=== PATIENT | male | born 1940 | race Caucasian/White ===

== ENCOUNTER 2021-12-19 06:40 | Inpatient (IN) | payer OTHER ==
[~2021-12-19] VITALS: Ht 182.9 cm; Wt 89.1 kg
[~2021-12-19 06:40] MED LIST: AMLO-496 PO; ASPI-543 PO; ATOR40TA52 PO; CLON0.2D6 PO; FLUT1AER13 IN; FURO40TA4 PO; KRIL1CAP PO; LEVO175T66 PO; LOSA-69 PO; NEBI2.5T3 PO; NEBI5TAB2 PO; SITA50TA PO; TIMO0.5S66 EACHEYE
[2021-12-19] MEDS ORDERED: fentaNYL CITRATE 100 MCG/2 ML VL ONE (07:56)
[2021-12-19] MEDS ORDERED: VANCOMYCIN HCL 1000 MG VL ONE ×2 (07:56→08:28)
[2021-12-19] MEDS ORDERED: VANCOMYCIN 1GM/250ML 250 ML IV ONE (07:57)
[2021-12-19] MEDS ORDERED: MIDAZOLAM HCL 2MG/2ML 2ml VIAL (1mg/ml) ONE (07:57)
[2021-12-19] MEDS ORDERED: IODIXANOL 320MG/ML 100ML BTL IV ONE (07:57)
[2021-12-19] MEDS ORDERED: LIDOCAINE 2%HCL (LOCAL ANESTH.) INJ 10ml MDV ONE ×2 (07:58→08:15)
[2021-12-19] MEDS ORDERED: MORPHINE SULFATE INJ 2 MG/ml SYRG IV PRN (10:00)
[2021-12-19] MEDS ORDERED: NITROGLYCERIN 0.4 MG SL TAB SL PRN (10:00)
[2021-12-19] MEDS ORDERED: HYDROcodone-ACET 5/325MG TAB PO PRN (11:00)
[2021-12-19] MEDS ORDERED: ACETAMINOPHEN 325 MG TAB PO PRN (11:00)
[2021-12-19] MEDS: ceFAZolin 2 GM in D5W 5% 100 ML IV SCH ×2 (11:39→22:51)
[2021-12-19 17:00] VITALS: BP 156/75
[2021-12-19 22:00] VITALS: BP 159/66
[2021-12-19] MEDS: DOXYCYCLINE 100 MG TAB/CAP PO SCH (22:51)
[2021-12-20 05:00] VITALS: BP 162/83
[2021-12-20] MEDS: ceFAZolin 2 GM in D5W 5% 100 ML IV SCH (05:07)
[2021-12-20 09:00] VITALS: BP 152/77
[2021-12-20] MEDS: DOXYCYCLINE 100 MG TAB/CAP PO SCH (10:16)
[2021-12-20 13:00] VITALS: BP 149/77
== END 2021-12-20 15:09 | disposition home or self-care (01) | DRG 244 ==
LOC: CATH 06:40 → TELE-EAST 09:50
PROVIDERS: ADMIT Specialist; ATTEND Specialist
PROC: 0JH606Z Insertion of Pacemaker, Dual Chamber into Chest Subcutaneous Tissue and Fascia, Open Approach (ICD-10-PCS; principal; 2021-12-19)
PROC: 02H63JZ Insertion of Pacemaker Lead into Right Atrium, Percutaneous Approach (ICD-10-PCS; 2021-12-19)
PROC: 02HK3JZ Insertion of Pacemaker Lead into Right Ventricle, Percutaneous Approach (ICD-10-PCS; 2021-12-19)
PROC: B5171ZZ Fluoroscopy of Left Subclavian Vein using Low Osmolar Contrast (ICD-10-PCS; 2021-12-19)
PROC: 4B02XSZ Measurement of Cardiac Pacemaker, External Approach (ICD-10-PCS; 2021-12-19)
DX: I49.5 Sick sinus syndrome (principal); Z20.822 Contact with and (suspected) exposure to COVID-19
CPT/HCPCS: 33208; 71045; 99152; 99153; C1785; G0378; J0690; J2001; J2250; J7060; Q9967

== ENCOUNTER 2025-04-06 15:34 | Inpatient (IN) | payer MEDICARE, OTHER ==
[~2025-04-06] VITALS: Ht 188 cm; Wt 87.2 kg
[~2025-04-06 15:34] MED LIST changes: -AMLO-496 PO; +AMLO1TAB22 PO; +APIX2.5T PO; +ATOR-47 PO; -ATOR40TA52 PO; +BICA50TA41 PO; -CLON0.2D6 PO; +DOXY1CAP57 PO; -FLUT1AER13 IN; +FLUT1AER3 IN; +FURO1TAB31 PO; +LATA0.008 EACHEYE; +LEVO150T10 PO; -LEVO175T66 PO; +LOSA-534 PO; -LOSA-69 PO; +NEBI10TA13 PO; -NEBI2.5T3 PO; -NEBI5TAB2 PO
--- NOTE | 2025-04-06 15:42 | ED.PDOC ---
SOB-HPI HPI Comments HPI: 84M BIBA w/ the c/c of failure to thrive. reports to EMS that she noticed the pt not being himself, not social and called PCP advised them to go to the ER, prompting her to call 911. notes to EMS that the pt has been having gen weak, lethargic for 1 month after chemo. Pt on scene was A/Ox4, GCS 14. Pt informed us that he also has SOB w/ minimal exertion. Denies ANy symptoms at this time. Patient is oxygen dependent 2-3 L nasal cannula at home. Pre- hospital course vital signs were stable. Past Medical history: COPD, Face/Lung Cancer, HTN, High Lipids, Thyroid [place], CHF, chemo x1 month Past Surgical history: Pacemaker Medications: Lasix, Eliquis Social History: Denies smoking, ETOH, and drug use. Allergies: NKDA HPI: Poor Historian. REVIEW OF SYSTEMS: CONSTITUTIONAL: Denies acute: fever, diaphoresis, chills, HEAD: Denies acute: headache, photophobia Eyes: Denies acute: Double vision, vision loss, eye pain, eye discharge. EARS: Denies acute: tinnitus, hearing loss, ear discharge, ear pain, THROAT: Denies acute: sore throat, swelling, difficulty swallowing , pain with swallowing, change in voice. NECK: Denies acute: neck pain, neck swelling, stiff neck. HEART: Denies acute : chest pain, palpitations, LUNGS: Denies acute: wheezing, cough, hemoptysis ABDOMEN: Denies acute: abdominal pain, Nausea, Vomiting, diarrhea, melena , hematemesis, hematochezia SKIN: Denies acute: rash, redness, lesions, itchiness. EXTREMITIES: Denies acute: calf pain, numbness, tingling, weakness, denies pain in extremity. Denies acute: Low back pain. Neuro: Denies acute: focal neurological deficit, motor or sensory focal neurological deficit, tremors, seizure like activity, confusion, dizziness, loss of bowel or bladder function, cauda equina like symptoms. : Denies acute: dysuria, hematuria, flank pain, increase in urinary frequency. PSYCH: Denies acute: hallucination, suicidal ideation, homicidal ideation. PHYSICAL EXAM: General: ----[id number]----acute distress, awake and alert. Head: normocephalic, atraumatic. No raccoon's eyes, no bryant sign. Neck: supple, trachea is midline, no swelling. Throat: Normal phonation. Eyes:, no erythema, no purulent discharge, no proptosis, no icterus. Heart: regular rate, regular rhythm, no significant murmur appreciated. Lungs: no apparent respiratory distress, Able to speak in full sentences. No wheezing, no rhonchi, no crackles. No stridors Clear to auscultation bilaterally. Abdomen: non tender to palpation, non distended, soft, no guarding, no rebound, + bowel sounds. Obese Neuro: Awake, Alert, oriented to name, self, situation, follows commands GCS=15. Speech is normal. Skin: no petechia, no purpura, no cyanosis, non-pale, not jaundice. Lower extremities: --2/4 bilateral - Pitting edema no deformity, no focal swelling, no calf TTP. Makes eye contact. moves all four extremities. Face: no apparent facial droop. ED COURSE: DISCLAIMER: This medical document was created using an electronic medical record system with voice recognition software and computerized dictation system. Although this document has been carefully reviewed, there might still be some phonetic and typographical errors. Occasional wrong-word or "sound-alike" substitutions may have occurred due to the inherent limitations of voice recognition software. These areas are purely typographical due to imperfections of the software pro grams and do not reflect any compromise in the patient's medical care. Please read the chart carefully and recognize, using context, where these substitutions have occurred. Chief Complaint: Failure to Thrive Time Seen by MD: 15:40 Reviewed notes: Nurses Notes, Medications, Allergies Information Source: Patient Mode of Arrival: EMS EKG EKG : Pulse Rate (adult): 71 [place]: Normal Cardiac Rhythm: NSR Block: LBBB Hypertrophy: None ST: Normal Was a procedure done? Was a procedure done?: No Differential Dx Differential Diagnosis: Other (DDx include ACS, unstable angina, anxiety, PE, pneumothroax, neoplasm, cardiac ischemia, COPD, asthma, CHF, pleural effusion, tobacco abuse, pneumonia, hypoxia, hypercapnia, anemia., infection/sepsis., pulmonary edema. Asthma, Cardiac tamponade, infection. As far as generalized weakness: Includes but not limited to thyroid disease, encephalopathy, electrolyte abnormality, sepsis, infection, intracranial pathology, drug adverse effects, arrhythmia, kidney insufficiency, ACS, CVA, malignancy, anemia) X-Ray, Labs, Meds, VS Vital Signs Date Time Temp Pulse Resp B/P (MAP) Pulse Ox O2 Delivery O2 Flow Rate FiO2 04/06/25 18:49 71 04/06/25 18:30 78 18 116/51 (72) 94 04/06/25 17:05 113/56 04/06/25 17:00 75 24 113/56 (75) 92 04/06/25 16:00 71 22 95 Nasal Cannula* 3 32 04/06/25 15:55 97.5 71 22 110/50 (70) 97 97.5 04/06/25 15:51 71 04/06/25 15:46 71 04/06/25 15:43 96 Nasal Cannula* 3 32 04/06/25 15:36 97.2 90 16 120/52 96 97.2 Lab Test 04/06/25 19:34 04/06/25 19:02 04/06/25 17:13 04/06/25 17:00 Range/Units Lactic Acid Level 0.6 0.4-2.0 mmol/L Troponin I High Sensitivity 13 14 </=54 ng/L Urine Color Colorless Yellow Urine Clarity Clear Clear Urine pH 5.0 5.0-9.0 Urine Specific [place] 1.009 1.001-1.035 Urine Protein Negative Negative Urine Ketones Negative Negative Urine Blood Trace H Negative /uL Urine Nitrite Negative Negative Urine Bilirubin Negative Negative Urine Urobilinogen Normal Negative mg/dL Urine Leukocyte Esterase 3+ Negative /uL Urine RBC 5 0 - 3 /hpf Urine Microscopic WBC 117 H 0-3 /HPF Urine Squamous Epithelial Cells Few <5 /hpf Urine Bacteria Many H None Seen /hpf Urine Glucose Normal Normal mg/dL Test 04/06/25 15:56 Range/Units White Blood Count 7.6 4.4-10.8 10^3/uL Red Blood Count 2.92 L 4.5-5.90 10^6/uL Hemoglobin 8.6 L 13.5-17.5 g/dL Hematocrit 27.0 L 41.0-53.0 % Mean Corpuscular Volume 92.4 80.0-100.0 fL Mean Corpuscular Hemoglobin 29.4 28.0-32.0 pg Mean Corpuscular Hemoglobin Concent 31.8 L 32.0-36.0 g/dL Red Cell Distribution Width 18.4 H 11.8-14.3 % Platelet Count 256 140-450 10^3/uL Mean Platelet Volume 7.4 6.9-10.8 fL Neutrophils (%) (Auto) 79.7 37.0-80.0 % Lymphocytes (%) (Auto) 5.6 L 10.0-50.0 % Monocytes (%) (Auto) 12.7 H 0.0-12.0 % Eosinophils (%) (Auto) 1.5 0.0-7.0 % Basophils (%) (Auto) 0.5 0.0-2.0 % Neutrophils # (Auto) 6.1 1.6-8.6 10 ^3/uL Lymphocytes # (Auto) 0.4 0.4-5.4 10 ^3/uL Monocytes # (Auto) 1.0 0-1.3 10 ^3/uL Eosinophils # (Auto) 0.1 0-0.8 10 ^3/uL Basophils # (Auto) 0 0-0.2 10 ^3/uL Nucleated Red Blood Cells 0.1 % Sodium Level 147 H 136-145 mmol/L Potassium Level 4.5 3.5-5.1 mmol/L Chloride Level 110 H 98-107 mmol/L Carbon Dioxide Level 27 20-31 mmol/L Anion Gap 10 5-15 Blood Urea Nitrogen 62 H 9-23 mg/dL Creatinine 2.74 H 0.700-1.30 mg/dL Glomerular Filtration Rate Calc 22 >90 mL/min BUN/Creatinine Ratio 22.6 H 10.0-20.0 Serum Glucose 108 H 74-106 mg/dL Calcium Level 8.6 L 8.7-10.4 mg/dL Magnesium Level 2.7 H 1.6-2.6 mg/dL Total Bilirubin 0.2 0.2-1.0 mg/dL Aspartate Amino Transferase (AST) 21 13-40 U/L Alanine Aminotransferase (ALT) 14 7-40 U/L Alkaline Phosphatase 80 46-116 U/L Troponin I High Sensitivity 13 </=54 ng/L B-Type Natriuretic Peptide 370.27 0-100 pg/mL Total Protein 7.1 5.7-8.2 g/dL Albumin 3.6 3.2-4.8 g/dL Current Medications Medications (Trade) Dose Ordered Sig/Andressa Route Start Time Stop Time Status Last Admin Furosemide (Lasix Injection) 40 mg ONCE ONCE IV 04/06/25 15:45 04/06/25 15:46 DC 04/06/25 17:05 Piperacillin Sod/ Tazobactam Sod 100 ml @ 100 mls/hr ONCE ONCE IV 04/06/25 16:30 04/06/25 17:29 DC 04/06/25 17:05 [place] [address] Ph: [phone] DIAGNOSTIC IMAGING Diagnostic Imaging Report : [id number] Signed PATIENT: IDLAN GARCIA ACCT: [id number] UNIT: [id number] : 1940 LOC: ER ROOM / BED: / AGE / SEX: 84 / M ADM STATUS: REG ER SERVICE 1535 ORDERING PHYSICIAN: MAIDA ARMAS DO PROCEDURE(s): CXRP - CHEST PORTABLE REASON: sob ORDER NUMBER(s): [id number], ACCESSION NUMBER(s): [id number] CHEST RADIOGRAPH Indication: sob Technique: Single frontal view of the chest was obtained Comparison: XY CHEST PORTABLE on DOS: 09/09/24, XY CHEST PORTABLE on DOS: 09/04/24, XY CHEST PORTABLE on DOS: 08/13/24 FINDINGS: Lines and Tubes: Dual-chamber pacemaker in place with pulse generator over the left chest. Lungs: Airspace disease right lower lobe with possible small effusion. Probable Airspace disease left lower lobe. Pleura: No effusion. No pneumothorax. Cardiomediastinal contours: Mild cardiomegaly. Bones: No acute osseous abnormality. IMPRESSION: 1. Cardiomegaly with bibasilar airspace disease and possible small pleural effusion on the right. 2. Pneumonia versus congestive failure are both in the radiographic differential ATED BY: RIGOBERTO OJEDA Jr., DO DICTATED DATE/TIME: 04/06/25 1617 SIGNED BY: RIGOBERTO OJEDA Jr., DO SIGNED DATE/TIME: 04/06/25 1617 CC: Time of 1ST Reevaluation: 16:10 Reevaluation 1ST: Unchanged Patient Education/Counseling: Diagnosis, Treatment Family Education/Counseling: No Family Present Comments MDM: patient presented with the above HPI.--failure to thrive and dyspnea----workup was initiated. patient was found with the above mentioned diagnosis. the following medications were ordered: please refer to order lists of meds and tests obtained by myself Dr. Armas. Patient ED course and VS have been stabilized. Patient has been reassessed in the ED and remained in a stable condition. Pertinent incidental findings were discussed with the patient and/or family. Patient/family voices understanding and is agreeable with plan. Patient has been observed in the ED adequate length of time to insure improvement/stability. Escalation of care considered: Consideration of escalation to observation or admission Patient was given Lasix for suspected volume overload, patient was given antibiotics for UTI and possible pneumonia. Patient was ADMITTED to the medicine team for further evaluation and treatment of their presentation. All the reports of any imaging studies that were ordered by myself were reviewed by myself. SEPSIS Sepsis Screen Physician Orders Parts Cataloger (04/06/25 ) Chest Portable (04/06/25 15:35) Blood Culture (04/06/25 15:35) Vital Signs Date Time Temp Pulse Resp B/P (MAP) Pulse Ox O2 Delivery O2 Flow Rate FiO2 04/06/25 18:49 71 04/06/25 18:30 78 18 116/51 (72) 94 04/06/25 17:05 113/56 04/06/25 17:00 75 24 113/56 (75) 92 04/06/25 16:00 71 22 95 Nasal Cannula* 3 32 04/06/25 15:55 97.5 71 22 110/50 (70) 97 97.5 04/06/25 15:51 71 04/06/25 15:46 71 04/06/25 15:43 96 Nasal Cannula* 3 32 04/06/25 15:36 97.2 90 16 120/52 96 97.2 Laboratory Tests Test 04/06/25 15:56 04/06/25 19:34 White Blood Count 7.6 10^3/uL (4.4-10.8) Lactic Acid Level 0.6 mmol/L (0.4-2.0) Medications Medications Dose Ordered Sig/Andressa Route Start Time Stop Time Status Last Admin Dose Admin Furosemide 40 mg ONCE ONCE IV 04/06/25 15:45 04/06/25 15:46 DC 04/06/25 17:05 Piperacillin Sod/ Tazobactam Sod 100 ml @ 100 mls/hr ONCE ONCE IV 04/06/25 16:30 04/06/25 17:29 DC 04/06/25 17:05 Departure 1 Departure Time of Disposition: 16:31 Impression: Primary Impression: CHF exacerbation Additional Impressions: Pleural effusion Pneumonia Anemia Failure to thrive Generalized weakness Acute renal insufficiency UTI (urinary tract infection) Disposition: ADMITTED INPATIENT Admit to: Tele Condition: Guarded Discharged With: Self Critical Care Note Critical Care Time?: Yes (55 min-critical care time only) Heart Score Heart Score: Heart Score Response (Comments) Value History Slightly Suspicious 0 EKG Normal 0 Age >65 2 Risk Factors >3 or Hx ASHD 2 Troponin Normal limit 0 Total 4 I personally scribed for MAIDA ARMAS DO ([email or web address]) on 04/06/25 at 15:42. Electr onically submitted by Jovani Greenberg ([employer]). I personally scribed for MAIDA ARMAS DO ([email or web address]) on 04/06/25 at 15:51. Electronically submitted by Jovani Greenberg ([employer]). I personally scribed for MAIDA ARMAS DO ([email or web address]) on 04/06/25 at 16:57. Electronically submitted by Jovani Greenberg ([employer]). MAIDA ARMAS DO Apr 06, 2025 15:42
[2025-04-06 16:00] VITALS: PULSE 71; RESP 22; O2SAT 95
--- NOTE | 2025-04-06 16:19 | DVH ---
CHEST RADIOGRAPH Indication: sob Technique: Single frontal view of the chest was obtained Comparison: XY CHEST PORTABLE on DOS: 09/09/24, XY CHEST PORTABLE on DOS: 09/04/24, XY CHEST PORTABLE on DOS: 08/13/24 FINDINGS: Lines and Tubes: Dual-chamber pacemaker in place with pulse generator over the left chest. Lungs: Airspace disease right lower lobe with possible small effusion. Probable Airspace disease left lower lobe. Pleura: No effusion. No pneumothorax. Cardiomediastinal contours: Mild cardiomegaly. Bones: No acute osseous abnormality. IMPRESSION: 1. Cardiomegaly with bibasilar airspace disease and possible small pleural effusion on the right. 2. Pneumonia versus congestive failure are both in the radiographic differential
[2025-04-06 16:24] LABS: Hematocrit 27.0 % (41.0-53.0); Hemoglobin 8.6 g/dL (13.5-17.5); Mean Corpuscular Hemoglobin 29.4 pg (28.0-32.0); Mean Corpuscular Volume 92.4 fL (80.0-100.0); Nucleated Red Blood Cells % 0.1 %
[2025-04-06 16:38] LABS: Alanine Aminotransferase 14 U/L (7-40); Albumin 3.6 g/dL (3.2-4.8); Alkaline Phosphatase 80 U/L (46-116); Anion Gap 10 (5-15); BUN/Creatinine Ratio 22.6 (10.0-20.0); Carbon Dioxide 27 mmol/L (20-31); Potassium 4.5 mmol/L (3.5-5.1); Total Protein 7.1 g/dL (5.7-8.2)
[2025-04-06 16:39] LABS: Blood Urea Nitrogen 62 mg/dL (9-23); Calcium 8.6 mg/dL (8.7-10.4); Chloride 110 mmol/L (98-107); Glucose 108 mg/dL (74-106); Magnesium 2.7 mg/dL (1.6-2.6); Sodium 147 mmol/L (136-145)
--- NOTE | 2025-04-06 16:39 | ECG ---
[facility] Test Date: 2025-04-06 Test Time: 15:46:07 Pat Name: DILAN GARCIA Department: [facility] ED Patient ID: [facility]-[id number] Room: 0278 Gender: M [employer] Supervisor: gabriele : 1940 Requested By: MAIDA ARMAS Order Number: [id number] Reading MD: Jimenez Neff Measurements Intervals [place] Rate: 71 P: 97 MI: 181 QRS: 48 QRSD: 140 T: 87 QT: 400 QTc: 435 Interpretive Statements Sinus rhythm Left bundle branch block Electronically Signed On 04-07-2025 13:56:08 PST by Jimenez Neff Please click the below link to view image of tracing.
[2025-04-06 16:40] LABS: Bilirubin, Total 0.2 mg/dL (0.2-1.0)
[2025-04-06] MEDS: PIPERACILLIN-TAZOB 3.375GM 100 ML IV ONE (17:05)
[2025-04-06] MEDS: FUROSEMIDE 40 MG/4 ML VIAL IV ONE (17:05)
[2025-04-06 18:19] LABS: Urine Protein, UAD Negative (Negative)
[2025-04-06 19:10] VITALS: O2SAT 94
[2025-04-06] MEDS ORDERED: ONDANSETRON HCL 4 MG/2 ML VIAL IV PRN (22:15)
[2025-04-06] MEDS ORDERED: ALBUTEROL SULF 2.5 MG/0.5ML(0.5%) NEB SOLN NEB PRN (22:15)
[2025-04-06] MEDS ORDERED: HYDROcodone-ACET 5/325MG TAB PO PRN (22:15)
--- NOTE | 2025-04-06 22:22 | DVHHP2 ---
History of Present Illness Reason for Visit: Generalized weakness History of Present Illness 84-year-old male presents for evaluation of generalized weakness. Per patient's patient has been progressively weaker and more lethargic over the past one month. He did have his last chemotherapy for lung cancer one month ago. P atient has decreased appetite and refuses to get out of bed. Patient is currently alert oriented x3. Also reports shortness for breath. No cough or fever. Past Medical History Lung CA, COPD, hypertension, dyslipidemia, thyroid, CHF Past Surgical History Pacemaker Family History Noncontributory Smoke: No ALCOHOL: none Drugs: None Lives: with Family Review of Systems Review of Systems Review of systems are currently negative otherwise addressed in HPI. Allergies: Uncoded Allergies: NONE (Allergy, Unknown, 12/16/21) Exam Vital Signs Vital Signs Date Time Temp Pulse Resp B/P (MAP) Pulse Ox O2 Delivery O2 Flow Rate FiO2 04/06/25 18:49 71 04/06/25 18:30 18 116/51 (72) 94 04/06/25 16:00 Nasal Cannula* 3 32 04/06/25 15:55 97.5 97.5 Exam Gen: 84-year-old male in mild distress Skin: Warm, dry, normal color and texture, no rash. HEENT: Normocephalic atraumatic, mucous membranes moist and pink. Neck: Cervical and supraclavicular nodes normal without enlargement, trachea is midline, thyroid gland is normal without masses. Pulmonary: Clear to auscultation and percussion bilaterally. Cardiac: Regular rate and rhythm. No murmur Abdomen: Soft, nontender, nondistended, bowel sounds present all 4 quadrants, no guarding, no rigidity, no organomegaly. Extremities: No cyanosis, clubbing, no edema Neuro: Cranial nerves II through XII grossly intact, normal affect and speech, no focal motor deficits. Labs/Xrays ORDERING PHYSICIAN: MAIDA ARMAS DO PROCEDURE(s): CXRP - CHEST PORTABLE REASON: sob ORDER NUMBER(s): [id number], ACCESSION NUMBER(s): [id number] CHEST RADIOGRAPH Indication: sob Technique: Single frontal view of the chest was obtained Comparison: XY CHEST PORTABLE on DOS: 09/09/24, XY CHEST PORTABLE on DOS: 09/04/24, XY CHEST PORTABLE on DOS: 08/13/24 FINDINGS: Lines and Tubes: Dual-chamber pacemaker in place with pulse generator over the left chest. Lungs: Airspace disease right lower lobe with possible small effusion. Probable Airspace disease left lower lobe. Pleura: No effusion. No pneumothorax. Cardiomediastinal contours: Mild cardiomegaly. Bones: No acute osseous abnormality. IMPRESSION: 1. Cardiomegaly with bibasilar airspace disease and possible small pleural effusion on the right. 2. Pneumonia versus congestive failure are both in the radiographic differential ATED BY: RIGOBERTO RUIZ Jr. DO Labs Test 04/06/25 19:34 04/06/25 19:02 04/06/25 17:13 04/06/25 15:56 Range/Units Lactic Acid Level 0.6 0.4-2.0 mmol/L Troponin I High Sensitivity 13 </=54 ng/L Urine Color Colorless Yellow Urine Clarity Clear Clear Urine pH 5.0 5.0-9.0 Urine Specific [place] 1.009 1.001-1.035 Urine Protein Negative Negative Urine Ketones Negative Negative Urine Blood Trace H Negative /uL Urine Nitrite Negative Negative Urine Bilirubin Negative Negative Urine Urobilinogen Normal Negative mg/dL Urine Leukocyte Esterase 3+ Negative /uL Urine RBC 5 0 - 3 /hpf Urine Microscopic WBC 117 H 0-3 /HPF Urine Squamous Epithelial Cells Few <5 /hpf Urine Bacteria Many H None Seen /hpf Urine Glucose Normal Normal mg/dL White Blood Count 7.6 4.4-10.8 10^3/uL Red Blood Count 2.92 L 4.5-5.90 10^6/uL Hemoglobin 8.6 L 13.5-17.5 g/dL Hematocrit 27.0 L 41.0-53.0 % Mean Corpuscular Volume 92.4 80.0-100.0 fL Mean Corpuscular Hemoglobin 29.4 28.0-32.0 pg Mean Corpuscular Hemoglobin Concent 31.8 L 32.0-36.0 g/dL Red Cell Distribution Width 18.4 H 11.8-14.3 % Platelet Count 256 140-450 10^3/uL Mean Platelet Volume 7.4 6.9-10.8 fL Neutrophils (%) (Auto) 79.7 37.0-80.0 % Lymphocytes (%) (Auto) 5.6 L 10.0-50.0 % Monocytes (%) (Auto) 12.7 H 0.0-12.0 % Eosinophils (%) (Auto) 1.5 0.0-7.0 % Basophils (%) (Auto) 0.5 0.0-2.0 % Neutrophils # (Auto) 6.1 1.6-8.6 10 ^3/uL Lymphocytes # (Auto) 0.4 0.4-5.4 10 ^3/uL Monocytes # (Auto) 1.0 0-1.3 10 ^3/uL Eosinophils # (Auto) 0.1 0-0.8 10 ^3/uL Basophils # (Auto) 0 0-0.2 10 ^3/uL Nucleated Red Blood Cells 0.1 % Sodium Level 147 H 136-145 mmol/L Potassium Level 4.5 3.5-5.1 mmol/L Chloride Level 110 H 98-107 mmol/L Carbon Dioxide Level 27 20-31 mmol/L Anion Gap 10 5-15 Blood Urea Nitrogen 62 H 9-23 mg/dL Creatinine 2.74 H 0.700-1.30 mg/dL Glomerular Filtration Rate Calc 22 >90 mL/min BUN/Creatinine Ratio 22.6 H 10.0-20.0 Serum Glucose 108 H 74-106 mg/dL Calcium Level 8.6 L 8.7-10.4 mg/dL Magnesium Level 2.7 H 1.6-2.6 mg/dL Total Bilirubin 0.2 0.2-1.0 mg/dL Aspartate Amino Transferase (AST) 21 13-40 U/L Alanine Aminotransferase (ALT) 14 7-40 U/L Alkaline Phosphatase 80 46-116 U/L B-Type Natriuretic Peptide 370.27 0-100 pg/mL Total Protein 7.1 5.7-8.2 g/dL Albumin 3.6 3.2-4.8 g/dL SEPSIS Sepsis Screen Date sepsis recognized/suspect: Apr 06, 2025 Time Sepsis recognized/suspect: 1909 Recent Procedure: No On Antibiotic Therapy: No Respiratory Rate >20: Yes Heart Rate >90: No Temp<36 C (96.8 F) or >38.3 C: No SBP <90 or MAP <65 mmHG: No New Acute Mental Status Change: No Is the patient on CPAP, BIPAP,: No Physician Orders [place] (04/06/25 ) Chest Portable (04/06/25 15:35) Blood Culture (04/06/25 15:35) Ceftriaxone Ivpb Rocephin (04/07/25 09:00) Azithromycin 500mg/ 250ml (Zithromax 50 (04/07/25 10:00) Urine Bacterial Culture (04/06/25 22:10) Albuterol Medneb (Ventolin Medneb) (04/06/25 22:15) Amlodipine Tablet (Norvasc Tablet) (04/07/25 10:00) Apixaban (Eliquis) (04/07/25 10:00) Atorvastatin (Lipitor) (04/07/25 22:00) Furosemide Tablet (Lasix Tablet) (04/07/25 10:00) Levothyroxine Tablet (Synthroid Tablet) (04/07/25 06:00) Thyroid Stimulating Hormone (04/06/25 22:10) Albuterol Medneb (Ventolin Medneb) (04/06/25 22:15) Admit (04/06/25 22:10) Renal Standard(2gna,3gk,Lopho) (04/07/25 Breakfast) Hydrocodone-Acet 5/325mg Tab ([place] (04/06/25 22:15) Ondansetron Hcl (Zofran) (04/06/25 22:15) Complete Blood Count (04/07/25 04:00) Echo 2d Mode Cardiac Dop (04/06/25 22:10) Condition: Stable (04/06/25 22:10) Acetaminophen Tablet (Tylenol Tablet) (04/06/25 22:15) Bedrest With Bathroom Privileg (04/06/25 22:10) Basic Metabolic Panel (04/07/25 04:00) Vital Signs Date Time Temp Pulse Resp B/P (MAP) Pulse Ox O2 Delivery O2 Flow Rate FiO2 04/06/25 18:49 71 04/06/25 18:30 78 18 116/51 (72) 94 04/06/25 17:05 113/56 04/06/25 17:00 75 24 113/56 (75) 92 04/06/25 16:00 71 22 95 Nasal Cannula* 3 32 04/06/25 15:55 97.5 71 22 110/50 (70) 97 97.5 04/06/25 15:51 71 04/06/25 15:46 71 04/06/25 15:43 96 Nasal Cannula* 3 32 04/06/25 15:36 97.2 90 16 120/52 96 97.2 Laboratory Tests Test 04/06/25 15:56 04/06/25 19:34 White Blood Count 7.6 10^3/uL (4.4-10.8) Lactic Acid Level 0.6 mmol/L (0.4-2.0) Medications Medications Dose Ordered Sig/Andressa Route Start Time Stop Time Status Last Admin Dose Admin Furosemide 40 mg ONCE ONCE IV 04/06/25 15:45 04/06/25 15:46 DC 04/06/25 17:05 40 MG Piperacillin Sod/ Tazobactam Sod 100 ml @ 100 mls/hr ONCE ONCE IV 04/06/25 16:30 04/06/25 17:29 DC 04/06/25 17:05 100 MLS/HR Assessment/Plan Assessment/Plan Assessment Metabolic encephalopathy ? Pneumonia Urinary tract infection Chronic kidney disease Heart failure Small pleural effusion History of lung cancer status post chemotherapy Plan Admit the patient to [facility] to the hospitalist Nephrology consultation Rocephin/azithromycin Head CT pending Resume home medications Continue treatment per orders Plan discussed with: Other My Orders Orders - JEANINE GUADARRAMA Procedure Category Date Status Time Ceftriaxone Ivpb PHA 04/07/25 Verified Rocephin 09:00 Azithromycin 500mg/ PHA 04/07/25 Verified 250ml (Zithromax 50 10:00 Urine Bacterial [place] 04/06/25 Verified Culture 22:10 Albuterol Medneb PHA 04/06/25 Verified (Ventolin Medneb) 22:15 Amlodipine Tablet PHA 04/07/25 Verified (Norvasc Tablet) 10:00 Apixaban (Eliquis) PHA 04/07/25 Verified 10:00 Atorvastatin (Lipitor) PHA 04/07/25 Verified 22:00 Furosemide Tablet PHA 04/07/25 Verified (Lasix Tablet) 10:00 Levothyroxine Tablet PHA 04/07/25 Verified (Synthroid Tablet) 06:00 Thyroid Stimulating LAB 04/06/25 Verified Hormone 22:10 Albuterol Medneb PHA 04/06/25 Verified (Ventolin Medneb) 22:15 Admit ADMIT 04/06/25 Verified 22:10 Renal DIET 04/07/25 Verified Standard(2gna,3gk,Lopho) Breakfast Hydrocodone-Acet PHA 04/06/25 Verified 5/325mg Tab ([place] 22:15 Ondansetron Hcl PHA 04/06/25 Verified (Zofran) 22:15 Complete Blood Count LAB 04/07/25 Verified 04:00 Echo 2d Mode Cardiac US 04/06/25 Verified DOP 22:10 Condition: Stable MICHELLE 04/06/25 Verified 22:10 Acetaminophen Tablet PHA 04/06/25 Verified (Tylenol Tablet) 22:15 Bedrest With Bathroom MICHELLE 04/06/25 Verified Privileg 22:10 Basic Metabolic Panel LAB 04/07/25 Verified 04:00 Date of Service: Apr 06, 2025 Billing Provider: JEANINE GUADARRAMA Common Visit Codes: [id number] INP/OBS CARE (HIGH) JEANINE GUADARRAMA Apr 06, 2025 22:22
[2025-04-06 22:48] VITALS: O2SAT 97
[2025-04-06 22:49] VITALS: BP 111/54; PULSE 93; RESP 18
[2025-04-06] MEDS: ALBUTEROL SULF 2.5 MG/0.5ML(0.5%) NEB SOLN NEB PRN (23:11)
--- NOTE | 2025-04-06 23:28 | DVH ---
CLINICAL HISTORY: r/o cva TECHNIQUE: Helical imaging carried out from skull base to vertex without intravenous contrast. This e xam was performed according to our departmental dose optimization program. Up-to-date CT equipment an d radiation dose reduction techniques are utilized as appropriate. CTDIVol: 50.57 mGy DLP: 863.9 mGy-cm WID: COMPARISON: None FINDINGS: Mild cerebral volume loss with concordant prominence of the subarachnoid spaces and ventricles. Minor periventricular white matter hypodensities consistent with nonspecific white matter disease. There is no midline shift or mass effect. The [place] white matter interfaces are maintained. The basal cisterns are patent. There is no evidence of acute intracranial hemorrhage or extra-axial fluid allison ection. The mastoid air cells and visualized paranasal sinuses are well-aerated. Prior ocular lens re placement. IMPRESSION: 1. No acute intracranial abnormality. 2. Mild cerebral volume loss and minor chronic microvascular ischemic change.
[2025-04-07] VITALS (19 sets, daily range): BP systolic 93–131; BP diastolic 54–60; PULSE 51–79; RESP 14–24; TEMP 97.5–100.3; O2SAT 89–99
[2025-04-07] MEDS ORDERED: SACU1TAB PO (01:06)
[2025-04-07] MEDS ORDERED: LUTE1CAP7 PO (01:07)
[2025-04-07] MEDS ORDERED: EMOLOIN EXT (01:33)
[2025-04-07] MEDS: LEVOTHYROXINE SODIUM 50 MCG TAB PO SCH (05:55)
[2025-04-07 06:34] LABS: Potassium 4.5 mmol/L (3.5-5.1)
[2025-04-07 06:35] LABS: Anion Gap 10 (5-15); Carbon Dioxide 29 mmol/L (20-31)
[2025-04-07 06:36] LABS: Hematocrit 27.6 % (41.0-53.0); Hemoglobin 9.0 g/dL (13.5-17.5); Mean Corpuscular Hemoglobin 29.4 pg (28.0-32.0); Mean Corpuscular Volume 90.3 fL (80.0-100.0); Nucleated Red Blood Cells % 0.0 %
[2025-04-07 06:38] LABS: Calcium 8.5 mg/dL (8.7-10.4); Chloride 109 mmol/L (98-107); Sodium 148 mmol/L (136-145)
[2025-04-07 06:40] LABS: BUN/Creatinine Ratio 21.7 (10.0-20.0)
[2025-04-07 06:52] LABS: Blood Urea Nitrogen 57 mg/dL (9-23); Glucose 130 mg/dL (74-106)
[2025-04-07] MEDS: APIXABAN 2.5 MG TAB PO SCH (09:26)
[2025-04-07] MEDS: FUROSEMIDE 40 MG TAB PO SCH (09:27)
--- NOTE | 2025-04-07 09:39 | DVHPN2 ---
Subjective 84-year-old male with a history of lung cancer who is on radiation therapy is brought to the hospital because of weakness and altered level of consciousness He has hypernatremia and acute kidney injury Changes from previous H/P or p: Changes Objective Vitals Vital Signs Date Time Temp Pulse Resp B/P (MAP) Pulse Ox O2 Delivery O2 Flow Rate FiO2 04/07/25 06:35 96 Nasal Cannula 2.0 04/07/25 06:35 28 04/07/25 05:00 97.7 77 20 126/60 (82) 97.7 Intake/Output Intake and Output 04/07/25 07:00 Intake Total 280 ml Output Total 1050 ml Balance -770 ml Intake Oral 180 ml IV Total 100 ml Output Urine Total 1050 ml General Appearance: Alert, Oriented X3, Cooperative Lungs: Clear to auscultation, Normal air movement Cardiovascular: Regular rate, Normal S1 Abdomen: Normal bowel sounds, Soft Extremities: No edema Medications Current Medications Medications Dose Ordered Sig/Andressa Route Start Time Stop Time Status Last Admin Dose Admin Ceftriaxone Sodium 50 ml @ 100 mls/hr DAILY@09 IV 04/07/25 09:00 Azithromycin 250 ml @ 125 mls/hr DAILY IV 04/07/25 10:00 Albuterol 2.5 mg Q6HPRN PRN NEB 04/06/25 22:15 04/06/25 23:11 2.5 MG Amlodipine Besylate 5 mg DAILY PO 04/07/25 10:00 Apixaban 2.5 mg BID PO 04/07/25 10:00 Atorvastatin Calcium 80 mg HS PO 04/07/25 22:00 Furosemide 80 mg DAILY PO 04/07/25 10:00 Levothyroxine Sodium 150 mcg QAM@0600 PO 04/07/25 06:00 04/07/25 05:55 150 MCG Acetaminophen/ Hydrocodone Bitart 1 tab Q4HP PRN PO 04/06/25 22:15 Ondansetron HCl 4 mg Q4HP PRN IV 04/06/25 22:15 Acetaminophen 650 mg Q6HP PRN PO 04/06/25 22:15 Laboratory Results Laboratory Tests 04/07/25 04:39 Chemistry Test 04/06/25 15:56 04/07/25 04:39 Albumin 3.6 g/dL (3.2-4.8) Calcium Level 8.6 mg/dL (8.7-10.4) L 8.5 mg/dL (8.7-10.4) L Magnesium Level 2.7 mg/dL (1.6-2.6) H Total Protein 7.1 g/dL (5.7-8.2) Cardiac Markers Test 04/06/25 15:56 B-Type Natriuretic Peptide 370.27 pg/mL (0-100) LFT Test 04/06/25 15:56 Alanine Aminotransferase (ALT) 14 U/L (7-40) Alkaline Phosphatase 80 U/L (46-116) Aspartate Amino Transferase (AST) 21 U/L (13-40) Total Bilirubin 0.2 mg/dL (0.2-1.0) HgA1c, TSH Test 04/06/25 17:00 Thyroid Stimulating Hormone (TSH) 1.86 uIU/mL (0.55-4.78) Urinalysis Test 04/06/25 17:13 Urine Color Colorless (Yellow) Urine Clarity Clear (Clear) Urine pH 5.0 (5.0-9.0) Urine Specific Coin 1.009 (1.001-1.035) Urine Protein Negative (Negative) Urine Ketones Negative (Negative) Urine Blood Trace /uL (Negative) H Urine Nitrite Negative (Negative) Urine Bilirubin Negative (Negative) Urine Urobilinogen Normal mg/dL (Negative) Urine Leukocyte Esterase 3+ /uL (Negative) Urine RBC 5 /hpf (0 - 3) Urine Microscopic WBC 117 /HPF (0-3) H Urine Squamous Epithelial Cells Few /hpf (<5) Urine Bacteria Many /hpf (None Seen) H Urine Glucose Normal mg/dL (Normal) Assessment/Plan Assessment/Plan Metabolic encephalopathy Hypernatremia Acute kidney injury due to vasomotor nephropathy Chronic kidney disease Lung cancer on radiation therapy Bilateral pneumonia UTI History of heart failure Small pleural effusion Chronic anemia of chronic disease Acute on chronic hypoxic respiratory failure COPD Hypertension Type 2 diabetes Obesity History of prostate cancer status post prostatectomy History of aortic stenosis status post TAVR Hypothyroidism History of CVA Atrial fibrillation on Eliquis Plan Continue IV antibiotics Rocephin and Zithromax Add IV fluids D5 half NS Nephrology consult Chavez catheter Physical therapy Echocardiogram Kidney ultrasound Blood culture Urine culture Monitor closely Continue Eliquis Plan discussed with: Patient Date of Service: Apr 07, 2025 Billing Provider: DEEPAK ATKINS MD Common Visit Codes: NOT BILLABLE DEEPAK ATKINS MD Apr 07, 2025 09:39
[2025-04-07] MEDS: D5W/SOD CHL 0.45% 1,000 ML IV SCH ×2 (09:45→11:05)
--- NOTE | 2025-04-07 10:19 | DVH ---
EXAM DESCRIPTION: RENAL ULTRASOUND CLINICAL HISTORY: jose COMPARISON: US LIVER on DOS: 09/06/24, US KIDNEY on DOS: 09/05/24, US KIDNEY on DOS: 08/18/24 TECHNIQUE: Multiplanar ultrasound examination of the kidneys and urinary bladder was performed. FINDINGS: The right kidney measures 9.4 cm. No renal calculus. No hydronephrosis.. No solid renal masses. The left kidney measures 11.9 cm. No renal calculus. No hydronephrosis.. Questionable 3.2 cm mass at the upper pole of the left kidney. The echogenicity of the kidneys is within normal limits. The urinary bladder is decompressed with a bay catheter. Bilateral pleural effusions. IMPRESSION: 1. No hydronephrosis. 2. Questionable 3.2 cm left renal mass. Recommend further evaluation with CT or MRI with IV contrast 3. Bilateral pleural effusions.
[2025-04-07] MEDS: AZITHROMYCIN 500MG/250ML 250 ML IV SCH (10:29)
[2025-04-07 10:40] LABS: Magnesium 2.6 mg/dL (1.6-2.6)
--- NOTE | 2025-04-07 10:52 | DVHCONRES ---
Date Seen: Apr 07, 2025 Resident Creating Document: ANMOL MARTINO RESDIENT History of Present Illness This is a 84-year-old male with past medical history of Lung CA, COPD, hypertension, dyslipidemia, CKD 3B, thyroid and status post pacemaker brought in to the hospital due to generalized weakness and decreased oral intake. Per patient's patient has been progressively weaker and more lethargic over the past one month. He did have his last chemotherapy for lung cancer one month ago. Patient has decreased appetite and refuses to get out of bed. Patient is currently alert oriented x3. Also reports shortness for breath. No cough or fever. Family History: Patient reports no known family medical history. Allergies: Uncoded Allergies: NONE (Allergy, Unknown, 12/16/21) Home Meds Active Scripts Furosemide (Lasix) 40 Mg Tab, 40 MG PO BID, #60 TAB 5 Refills Prov:DEEPAK ATKINS MD 09/10/24 Doxycycline Monohydrate (Doxycycline Monohydrate) 100 Mg Cap, 1 CAP PO BID, #14 CAP Prov:DEEPAK ATKINS MD 09/10/24 Reported Medications Emollient (Aquaphor) Oin, 1 EXT DAILY, OIN 04/07/25 Lutein-Zeaxanthin (Ocuvite Lutein 25 25-5 mg) 1 Cap Cap, 1 CAP PO DAILY, CAP 04/07/25 Sacubitril-Valsartan (Entresto 24-26 mg) 1 Tab Tab, 1 TAB PO DAILY, TAB 04/07/25 Levothyroxine Sodium (Levothyroxine Sodium) 150 Mcg Tab, 1 TAB PO DAILY for 90 Days, #90 09/08/24 Nebivolol HCl (Nebivolol Hydrochloride) 10 Mg Tab, 1 TAB PO DAILY for 90 Days, #90 09/06/24 Apixaban Base (ELIQUIS) 2.5 Mg Tab, 1 TAB PO BID for 90 Days, #180 09/06/24 Sitagliptin Phosphate (Januvia) 50 Mg Tab, 1 TAB PO DAILY for 90 Days, #90 09/06/24 Dplwhsxwpco-Zqjgctcmmuuh-[place]ka (Trelegy Ellipta 100-62.5-25 Mcg/INH) 1 Aer Aer, 1 AER IN BID for 90 Days, #180 09/06/24 Latanoprost (LATANOPROST) 0.005 % Jessi, 1 DROP EACHEYE QPM for 90 Days, #7.5 09/06/24 Atorvastatin Calcium (ATORVASTATIN CALCIUM) 80 Mg Tab, 1 TAB PO HS for 90 Days, #90 09/06/24 Amlodipine Besylate (Amlodipine Besylate) 5 Mg Tab, 1 TAB PO DAILY for 90 Days, #90 09/06/24 Bicalutamide (Casodex) 50 Mg Tab, 1 TAB PO DAILY for 90 Days, #90 09/05/24 Krill Oil (Megared [place]-3 350 mg) 1 Cap Cap, 2 CAP PO DAILY, CAP 12/16/21 Furosemide (Furosemide) 40 Mg Tab, 80 MG PO DAILY, MG 12/16/21 Losartan Potassium (Losartan Potassium) 50 Mg Tab, 50 MG PO DAILY for 30 Days, MG 12/16/21 Discontinued Reported Medications Aspirin (Aspir-Low) 81 Mg Tab, 81 MG PO DAILY, MG 12/16/21 Timolol Maleate (Ophth) (TIMOPTIC) 0.5 % Jessi, 1 DROP EACHEYE BID, #10 ML 3 Refills 12/16/21 Current Medications Current Medications Medications (Trade) Dose Ordered Sig/Andressa Route PRN Reason Start Time Stop Time Status Last Admin Ceftriaxone Sodium 50 ml @ 100 mls/hr DAILY@09 IV 04/07/25 09:00 04/07/25 09:23 Azithromycin 250 ml @ 125 mls/hr DAILY IV 04/07/25 10:00 04/07/25 10:29 Albuterol (Ventolin Medneb) 2.5 mg Q6HPRN PRN NEB SHORTNESS OF BREATH 04/06/25 22:15 04/06/25 23:11 Amlodipine Besylate (Norvasc Tablet) 5 mg DAILY PO 04/07/25 10:00 04/07/25 09:26 Apixaban (Eliquis) 2.5 mg BID PO 04/07/25 10:00 04/07/25 09:26 Atorvastatin Calcium (Lipitor) 80 mg HS PO 04/07/25 22:00 Furosemide (Lasix Tablet) 80 mg DAILY PO 04/07/25 10:00 04/07/25 09:27 Levothyroxine Sodium (Synthroid Tablet) 150 mcg QAM@0600 PO 04/07/25 06:00 04/07/25 05:55 Albuterol (Ventolin Medneb) 2.5 mg Q6HPRN PRN NEB SHORTNESS OF BREATH 04/06/25 22:15 04/07/25 01:18 DC Acetaminophen/ Hydrocodone Bitart ([place] 5/325MG Tab) 1 tab Q4HP PRN PO MODERATE PAIN (4-6 PAIN SCALE) 04/06/25 22:15 Ondansetron HCl (Zofran) 4 mg Q4HP PRN IV NAUSEA / VOMITING 04/06/25 22:15 Acetaminophen (Tylenol Tablet) 650 mg Q6HP PRN PO PAIN SCALE 1-3 OR TEMP>100.4 04/06/25 22:15 Dextrose/Sodium Chloride 1,000 ml @ 50 mls/hr Q20H IV 04/07/25 09:45 04/07/25 09:45 Review of Systems Patient seen and examined at the bedside. Patient is complaining of shortness o f breaths and generalized weakness. Vital Signs Vital Signs Date Time Temp Pulse Resp B/P (MAP) Pulse Ox O2 Delivery O2 Flow Rate FiO2 04/07/25 09:27 131/58 04/07/25 09:00 99.7 77 22 92 99.7 04/07/25 06:35 Nasal Cannula 2.0 04/07/25 06:35 28 Physical Exam General Appearance: Alert, Oriented X3, Cooperative, No acute distress HEENT: Atraumatic, PERRLA, EOMI, dry mucous membrane, and decreased skin turgor Respiratory: Bilateral wheezing Cardiovascular: Regular rate, Normal S1, Normal S2, No murmurs, no chest wall tenderness Abdominal: Normal bowel sounds, Soft, No tenderness, No hepatospenomegaly, No masses Extremities: Bilateral trace edema Skin: No rashes, No breakdown, No significant lesion Neuro: Normal gait, Normal speech, Strength at 5/5 X4 ext, Normal tone, Sensation intact, Cranial nerves 3-12 NL, Reflexes 2+ Psych/Mental Status: Mental status NL, Mood NL Labs/Diagnostic Data Labs Test 04/07/25 04:39 04/06/25 19:34 04/06/25 19:02 04/06/25 17:13 Range/Units White Blood Count 9.9 # 4.4-10.8 10^3/uL Red Blood Count 3.05 L 4.5-5.90 10^6/uL Hemoglobin 9.0 L 13.5-17.5 g/dL Hematocrit 27.6 L 41.0-53.0 % Mean Corpuscular Volume 90.3 80.0-100.0 fL Mean Corpuscular Hemoglobin 29.4 28.0-32.0 pg Mean Corpuscular Hemoglobin Concent 32.5 32.0-36.0 g/dL Red Cell Distribution Width 17.8 H 11.8-14.3 % Platelet Count 272 140-450 10^3/uL Mean Platelet Volume 7.5 6.9-10.8 fL Neutrophils (%) (Auto) 83.8 H 37.0-80.0 % Lymphocytes (%) (Auto) 3.6 L 10.0-50.0 % Monocytes (%) (Auto) 11.4 0.0-12.0 % Eosinophils (%) (Auto) 0.7 0.0-7.0 % Basophils (%) (Auto) 0.5 0.0-2.0 % Neutrophils # (Auto) 8.3 1.6-8.6 10 ^3/uL Lymphocytes # (Auto) 0.4 0.4-5.4 10 ^3/uL Monocytes # (Auto) 1.1 0-1.3 10 ^3/uL Eosinophils # (Auto) 0.1 0-0.8 10 ^3/uL Basophils # (Auto) 0.1 0-0.2 10 ^3/uL Nucleated Red Blood Cells 0.0 % Sodium Level 148 H 136-145 mmol/L Potassium Level 4.5 3.5-5.1 mmol/L Chloride Level 109 H 98-107 mmol/L Carbon Dioxide Level 29 20-31 mmol/L Anion Gap 10 5-15 Blood Urea Nitrogen 57 H 9-23 mg/dL Creatinine 2.63 H 0.700-1.30 mg/dL Glomerular Filtration Rate Calc 23 >90 mL/min BUN/Creatinine Ratio 21.7 H 10.0-20.0 Serum Glucose 130 H 74-106 mg/dL Calcium Level 8.5 L 8.7-10.4 mg/dL Phosphorus Level 3.9 2.4-5.1 mg/dL Magnesium Level 2.6 1.6-2.6 mg/dL Lactic Acid Level 0.6 0.4-2.0 mmol/L Troponin I High Sensitivity 13 </=54 ng/L Urine Color Colorless Yellow Urine Clarity Clear Clear Urine pH 5.0 5.0-9.0 Urine Specific [place] 1.009 1.001-1.035 Urine Protein Negative Negative Urine Ketones Negative Negative Urine Blood Trace H Negative /uL Urine Nitrite Negative Negative Urine Bilirubin Negative Negative Urine Urobilinogen Normal Negative mg/dL Urine Leukocyte Esterase 3+ Negative /uL Urine RBC 5 0 - 3 /hpf Urine Microscopic WBC 117 H 0-3 /HPF Urine Squamous Epithelial Cells Few <5 /hpf Urine Bacteria Many H None Seen /hpf Urine Glucose Normal Normal mg/dL Test 04/06/25 17:00 04/06/25 15:56 Range/Units Thyroid Stimulating Hormone (TSH) 1.86 0.55-4.78 uIU/mL Total Bilirubin 0.2 0.2-1.0 mg/dL Aspartate Amino Transferase (AST) 21 13-40 U/L Alanine Aminotransferase (ALT) 14 7-40 U/L Alkaline Phosphatase 80 46-116 U/L B-Type Natriuretic Peptide 370.27 0-100 pg/mL Total Protein 7.1 5.7-8.2 g/dL Albumin 3.6 3.2-4.8 g/dL Assessment This is a 84-year-old male with past medical history of Lung CA, COPD, hypertension, dyslipidemia, CKD 3B, thyroid and status post pacemaker brought in to the hospital due to generalized weakness and decreased oral intake. VICKIE on CKD 3B, likely VMN (possibly due to decreased oral intake) Mild hypernatremia/dehydration, possibly due to decreased oral intake Lung cancer, on chemotherapy (last session 1 month back) Possible COPD exacerbation Hypertension Dyslipidemia Status post pacemaker Large right pleural effusion Atrial fibrillation, currently sinus rhythm Plan/recommendation: (Dr. Richardson) * Closely monitor fluid and electrolytes * Avoid nephrotoxic medications * D5W with 1/2 NS at 80 mL/hour * Discontinue Lasix * Breathing treatment * Thoracentesis * Strict I&Os * Renal diet * We will follow up with the patient Patient seen and examined by myself today on rounds with the medicine resident, I agree with the assessment and plan Thank you for giving us the opportunity to take care of your patient. Please call back if you have any questions/concerns. Plan discussed with: Patient, Other (RN) ANMOL MARTINO Apr 07, 2025 10:52 JEANNIE RICHARDSON MD Apr 07, 2025 10:58
[2025-04-07] MEDS: ALBUTEROL SULF 2.5 MG/0.5ML(0.5%) NEB SOLN NEB SCH (11:13)
[2025-04-07] MEDS: IPRATROPIUM BROM 0.5 MG/2.5ML INH SOL NEB SCH (11:13)
[2025-04-07] MEDS: ACETAMINOPHEN 325 MG TAB PO PRN (17:12)
--- NOTE | 2025-04-07 18:06 | DVHNC2 ---
Procedure - Ultrasound-guided RIGHT thoracentesis procedure note: Physician: Dr Juvenal Grullon Commutator V Ring Assembler: ALEX Paul Time out time: 1745 pm Date: 04/07/2025 Patient medications and allergies reviewed. The risks and benefits of the procedure and the sedation options and risk were discussed with the patient's healthcare proxy. All questions were answered and informed consent was obtained. Patient identification and proposed procedure were verified prior to the procedure by the physician, and a nurse in the patient's room. The heart rate, respiratory rate, oxygen saturations, blood pressure, adequacy of pulmonary ventilation, and response to care were monitored throughout the procedure. The physical status of the patient was reassessed after the procedure. Consent: Consent was obtained from patient's healthcare proxy prior to procedure. Indication, risks, and benefits were explained at length. Procedure summary: A time-out was performed and a chest x-ray was reviewed prior to procedure. The appropriate site was confirmed and marked. My hands were washed immediately prior to the procedure, I wore a surgical cap, mask with protective eyewear, sterile gown and sterile gloves throughout the procedure. The patient was prepped and draped in a sterile manner using chlorhexidine scrub after the appropriate level was percussed and confirmed by ultrasound. 1% lidocaine was used to anesthetize the skin, subcutaneous tissue, superior aspect of the rib periosteum and parietal pleura. A finder needle was then introduced over the superior aspect of the rib to locate the pleural fluid; alexia colored fluid was aspirated. Thoracentesis needle was then introduced through the skin incision into the pleural space using negative aspiration pressure. The thoracentesis catheter was then threaded without difficulty. 1100 mL's of alexia colored fluid were removed without difficulty. The catheter was then removed. No immediate complications were noted during the procedure. A post-procedure chest x-ray is pending at the time of this note. The pleural fluid will be sent for cultures and cytology. Estimated blood loss is less than 5 mL's. CPT: 40522 Visit Coding Pulmonary Billing Provider: ARIA GRULLON MD Date of Service if different f: Apr 07, 2025 Common Visit Codes: PROCEDURE ONLY Procedure Codes: [id number] (64353 RIGHT Thoracentesis) ARIA GRULLON MD Apr 07, 2025 18:06
--- NOTE | 2025-04-07 18:07 | DVHINCON2 ---
Date of service: Apr 07, 2025 Referring Physician Zafar Phipps MD Reason for Consultation Acute on chronic hypoxic respiratory failure, pneumonia and pleural effusion History of Present Illness An 84-year-old man with past medical history of lung cancer, on radiation therapy, COPD, hypertension, CHF and dyslipidemia who presented to ED on 04/06/25 for evaluation of generalized weakness and altered level of consciousness. Per , patient has been progressively weaker and more lethargic over the past one month; also reports shortness for breath. No cough or fever. He did have his last chemotherapy for lung cancer one month ago. Patient having decreased appetite, refuses to get out of bed. Upon evaluation in ED, patient was alert and oriented x3. Chest x-ray showed findings of cardiomegaly with bibasilar airspace disease and possible small pleural effusion on the right. Patient was admitted for further care. Pulmonary consultation is requested for evaluation and management of acute on chronic hypoxic respiratory failure, pneumonia and pleural effusion in patient with lung cancer. Review of Systems: 14-point review of systems negative unless otherwise noted above. Past Medical History Lung CA, COPD, hypertension, dyslipidemia, thyroid, CHF Past Surgical History Pacemaker Medications: Reviewed. Allergies: No known drug allergies. Family History: No family history of premature CAD. No family history of lung disorders. Social History: Nonsmoker. No alcohol or illicit drug use. Family History: Patient reports no known family medical history. Allergies: Uncoded Allergies: NONE (Allergy, Unknown, 12/16/21) Home Meds Reported Medications Emollient (Aquaphor) Oin, 1 EXT DAILY, OIN 04/07/25 Lutein-Zeaxanthin (Ocuvite Lutein 25 25-5 mg) 1 Cap Cap, 1 CAP PO DAILY, CAP 04/07/25 Sacubitril-Valsartan (Entresto 24-26 mg) 1 Tab Tab, 1 TAB PO DAILY, TAB 04/07/25 Levothyroxine Sodium (Levothyroxine Sodium) 150 Mcg Tab, 1 TAB PO DAILY for 90 Days, #90 09/08/24 Nebivolol HCl (Nebivolol Hydrochloride) 10 Mg Tab, 1 TAB PO DAILY for 90 Days, #90 09/06/24 Apixaban Base (ELIQUIS) 2.5 Mg Tab, 1 TAB PO BID for 90 Days, #180 09/06/24 Sitagliptin Phosphate (Januvia) 50 Mg Tab, 1 TAB PO DAILY for 90 Days, #90 09/06/24 Modfxxhceno-Ingaqqbhkkzs-Swlft (Trelegy Ellipta 100-62.5-25 Mcg/INH) 1 Aer Aer, 1 AER IN BID for 90 Days, #180 09/06/24 Latanoprost (LATANOPROST) 0.005 % Jessi, 1 DROP EACHEYE QPM for 90 Days, #7.5 09/06/24 Atorvastatin Calcium (ATORVASTATIN CALCIUM) 80 Mg Tab, 1 TAB PO HS for 90 Days, #90 09/06/24 Amlodipine Besylate (Amlodipine Besylate) 5 Mg Tab, 1 TAB PO DAILY for 90 Days, #90 09/06/24 Bicalutamide (Casodex) 50 Mg Tab, 1 TAB PO DAILY for 90 Days, #90 09/05/24 Krill Oil (Megared [place]-3 350 mg) 1 Cap Cap, 2 CAP PO DAILY, CAP 12/16/21 Furosemide (Furosemide) 40 Mg Tab, 80 MG PO DAILY, MG 12/16/21 Losartan Potassium (Losartan Potassium) 50 Mg Tab, 50 MG PO DAILY for 30 Days, MG 12/16/21 Discontinued Reported Medications Aspirin (Aspir-Low) 81 Mg Tab, 81 MG PO DAILY, MG 12/16/21 Timolol Maleate (Ophth) (TIMOPTIC) 0.5 % Jessi, 1 DROP EACHEYE BID, #10 ML 3 Refills 12/16/21 Current Medications Current Medications Medications (Trade) Dose Ordered Sig/Andressa Route PRN Reason Start Time Stop Time Status Last Admin Ceftriaxone Sodium 50 ml @ 100 mls/hr DAILY@09 IV 04/07/25 09:00 04/07/25 09:23 Azithromycin 250 ml @ 125 mls/hr DAILY IV 04/07/25 10:00 04/07/25 10:29 Albuterol (Ventolin Medneb) 2.5 mg Q6HPRN PRN NEB SHORTNESS OF BREATH 04/06/25 22:15 04/07/25 10:51 DC 04/06/25 23:11 Amlodipine Besylate (Norvasc Tablet) 5 mg DAILY PO 04/07/25 10:00 04/07/25 09:26 Apixaban (Eliquis) 2.5 mg BID PO 04/07/25 10:00 04/07/25 09:26 Atorvastatin Calcium (Lipitor) 80 mg HS PO 04/07/25 22:00 Furosemide (Lasix Tablet) 80 mg DAILY PO 04/07/25 10:00 04/07/25 10:51 DC 04/07/25 09:27 Levothyroxine Sodium (Synthroid Tablet) 150 mcg QAM@0600 PO 04/07/25 06:00 04/07/25 05:55 Albuterol (Ventolin Medneb) 2.5 mg Q6HPRN PRN NEB SHORTNESS OF BREATH 04/06/25 22:15 04/07/25 01:18 DC Acetaminophen/ Hydrocodone Bitart ([place] 5/325MG Tab) 1 tab Q4HP PRN PO MODERATE PAIN (4-6 PAIN SCALE) 04/06/25 22:15 Ondansetron HCl (Zofran) 4 mg Q4HP PRN IV NAUSEA / VOMITING 04/06/25 22:15 Acetaminophen (Tylenol Tablet) 650 mg Q6HP PRN PO PAIN SCALE 1-3 OR TEMP>100.4 04/06/25 22:15 04/07/25 17:12 Dextrose/Sodium Chloride 1,000 ml @ 50 mls/hr Q20H IV 04/07/25 09:45 04/07/25 10:51 DC 04/07/25 09:45 Dextrose/Sodium Chloride 1,000 ml @ 80 mls/hr [id number] IV 04/07/25 11:00 04/07/25 11:05 Albuterol (Ventolin Medneb) 2.5 mg Q6HR NEB 04/07/25 12:00 04/07/25 11:13 Ipratropium Alexander (Atrovent Medneb) 0.5 mg Q6HWA NEB 04/07/25 12:00 04/07/25 11:13 Vital Signs Vital Signs Date Time Temp Pulse Resp B/P (MAP) Pulse Ox O2 Delivery O2 Flow Rate FiO2 04/07/25 17:12 100.8 04/07/25 16:40 79 24 119/54 (75) 91 04/07/25 10:00 Nasal Cannula 4.0 04/07/25 10:00 36 Physical Exam Gen.: Patient lying in bed in no apparent distress. On supplemental oxygen. Head: Normocephalic, atraumatic. Eyes: EOMI/PERRLA. Ears: Normal hearing. Normal anatomy. Neck/trachea: Trachea midline, supple. Nose: Normal external anatomy. Mouth: Moist mucous membranes. Chest: Decreased air entry bilaterally. Wheezing. No rhonchi. Cardiovascular: Positive S1, positive S2. Regular rate and rhythm. Abdomen: Positive bowel sounds in all 4 quadrants. Soft, non-tender, non- distended. : Deferred. Rectal: Deferred. Skin: Warm, dry. Intact. Extremities: 2+ radial pulses bilaterally. Trace bilateral lower extremity edema. Neuro: Awake, alert, oriented x3. No gross motor or sensory deficits. Cranial nerves II through XII intact. Gait not assessed. Labs/Diagnostic Data Labs Test 04/07/25 04:39 04/06/25 19:34 04/06/25 19:02 04/06/25 17:13 Range/Units White Blood Count 9.9 # 4.4-10.8 10^3/uL Red Blood Count 3.05 L 4.5-5.90 10^6/uL Hemoglobin 9.0 L 13.5-17.5 g/dL Hematocrit 27.6 L 41.0-53.0 % Mean Corpuscular Volume 90.3 80.0-100.0 fL Mean Corpuscular Hemoglobin 29.4 28.0-32.0 pg Mean Corpuscular Hemoglobin Concent 32.5 32.0-36.0 g/dL Red Cell Distribution Width 17.8 H 11.8-14.3 % Platelet Count 272 140-450 10^3/uL Mean Platelet Volume 7.5 6.9-10.8 fL Neutrophils (%) (Auto) 83.8 H 37.0-80.0 % Lymphocytes (%) (Auto) 3.6 L 10.0-50.0 % Monocytes (%) (Auto) 11.4 0.0-12.0 % Eosinophils (%) (Auto) 0.7 0.0-7.0 % Basophils (%) (Auto) 0.5 0.0-2.0 % Neutrophils # (Auto) 8.3 1.6-8.6 10 ^3/uL Lymphocytes # (Auto) 0.4 0.4-5.4 10 ^3/uL Monocytes # (Auto) 1.1 0-1.3 10 ^3/uL Eosinophils # (Auto) 0.1 0-0.8 10 ^3/uL Basophils # (Auto) 0.1 0-0.2 10 ^3/uL Nucleated Red Blood Cells 0.0 % Sodium Level 148 H 136-145 mmol/L Potassium Level 4.5 3.5-5.1 mmol/L Chloride Level 109 H 98-107 mmol/L Carbon Dioxide Level 29 20-31 mmol/L Anion Gap 10 5-15 Blood Urea Nitrogen 57 H 9-23 mg/dL Creatinine 2.63 H 0.700-1.30 mg/dL Glomerular Filtration Rate Calc 23 >90 mL/min BUN/Creatinine Ratio 21.7 H 10.0-20.0 Serum Glucose 130 H 74-106 mg/dL Uric Acid 8.7 3.7-9.2 mg/dL Calcium Level 8.5 L 8.7-10.4 mg/dL Phosphorus Level 3.9 2.4-5.1 mg/dL Magnesium Level 2.6 1.6-2.6 mg/dL Vitamin D 25-Hydroxy 32.9 30.0-100 ng/mL Parathyroid Hormone (Intact) 86.0 H 18.4-80.1 pg/mL Lactic Acid Level 0.6 0.4-2.0 mmol/L Troponin I High Sensitivity 13 </=54 ng/L Urine Color Colorless Yellow Urine Clarity Clear Clear Urine pH 5.0 5.0-9.0 Urine Specific [place] 1.009 1.001-1.035 Urine Protein Negative Negative Urine Ketones Negative Negative Urine Blood Trace H Negative /uL Urine Nitrite Negative Negative Urine Bilirubin Negative Negative Urine Urobilinogen Normal Negative mg/dL Urine Leukocyte Esterase 3+ Negative /uL Urine RBC 5 0 - 3 /hpf Urine Microscopic WBC 117 H 0-3 /HPF Urine Squamous Epithelial Cells Few <5 /hpf Urine Bacteria Many H None Seen /hpf Urine Glucose Normal Normal mg/dL Test 04/06/25 17:00 04/06/25 15:56 Range/Units Thyroid Stimulating Hormone (TSH) 1.86 0.55-4.78 uIU/mL Total Bilirubin 0.2 0.2-1.0 mg/dL Aspartate Amino Transferase (AST) 21 13-40 U/L Alanine Aminotransferase (ALT) 14 7-40 U/L Alkaline Phosphatase 80 46-116 U/L B-Type Natriuretic Peptide 370.27 0-100 pg/mL Total Protein 7.1 5.7-8.2 g/dL Albumin 3.6 3.2-4.8 g/dL Microbiology Date/Time Source Procedure Growth Status 04/06/25 16:06 Blood Blood Culture - Preliminary NO GROWTH AFTER 24 HOURS OF INCUBATION. Resulted Assessment Impression: Acute on chronic hypoxic respiratory failure Dependence on supplemental oxygen Lung cancer Congestive heart failure Pneumonia, likely gram negative Pleural effusion Atelectasis Plan: Supplemental oxygen Titrate to keep O2 sats above 92%. Plan for right thoracentesis for evacuation of pleural effusion. Head of bed elevation Aspiration precautions. Continue bronchodilators. Continue antibiotics Incentive spirometry Follow up Cardiology recommendations Diurese with Lasix as tolerated Monitor renal function. Monitor electrolytes. Supplement as necessary. Monitor ins and outs. Maintain euvolemia. CXR on 04/06/25 reveals cardiomegaly with bibasilar airspace disease and possible small pleural effusion on the right. Labs and imaging reviewed. DVT prophylaxis. Prognosis: Poor given patient's multiple co-morbidities. Rest of plan per hospitalist and other consultants. Thank you, Dr. Phipps, for allowing me to participate in this patient's care. Further recommendations will depend on the patient's clinical course. Please do not hesitate to contact me if you have any questions or concerns. This medical document was created using an electronic medical record system with [employer] dictation system. Although these documentations are being carefully reviewed, there may still be some phonetic and typographical changes. The errors are purely typographical, due to imperfection on the software program, and do not reflect any compromise in the patient's medical care. Plan discussed with: Other (ALEX Paul/Dr. Phipps) Visit Coding Pulmonary Billing Provider: ARIA PERRY MD Date of Service if different f: Apr 07, 2025 Common Visit Codes: 06611-IATDFSE INP/OBS CARE (HIGH) ARIA PERRY MD Apr 07, 2025 18:07
--- NOTE | 2025-04-07 18:38 | DVH ---
CHEST RADIOGRAPH Indication: s/p right thoracentesis r/o pneumothorax Technique: Single frontal view of the chest was obtained Comparison: XY CHEST PORTABLE on DOS: 04/06/25, XY CHEST PORTABLE on DOS: 09/09/24, XY CHEST PORTABLE on DOS: 09/04/24 FINDINGS: Lines and Tubes: Pacemaker in place with generator over the left chest Lungs: Right pleural effusion has been removed. There appears to be some residual atelectasis in the right base. Pleura: No effusion. No pneumothorax. Cardiomediastinal contours: Unremarkable Bones: No acute osseous abnormality. IMPRESSION: 1. Removal of the right pleural effusion with atelectasis in the right base. 2. No pneumothorax 3. Pacemaker in place unchanged.
[2025-04-07] MEDS: ALBUMIN 25% 100 ML IV STA (18:39)
[2025-04-07 18:51] LABS: Urine Protein, UAD 3+ (Negative); Urine WBC Clumps PRESENT /hpf (None Seen)
[2025-04-07 19:01] LABS: Protein, Urine > 2500.0 mg/dL (1-14)
[2025-04-07] MEDS: ATORVASTATIN 20 MG TAB PO SCH (22:18)
[2025-04-08] VITALS (14 sets, daily range): BP systolic 92–118; BP diastolic 48–64; PULSE 71–87; RESP 14–23; TEMP 97.7–98.2; O2SAT 90–100
[2025-04-08 07:05] LABS: Hematocrit 25.6 % (41.0-53.0); Hemoglobin 8.2 g/dL (13.5-17.5); Mean Corpuscular Hemoglobin 29.3 pg (28.0-32.0); Mean Corpuscular Volume 91.1 fL (80.0-100.0); Nucleated Red Blood Cells % 0.0 %
[2025-04-08 07:12] LABS: Alanine Aminotransferase 13 U/L (7-40); Albumin 3.6 g/dL (3.2-4.8); Alkaline Phosphatase 60 U/L (46-116); Anion Gap 10 (5-15); BUN/Creatinine Ratio 19.8 (10.0-20.0); Carbon Dioxide 28 mmol/L (20-31); Magnesium 2.5 mg/dL (1.6-2.6); Potassium 4.0 mmol/L (3.5-5.1); Total Protein 6.8 g/dL (5.7-8.2)
[2025-04-08 07:13] LABS: Bilirubin, Total 0.4 mg/dL (0.2-1.0)
[2025-04-08 07:14] LABS: Blood Urea Nitrogen 47 mg/dL (9-23); Calcium 8.5 mg/dL (8.7-10.4); Chloride 107 mmol/L (98-107); Glucose 156 mg/dL (74-106); Sodium 145 mmol/L (136-145)
[2025-04-08] MEDS: Ensure HIGH Protein Chocolate 8oz Bottle PO SCH (08:00)
--- NOTE | 2025-04-08 09:42 | DVHSR ---
APPROVED REPORT EXAM: Two-dimensional and M-mode echocardiogram with Doppler and color Doppler. Blood Pressure: 126/60 mmHg INDICATION EF Surgery/Intervention Valve Replacement: Type: TAVR Pacemaker: RISK FACTORS Height: 72, Weight: 176 DIMENSIONS LVDd (3.8-5.7cm) LA (2D) 4.7 (1.9-4.0cm) Aortic Root (2.0-3.7cm) EF (%) 57.0 (55-70%) Rt. Atrium (1.9-4.0cm) Asc. Aorta cm Mitral Valve Mitral Mitral Stenosis E wave 0.92m/s MV Mean GR. mmHg A wave 1.12m/s MV Peak GR. 102mmHg E/A ratio 0.8 2D MVA cm2 DECEL Time 231ms PRESS 1/2 Time 54ms IVRT ms Dop MVA 4.08cm2 Aortic Valve Aortic Valve Aortic Stenosis V1 0.97m/s AO Mean GR. 13mmHg V2 2.34m/s AO Peak GR. 22mmHg Tricuspid Valve TR Velocity 3.07m/s RVSP 43mmHg Other Information Technically limited study due to patient laying flat on his back and sleeping. Conclusion Technically limited study secondary to poor acoustic windows. Left ventricle: Mild concentric left ventricular hypertrophy was seen left ventricle was normal-sized. LVEF was 55-60%. There was no gross wall motion abnormality. Right ventricle was mildly dilated with normal systolic function. Mild biatrial enlargement was seen. Pacing wire was seen in right-sided chambers. Bioprosthetic valve was observed in aortic position. It works properly. There was no aortic insufficiency/stenosis. Mild mitral annular calcification was seen. Mild mitral regurgitation was observed. [id number] tricuspid regurgitation was seen. Right ventricular systolic pressure was assessed at 44 mm Hg. IVC was normal-sized with normal respiratory variation. There was trace pericardial effusion.
--- NOTE | 2025-04-08 09:55 | DVHINCON2 ---
Date of service: Apr 08, 2025 History of Present Illness HPI Patient is a 84-year-old gentleman who was brought by for generalized weakness which was ongoing and worsening for the past month. Does have history of advanced/metastatic cancer. Cardiology is involved for cardiac aspects of care (patient's called me personally). Patient is known to our practice from outside and before. There is no report of chest pain. There is no report of palpitation. Patient has been on chemotherapy/radiation therapy. Home Meds Reported Medications Emollient (Aquaphor) Oin, 1 EXT DAILY, OIN 04/07/25 Lutein-Zeaxanthin (Ocuvite Lutein 25 25-5 mg) 1 Cap Cap, 1 CAP PO DAILY, CAP 04/07/25 Sacubitril-Valsartan (Entresto 24-26 mg) 1 Tab Tab, 1 TAB PO DAILY, TAB 04/07/25 Levothyroxine Sodium (Levothyroxine Sodium) 150 Mcg Tab, 1 TAB PO DAILY for 90 Days, #90 09/08/24 Nebivolol HCl (Nebivolol Hydrochloride) 10 Mg Tab, 1 TAB PO DAILY for 90 Days, #90 09/06/24 Apixaban Base (ELIQUIS) 2.5 Mg Tab, 1 TAB PO BID for 90 Days, #180 09/06/24 Sitagliptin Phosphate (Januvia) 50 Mg Tab, 1 TAB PO DAILY for 90 Days, #90 09/06/24 Beqgxedbrtv-Ejhrpgxuzccy-Lygcb (Trelegy Ellipta 100-62.5-25 Mcg/INH) 1 Aer Aer, 1 AER IN BID for 90 Days, #180 09/06/24 Latanoprost (LATANOPROST) 0.005 % Jessi, 1 DROP EACHEYE QPM for 90 Days, #7.5 09/06/24 Atorvastatin Calcium (ATORVASTATIN CALCIUM) 80 Mg Tab, 1 TAB PO HS for 90 Days, #90 09/06/24 Amlodipine Besylate (Amlodipine Besylate) 5 Mg Tab, 1 TAB PO DAILY for 90 Days, #90 09/06/24 Bicalutamide (Casodex) 50 Mg Tab, 1 TAB PO DAILY for 90 Days, #90 09/05/24 Krill Oil (Megared [place]-3 350 mg) 1 Cap Cap, 2 CAP PO DAILY, CAP 12/16/21 Furosemide (Furosemide) 40 Mg Tab, 80 MG PO DAILY, MG 12/16/21 Losartan Potassium (Losartan Potassium) 50 Mg Tab, 50 MG PO DAILY for 30 Days, M G 12/16/21 Discontinued Reported Medications Aspirin (Aspir-Low) 81 Mg Tab, 81 MG PO DAILY, MG 12/16/21 Timolol Maleate (Ophth) (TIMOPTIC) 0.5 % Jessi, 1 DROP EACHEYE BID, #10 ML 3 Refills 12/16/21 Past Medical History Others Past medical history includes hypertension, hyperlipidemia, diabetes mellitus, hypothyroidism, asthma/COPD, CKD, valvular heart disease, status post TAVR (in 2018), heart failure, old history of right eye blindness, history of vocal cord paralysis, history of sick sinus syndrome and pacemaker (Biotronik) implantation, atrial fibrillation (on Eliquis as outpatient), history of prostate cancer, kidney cancer, lung cancer (reportedly papillary cancer), facial mass (could be cancer versus melanoma) and status post repeated thoracentesis for pleural effusion. Patient Family History: Patient reports no known family medical history. Drugs: None Lives with: With family Review of Systems Constitutional: Malaise Ears, Nose, & Throat: No symptom reported Pulmonary/Respiratory: Dyspnea Cardiovascular: Orthopnea All Other Systems 14 point review of system was performed. Relevant findings as per above and as per HPI. Otherwise negative H&P Exam Vital Signs Vital Signs Date Time Temp Pulse Resp B/P (MAP) Pulse Ox O2 Delivery O2 Flow Rate FiO2 04/08/25 09:31 99/53 04/08/25 08:30 98.0 74 14 92 98.0 04/08/25 08:30 Nasal Cannula* 3 32 General Appeara: Cachetic Pulmonary/Respiratory: Rhonci Cardiovascular/Chest: Regular rate, Systolic murmur Peripheral Pulses: 2+ carotid (R), 2+ carotid (L), 2+ femoral (R), 2+ femoral (L) Abdominal Exam: Normal bowel sounds, Soft Neuro/Mental St: Disoriented Eye contact/ Speech: Cooperative Labs/Xrays Labs Test 04/08/25 05:08 04/07/25 17:30 04/07/25 14:30 04/07/25 04:39 Range/Units White Blood Count 10.3 4.4-10.8 10^3/uL Red Blood Count 2.81 L 4.5-5.90 10^6/uL Hemoglobin 8.2 L 13.5-17.5 g/dL Hematocrit 25.6 L 41.0-53.0 % Mean Corpuscular Volume 91.1 80.0-100.0 fL Mean Corpuscular Hemoglobin 29.3 28.0-32.0 pg Mean Corpuscular Hemoglobin Concent 32.2 32.0-36.0 g/dL Red Cell Distribution Width 18.5 H 11.8-14.3 % Platelet Count 258 140-450 10^3/uL Mean Platelet Volume 7.5 6.9-10.8 fL Neutrophils (%) (Auto) 85.0 H 37.0-80.0 % Lymphocytes (%) (Auto) 3.6 L 10.0-50.0 % Monocytes (%) (Auto) 10.3 0.0-12.0 % Eosinophils (%) (Auto) 0.6 0.0-7.0 % Basophils (%) (Auto) 0.5 0.0-2.0 % Neutrophils # (Auto) 8.8 H 1.6-8.6 10 ^3/uL Lymphocytes # (Auto) 0.4 0.4-5.4 10 ^3/uL Monocytes # (Auto) 1.1 0-1.3 10 ^3/uL Eosinophils # (Auto) 0.1 0-0.8 10 ^3/uL Basophils # (Auto) 0 0-0.2 10 ^3/uL Nucleated Red Blood Cells 0.0 % Sodium Level 145 136-145 mmol/L Potassium Level 4.0 3.5-5.1 mmol/L Chloride Level 107 98-107 mmol/L Carbon Dioxide Level 28 20-31 mmol/L Anion Gap 10 5-15 Blood Urea Nitrogen 47 #H 9-23 mg/dL Creatinine 2.37 H 0.700-1.30 mg/dL Glomerular Filtration Rate Calc 26 >90 mL/min BUN/Creatinine Ratio 19.8 10.0-20.0 Serum Glucose 156 H 74-106 mg/dL Calcium Level 8.5 L 8.7-10.4 mg/dL Magnesium Level 2.5 1.6-2.6 mg/dL Total Bilirubin 0.4 0.2-1.0 mg/dL Aspartate Amino Transferase (AST) 16 13-40 U/L Alanine Aminotransferase (ALT) 13 7-40 U/L Alkaline Phosphatase 60 46-116 U/L Total Protein 6.8 5.7-8.2 g/dL Albumin 3.6 3.2-4.8 g/dL Body Fluid Source Pleural fluid Body Fluid pH 8.0 Body Fluid WBC (Manual) 2441 H 0-200 CUMM Body Fluid RBC (Manual) 53013 H 0-2000 CUMM Body Fluid Mononuclear Cells 80 % Body Fluid Polymorphonuclear Cells 20 0-25 % Urine Color Light-orange Yellow Urine Clarity Turbid H Clear Urine pH 8.0 5.0-9.0 Urine Specific [place] 1.030 1.001-1.035 Urine Protein 3+ H Negative Urine Ketones Negative Negative Urine Blood 3+ H Negative /uL Urine Nitrite Negative Negative Urine Bilirubin Negative Negative Urine Urobilinogen Normal Negative mg/dL Urine Leukocyte Esterase Negative Negative /uL Urine RBC 1399 0 - 3 /hpf Urine WBC Clumps Present None Seen /hpf Urine Microscopic WBC 411 H 0-3 /HPF Urine Squamous Epithelial Cells None seen <5 /hpf Urine Bacteria Few H None Seen /hpf Urine Mucus Few None Seen Urine Creatinine < 3.00 L 30.0-125.0 mg/dL Urine Protein/Creatinine Ratio 833.00 Urine Sodium 154 40-220 mmol/L Urine Glucose 2+ H Normal mg/dL Urine Total Protein > 2500.0 H 1-14 mg/dL Uric Acid 8.7 3.7-9.2 mg/dL Phosphorus Level 3.9 2.4-5.1 mg/dL Vitamin D 25-Hydroxy 32.9 30.0-100 ng/mL Parathyroid Hormone (Intact) 86.0 H 18.4-80.1 pg/mL Test 04/06/25 19:34 04/06/25 19:02 04/06/25 17:00 04/06/25 15:56 Range/Units Lactic Acid Level 0.6 0.4-2.0 mmol/L Troponin I High Sensitivity 13 </=54 ng/L Thyroid Stimulating Hormone (TSH) 1.86 0.55-4.78 uIU/mL B-Type Natriuretic Peptide 370.27 0-100 pg/mL Microbiology Date/Time Source Procedure Growth Status 04/07/25 17:30 Pleural Fluid Gram Stain - Final Resulted 04/07/25 17:30 Pleural Fluid Body Fluid Culture - Preliminary No growth Resulted 04/06/25 16:06 Blood Blood Culture - Preliminary NO GROWTH AFTER 24 HOURS OF INCUBATION. Resulted Assessment/Plan Plan Patient is a 84-year-old gentleman who was brought by for generalized weakness which was ongoing and worsening for the past month. Does have history of advanced/metastatic cancer. Cardiology is involved for cardiac aspects of care (patient's called me personally). Patient is known to our practice from outside and before. There is no report of chest pain. There is no report of palpitation. Patient has been on chemotherapy/radiation therapy. Cachectic male. Sitting in bed. Somewhat confused. No gross JVD. Mucosa is pale. Scattered rhonchi in the lungs is heard. Not using accessory muscles of breathing. Cardiac: Regular. Systolic murmur 2/6 in the apex is heard. Abdomen is soft. Bilateral edema seen. 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 Echocardiogram of January 16, 2025 (performed in the office) revealed ejection fraction 45-50%, mild concentric left ventricular hypertrophy, mild left atrial enlargement, pacemaker wires were seen right-sided chambers, bioprosthetic valve in aortic position which worked normally, mild mitral regurgitation, [id number]-gk-yavtizdc tricuspid regurgitation with right ventricular systolic pressure of 36 mm Hg. Hemoglobin: 8.6 - 9.0 - 8.2 Creatinine: 2.74 - 2.63 - 2.37 Potassium: 4.5 - 4.5 - 4.0 TSH: 1.86 BNP: 370.27 Troponin (high sensitive): Chest x-ray revealed: IMPRESSION: 1. Cardiomegaly with bibasilar airspace disease and possible small pleural effusion on the right. 2. Pneumonia versus congestive failure are both in the radiographic differential Repeat chest x-ray revealed: IMPRESSION: 1. Removal of the right pleural effusion with atelectasis in the right base. 2. No pneumothorax 3. Pacemaker in place unchanged. CT of the head reported: IMPRESSION: 1. No acute intracranial abnormality. 2. Mild cerebral volume loss and minor chronic microvascular ischemic change. Renal ultrasound reported: IMPRESSION: 1. No hydronephrosis. 2. Questionable 3.2 cm left renal mass. Recommend further evaluation with CT or MRI with IV contrast 3. Bilateral pleural effusions. EKG revealed sinus rhythm with left bundle branch block Tele reveals sinus rhythm Echocardiogram revealed: Technically limited study secondary to poor acoustic windows. Left ventricle: Mild concentric left ventricular hypertrophy was seen left ventricle was normal-sized. LVEF was 55-60%. There was no gross wall motion abnormality. Right ventricle was mildly dilated with normal systolic function. Mild biatrial enlargement was seen. Pacing wire was seen in right- sided chambers. Bioprosthetic valve was observed in aortic position. It works properly. There was no aortic insufficiency/stenosis. Mild mitral annular calcification was seen. Mild mitral regurgitation was observed. Ooqq-so-cgqbalgh tricuspid regurgitation was seen. Right ventricular systolic pressure was assessed at 44 mm Hg. IVC was normal-sized with normal respiratory variation. There was trace pericardial effusion. Patient is a 84-year-old gentleman with advanced multiple cancers and metastasis who presented with generalized weakness. Does have baseline history of valvular heart disease for which has had TAVR before. Also has history of atrial fibrillation (paroxysmal) for which is on Eliquis as outpatient. Has been on chemotherapy/radiation therapy. Has had poor appetite and malnutrition could have contributed to the clinical picture. Advanced band of cancers could have contributed to the clinical picture. Side effects secondary to radiation/chemotherapy could have contributed to the clinical picture. Acute coronary syndrome is not considered. Decompensated heart failure is not considered as a component of presentation. Does have history of pacemaker (Biotronik) which was recently interrogated in the office Encephalopathy, metabolic VICKIE on CKD Pneumonia Lung cancer Advanced metastatic cancer as COPD Pleural effusion, status post thoracentesis Multiple cancers, metastatic Poor functional capacity Paroxysmal AFib Sick sinus syndrome, status post pacemaker implantation (Biotronik) Valvular heart disease, status post TAVR Cardiac suggestion for management: Manage on telemetry Follow-up electrolytes and kidney function tests and correct abnormalities Fluid resuscitation Long-term continuation of full anticoagulation is advised, if not contraindicated Nephrology follow-up is advised Pulmonary follow-up Consider Oncology evaluation Consider urology evaluation for the findings of renal ultrasound Goals of care as per primary team Further evaluation and management depends on the above and clinical course Long-term prognosis: very poor Thank you for consultation A total of 75 minutes was spent reviewing the patient record, examining the patient, making a diagnostic and therapeutic plan, discussing this plan with medical personnel, following up on diagnostic studies and following the patient for clinical stability excluding any and all procedures. At least 50% of this time was spent in direct, aafg-ie-nulz contact. Thank you for allowing me to participate in this patient's care. Further recommendations will depend on patient's clinical course. Please do not hesitate to contact me if you have any questions or concerns. This medical document was created using electronic medical record system with [employer] computerized dictation system. Although this document has been carefully reviewed, there may still be some phonetic and typographical errors. These areas are purely typographical due to the imperfection of the software programs, and do not reflect any compromise in the patient's medical care. Plan discussed with: Patient, Spouse, Other (nurse) LUIS HOLT MD Apr 08, 2025 09:55
--- NOTE | 2025-04-08 10:34 | DVHPN2 ---
Subjective No new complaints Changes from previous H/P or p: Changes Objective Vitals Vital Signs Date Time Temp Pulse Resp B/P (MAP) Pulse Ox O2 Delivery O2 Flow Rate FiO2 04/08/25 09:31 99/53 04/08/25 08:30 98.0 74 14 92 98.0 04/08/25 08:30 Nasal Cannula* 3 32 Intake/Output Intake and Output 04/08/25 07:00 Intake Total 1540 ml Output Total 2200 ml Balance -660 ml Intake Oral 1240 ml IV Total 300 ml Output Urine Total 2200 ml # Bowel Movements 1 General Appearance: Alert, Oriented X3, Cooperative Lungs: Clear to auscultation, Normal air movement Cardiovascular: Regular rate, Normal S1 Abdomen: Normal bowel sounds, Soft Extremities: No edema Medications Current Medications Medications Dose Ordered Sig/Anderssa Route Start Time Stop Time Status Last Admin Dose Admin Ceftriaxone Sodium 50 ml @ 100 mls/hr DAILY@09 IV 04/07/25 09:00 04/08/25 09:28 100 MLS/HR Azithromycin 250 ml @ 125 mls/hr DAILY IV 04/07/25 10:00 04/07/25 10:29 125 MLS/HR Amlodipine Besylate 5 mg DAILY PO 04/07/25 10:00 04/07/25 09:26 5 MG Apixaban 2.5 mg BID PO 04/07/25 10:00 04/08/25 09:30 2.5 MG Atorvastatin Calcium 80 mg HS PO 04/07/25 22:00 04/07/25 22:18 80 MG Levothyroxine Sodium 150 mcg QAM@0600 PO 04/07/25 06:00 04/08/25 05:37 150 MCG Acetaminophen/ Hydrocodone Bitart 1 tab Q4HP PRN PO 04/06/25 22:15 Ondansetron HCl 4 mg Q4HP PRN IV 04/06/25 22:15 Acetaminophen 650 mg Q6HP PRN PO 04/06/25 22:15 04/07/25 17:12 650 MG Dextrose/Sodium Chloride 1,000 ml @ 80 mls/hr [id number] IV 04/07/25 11:00 04/07/25 23:09 80 MLS/HR Albuterol 2.5 mg Q6HR NEB 04/07/25 12:00 04/08/25 06:07 2.5 MG Ipratropium [place] 0.5 mg Q6HWA NEB 04/07/25 12:00 04/08/25 06:07 0.5 MG Enteral Nutritional Formula 240 ml TIDWM PO 04/08/25 08:00 04/08/25 08:00 240 ML Laboratory Results Laboratory Tests 04/08/25 05:08 Chemistry Test 04/08/25 05:08 Albumin 3.6 g/dL (3.2-4.8) Calcium Level 8.5 mg/dL (8.7-10.4) L Magnesium Level 2.5 mg/dL (1.6-2.6) Total Protein 6.8 g/dL (5.7-8.2) LFT Test 04/08/25 05:08 Alanine Aminotransferase (ALT) 13 U/L (7-40) Alkaline Phosphatase 60 U/L (46-116) Aspartate Amino Transferase (AST) 16 U/L (13-40) Total Bilirubin 0.4 mg/dL (0.2-1.0) Urinalysis Test 04/07/25 14:30 Urine Color Light-orange (Yellow) Urine Clarity Turbid (Clear) H Urine pH 8.0 (5.0-9.0) Urine Specific [place] 1.030 (1.001-1.035) Urine Protein 3+ (Negative) H Urine Ketones Negative (Negative) Urine Blood 3+ /uL (Negative) H Urine Nitrite Negative (Negative) Urine Bilirubin Negative (Negative) Urine Urobilinogen Normal mg/dL (Negative) Urine Leukocyte Esterase Negative /uL (Negative) Urine RBC 1399 /hpf (0 - 3) Urine WBC Clumps Present /hpf (None Seen) Urine Microscopic WBC 411 /HPF (0-3) H Urine Squamous Epithelial Cells None seen /hpf (<5) Urine Bacteria Few /hpf (None Seen) H Urine Mucus Few (None Seen) Urine Creatinine < 3.00 mg/dL (30.0-125.0) L Urine Protein/Creatinine Ratio 833.00 Urine Sodium 154 mmol/L (40-220) Urine Glucose 2+ mg/dL (Normal) H Urine Total Protein > 2500.0 mg/dL (1-14) H Microbiology Microbiology Date/Time Source Procedure Growth Status 04/07/25 17:30 Pleural Fluid Gram Stain - Final Resulted 04/07/25 17:30 Pleural Fluid Body Fluid Culture - Preliminary No growth Resulted 04/06/25 16:06 Blood Blood Culture - Preliminary NO GROWTH AFTER 24 HOURS OF INCUBATION. Resulted Assessment/Plan Assessment/Plan Metabolic encephalopathy Hypernatremia Acute kidney injury due to vasomotor nephropathy Chronic kidney disease Lung cancer on radiation therapy Bilateral pneumonia UTI History of heart failure Small pleural effusion Chronic anemia of chronic disease Acute on chronic hypoxic respiratory failure COPD Hypertension Type 2 diabetes Obesity History of prostate cancer status post prostatectomy History of aortic stenosis status post TAVR Hypothyroidism History of CVA Atrial fibrillation on Eliquis Plan Continue IV antibiotics Rocephin and Zithromax Add IV fluids D5 half NS Nephrology consult Chavez catheter Physical therapy Echocardiogram Kidney ultrasound Blood culture Urine culture Monitor closely Continue Eliquis 04/08/25: Pneumonia: Rocephin and Zithromax UTI Left renal mass: Get CT ab & pelvis, urology consult CKD: Nephrology consult Afib: Eliquis, cardiology consult Lung CA Pleural effusion s/p thoracentesis VICKIE/CKD COPD s/p TAVR Plan discussed with: Patient My Orders Orders - DEEPAK ATKINS MD Procedure Category Date Status Time Apply Z-Guard MICHELLE 04/07/25 In Process 12:43 * Urology Consult CONS 04/08/25 Transmitted 09:47 Ct Ab Pel Wo Con-No CT 04/08/25 Taken Oral Or Iv 09:49 Code Status CODE 04/08/25 Transmitted 09:50 * Cardiology Consult CONS 04/08/25 Transmitted 10:22 Date of Service: Apr 08, 2025 Billing Provider: DEEPAK ATKINS MD Common Visit Codes: NOT BILLABLE DEEPAK ATKINS MD Apr 08, 2025 10:33
--- NOTE | 2025-04-08 11:06 | DVHPN2 ---
Progress Note Date Seen: Apr 08, 2025 Resident Creating Document: ANMOL MARTINO RESDIENT Medical Necessity Reason Pt with a Central, PICC or Fol: No Subjective Review of Systems Patient seen and examined at the bedside. Patient is feeling better since admission. Other Systems: Patient seen and examined by myself today in follow-up with the medicine resident, I agree with the assessment and Objective vital signs Vital Sign Date Time Temp Pulse Resp B/P (MAP) Pulse Ox O2 Delivery O2 Flow Rate FiO2 04/08/25 09:31 99/53 04/08/25 08:30 98.0 74 14 92 98.0 04/08/25 08:30 Nasal Cannula* 3 32 Total Intake and Output 04/07/25 04/07/25 04/08/25 15:00 23:00 07:00 Intake Total 1540 ml 0 ml Output Total 1050 ml 450 ml 700 ml Balance 490 ml -450 ml -700 ml medications Current Medications Medications Dose Ordered Sig/Andressa Route Start Time Stop Time Status Last Admin Dose Admin Ceftriaxone Sodium 50 ml @ 100 mls/hr DAILY@09 IV 04/07/25 09:00 04/08/25 09:28 100 MLS/HR Azithromycin 250 ml @ 125 mls/hr DAILY IV 04/07/25 10:00 04/08/25 10:42 125 MLS/HR Amlodipine Besylate 5 mg DAILY PO 04/07/25 10:00 04/07/25 09:26 5 MG Apixaban 2.5 mg BID PO 04/07/25 10:00 04/08/25 09:30 2.5 MG Atorvastatin Calcium 80 mg HS PO 04/07/25 22:00 04/07/25 22:18 80 MG Levothyroxine Sodium 150 mcg QAM@0600 PO 04/07/25 06:00 04/08/25 05:37 150 MCG Acetaminophen/ Hydrocodone Bitart 1 tab Q4HP PRN PO 04/06/25 22:15 Ondansetron HCl 4 mg Q4HP PRN IV 04/06/25 22:15 Acetaminophen 650 mg Q6HP PRN PO 04/06/25 22:15 04/07/25 17:12 650 MG Dextrose/Sodium Chloride 1,000 ml @ 80 mls/hr [id number] IV 04/07/25 11:00 04/07/25 23:09 80 MLS/HR Albuterol 2.5 mg Q6HR NEB 04/07/25 12:00 04/08/25 06:07 2.5 MG Ipratropium [place] 0.5 mg Q6HWA NEB 04/07/25 12:00 04/08/25 06:07 0.5 MG Enteral Nutritional Formula 240 ml TIDWM PO 04/08/25 08:00 04/08/25 08:00 240 ML Examination General Appearance: Alert, Oriented X3, Cooperative, No acute distress HEENT: Atraumatic, PERRLA, EOMI, dry mucous membrane, and decreased skin turgor Respiratory: Bilateral wheezing Cardiovascular: Regular rate, Normal S1, Normal S2, No murmurs, no chest wall tenderness Abdominal: Normal bowel sounds, Soft, No tenderness, No hepatospenomegaly, No masses Extremities: Bilateral trace edema Skin: No rashes, No breakdown, No significant lesion Neuro: Normal gait, Normal speech, Strength at 5/5 X4 ext, Normal tone, Sensation intact, Cranial nerves 3-12 NL, Reflexes 2+ Psych/Mental Status: Mental status NL, Mood NL laboratory and microbiology Laboratory Tests 04/08/25 05:08 Test 04/08/25 05:08 Range/Units Serum Glucose 156 H 74-106 mg/dL Microbiology Date/Time Source Procedure Growth Status 04/07/25 17:30 Pleural Fluid Gram Stain - Final Resulted 04/07/25 17:30 Pleural Fluid Body Fluid Culture - Preliminary No growth Resulted 04/06/25 17:13 Voided Urine Urine Culture - Preliminary Resulted 04/06/25 16:06 Blood Blood Culture - Preliminary NO GROWTH AFTER 24 HOURS OF INCUBATION. Resulted Labs and/or images reviewed: Labs reviewed by me, Image(s) reviewed by me Problem List/Assessment/Plan Problem List/Assessment/Plan This is a 84-year-old male with past medical history of Lung CA, COPD, hypertension, dyslipidemia, CKD 3B, thyroid and status post pacemaker brought in to the hospital due to generalized weakness and decreased oral intake. VICKIE on CKD 3B, likely VMN (possibly due to decreased oral intake) Mild hypernatremia/dehydration, possibly due to decreased oral intake Renal mass, likely renal cell carcinoma, recommend urology evaluation Lung cancer, on radiotherapy Possible COPD exacerbation Hematuria Hypertension Dyslipidemia Status post pacemaker Large right pleural effusion, post thoracentesis (drained 1.1 L) Atrial fibrillation, currently sinus rhythm Plan/recommendation: (Dr. Richardson) * Kidney function continue to improve * Increased urine output * Continue D5W with 1/2 NS at 80 mL/hour * Discontinue amlodipine * Breathing treatment * Closely monitor fluid and electrolytes * Avoid nephrotoxic medications * Strict I&Os * Renal diet * We will follow up with the patient Thank you for giving us the opportunity to take care of your patient. Please call back if you have any questions/concerns. Plan discussed with: Patient, Other (RN) My Orders My Orders Orders - ANMOL MARTINO Procedure Category Date Status Time *Consult Dr.Gomez RANGEL 04/07/25 Transmitted 11:32 Dietary Evaluation Review Comments: 1. Renal Diet with Nepro oral supplementation TID 2. Monitor PO intake 3. Follow up with consults and lab values Expected Outcomes/Goals: Improved PO intakes, increased physical strength. ANMOL MARTINO Apr 08, 2025 11:06 JEANNIE RICHARDSON MD Apr 08, 2025 11:58
--- NOTE | 2025-04-08 11:19 | DVHINCON2 ---
Date of service: Apr 08, 2025 Referring Physician Hospitalist Reason for Consultation Incidental 3.2 cm left renal mass on US History of Present Illness 84-year-old male presents for evaluation of generalized weakness. Per patient's patient has been progressively weaker and more lethargic over the past one month. He did have his last chemotherapy for lung cancer one month ago. Patient has decreased appetite and refuses to get out of bed. Patient is currently alert oriented x3. Also reports shortness for breath. No cough or fever. Past Medical History Lung CA, COPD, hypertension, dyslipidemia, thyroid, CHF. CKD Past Surgical History Pacemaker Family History: Patient reports no known family medical history. Allergies: Uncoded Allergies: NONE (Allergy, Unknown, 12/16/21) Home Meds Reported Medications Emollient (Aquaphor) Oin, 1 EXT DAILY, OIN 04/07/25 Lutein-Zeaxanthin (Ocuvite Lutein 25 25-5 mg) 1 Cap Cap, 1 CAP PO DAILY, CAP 04/07/25 Sacubitril-Valsartan (Entresto 24-26 mg) 1 Tab Tab, 1 TAB PO DAILY, TAB 04/07/25 Levothyroxine Sodium (Levothyroxine Sodium) 150 Mcg Tab, 1 TAB PO DAILY for 90 Days, #90 09/08/24 Nebivolol HCl (Nebivolol Hydrochloride) 10 Mg Tab, 1 TAB PO DAILY for 90 Days, #90 09/06/24 Apixaban Base (ELIQUIS) 2.5 Mg Tab, 1 TAB PO BID for 90 Days, #180 09/06/24 Sitagliptin Phosphate (Januvia) 50 Mg Tab, 1 TAB PO DAILY for 90 Days, #90 09/06/24 Uhrhfiwkisl-Hofbkrgluqdu-Uqtps (Trelegy Ellipta 100-62.5-25 Mcg/INH) 1 Aer Aer, 1 AER IN BID for 90 Days, #180 09/06/24 Latanoprost (LATANOPROST) 0.005 % Jessi, 1 DROP EACHEYE QPM for 90 Days, #7.5 09/06/24 Atorvastatin Calcium (ATORVASTATIN CALCIUM) 80 Mg Tab, 1 TAB PO HS for 90 Days, #90 09/06/24 Amlodipine Besylate (Amlodipine Besylate) 5 Mg Tab, 1 TAB PO DAILY for 90 Days, #90 09/06/24 Bicalutamide (Casodex) 50 Mg Tab, 1 TAB PO DAILY for 90 Days, #90 09/05/24 Krill Oil (Megared [place] Clover-3 350 mg) 1 Cap Cap, 2 CAP PO DAILY, CAP 12/16/21 Furosemide (Furosemide) 40 Mg Tab, 80 MG PO DAILY, MG 12/16/21 Losartan Potassium (Losartan Potassium) 50 Mg Tab, 50 MG PO DAILY for 30 Days, MG 12/16/21 Discontinued Reported Medications Aspirin (Aspir-Low) 81 Mg Tab, 81 MG PO DAILY, MG 12/16/21 Timolol Maleate (Ophth) (TIMOPTIC) 0.5 % Jessi, 1 DROP EACHEYE BID, #10 ML 3 Refills 12/16/21 Current Medications Current Medications Medications (Trade) Dose Ordered Sig/Andressa Route PRN Reason Start Time Stop Time Status Last Admin Atorvastatin Calcium (Lipitor) 80 mg HS PO 04/07/25 22:00 04/07/25 22:18 Albuterol (Ventolin Medneb) 2.5 mg Q6HR NEB 04/07/25 12:00 04/08/25 06:07 Ipratropium [place] (Atrovent Medneb) 0.5 mg Q6HWA [facility] 04/07/25 12:00 04/08/25 06:07 Albumin Human 100 ml @ 100 mls/hr ONCE STAT IV 04/07/25 18:03 04/07/25 19:02 DC 04/07/25 18:39 Enteral Nutritional Formula (Ensure High Protein) 240 ml TIDWM PO 04/08/25 08:00 04/08/25 08:00 Review of Systems Review of systems are currently negative otherwise addressed in HPI. Allergies: Uncoded Allergies: NONE (Allergy, Unknown, 12/16/21) Vital Signs Vital Signs Date Time Temp Pulse Resp B/P (MAP) Pulse Ox O2 Delivery O2 Flow Rate FiO2 04/08/25 09:31 99/53 04/08/25 08:30 98.0 74 14 92 98.0 04/08/25 08:30 Nasal Cannula* 3 32 Physical Exam Date Time Temp Pulse Resp B/P (MAP) Pulse Ox O2 Delivery O2 Flow Rate FiO2 04/06/25 18:49 71 04/06/25 18:30 18 116/51 (72) 94 04/06/25 16:00 Nasal Cannula* 3 32 04/06/25 15:55 97.5 97.5 Exam Gen: 84-year-old male in mild distress Skin: Warm, dry, normal color and texture, no rash. HEENT: Normocephalic atraumatic, mucous membranes moist and pink. Neck: Cervical and supraclavicular nodes normal without enlargement, trachea is midline, thyroid gland is normal without masses. Pulmonary: Clear to auscultation and percussion bilaterally. Cardiac: Regular rate and rhythm. No murmur Abdomen: Soft, nontender, nondistended, bowel sounds present all 4 quadrants, no guarding, no rigidity, no organomegaly. Extremities: No cyanosis, clubbing, no edema Neuro: Cranial nerves II through XII grossly intact, normal affect and speech, no focal motor deficits. Labs/Diagnostic Data Labs Test 04/08/25 05:08 04/07/25 17:30 04/07/25 14:30 04/07/25 04:39 Range/Units White Blood Count 10.3 4.4-10.8 10^3/uL Red Blood Count 2.81 L 4.5-5.90 10^6/uL Hemoglobin 8.2 L 13.5-17.5 g/dL Hematocrit 25.6 L 41.0-53.0 % Mean Corpuscular Volume 91.1 80.0-100.0 fL Mean Corpuscular Hemoglobin 29.3 28.0-32.0 pg Mean Corpuscular Hemoglobin Concent 32.2 32.0-36.0 g/dL Red Cell Distribution Width 18.5 H 11.8-14.3 % Platelet Count 258 140-450 10^3/uL Mean Platelet Volume 7.5 6.9-10.8 fL Neutrophils (%) (Auto) 85.0 H 37.0-80.0 % Lymphocytes (%) (Auto) 3.6 L 10.0-50.0 % Monocytes (%) (Auto) 10.3 0.0-12.0 % Eosinophils (%) (Auto) 0.6 0.0-7.0 % Basophils (%) (Auto) 0.5 0.0-2.0 % Neutrophils # (Auto) 8.8 H 1.6-8.6 10 ^3/uL Lymphocytes # (Auto) 0.4 0.4-5.4 10 ^3/uL Monocytes # (Auto) 1.1 0-1.3 10 ^3/uL Eosinophils # (Auto) 0.1 0-0.8 10 ^3/uL Basophils # (Auto) 0 0-0.2 10 ^3/uL Nucleated Red Blood Cells 0.0 % Sodium Level 145 136-145 mmol/L Potassium Level 4.0 3.5-5.1 mmol/L Chloride Level 107 98-107 mmol/L Carbon Dioxide Level 28 20-31 mmol/L Anion Gap 10 5-15 Blood Urea Nitrogen 47 #H 9-23 mg/dL Creatinine 2.37 H 0.700-1.30 mg/dL Glomerular Filtration Rate Calc 26 >90 mL/min BUN/Creatinine Ratio 19.8 10.0-20.0 Serum Glucose 156 H 74-106 mg/dL Calcium Level 8.5 L 8.7-10.4 mg/dL Magnesium Level 2.5 1.6-2.6 mg/dL Total Bilirubin 0.4 0.2-1.0 mg/dL Aspartate Amino Transferase (AST) 16 13-40 U/L Alanine Aminotransferase (ALT) 13 7-40 U/L Alkaline Phosphatase 60 46-116 U/L Total Protein 6.8 5.7-8.2 g/dL Albumin 3.6 3.2-4.8 g/dL Body Fluid Source Pleural fluid Body Fluid pH 8.0 Body Fluid WBC (Manual) 2441 H 0-200 CUMM Body Fluid RBC (Manual) 42324 H 0-2000 CUMM Body Fluid Mononuclear Cells 80 % Body Fluid Polymorphonuclear Cells 20 0-25 % Urine Color Light-orange Yellow Urine Clarity Turbid H Clear Urine pH 8.0 5.0-9.0 Urine Specific [place] 1.030 1.001-1.035 Urine Protein 3+ H Negative Urine Ketones Negative Negative Urine Blood 3+ H Negative /uL Urine Nitrite Negative Negative Urine Bilirubin Negative Negative Urine Urobilinogen Normal Negative mg/dL Urine Leukocyte Esterase Negative Negative /uL Urine RBC 1399 0 - 3 /hpf Urine WBC Clumps Present None Seen /hpf Urine Microscopic WBC 411 H 0-3 /HPF Urine Squamous Epithelial Cells None seen <5 /hpf Urine Bacteria Few H None Seen /hpf Urine Mucus Few None Seen Urine Creatinine < 3.00 L 30.0-125.0 mg/dL Urine Protein/Creatinine Ratio 833.00 Urine Sodium 154 40-220 mmol/L Urine Glucose 2+ H Normal mg/dL Urine Total Protein > 2500.0 H 1-14 mg/dL Uric Acid 8.7 3.7-9.2 mg/dL Phosphorus Level 3.9 2.4-5.1 mg/dL Vitamin D 25-Hydroxy 32.9 30.0-100 ng/mL Parathyroid Hormone (Intact) 86.0 H 18.4-80.1 pg/mL Test 04/06/25 19:34 04/06/25 19:02 04/06/25 17:00 04/06/25 15:56 Range/Units Lactic Acid Level 0.6 0.4-2.0 mmol/L Troponin I High Sensitivity 13 </=54 ng/L Thyroid Stimulating Hormone (TSH) 1.86 0.55-4.78 uIU/mL B-Type Natriuretic Peptide 370.27 0-100 pg/mL Microbiology Date/Time Source Procedure Growth Status 04/07/25 17:30 Pleural Fluid Gram Stain - Final Resulted 04/07/25 17:30 Pleural Fluid Body Fluid Culture - Preliminary No growth Resulted 04/06/25 17:13 Voided Urine Urine Culture - Preliminary Resulted 04/06/25 16:06 Blood Blood Culture - Preliminary NO GROWTH AFTER 24 HOURS OF INCUBATION. Resulted PATIENT: DILAN GARCIA ACCT: [id number] UNIT: [id number] : 1940 LOC: [facility] ROOM / BED: [address] [place] [address] AGE / SEX: 84 / M ADM STATUS: ADM IN SERVICE 0858 ORDERING PHYSICIAN: JEANNIE RICHARDSON MD PROCEDURE(s): KIDUS - KIDNEY REASON: jose ORDER NUMBER(s): [id number], ACCESSION NUMBER(s): [id number] EXAM DESCRIPTION: RENAL ULTRASOUND CLINICAL HISTORY: jose COMPARISON: US LIVER on DOS: 09/06/24, US KIDNEY on DOS: 09/05/24, US KIDNEY on DOS: 08/18/24 TECHNIQUE: Multiplanar ultrasound examination of the kidneys and urinary bladder was p erformed. FINDINGS: The right kidney measures 9.4 cm. No renal calculus. No hydronephrosis.. No solid renal masses. The left kidney measures 11.9 cm. No renal calculus. No hydronephrosis.. Questionable 3.2 cm mass at the upper pole of the left kidney. The echogenicity of the kidneys is within normal limits. The urinary bladder is decompressed with a bay catheter. Bilateral pleural effusions. IMPRESSION: 1. No hydronephrosis. 2. Questionable 3.2 cm left renal mass. Recommend further evaluation with CT or MRI with IV contrast 3. Bilateral pleural effusions. ATED BY: ABELARDO FONTANEZ MD DICTATED DATE/TIME: 04/07/25 1016 SIGNED BY: ABELARDO FONTANEZ MD SIGNED DATE/TIME: 04/07/25 1016 CC: Assessment Atrophic right kidney CKD Left renal stone, 5 mm lower pole Left upper pole renal lesion- indeterminant due to lack of IV contrast Plan/Recommendation Consult IR service for Left renal biopsy and Left renal cryoablation Plan discussed with: Patient, Other ISABEL BILL MD Apr 08, 2025 11:19
--- NOTE | 2025-04-08 12:37 | DVH ---
Indication: LEFT RENAL MASS Technique: CT axial images of the abdomen and pelvis are obtained without contrast. Coronal and sagittal reformats were obtained. Radiation Dose Information: CTDI volume is 20.39 mGy. Dose-length product is 1332.75 mGy*cm Comparison: None FINDINGS: There is limited interpretation of the abdomen and pelvis without administration of intravenous contrast. Aortic valvular prosthesis. Tiny pericardial effusion. Multiple subcarinal/ paraesophageal lymph nodes up to 2.2 cm. Bilateral pleural [id number] which appears small to moderate in size and [id number] complex in appearance. Bibasilar atelectasis /consolidation Adrenal glands, spleen unremarkable in shape. Pancreatic parenchymal atrophy. No CT evidence for cholelithiasis. Liver capsule nodular morphology. The right kidney demonstrates no hydronephrosis / nephrolithiasis. Left renal hyperdense lesion/ mass extending into the pelvis measuring 4.1 x 3 cm. Nonobstructing left renal calculus measuring 7 mm. Periaortic/retroperitoneal lymph node measuring 10 mm. Portacaval lymph node measuring 12 mm. Stomach is partially distended. Small bowel loops are normal in caliber. Colonic diverticular disease. Moderate volume stool in the colon. Normal appendix. Abdominal aortic atherosclerotic disease. Bladder decompressed by Chavez catheter. No free pelvic fluid. Right inguinal lymph nodes measuring up to 12 mm. Soft tissue edema / anasarca. Moderate to advanced lumbar degenerative disc disease. IMPRESSION: Limited evaluation without contrast. Left renal hyperdense lesion/ mass measuring 4.1 x 3 cm extending to the Left renal pelvis, likely representing patient's known history of renal malignancy. Recommend MRI abdomen with and without contrast to better characterize. 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 Bibasilar pulmonary consolidation. 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 This can be further evaluated with a PET scan. Small to moderate bilateral pleural effusions which appear complex in appearance, possibly malignant in etiology. This can be better evaluated with a CT chest with contrast. Abdominal aortic atherosclerotic disease. Colonic diverticular disease. Moderate volume stool in the colon. Other findings as described.
--- NOTE | 2025-04-08 20:11 | DVHPN2 ---
Subjective DOS: 04/08/2025 Patient seen and examined at bedside. Remains on supplemental oxygen Overnight events reviewed. Changes from previous H/P or p: No Changes Objective Vitals Vital Signs Date Time Temp Pulse Resp B/P (MAP) Pulse Ox O2 Delivery O2 Flow Rate FiO2 04/08/25 18:07 74 18 100 04/08/25 16:47 98.1 102/56 (71) 98.1 04/08/25 12:08 Nasal Cannula 3.0 04/08/25 12:08 32 Intake/Output Intake and Output 04/08/25 07:00 Intake Total 1540 ml Output Total 2200 ml Balance -660 ml Intake Oral 1240 ml IV Total 300 ml Output Urine Total 2200 ml # Bowel Movements 1 Exam Gen.: Patient lying in bed in no apparent distress. On supplemental oxygen. Head: Normocephalic, atraumatic. Eyes: EOMI/PERRLA. Ears: Normal hearing. Normal anatomy. Neck/trachea: Trachea midline, supple. Nose: Normal external anatomy. Mouth: Moist mucous membranes. Chest: Decreased air entry bilaterally. Wheezing. No rhonchi. Cardiovascular: Positive S1, positive S2. Regular rate and rhythm. Abdomen: Positive bowel sounds in all 4 quadrants. Soft, non-tender, non- distended. : Deferred. Rectal: Deferred. Skin: Warm, dry. Intact. Extremities: 2+ radial pulses bilaterally. Trace bilateral lower extremity edema. Neuro: Awake, alert, oriented x3. No gross motor or sensory deficits. Cranial nerves II through XII intact. Gait not assessed. General Appearance: Alert, Oriented X3, Cooperative Lungs: Clear to auscultation, Normal air movement Cardiovascular: Regular rate, Normal S1 Abdomen: Normal bowel sounds, Soft Extremities: No edema Medications Current Medications Medications Dose Ordered Sig/Andressa Route Start Time Stop Time Status Last Admin Dose Admin Ceftriaxone Sodium 50 ml @ 100 mls/hr DAILY@09 IV 04/07/25 09:00 04/08/25 09:28 100 MLS/HR Azithromycin 250 ml @ 125 mls/hr DAILY IV 04/07/25 10:00 04/08/25 10:42 125 MLS/HR Apixaban 2.5 mg BID PO 04/07/25 10:00 04/08/25 09:30 2.5 MG Atorvastatin Calcium 80 mg HS PO 04/07/25 22:00 04/07/25 22:18 80 MG Levothyroxine Sodium 150 mcg QAM@0600 PO 04/07/25 06:00 04/08/25 05:37 150 MCG Acetaminophen/ Hydrocodone Bitart 1 tab Q4HP PRN PO 04/06/25 22:15 Ondansetron HCl 4 mg Q4HP PRN IV 04/06/25 22:15 Acetaminophen 650 mg Q6HP PRN PO 04/06/25 22:15 04/07/25 17:12 650 MG Dextrose/Sodium Chloride 1,000 ml @ 80 mls/hr [id number] IV 04/07/25 11:00 04/08/25 15:59 80 MLS/HR Albuterol 2.5 mg Q6HR NEB 04/07/25 12:00 04/08/25 17:55 2.5 MG Ipratropium [place] 0.5 mg Q6HWA NEB 04/07/25 12:00 04/08/25 17:55 0.5 MG Enteral Nutritional Formula 240 ml TIDWM PO 04/08/25 08:00 04/08/25 18:10 240 ML Laboratory Results Laboratory Tests 04/08/25 05:08 Chemistry Test 04/08/25 05:08 Albumin 3.6 g/dL (3.2-4.8) Calcium Level 8.5 mg/dL (8.7-10.4) L Magnesium Level 2.5 mg/dL (1.6-2.6) Total Protein 6.8 g/dL (5.7-8.2) LFT Test 04/08/25 05:08 Alanine Aminotransferase (ALT) 13 U/L (7-40) Alkaline Phosphatase 60 U/L (46-116) Aspartate Amino Transferase (AST) 16 U/L (13-40) Total Bilirubin 0.4 mg/dL (0.2-1.0) Urinalysis Test 04/07/25 14:30 Urine Color Light-orange (Yellow) Urine Clarity Turbid (Clear) H Urine pH 8.0 (5.0-9.0) Urine Specific [place] 1.030 (1.001-1.035) Urine Protein 3+ (Negative) H Urine Ketones Negative (Negative) Urine Blood 3+ /uL (Negative) H Urine Nitrite Negative (Negative) Urine Bilirubin Negative (Negative) Urine Urobilinogen Normal mg/dL (Negative) Urine Leukocyte Esterase Negative /uL (Negative) Urine RBC 1399 /hpf (0 - 3) Urine WBC Clumps Present /hpf (None Seen) Urine Microscopic WBC 411 /HPF (0-3) H Urine Squamous Epithelial Cells None seen /hpf (<5) Urine Bacteria Few /hpf (None Seen) H Urine Mucus Few (None Seen) Urine Creatinine < 3.00 mg/dL (30.0-125.0) L Urine Protein/Creatinine Ratio 833.00 Urine Sodium 154 mmol/L (40-220) Urine Glucose 2+ mg/dL (Normal) H Urine Total Protein > 2500.0 mg/dL (1-14) H Microbiology Microbiology Date/Time Source Procedure Growth Status 04/07/25 17:30 Pleural Fluid Gram Stain - Final Resulted 04/07/25 17:30 Pleural Fluid Body Fluid Culture - Preliminary No growth Resulted 04/06/25 17:13 Voided Urine Urine Culture - Preliminary Resulted 04/06/25 16:06 Blood Blood Culture - Preliminary NO GROWTH AFTER 48 HOURS OF INCUBATION. Resulted Assessment/Plan Assessment/Plan Impression: Acute on chronic hypoxic respiratory failure Dependence on supplemental oxygen Lung cancer Congestive heart failure Pneumonia, likely gram negative Pleural effusion Atelectasis Kidney mass, likely metastatic cancer Events: Remains on supplemental oxygen, 3 LPM NC Taper O2 as tolerated Head of bed elevation Aspiration precautions. Patient remains lethargic. He is AAOx3 but falls asleep fast. Continue antibiotics Incentive spirometry Patient received albumin today. S/p right thora on 04/07/25 - 1100 mL's of alexia colored fluid removed from right pleural space See separate procedure note for details F/u pleural fluid cx and cytology Abdomen-pelvis CT w/o contrast showed left renal hyperdense lesion/ mass of 4.1 x 3 cm extending to the left renal pelvis, likely representing patient's known history of renal malignancy. 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 Bibasilar pulmonary consolidation. 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 Small to moderate bilateral pleural effusions which appear complex in appearance, possibly malignant. Abdominal aortic atherosclerotic disease. Colonic diverticular disease. Moderate volume stool in the colon. Labs and imaging reviewed. Rest of plan as noted below. Plan: Supplemental oxygen Titrate to keep O2 sats above 92%. Plan for right thoracentesis for evacuation of pleural effusion. Head of bed elevation Aspiration precautions. Continue bronchodilators. Continue antibiotics Incentive spirometry Follow up Cardiology recommendations Monitor renal function. Monitor electrolytes. Supplement as necessary. Monitor ins and outs. Maintain euvolemia. CXR on 04/06/25 reveals cardiomegaly with bibasilar airspace disease and possible small pleural effusion on the right. Labs and imaging reviewed. DVT prophylaxis. Prognosis: Poor given patient's multiple co-morbidities. Rest of plan per hospitalist and other consultants. Thank you, Dr. Phipps, for allowing me to participate in this patient's care. Further recommendations will depend on the patient's clinical course. Please do not hesitate to contact me if you have any questions or concerns. This medical document was created using an electronic medical record system with [employer] dictation system. Although these documentations are being carefully reviewed, there may still be some phonetic and typographical changes. The errors are purely typographical, due to imperfection on the software program, and do not reflect any compromise in the patient's medical care. Plan discussed with: Patient, Other (ALEX Coleman) Visit Coding Pulmonary Billing Provider: ARIA PERRY MD Date of Service if different f: Apr 08, 2025 Common Visit Codes: 05820-[id number] INP/OBS CARE(HIGH) ARIA PERRY MD Apr 08, 2025 20:11
[2025-04-09] VITALS (23 sets, daily range): BP systolic 103–126; BP diastolic 41–70; PULSE 74–89; RESP 16–26; TEMP 97.7–98.9; O2SAT 89–100
[2025-04-09 06:40] LABS: Hematocrit 23.0 % (41.0-53.0); Hemoglobin 7.4 g/dL (13.5-17.5); Mean Corpuscular Hemoglobin 29.0 pg (28.0-32.0); Mean Corpuscular Volume 90.2 fL (80.0-100.0); Nucleated Red Blood Cells % 0.0 %
[2025-04-09 06:55] LABS: Alanine Aminotransferase 17 U/L (7-40); Albumin 3.3 g/dL (3.2-4.8); Alkaline Phosphatase 61 U/L (46-116); Anion Gap 8 (5-15); BUN/Creatinine Ratio 23.2 (10.0-20.0); Carbon Dioxide 28 mmol/L (20-31); Chloride 106 mmol/L (98-107); Magnesium 2.3 mg/dL (1.6-2.6); Potassium 4.3 mmol/L (3.5-5.1); Sodium 142 mmol/L (136-145); Total Protein 6.4 g/dL (5.7-8.2)
[2025-04-09 06:57] LABS: Bilirubin, Total 0.2 mg/dL (0.2-1.0); Blood Urea Nitrogen 60 mg/dL (9-23); Calcium 8.2 mg/dL (8.7-10.4); Glucose 124 mg/dL (74-106)
--- NOTE | 2025-04-09 07:53 | DVHPN2 ---
Progress Note - Dictate Date Seen: Apr 09, 2025 Medical Necessity Reason Pt with a Central, PICC or Fol: No vital signs Vital Sign Date Time Temp Pulse Resp B/P (MAP) Pulse Ox O2 Delivery O2 Flow Rate FiO2 04/09/25 06:36 82 18 98 04/09/25 06:30 Nasal Cannula 3.0 04/09/25 06:30 32 04/09/25 05:00 98.0 115/55 (75) 98.0 Total Intake and Output 04/08/25 04/08/25 04/09/25 15:00 23:00 07:00 Intake Total 1000 ml 350 ml Output Total 450 ml 350 ml Balance 550 ml 0 ml medications Current Medications Medications Dose Ordered Sig/Andressa Route Start Time Stop Time Status Last Admin Dose Admin Ceftriaxone Sodium 50 ml @ 100 mls/hr DAILY@09 IV 04/07/25 09:00 04/08/25 09:28 100 MLS/HR Azithromycin 250 ml @ 125 mls/hr DAILY IV 04/07/25 10:00 04/08/25 10:42 125 MLS/HR Apixaban 2.5 mg BID PO 04/07/25 10:00 04/08/25 21:36 2.5 MG Atorvastatin Calcium 80 mg HS PO 04/07/25 22:00 04/08/25 21:36 80 MG Levothyroxine Sodium 150 mcg QAM@0600 PO 04/07/25 06:00 04/09/25 05:39 150 MCG Acetaminophen/ Hydrocodone Bitart 1 tab Q4HP PRN PO 04/06/25 22:15 Ondansetron HCl 4 mg Q4HP PRN IV 04/06/25 22:15 Acetaminophen 650 mg Q6HP PRN PO 04/06/25 22:15 04/07/25 17:12 650 MG Dextrose/Sodium Chloride 1,000 ml @ 80 mls/hr [id number] IV 04/07/25 11:00 04/08/25 15:59 80 MLS/HR Albuterol 2.5 mg Q6HR NEB 04/07/25 12:00 04/09/25 06:30 2.5 MG Ipratropium [place] 0.5 mg Q6HWA NEB 04/07/25 12:00 04/09/25 06:30 0.5 MG Enteral Nutritional Formula 240 ml TIDWM PO 04/08/25 08:00 04/08/25 18:10 240 ML laboratory and microbiology Laboratory Tests 04/09/25 05:56 Test 04/09/25 05:56 Range/Units Serum Glucose 124 H 74-106 mg/dL Assessment/Plan Patient is a 84-year-old gentleman who was brought by for generalized weakness which was ongoing and worsening for the past month. Does have history of advanced/metastatic cancer. Cardiology is involved for cardiac aspects of care (patient's called me personally). Patient is known to our practice from outside and before. There is no report of chest pain. There is no report of palpitation. Patient has been on chemotherapy/radiation therapy. Cachectic male. Sitting in bed. Somewhat confused. No gross JVD. Mucosa is pale. Scattered rhonchi in the lungs is heard. Not using accessory muscles of breathing. Cardiac: Regular. Systolic murmur 2/6 in the apex is heard. Abdomen is soft. Bilateral edema seen. 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 Echocardiogram of January 16, 2025 (performed in the office) revealed ejection fraction 45-50%, mild concentric left ventricular hypertrophy, mild left atrial enlargement, pacemaker wires were seen right-sided chambers, bioprosthetic valve in aortic position which worked normally, mild mitral regurgitation, [id number] tricuspid regurgitation with right ventricular systolic pressure of 36 mm Hg. Hemoglobin: 8.6 - 9.0 - 8.2 - 7.4 Creatinine: 2.74 - 2.63 - 2.37 - 2.59 Potassium: 4.5 - 4.5 - 4.0 - 4.3 TSH: 1.86 BNP: 370.27 Troponin (high sensitive): 13 Chest x-ray revealed: IMPRESSION: 1. Cardiomegaly with bibasilar airspace disease and possible small pleural effusion on the right. 2. Pneumonia versus congestive failure are both in the radiographic differential Repeat chest x-ray revealed: IMPRESSION: 1. Removal of the right pleural effusion with atelectasis in the right base. 2. No pneumothorax 3. Pacemaker in place unchanged. CT of the head reported: IMPRESSION: 1. No acute intracranial abnormality. 2. Mild cerebral volume loss and minor chronic microvascular ischemic change. Renal ultrasound reported: IMPRESSION: 1. No hydronephrosis. 2. Questionable 3.2 cm left renal mass. Recommend further evaluation with CT or MRI with IV contrast 3. Bilateral pleural effusions. CT of Abdomen and Pelvis revealed: There is limited interpretation of the abdomen and pelvis without administration of intravenous contrast. Aortic valvular prosthesis. Tiny pericardial effusion. Multiple subcarinal/ paraesophageal lymph nodes up to 2.2 cm. Bilateral pleural [id number] which appears small to moderate in size and [id number] complex in appearance. Bibasilar atelectasis /consolidation Adrenal glands, spleen unremarkable in shape. Pancreatic parenchymal atrophy. No CT evidence for cholelithiasis. Liver capsule nodular morphology. The right kidney demonstrates no hydronephrosis / nephrolithiasis. Left renal hyperdense lesion/ mass extending into the pelvis measuring 4.1 x 3 cm. Nonobstructing left renal calculus measuring 7 mm. Periaortic/retroperitoneal lymph node measuring 10 mm. Portacaval lymph node measuring 12 mm. Stomach is partially distended. Small bowel loops are normal in caliber. Colonic diverticular disease. Moderate volume stool in the colon. Normal appendix. Abdominal aortic atherosclerotic disease. Bladder decompressed by Chavez catheter. No free pelvic fluid. Right inguinal lymph nodes measuring up to 12 mm. Soft tissue edema / anasarca. Moderate to advanced lumbar degenerative disc disease. IMPRESSION: Limited evaluation without contrast. Left renal hyperdense lesion/ mass measuring 4.1 x 3 cm extending to the Left renal pelvis, likely representing patient's known history of renal malignancy. Recommend MRI abdomen with and without contrast to better characterize. 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 Bibasilar pulmonary consolidation. 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 This can be further evaluated with a PET scan. Small to moderate bilateral pleural effusions which appear complex in appearance, possibly malignant in etiology. This can be better evaluated with a CT chest with contrast. Abdominal aortic atherosclerotic disease. Colonic diverticular disease. Moderate volume stool in the colon. Other findings as described. EKG revealed sinus rhythm with left bundle branch block Tele reveals sinus rhythm Echocardiogram revealed: Technically limited study secondary to poor acoustic windows. Left ventricle: Mild concentric left ventricular hypertrophy was seen left ventricle was normal-sized. LVEF was 55-60%. There was no gross wall motion abnormality. Right ventricle was mildly dilated with normal systolic function. Mild biatrial enlargement was seen. Pacing wire was seen in right- sided chambers. Bioprosthetic valve was observed in aortic position. It works properly. There was no aortic insufficiency/stenosis. Mild mitral annular calcification was seen. Mild mitral regurgitation was observed. [id number] tricuspid regurgitation was seen. Right ventricular systolic pressure was assessed at 44 mm Hg. IVC was normal-sized with normal respiratory variation. There was trace pericardial effusion. Patient is a 84-year-old gentleman with advanced multiple cancers and metastasis who presented with generalized weakness. Does have baseline history of valvular heart disease for which has had TAVR before. Also has history of atrial fibrillation (paroxysmal) for which is on Eliquis as outpatient. Has been on chemotherapy/radiation therapy. Has had poor appetite and malnutrition could have contributed to the clinical picture. Advanced band of cancers could have contributed to the clinical picture. Side effects secondary to radiation/chemotherapy could have contributed to the clinical picture. Acute coronary syndrome is not considered. Decompensated heart failure is not considered as a component of presentation. Does have history of pacemaker (Biotronik) which was recently interrogated in the office. Being followed by Nephrology/Urology/Pulmonary. Encephalopathy, metabolic VICKIE on CKD Pneumonia Lung cancer Advanced metastatic cancer as COPD Pleural effusion, status post thoracentesis Multiple cancers, metastatic Poor functional capacity Paroxysmal AFib Sick sinus syndrome, status post pacemaker implantation (Biotronik) Valvular heart disease, status post TAVR Cardiac suggestion for management: Manage on telemetry Follow-up electrolytes and kidney function tests and correct abnormalities Fluid resuscitation Long-term continuation of full anticoagulation is advised, if not contraindicated Nephrology follow-up is advised Pulmonary follow-up Urology Follow up Consider Oncology evaluation Goals of care as per primary team Further evaluation and management depends on the above and clinical course Long-term prognosis: very poor A total of 75 minutes was spent reviewing the patient record, examining the patient, making a diagnostic and therapeutic plan, discussing this plan with medical personnel, following up on diagnostic studies and following the patient for clinical stability excluding any and all procedures. At least 50% of this time was spent in direct, [id number] contact. Thank you for allowing me to participate in this patient's care. Further recommendations will depend on patient's clinical course. Please do not hesitate to contact me if you have any questions or concerns. This medical document was created using electronic medical record system with [employer] computerized dictation system. Although this document has been carefully reviewed, there may still be some phonetic and typographical errors. These areas are purely typographical due to the imperfection of the software programs, and do not reflect any compromise in the patient's medical care. Dietary Evaluation Review Comments: 1. Renal Diet with Nepro oral supplementation TID 2. Monitor PO intake 3. Follow up with consults and lab values Expected Outcomes/Goals: Improved PO intakes, increased physical strength. Plan discussed with: Other (nurse) LUIS HOLT MD Apr 09, 2025 07:53
--- NOTE | 2025-04-09 08:59 | DVHPN2 ---
Progress Note Date Seen: Apr 09, 2025 Resident Creating Document: ANMOL MARTINO RESDIENT Medical Necessity Reason Pt with a Central, PICC or Fol: No Subjective Review of Systems Patient seen and examined at the bedside. Patient is feeling better since admission. Other Systems: Patient seen and examined by myself today on rounds with the medicine resident, I agree with his assessment and plan Objective vital signs Vital Sign Date Time Temp Pulse Resp B/P (MAP) Pulse Ox O2 Delivery O2 Flow Rate FiO2 04/09/25 06:36 82 18 98 04/09/25 06:30 Nasal Cannula 3.0 04/09/25 06:30 32 04/09/25 05:00 98.0 115/55 (75) 98.0 Total Intake and Output 04/08/25 04/08/25 04/09/25 15:00 23:00 07:00 Intake Total 1000 ml 350 ml Output Total 450 ml 350 ml Balance 550 ml 0 ml medications Current Medications Medications Dose Ordered Sig/Andressa Route Start Time Stop Time Status Last Admin Dose Admin Ceftriaxone Sodium 50 ml @ 100 mls/hr DAILY@09 IV 04/07/25 09:00 04/08/25 09:28 100 MLS/HR Azithromycin 250 ml @ 125 mls/hr DAILY IV 04/07/25 10:00 04/08/25 10:42 125 MLS/HR Apixaban 2.5 mg BID PO 04/07/25 10:00 04/08/25 21:36 2.5 MG Atorvastatin Calcium 80 mg HS PO 04/07/25 22:00 04/08/25 21:36 80 MG Levothyroxine Sodium 150 mcg QAM@0600 PO 04/07/25 06:00 04/09/25 05:39 150 MCG Acetaminophen/ Hydrocodone Bitart 1 tab Q4HP PRN PO 04/06/25 22:15 Ondansetron HCl 4 mg Q4HP PRN IV 04/06/25 22:15 Acetaminophen 650 mg Q6HP PRN PO 04/06/25 22:15 04/07/25 17:12 650 MG Dextrose/Sodium Chloride 1,000 ml @ 80 mls/hr [id number] IV 04/07/25 11:00 04/08/25 15:59 80 MLS/HR Albuterol 2.5 mg Q6HR NEB 04/07/25 12:00 04/09/25 06:30 2.5 MG Ipratropium [place] 0.5 mg Q6HWA NEB 04/07/25 12:00 04/09/25 06:30 0.5 MG Enteral Nutritional Formula 240 ml TIDWM PO 04/08/25 08:00 04/09/25 08:20 240 ML Examination General Appearance: Alert, Oriented X3, Cooperative, No acute distress HEENT: Atraumatic, PERRLA, EOMI, dry mucous membrane, and decreased skin turgor Respiratory: Bilateral wheezing Cardiovascular: Regular rate, Normal S1, Normal S2, No murmurs, no chest wall tenderness Abdominal: Normal bowel sounds, Soft, No tenderness, No hepatospenomegaly, No masses Extremities: Bilateral trace edema Skin: No rashes, No breakdown, No significant lesion Neuro: Normal gait, Normal speech, Strength at 5/5 X4 ext, Normal tone, Sensation intact, Cranial nerves 3-12 NL, Reflexes 2+ Psych/Mental Status: Mental status NL, Mood NL Examination: LUNGS:Normal, CVS:Normal, MSK:Abnormal laboratory and microbiology Laboratory Tests 04/09/25 05:56 Test 04/09/25 05:56 Range/Units Serum Glucose 124 H 74-106 mg/dL Microbiology Date/Time Source Procedure Growth Status 04/07/25 17:30 Pleural Fluid Gram Stain - Final Resulted 04/07/25 17:30 Pleural Fluid Body Fluid Culture - Preliminary No growth Resulted 04/06/25 17:13 Voided Urine Urine Culture - Preliminary Resulted 04/06/25 16:06 Blood Blood Culture - Preliminary NO GROWTH AFTER 48 HOURS OF INCUBATION. Resulted Labs and/or images reviewed: Labs reviewed by me, Image(s) reviewed by me Problem List/Assessment/Plan Problem List/Assessment/Plan This is a 84-year-old male with past medical history of Lung CA, COPD, hypertension, dyslipidemia, CKD 3B, thyroid and status post pacemaker brought in to the hospital due to generalized weakness and decreased oral intake. VICKIE on CKD 3B, likely VMN (possibly due to decreased oral intake) Mild hypernatremia/dehydration, possibly due to decreased oral intake Renal mass, likely renal cell carcinoma, recommend urology evaluation Lung cancer, on radiotherapy Possible COPD exacerbation Hematuria Hypertension Dyslipidemia Status post pacemaker Large right pleural effusion, post thoracentesis (drained 1.1 L) Atrial fibrillation, currently sinus rhythm Plan/recommendation: (Dr. Richardson) * Kidney function stabilize Chronic Kidney Disease stage 4 * Good urine output * Continue D5W with 1/2 NS at 80 mL/hour * Breathing treatment * Closely monitor fluid and electrolytes * Avoid nephrotoxic medications * Strict I&Os * Renal diet * We will follow up with the patient Thank you for giving us the opportunity to take care of your patient. Please call back if you have any questions/concerns. Plan discussed with: Patient, Spouse, Other (RN) Dietary Evaluation Review Comments: 1. Renal Diet with Nepro oral supplementation TID 2. Monitor PO intake 3. Follow up with consults and lab values Expected Outcomes/Goals: Improved PO intakes, increased physical strength. ANMOL MARTINO Apr 09, 2025 08:59 JEANNIE RICHARDSON MD Apr 09, 2025 14:23
--- NOTE | 2025-04-09 10:08 | MEDREC ---
[facility] Intervention Section I [facility] Intervention: Review courses of therapy (Urine culture shows K. oxytoca - ESBL, please escalate antibiotic according to susseptibility result. Use Levofloxacin PO daily for 5-7 days if clinically appropriate) BAYLEE GOMES [facility] RESIDENT Apr 09, 2025 10:08
[2025-04-09] MEDS: FUROSEMIDE 40 MG/4 ML VIAL IV SCH (11:07)
[2025-04-09 12:07] LABS: Glucose, Body Fluid 107.0 mg/dL (.); LD, Body Fluid 905.0 IU/L (.)
--- NOTE | 2025-04-09 13:11 | DVHPN2 ---
Subjective No new complaints More alert and oriented Complains of generalized weakness Changes from previous H/P or p: Changes Objective Vitals Vital Signs Date Time Temp Pulse Resp B/P (MAP) Pulse Ox O2 Delivery O2 Flow Rate FiO2 04/09/25 13:00 98.0 84 24 112/46 (68) 94 98.0 04/09/25 12:07 Nasal Cannula 3.0 04/09/25 12:07 32 Intake/Output Intake and Output 04/09/25 07:00 Intake Total 1350 ml Output Total 800 ml Balance 550 ml Intake Oral 1350 ml Output Urine Total 800 ml # Bowel Movements 3 General Appearance: Alert, Oriented X3, Cooperative Lungs: Clear to auscultation, Normal air movement Cardiovascular: Regular rate, Normal S1 Abdomen: Normal bowel sounds, Soft Extremities: No edema Medications Current Medications Medications Dose Ordered Sig/Andressa Route Start Time Stop Time Status Last Admin Dose Admin Apixaban 2.5 mg BID PO 04/07/25 10:00 04/09/25 11:04 2.5 MG Atorvastatin Calcium 80 mg HS PO 04/07/25 22:00 04/08/25 21:36 80 MG Levothyroxine Sodium 150 mcg QAM@0600 PO 04/07/25 06:00 04/09/25 05:39 150 MCG Acetaminophen/ Hydrocodone Bitart 1 tab Q4HP PRN PO 04/06/25 22:15 Ondansetron HCl 4 mg Q4HP PRN IV 04/06/25 22:15 Acetaminophen 650 mg Q6HP PRN PO 04/06/25 22:15 04/07/25 17:12 650 MG Dextrose/Sodium Chloride 1,000 ml @ 80 mls/hr [id number] IV 04/07/25 11:00 04/09/25 13:02 80 MLS/HR Albuterol 2.5 mg Q6HR NEB 04/07/25 12:00 04/09/25 12:07 2.5 MG Ipratropium [place] 0.5 mg Q6HWA NEB 04/07/25 12:00 04/09/25 12:07 0.5 MG Enteral Nutritional Formula 240 ml TIDWM PO 04/08/25 08:00 04/09/25 12:12 240 ML Furosemide 40 mg DAILY IV 04/09/25 10:00 04/09/25 11:07 40 MG Levofloxacin 250 mg DAILY PO 04/10/25 10:00 UNV Laboratory Results Laboratory Tests 04/09/25 05:56 Chemistry Test 04/09/25 05:56 Albumin 3.3 g/dL (3.2-4.8) Calcium Level 8.2 mg/dL (8.7-10.4) L Magnesium Level 2.3 mg/dL (1.6-2.6) Total Protein 6.4 g/dL (5.7-8.2) LFT Test 04/09/25 05:56 Alanine Aminotransferase (ALT) 17 U/L (7-40) Alkaline Phosphatase 61 U/L (46-116) Aspartate Amino Transferase (AST) 24 U/L (13-40) Total Bilirubin 0.2 mg/dL (0.2-1.0) Urinalysis Test 04/07/25 14:30 Urine Color Light-orange (Yellow) Urine Clarity Turbid (Clear) H Urine pH 8.0 (5.0-9.0) Urine Specific [place] 1.030 (1.001-1.035) Urine Protein 3+ (Negative) H Urine Ketones Negative (Negative) Urine Blood 3+ /uL (Negative) H Urine Nitrite Negative (Negative) Urine Bilirubin Negative (Negative) Urine Urobilinogen Normal mg/dL (Negative) Urine Leukocyte Esterase Negative /uL (Negative) Urine RBC 1399 /hpf (0 - 3) Urine WBC Clumps Present /hpf (None Seen) Urine Microscopic WBC 411 /HPF (0-3) H Urine Squamous Epithelial Cells None seen /hpf (<5) Urine Bacteria Few /hpf (None Seen) H Urine Mucus Few (None Seen) Urine Creatinine < 3.00 mg/dL (30.0-125.0) L Urine Protein/Creatinine Ratio 833.00 Urine Sodium 154 mmol/L (40-220) Urine Glucose 2+ mg/dL (Normal) H Urine Total Protein > 2500.0 mg/dL (1-14) H Microbiology Microbiology Date/Time Source Procedure Growth Status 04/07/25 17:30 Pleural Fluid Gram Stain - Final Resulted 04/07/25 17:30 Pleural Fluid Body Fluid Culture - Preliminary No growth Resulted 04/06/25 17:13 Voided Urine Urine Culture - Final Klebsiella oxytoca - ESBL Complete 04/06/25 16:06 Blood Blood Culture - Preliminary NO GROWTH AFTER 48 HOURS OF INCUBATION. Resulted Assessment/Plan Assessment/Plan Metabolic encephalopathy Hypernatremia Acute kidney injury due to vasomotor nephropathy Chronic kidney disease Lung cancer on radiation therapy Bilateral pneumonia UTI History of heart failure Small pleural effusion Chronic anemia of chronic disease Acute on chronic hypoxic respiratory failure COPD Hypertension Type 2 diabetes Obesity History of prostate cancer status post prostatectomy History of aortic stenosis status post TAVR Hypothyroidism History of CVA Atrial fibrillation on Eliquis Plan Continue IV antibiotics Rocephin and Zithromax Add IV fluids D5 half NS Nephrology consult Chavez catheter Physical therapy Echocardiogram Kidney ultrasound Blood culture Urine culture Monitor closely Continue Eliquis 04/08/25: Pneumonia: Rocephin and Zithromax UTI Left renal mass: Get CT ab & pelvis, urology consult CKD: Nephrology consult Afib: Eliquis, cardiology consult Lung CA Pleural effusion s/p thoracentesis VICKIE/CKD COPD s/p TAVR 04/09/2025: Switch the IV antibiotics to p.o. Levaquin UTI with Klebsiella ESBL: P.o. Levaquin Left renal mass: Urology on board, IR procedure to do renal biopsy and left renal cryoablation Pneumonia CKD Atrial fibrillation on Eliquis VICKIE COPD History of TAVR We will discuss with Interventional Radiology whether the renal biopsy and left renal cryoablation can be done here Discussed with the at the bedside, she is hesitant about surgeries The patient is high-risk for surgery Plan discussed with: Patient, Spouse My Orders Orders - DEEPAK ATKINS MD Procedure Category Date Status Time Levofloxacin Tablet PHA 04/10/25 Logged (Levaquin Tablet) 10:00 Levofloxacin Tablet PHA 04/09/25 Logged (Levaquin Tablet) 12:15 Date of Service: Apr 09, 2025 Billing Provider: DEEPAK ATKINS MD Common Visit Codes: NOT BILLABLE DEEPAK ATKINS MD Apr 09, 2025 13:11
[2025-04-09] MEDS: levoFLOXacin 250 MG TAB PO ONE (13:13)
[2025-04-09] MEDS: guaiFENesin-DM 100/10mg/5ml SYR PO PRN (13:13)
--- NOTE | 2025-04-09 22:05 | DVHPN2 ---
Subjective DOS: 04/09/2025 Patient seen and examined at bedside. Remains on supplemental oxygen Overnight events reviewed. Changes from previous H/P or p: No Changes Objective Vitals Vital Signs Date Time Temp Pulse Resp B/P (MAP) Pulse Ox O2 Delivery O2 Flow Rate FiO2 04/09/25 21:00 98.6 88 19 126/64 (84) 93 98.6 04/09/25 18:29 Nasal Cannula* 3 32 Intake/Output Intake and Output 04/09/25 07:00 Intake Total 1350 ml Output Total 800 ml Balance 550 ml Intake Oral 1350 ml Output Urine Total 800 ml # Bowel Movements 3 Exam Gen.: Patient lying in bed in no apparent distress. On supplemental oxygen. Head: Normocephalic, atraumatic. Eyes: EOMI/PERRLA. Ears: Normal hearing. Normal anatomy. Neck/trachea: Trachea midline, supple. Nose: Normal external anatomy. Mouth: Moist mucous membranes. Chest: Decreased air entry bilaterally. Wheezing. No rhonchi. Cardiovascular: Positive S1, positive S2. Regular rate and rhythm. Abdomen: Positive bowel sounds in all 4 quadrants. Soft, non-tender, non- distended. : Deferred. Rectal: Deferred. Skin: Warm, dry. Intact. Extremities: 2+ radial pulses bilaterally. Trace bilateral lower extremity edema. Neuro: Awake, alert, oriented x3. No gross motor or sensory deficits. Cranial nerves II through XII intact. Gait not assessed. General Appearance: Alert, Oriented X3, Cooperative Lungs: Clear to auscultation, Normal air movement Cardiovascular: Regular rate, Normal S1 Abdomen: Normal bowel sounds, Soft Extremities: No edema Medications Current Medications Medications Dose Ordered Sig/Andressa Route Start Time Stop Time Status Last Admin Dose Admin Apixaban 2.5 mg BID PO 04/07/25 10:00 04/09/25 21:33 2.5 MG Atorvastatin Calcium 80 mg HS PO 04/07/25 22:00 04/09/25 21:32 80 MG Levothyroxine Sodium 150 mcg QAM@0600 PO 04/07/25 06:00 04/09/25 05:39 150 MCG Acetaminophen/ Hydrocodone Bitart 1 tab Q4HP PRN PO 04/06/25 22:15 Ondansetron HCl 4 mg Q4HP PRN IV 04/06/25 22:15 Acetaminophen 650 mg Q6HP PRN PO 04/06/25 22:15 04/07/25 17:12 650 MG Dextrose/Sodium Chloride 1,000 ml @ 80 mls/hr [id number] IV 04/07/25 11:00 04/09/25 13:02 80 MLS/HR Albuterol 2.5 mg Q6HR NEB 04/07/25 12:00 04/09/25 18:29 2.5 MG Ipratropium [place] 0.5 mg Q6HWA NEB 04/07/25 12:00 04/09/25 18:29 0.5 MG Enteral Nutritional Formula 240 ml TIDWM PO 04/08/25 08:00 04/09/25 18:15 240 ML Furosemide 40 mg DAILY IV 04/09/25 10:00 04/09/25 11:07 40 MG Levofloxacin 250 mg DAILY PO 04/10/25 10:00 Guaifenesin/ Dextromethorphan 10 ml Q4HP PRN PO 04/09/25 13:15 04/09/25 13:13 10 ML Laboratory Results Laboratory Tests 04/09/25 05:56 Chemistry Test 04/09/25 05:56 Albumin 3.3 g/dL (3.2-4.8) Calcium Level 8.2 mg/dL (8.7-10.4) L Magnesium Level 2.3 mg/dL (1.6-2.6) Total Protein 6.4 g/dL (5.7-8.2) LFT Test 04/09/25 05:56 Alanine Aminotransferase (ALT) 17 U/L (7-40) Alkaline Phosphatase 61 U/L (46-116) Aspartate Amino Transferase (AST) 24 U/L (13-40) Total Bilirubin 0.2 mg/dL (0.2-1.0) Urinalysis Test 04/07/25 14:30 Urine Color Light-orange (Yellow) Urine Clarity Turbid (Clear) H Urine pH 8.0 (5.0-9.0) Urine Specific [place] 1.030 (1.001-1.035) Urine Protein 3+ (Negative) H Urine Ketones Negative (Negative) Urine Blood 3+ /uL (Negative) H Urine Nitrite Negative (Negative) Urine Bilirubin Negative (Negative) Urine Urobilinogen Normal mg/dL (Negative) Urine Leukocyte Esterase Negative /uL (Negative) Urine RBC 1399 /hpf (0 - 3) Urine WBC Clumps Present /hpf (None Seen) Urine Microscopic WBC 411 /HPF (0-3) H Urine Squamous Epithelial Cells None seen /hpf (<5) Urine Bacteria Few /hpf (None Seen) H Urine Mucus Few (None Seen) Urine Creatinine < 3.00 mg/dL (30.0-125.0) L Urine Protein/Creatinine Ratio 833.00 Urine Sodium 154 mmol/L (40-220) Urine Glucose 2+ mg/dL (Normal) H Urine Total Protein > 2500.0 mg/dL (1-14) H Microbiology Microbiology Date/Time Source Procedure Growth Status 04/07/25 17:30 Pleural Fluid Gram Stain - Final Resulted 04/07/25 17:30 Pleural Fluid Body Fluid Culture - Preliminary No growth Resulted 04/06/25 17:13 Voided Urine Urine Culture - Final Klebsiella oxytoca - ESBL Complete 04/06/25 16:06 Blood Blood Culture - Preliminary NO GROWTH AFTER 72 HOURS OF INCUBATION. Resulted Assessment/Plan Assessment/Plan Impression: Acute on chronic hypoxic respiratory failure Dependence on supplemental oxygen Lung cancer Congestive heart failure Pneumonia, likely gram negative Pleural effusion Atelectasis Kidney mass, likely metastatic cancer Events: Remains on supplemental oxygen, 3 LPM NC Taper O2 as tolerated Head of bed elevation Aspiration precautions. Patient is more alert and oriented today. Continue bronchodilators Continue antibiotics Incentive spirometry Monitor blood pressure Patient received albumin yesterday. Plan for limited chest ultrasound in AM to assess if pleural effusion amenable for thoracentesis. Obtain IR consult for renal biopsy. S/p right thora on 04/07/25 - 1100 mL's of alexia colored fluid removed from right pleural space See separate procedure note for details F/u pleural fluid cx and cytology Monitor renal function. Monitor electrolytes. Supplement as necessary. Monitor ins and outs. Maintain euvolemia. Avoid fluid overload. Abdomen-pelvis CT w/o contrast on 04/08/25 showed left renal hyperdense lesion/ mass of 4.1 x 3 cm extending to the left renal pelvis, likely representing patient's known history of renal malignancy. 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 Bibasilar pulmonary consolidation. 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 Small to moderate bilateral pleural effusions which appear complex in appearance, possibly malignant. Abdominal aortic atherosclerotic disease. Colonic diverticular disease. Moderate volume stool in the colon. Labs and imaging reviewed. Rest of plan as noted below. Plan: Supplemental oxygen Titrate to keep O2 sats above 92%. Head of bed elevation Aspiration precautions. Continue bronchodilators. Continue antibiotics Incentive spirometry Follow up Cardiology recommendations Monitor renal function. Monitor electrolytes. Supplement as necessary. Monitor ins and outs. Maintain euvolemia. CXR on 04/06/25 reveals cardiomegaly with bibasilar airspace disease and possible small pleural effusion on the right. Labs and imaging reviewed. DVT prophylaxis. Prognosis: Poor given patient's multiple co-morbidities. Rest of plan per hospitalist and other consultants. Thank you, Dr. Phipps, for allowing me to participate in this patient's care. Further recommendations will depend on the patient's clinical course. Please do not hesitate to contact me if you have any questions or concerns. This medical document was created using an electronic medical record system with [employer] dictation system. Although these documentations are being carefully reviewed, there may still be some phonetic and typographical changes. The errors are purely typographical, due to imperfection on the software program, and do not reflect any compromise in the patient's medical care. Plan discussed with: Patient, Other (ALEX Swartz) Visit Coding Pulmonary Billing Provider: ARIA PERRY MD Date of Service if different f: Apr 09, 2025 Common Visit Codes: 04690-[id number] INP/OBS CARE(HIGH) ARIA PERRY MD Apr 09, 2025 22:05
[2025-04-10] VITALS (15 sets, daily range): BP systolic 112–124; BP diastolic 58–67; PULSE 80–97; RESP 16–20; TEMP 97.7–98.4; O2SAT 90–99
[2025-04-10 06:27] LABS: Hematocrit 24.6 % (41.0-53.0); Hemoglobin 8.2 g/dL (13.5-17.5); Mean Corpuscular Hemoglobin 29.8 pg (28.0-32.0); Mean Corpuscular Volume 89.7 fL (80.0-100.0); Nucleated Red Blood Cells % 0.1 %
[2025-04-10 06:46] LABS: Alanine Aminotransferase 23 U/L (7-40); Albumin 3.6 g/dL (3.2-4.8); Alkaline Phosphatase 64 U/L (46-116); Anion Gap 11 (5-15); BUN/Creatinine Ratio 21.7 (10.0-20.0); Carbon Dioxide 26 mmol/L (20-31); Chloride 106 mmol/L (98-107); Magnesium 2.4 mg/dL (1.6-2.6); Potassium 4.3 mmol/L (3.5-5.1); Sodium 143 mmol/L (136-145); Total Protein 6.9 g/dL (5.7-8.2)
[2025-04-10 06:58] LABS: Bilirubin, Total 0.2 mg/dL (0.2-1.0); Blood Urea Nitrogen 48 mg/dL (9-23); Calcium 8.6 mg/dL (8.7-10.4); Glucose 116 mg/dL (74-106)
--- NOTE | 2025-04-10 07:11 | DVHPN2 ---
Progress Note - Dictate Date Seen: Apr 10, 2025 Medical Necessity Reason Pt with a Central, PICC or Fol: No vital signs Vital Sign Date Time Temp Pulse Resp B/P (MAP) Pulse Ox O2 Delivery O2 Flow Rate FiO2 04/10/25 05:00 97.7 88 20 122/63 (82) 92 97.7 04/09/25 23:41 Nasal Cannula* 3 32 Total Intake and Output 04/09/25 04/09/25 04/10/25 15:00 23:00 07:00 Intake Total 918 ml 400 ml Output Total 1025 ml 1400 ml Balance -107 ml -1000 ml medications Current Medications Medications Dose Ordered Sig/Andressa Route Start Time Stop Time Status Last Admin Dose Admin Apixaban 2.5 mg BID PO 04/07/25 10:00 04/09/25 21:33 2.5 MG Atorvastatin Calcium 80 mg HS PO 04/07/25 22:00 04/09/25 21:32 80 MG Levothyroxine Sodium 150 mcg QAM@0600 PO 04/07/25 06:00 04/10/25 06:01 150 MCG Acetaminophen/ Hydrocodone Bitart 1 tab Q4HP PRN PO 04/06/25 22:15 Ondansetron HCl 4 mg Q4HP PRN IV 04/06/25 22:15 Acetaminophen 650 mg Q6HP PRN PO 04/06/25 22:15 04/07/25 17:12 650 MG Dextrose/Sodium Chloride 1,000 ml @ 80 mls/hr [id number] IV 04/07/25 11:00 04/10/25 00:32 80 MLS/HR Albuterol 2.5 mg Q6HR NEB 04/07/25 12:00 04/10/25 07:05 2.5 MG Ipratropium [place] 0.5 mg Q6HWA NEB 04/07/25 12:00 04/10/25 07:05 0.5 MG Enteral Nutritional Formula 240 ml TIDWM PO 04/08/25 08:00 04/09/25 18:15 240 ML Furosemide 40 mg DAILY IV 04/09/25 10:00 04/09/25 11:07 40 MG Levofloxacin 250 mg DAILY PO 04/10/25 10:00 Guaifenesin/ Dextromethorphan 10 ml Q4HP PRN PO 04/09/25 13:15 04/09/25 13:13 10 ML laboratory and microbiology Laboratory Tests 04/10/25 04:55 Test 04/10/25 04:55 Range/Units Serum Glucose 116 H 74-106 mg/dL Assessment/Plan Patient is a 84-year-old gentleman who was brought by for generalized weakness which was ongoing and worsening for the past month. Does have history of advanced/metastatic cancer. Cardiology is involved for cardiac aspects of care (patient's called me personally). Patient is known to our practice from outside and before. There is no report of chest pain. There is no report of palpitation. Patient has been on chemotherapy/radiation therapy. Cachectic male. Sitting in bed. Somewhat confused. No gross JVD. Mucosa is pale. Scattered rhonchi in the lungs is heard. Not using accessory muscles of breathing. Cardiac: Regular. Systolic murmur 2/6 in the apex is heard. Abdomen is soft. Bilateral edema seen. 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 Echocardiogram of January 16, 2025 (performed in the office) revealed ejection fraction 45-50%, mild concentric left ventricular hypertrophy, mild left atrial enlargement, pacemaker wires were seen right-sided chambers, bioprosthetic valve in aortic position which worked normally, mild mitral regurgitation, [id number] tricuspid regurgitation with right ventricular systolic pressure of 36 mm Hg. Hemoglobin: 8.6 - 9.0 - 8.2 - 7.4 - 8.2 Creatinine: 2.74 - 2.63 - 2.37 - 2.59 - 2.21 Potassium: 4.5 - 4.5 - 4.0 - 4.3 - 4.3 TSH: 1.86 BNP: 370.27 Troponin (high sensitive): Chest x-ray revealed: IMPRESSION: 1. Cardiomegaly with bibasilar airspace disease and possible small pleural effusion on the right. 2. Pneumonia versus congestive failure are both in the radiographic differential Repeat chest x-ray revealed: IMPRESSION: 1. Removal of the right pleural effusion with atelectasis in the right base. 2. No pneumothorax 3. Pacemaker in place unchanged. CT of the head reported: IMPRESSION: 1. No acute intracranial abnormality. 2. Mild cerebral volume loss and minor chronic microvascular ischemic change. Renal ultrasound reported: IMPRESSION: 1. No hydronephrosis. 2. Questionable 3.2 cm left renal mass. Recommend further evaluation with CT or MRI with IV contrast 3. Bilateral pleural effusions. CT of Abdomen and Pelvis revealed: There is limited interpretation of the abdomen and pelvis without administration of intravenous contrast. Aortic valvular prosthesis. Tiny pericardial effusion. Multiple subcarinal/ paraesophageal lymph nodes up to 2.2 cm. Bilateral pleural [id number] which appears small to moderate in size and [id number] complex in appearance. Bibasilar atelectasis /consolidation Adrenal glands, spleen unremarkable in shape. Pancreatic parenchymal atrophy. No CT evidence for cholelithiasis. Liver capsule nodular morphology. The right kidney demonstrates no hydronephrosis / nephrolithiasis. Left renal hyperdense lesion/ mass extending into the pelvis measuring 4.1 x 3 cm. Nonobstructing left renal calculus measuring 7 mm. Periaortic/retroperitoneal lymph node measuring 10 mm. Portacaval lymph node measuring 12 mm. Stomach is partially distended. Small bowel loops are normal in caliber. Colonic diverticular disease. Moderate volume stool in the colon. Normal appendix. Abdominal aortic atherosclerotic disease. Bladder decompressed by Chavez catheter. No free pelvic fluid. Right inguinal lymph nodes measuring up to 12 mm. Soft tissue edema / anasarca. Moderate to advanced lumbar degenerative disc disease. IMPRESSION: Limited evaluation without contrast. Left renal hyperdense lesion/ mass measuring 4.1 x 3 cm extending to the Left renal pelvis, likely representing patient's known history of renal malignancy. Recommend MRI abdomen with and without contrast to better characterize. 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 Bibasilar pulmonary consolidation. 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 This can be further evaluated with a PET scan. Small to moderate bilateral pleural effusions which appear complex in appearance, possibly malignant in etiology. This can be better evaluated with a CT chest with contrast. Abdominal aortic atherosclerotic disease. Colonic diverticular disease. Moderate volume stool in the colon. Other findings as described. EKG revealed sinus rhythm with left bundle branch block Tele reveals sinus rhythm Echocardiogram revealed: Technically limited study secondary to poor acoustic windows. Left ventricle: Mild concentric left ventricular hypertrophy was seen left ventricle was normal-sized. LVEF was 55-60%. There was no gross wall motion abnormality. Right ventricle was mildly dilated with normal systolic function. Mild biatrial enlargement was seen. Pacing wire was seen in right- sided chambers. Bioprosthetic valve was observed in aortic position. It works properly. There was no aortic insufficiency/stenosis. Mild mitral annular calcification was seen. Mild mitral regurgitation was observed. [id number] tricuspid regurgitation was seen. Right ventricular systolic pressure was assessed at 44 mm Hg. IVC was normal-sized with normal respiratory variation. There was trace pericardial effusion. Patient is a 84-year-old gentleman with advanced multiple cancers and metastasis who presented with generalized weakness. Does have baseline history of valvular heart disease for which has had TAVR before. Also has history of atrial fibrillation (paroxysmal) for which is on Eliquis as outpatient. Has been on chemotherapy/radiation therapy. Has had poor appetite and malnutrition could have contributed to the clinical picture. Advanced band of cancers could have contributed to the clinical picture. Side effects secondary to radiation/chemotherapy could have contributed to the clinical picture. Acute coronary syndrome is not considered. Decompensated heart failure is not considered as a component of presentation. Does have history of pacemaker (Biotronik) which was recently interrogated in the office. Being followed by Nephrology/Urology/Pulmonary. Encephalopathy, metabolic VICKIE on CKD Pneumonia Lung cancer Advanced metastatic cancer as COPD Pleural effusion, status post thoracentesis Multiple cancers, metastatic Poor functional capacity Paroxysmal AFib Sick sinus syndrome, status post pacemaker implantation (Biotronik) Valvular heart disease, status post TAVR Cardiac suggestion for management: Manage on telemetry Follow-up electrolytes and kidney function tests and correct abnormalities Fluid resuscitation Long-term continuation of full anticoagulation is advised, if not contraindicated Nephrology follow-up is advised Pulmonary follow-up Urology Follow up Consider Oncology evaluation Goals of care as per primary team. Consider Hospice. Further evaluation and management depends on the above and clinical course Long-term prognosis: very poor A total of 75 minutes was spent reviewing the patient record, examining the patient, making a diagnostic and therapeutic plan, discussing this plan with medical personnel, following up on diagnostic studies and following the patient for clinical stability excluding any and all procedures. At least 50% of this time was spent in direct, [id number] contact. Thank you for allowing me to participate in this patient's care. Further recommendations will depend on patient's clinical course. Please do not hesitate to contact me if you have any questions or concerns. This medical document was created using electronic medical record system with [employer] computerized dictation system. Although this document has been carefully reviewed, there may still be some phonetic and typographical errors. These areas are purely typographical due to the imperfection of the software programs, and do not reflect any compromise in the patient's medical care. Dietary Evaluation Review Comments: 1. Renal Diet with Nepro oral supplementation TID 2. Monitor PO intake 3. Follow up with consults and lab values Expected Outcomes/Goals: Improved PO intakes, increased physical strength. Plan discussed with: Other (nurse) LUIS HOLT MD Apr 10, 2025 07:11
--- NOTE | 2025-04-10 09:46 | DVHPN2 ---
Progress Note Date Seen: Apr 10, 2025 Medical Necessity Reason Pt with a Central, PICC or Fol: No Subjective Patient reports: No new complaints Other Systems: Patient seen and examined by myself today in follow-up Objective vital signs Vital Sign Date Time Temp Pulse Resp B/P (MAP) Pulse Ox O2 Delivery O2 Flow Rate FiO2 04/10/25 07:11 80 18 99 04/10/25 07:05 Nasal Cannula 3.0 04/10/25 07:05 32 04/10/25 05:00 97.7 122/63 (82) 97.7 Total Intake and Output 04/09/25 04/09/25 04/10/25 15:00 23:00 07:00 Intake Total 918 ml 400 ml Output Total 1025 ml 1400 ml Balance -107 ml -1000 ml medications Current Medications Medications Dose Ordered Sig/Andressa Route Start Time Stop Time Status Last Admin Dose Admin Apixaban 2.5 mg BID PO 04/07/25 10:00 04/09/25 21:33 2.5 MG Atorvastatin Calcium 80 mg HS PO 04/07/25 22:00 04/09/25 21:32 80 MG Levothyroxine Sodium 150 mcg QAM@0600 PO 04/07/25 06:00 04/10/25 06:01 150 MCG Acetaminophen/ Hydrocodone Bitart 1 tab Q4HP PRN PO 04/06/25 22:15 Ondansetron HCl 4 mg Q4HP PRN IV 04/06/25 22:15 Acetaminophen 650 mg Q6HP PRN PO 04/06/25 22:15 04/07/25 17:12 650 MG Dextrose/Sodium Chloride 1,000 ml @ 80 mls/hr [id number] IV 04/07/25 11:00 04/10/25 00:32 80 MLS/HR Albuterol 2.5 mg Q6HR NEB 04/07/25 12:00 04/10/25 07:05 2.5 MG Ipratropium [place] 0.5 mg Q6HWA NEB 04/07/25 12:00 04/10/25 07:05 0.5 MG Enteral Nutritional Formula 240 ml TIDWM PO 04/08/25 08:00 04/09/25 18:15 240 ML Furosemide 40 mg DAILY IV 04/09/25 10:00 04/09/25 11:07 40 MG Levofloxacin 250 mg DAILY PO 04/10/25 10:00 Guaifenesin/ Dextromethorphan 10 ml Q4HP PRN PO 04/09/25 13:15 04/09/25 13:13 10 ML Examination: LUNGS:Normal, CVS:Normal, MSK:Abnormal laboratory and microbiology Laboratory Tests 04/10/25 04:55 Test 04/10/25 04:55 Range/Units Serum Glucose 116 H 74-106 mg/dL Microbiology Date/Time Source Procedure Growth Status 04/07/25 17:30 Pleural Fluid Gram Stain - Final Resulted 04/07/25 17:30 Pleural Fluid Body Fluid Culture - Preliminary No growth Resulted 04/06/25 17:13 Voided Urine Urine Culture - Final Klebsiella oxytoca - ESBL Complete 04/06/25 16:06 Blood Blood Culture - Preliminary NO GROWTH AFTER 72 HOURS OF INCUBATION. Resulted Problem List/Assessment/Plan Problem List/Assessment/Plan This is a 84-year-old male with past medical history of Lung CA, COPD, hypertension, dyslipidemia, CKD 3B, thyroid and status post pacemaker brought in to the hospital due to generalized weakness and decreased oral intake. 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 Duran Mild hypernatremia/dehydration, possibly due to decreased oral intake Renal mass, likely renal cell carcinoma Lung cancer, on radiotherapy COPD exacerbation Hematuria Hypertension Dyslipidemia Status post pacemaker Large right pleural effusion, post thoracentesis (drained 1.1 L) Atrial fibrillation, currently sinus rhythm Recommendation * Kidney function stabilize Chronic Kidney Disease stage 4 * Good urine output * Continue D5W with 1/2 NS at 80 mL/hour * Breathing treatment * Closely monitor fluid and electrolytes * Avoid nephrotoxic medications * Strict I&Os * Renal diet * We will follow up with the patient Plan discussed with: Patient, Spouse Dietary Evaluation Review Comments: 1. Renal Diet with Nepro oral supplementation TID 2. Monitor PO intake 3. Follow up with consults and lab values Expected Outcomes/Goals: Improved PO intakes, increased physical strength. JEANNIE RICHARDSON MD Apr 10, 2025 09:46
--- NOTE | 2025-04-10 10:11 | DVHPN2 ---
Subjective No new complaints Changes from previous H/P or p: Changes Objective Vitals Vital Signs Date Time Temp Pulse Resp B/P (MAP) Pulse Ox O2 Delivery O2 Flow Rate FiO2 04/10/25 07:11 80 18 99 04/10/25 07:05 Nasal Cannula 3.0 04/10/25 07:05 32 04/10/25 05:00 97.7 122/63 (82) 97.7 Intake/Output Intake and Output 04/10/25 07:00 Intake Total 1318 ml Output Total 2425 ml Balance -1107 ml Intake Oral 1318 ml Output Urine Total 2425 ml # Bowel Movements 2 General Appearance: Alert, Oriented X3, Cooperative Lungs: Clear to auscultation, Normal air movement Cardiovascular: Regular rate, Normal S1 Abdomen: Normal bowel sounds, Soft Extremities: No edema Medications Current Medications Medications Dose Ordered Sig/Andressa Route Start Time Stop Time Status Last Admin Dose Admin Apixaban 2.5 mg BID PO 04/07/25 10:00 04/09/25 21:33 2.5 MG Atorvastatin Calcium 80 mg HS PO 04/07/25 22:00 04/09/25 21:32 80 MG Levothyroxine Sodium 150 mcg QAM@0600 PO 04/07/25 06:00 04/10/25 06:01 150 MCG Acetaminophen/ Hydrocodone Bitart 1 tab Q4HP PRN PO 04/06/25 22:15 Ondansetron HCl 4 mg Q4HP PRN IV 04/06/25 22:15 Acetaminophen 650 mg Q6HP PRN PO 04/06/25 22:15 04/07/25 17:12 650 MG Dextrose/Sodium Chloride 1,000 ml @ 80 mls/hr [id number] IV 04/07/25 11:00 04/10/25 00:32 80 MLS/HR Albuterol 2.5 mg Q6HR NEB 04/07/25 12:00 04/10/25 07:05 2.5 MG Ipratropium Geraldine 0.5 mg Q6HWA NEB 04/07/25 12:00 04/10/25 07:05 0.5 MG Enteral Nutritional Formula 240 ml TIDWM PO 04/08/25 08:00 04/09/25 18:15 240 ML Furosemide 40 mg DAILY IV 04/09/25 10:00 04/09/25 11:07 40 MG Levofloxacin 250 mg DAILY PO 04/10/25 10:00 Guaifenesin/ Dextromethorphan 10 ml Q4HP PRN PO 04/09/25 13:15 04/09/25 13:13 10 ML Laboratory Results Laboratory Tests 04/10/25 04:55 Chemistry Test 04/10/25 04:55 Albumin 3.6 g/dL (3.2-4.8) Calcium Level 8.6 mg/dL (8.7-10.4) L Magnesium Level 2.4 mg/dL (1.6-2.6) Total Protein 6.9 g/dL (5.7-8.2) LFT Test 04/10/25 04:55 Alanine Aminotransferase (ALT) 23 U/L (7-40) Alkaline Phosphatase 64 U/L (46-116) Aspartate Amino Transferase (AST) 30 U/L (13-40) Total Bilirubin 0.2 mg/dL (0.2-1.0) Urinalysis Test 04/07/25 14:30 Urine Color Light-orange (Yellow) Urine Clarity Turbid (Clear) H Urine pH 8.0 (5.0-9.0) Urine Specific [place] 1.030 (1.001-1.035) Urine Protein 3+ (Negative) H Urine Ketones Negative (Negative) Urine Blood 3+ /uL (Negative) H Urine Nitrite Negative (Negative) Urine Bilirubin Negative (Negative) Urine Urobilinogen Normal mg/dL (Negative) Urine Leukocyte Esterase Negative /uL (Negative) Urine RBC 1399 /hpf (0 - 3) Urine WBC Clumps Present /hpf (None Seen) Urine Microscopic WBC 411 /HPF (0-3) H Urine Squamous Epithelial Cells None seen /hpf (<5) Urine Bacteria Few /hpf (None Seen) H Urine Mucus Few (None Seen) Urine Creatinine < 3.00 mg/dL (30.0-125.0) L Urine Protein/Creatinine Ratio 833.00 Urine Sodium 154 mmol/L (40-220) Urine Glucose 2+ mg/dL (Normal) H Urine Total Protein > 2500.0 mg/dL (1-14) H Microbiology Microbiology Date/Time Source Procedure Growth Status 04/07/25 17:30 Pleural Fluid Gram Stain - Final Resulted 04/07/25 17:30 Pleural Fluid Body Fluid Culture - Preliminary No growth Resulted 04/06/25 17:13 Voided Urine Urine Culture - Final Klebsiella oxytoca - ESBL Complete 04/06/25 16:06 Blood Blood Culture - Preliminary NO GROWTH AFTER 72 HOURS OF INCUBATION. Resulted Assessment/Plan Assessment/Plan Metabolic encephalopathy Hypernatremia Acute kidney injury due to vasomotor nephropathy Chronic kidney disease Lung cancer on radiation therapy Bilateral pneumonia UTI History of heart failure Small pleural effusion Chronic anemia of chronic disease Acute on chronic hypoxic respiratory failure COPD Hypertension Type 2 diabetes Obesity History of prostate cancer status post prostatectomy History of aortic stenosis status post TAVR Hypothyroidism History of CVA Atrial fibrillation on Eliquis Plan Continue IV antibiotics Rocephin and Zithromax Add IV fluids D5 half NS Nephrology consult Chavez catheter Physical therapy Echocardiogram Kidney ultrasound Blood culture Urine culture Monitor closely Continue Eliquis 04/08/25: Pneumonia: Rocephin and Zithromax UTI Left renal mass: Get CT ab & pelvis, urology consult CKD: Nephrology consult Afib: Eliquis, cardiology consult Lung CA Pleural effusion s/p thoracentesis VICKIE/CKD COPD s/p TAVR 04/09/2025: Switch the IV antibiotics to p.o. Levaquin UTI with Klebsiella ESBL: P.o. Levaquin Left renal mass: Urology on board, IR procedure to do renal biopsy and left renal cryoablation Pneumonia CKD Atrial fibrillation on Eliquis VICKIE COPD History of TAVR We will discuss with Interventional Radiology whether the renal biopsy and left renal cryoablation can be done here Discussed with the at the bedside, she is hesitant about surgeries The patient is high-risk for surgery 04/10/25: Physical therapy Continue po Levaquin Observe closely Eliquis O2 prn Plan discussed with: Patient My Orders Orders - DEEPAK ATKINS MD Procedure Category Date Status Time Levofloxacin Tablet PHA 04/10/25 In Process (Levaquin Tablet) 10:00 Guaifenesin-Dextromet PHA 04/09/25 In Process Liquid (Robitussin 13:15 Pt Request For Service PT 04/09/25 Logged 13:07 Date of Service: Apr 10, 2025 Billing Provider: DEEPAK ATKINS MD Common Visit Codes: NOT BILLABLE DEEPAK ATKINS MD Apr 10, 2025 10:11
[2025-04-10] MEDS: levoFLOXacin 250 MG TAB PO SCH (10:16)
--- NOTE | 2025-04-10 23:40 | DVHPN2 ---
Subjective DOS: 04/10/2025 Patient seen and examined at bedside. Remains on supplemental oxygen Overnight events reviewed. Changes from previous H/P or p: No Changes Objective Vitals Vital Signs Date Time Temp Pulse Resp B/P (MAP) Pulse Ox O2 Delivery O2 Flow Rate FiO2 04/10/25 21:00 98.1 91 19 122/67 (85) 98 98.1 04/10/25 18:06 Simple Mask* 6 50 Intake/Output Intake and Output 04/10/25 07:00 Intake Total 1318 ml Output Total 2425 ml Balance -1107 ml Intake Oral 1318 ml Output Urine Total 2425 ml # Bowel Movements 2 Exam Gen.: Patient lying in bed in no apparent distress. On supplemental oxygen. Head: Normocephalic, atraumatic. Eyes: EOMI/PERRLA. Ears: Normal hearing. Normal anatomy. Neck/trachea: Trachea midline, supple. Nose: Normal external anatomy. Mouth: Moist mucous membranes. Chest: Decreased air entry bilaterally. Wheezing. No rhonchi. Cardiovascular: Positive S1, positive S2. Regular rate and rhythm. Abdomen: Positive bowel sounds in all 4 quadrants. Soft, non-tender, non- distended. : Deferred. Rectal: Deferred. Skin: Warm, dry. Intact. Extremities: 2+ radial pulses bilaterally. Trace bilateral lower extremity edema. Neuro: Awake, alert, oriented x3. No gross motor or sensory deficits. Cranial nerves II through XII intact. Gait not assessed. General Appearance: Alert, Oriented X3, Cooperative Lungs: Clear to auscultation, Normal air movement Cardiovascular: Regular rate, Normal S1 Abdomen: Normal bowel sounds, Soft Extremities: No edema Medications Current Medications Medications Dose Ordered Sig/Andressa Route Start Time Stop Time Status Last Admin Dose Admin Apixaban 2.5 mg BID PO 04/07/25 10:00 04/10/25 10:13 2.5 MG Atorvastatin Calcium 80 mg HS PO 04/07/25 22:00 04/09/25 21:32 80 MG Levothyroxine Sodium 150 mcg QAM@0600 PO 04/07/25 06:00 04/10/25 06:01 150 MCG Acetaminophen/ Hydrocodone Bitart 1 tab Q4HP PRN PO 04/06/25 22:15 Ondansetron HCl 4 mg Q4HP PRN IV 04/06/25 22:15 Acetaminophen 650 mg Q6HP PRN PO 04/06/25 22:15 04/07/25 17:12 650 MG Dextrose/Sodium Chloride 1,000 ml @ 80 mls/hr [id number] IV 04/07/25 11:00 04/10/25 00:32 80 MLS/HR Albuterol 2.5 mg Q6HR NEB 04/07/25 12:00 04/10/25 18:06 2.5 MG Ipratropium [place] 0.5 mg Q6HWA NEB 04/07/25 12:00 04/10/25 18:06 0.5 MG Enteral Nutritional Formula 240 ml TIDWM PO 04/08/25 08:00 04/10/25 18:22 240 ML Furosemide 40 mg DAILY IV 04/09/25 10:00 04/10/25 10:23 40 MG Levofloxacin 250 mg DAILY PO 04/10/25 10:00 04/10/25 10:16 250 MG Guaifenesin/ Dextromethorphan 10 ml Q4HP PRN PO 04/09/25 13:15 04/10/25 13:16 10 ML Laboratory Results Laboratory Tests 04/10/25 04:55 Chemistry Test 04/10/25 04:55 Albumin 3.6 g/dL (3.2-4.8) Calcium Level 8.6 mg/dL (8.7-10.4) L Magnesium Level 2.4 mg/dL (1.6-2.6) Total Protein 6.9 g/dL (5.7-8.2) LFT Test 04/10/25 04:55 Alanine Aminotransferase (ALT) 23 U/L (7-40) Alkaline Phosphatase 64 U/L (46-116) Aspartate Amino Transferase (AST) 30 U/L (13-40) Total Bilirubin 0.2 mg/dL (0.2-1.0) Urinalysis Test 04/07/25 14:30 Urine Color Light-orange (Yellow) Urine Clarity Turbid (Clear) H Urine pH 8.0 (5.0-9.0) Urine Specific [place] 1.030 (1.001-1.035) Urine Protein 3+ (Negative) H Urine Ketones Negative (Negative) Urine Blood 3+ /uL (Negative) H Urine Nitrite Negative (Negative) Urine Bilirubin Negative (Negative) Urine Urobilinogen Normal mg/dL (Negative) Urine Leukocyte Esterase Negative /uL (Negative) Urine RBC 1399 /hpf (0 - 3) Urine WBC Clumps Present /hpf (None Seen) Urine Microscopic WBC 411 /HPF (0-3) H Urine Squamous Epithelial Cells None seen /hpf (<5) Urine Bacteria Few /hpf (None Seen) H Urine Mucus Few (None Seen) Urine Creatinine < 3.00 mg/dL (30.0-125.0) L Urine Protein/Creatinine Ratio 833.00 Urine Sodium 154 mmol/L (40-220) Urine Glucose 2+ mg/dL (Normal) H Urine Total Protein > 2500.0 mg/dL (1-14) H Microbiology Microbiology Date/Time Source Procedure Growth Status 04/07/25 17:30 Pleural Fluid Gram Stain - Final Resulted 04/07/25 17:30 Pleural Fluid Body Fluid Culture - Preliminary No growth Resulted 04/06/25 17:13 Voided Urine Urine Culture - Final Klebsiella oxytoca - ESBL Complete 04/06/25 16:06 Blood Blood Culture - Preliminary NO GROWTH AFTER 72 HOURS OF INCUBATION. Resulted Assessment/Plan Assessment/Plan Impression: Acute on chronic hypoxic respiratory failure Dependence on supplemental oxygen Lung cancer Congestive heart failure Pneumonia, likely gram negative Pleural effusion Atelectasis Kidney mass, likely metastatic cancer Events: Remains on supplemental oxygen, 3 LPM simple mask Taper O2 as tolerated Head of bed elevation Aspiration precautions. Patient has bouts of confusion. Obtain CXR in AM to assess for interval changes. Plan for limited chest ultrasound to assess if pleural effusion amenable for thoracentesis. Continue bronchodilators Continue antibiotics for pneumonia/UTI. Incentive spirometry Monitor blood pressure Obtain IR consult for renal biopsy. S/p right thora on 04/07/25 - 1100 mL's of alexia colored fluid removed from right pleural space See separate procedure note for details F/u pleural fluid cx and cytology Diurese with Lasix Monitor renal function. Monitor electrolytes. Supplement as necessary. Monitor ins and outs. K, mag at goal. Maintain euvolemia. Avoid fluid overload. Abdomen-pelvis CT w/o contrast on 04/08/25 showed left renal hyperdense lesion/ mass of 4.1 x 3 cm extending to the left renal pelvis, likely representing patient's known history of renal malignancy. 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 Bibasilar pulmonary consolidation. 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 Small to moderate bilateral pleural effusions which appear complex in appearance, possibly malignant. Abdominal aortic atherosclerotic disease. Colonic diverticular disease. Moderate volume stool in the colon. Labs and imaging reviewed. Rest of plan as noted below. Plan: Supplemental oxygen Titrate to keep O2 sats above 92%. Head of bed elevation Aspiration precautions. Continue bronchodilators. Continue antibiotics Incentive spirometry Follow up Cardiology recommendations Monitor renal function. Monitor electrolytes. Supplement as necessary. Monitor ins and outs. Maintain euvolemia. CXR on 04/06/25 reveals cardiomegaly with bibasilar airspace disease and possible small pleural effusion on the right. Labs and imaging reviewed. DVT prophylaxis. Prognosis: Poor given patient's multiple co-morbidities. Rest of plan per hospitalist and other consultants. Thank you, Dr. Phipps, for allowing me to participate in this patient's care. Further recommendations will depend on the patient's clinical course. Please do not hesitate to contact me if you have any questions or concerns. This medical document was created using an electronic medical record system with [employer] dictation system. Although these documentations are being carefully reviewed, there may still be some phonetic and typographical changes. The errors are purely typographical, due to imperfection on the software program, and do not reflect any compromise in the patient's medical care. Plan discussed with: Other (ALEX Swartz) My Orders Orders - ARIA PERRY MD Procedure Category Date Status Time Chest Xray 1 View XY 04/11/25 Logged 04:00 Visit Coding Pulmonary Billing Provider: ARIA PERRY MD Date of Service if different f: Apr 10, 2025 Common Visit Codes: [id number] INP/OBS CARE(HIGH) ARIA PERRY MD Apr 10, 2025 23:40
[2025-04-11] VITALS (19 sets, daily range): BP systolic 109–134; BP diastolic 60–68; PULSE 83–105; RESP 18–24; TEMP 98.1–99.3; O2SAT 90–100
--- NOTE | 2025-04-11 05:59 | DVH ---
CHEST RADIOGRAPH Indication: SOB Technique: Single frontal view of the chest was obtained COMPARISON: XY CHEST XRAY 1 VIEW on DOS: 04/07/25, XY CHEST PORTABLE on DOS: 04/06/25, XY CHEST PORTABLE on DOS: 09/09/24, CT CHEST WITHOUT CONTRAST on DOS: 09/08/24, US CHEST ULTRASOUND on DOS: 09/05/24 FINDINGS: Lines and Tubes: None Lungs: Moderately progressive patchy multifocal bilateral pulmonary airspace disease with New right mid lung zone infiltrate. Mild consolidative features noted. Small bilateral pleural effusions are unchanged. No pneumothorax. Cardiomediastinal contours: Unremarkable Bones: Unremarkable IMPRESSION: 1. Moderately progressive multifocal bilateral pulmonary airspace disease with new right mid lung zone infiltrate. 2. Small bilateral pleural effusions.
--- NOTE | 2025-04-11 06:24 | DVHPN2 ---
Progress Note - Dictate Date Seen: Apr 11, 2025 Medical Necessity Reason Pt with a Central, PICC or Fol: No vital signs Vital Sign Date Time Temp Pulse Resp B/P (MAP) Pulse Ox O2 Delivery O2 Flow Rate FiO2 04/11/25 05:00 98.7 100 20 131/66 (87) 92 98.7 04/11/25 00:06 Nasal Cannula* 4 36 Total Intake and Output 04/10/25 04/10/25 04/11/25 15:00 23:00 07:00 Intake Total 890 ml 350 ml Output Total 1500 ml 950 ml Balance -610 ml -600 ml medications Current Medications Medications Dose Ordered Sig/Andressa Route Start Time Stop Time Status Last Admin Dose Admin Apixaban 2.5 mg BID PO 04/07/25 10:00 04/10/25 10:13 2.5 MG Atorvastatin Calcium 80 mg HS PO 04/07/25 22:00 04/09/25 21:32 80 MG Levothyroxine Sodium 150 mcg QAM@0600 PO 04/07/25 06:00 04/10/25 06:01 150 MCG Acetaminophen/ Hydrocodone Bitart 1 tab Q4HP PRN PO 04/06/25 22:15 Ondansetron HCl 4 mg Q4HP PRN IV 04/06/25 22:15 Acetaminophen 650 mg Q6HP PRN PO 04/06/25 22:15 04/07/25 17:12 650 MG Dextrose/Sodium Chloride 1,000 ml @ 80 mls/hr [id number] IV 04/07/25 11:00 04/11/25 02:30 80 MLS/HR Albuterol 2.5 mg Q6HR NEB 04/07/25 12:00 04/11/25 06:22 2.5 MG Ipratropium [place] 0.5 mg Q6HWA NEB 04/07/25 12:00 04/11/25 06:22 0.5 MG Enteral Nutritional Formula 240 ml TIDWM PO 04/08/25 08:00 04/10/25 18:22 240 ML Furosemide 40 mg DAILY IV 04/09/25 10:00 04/10/25 10:23 40 MG Levofloxacin 250 mg DAILY PO 04/10/25 10:00 04/10/25 10:16 250 MG Guaifenesin/ Dextromethorphan 10 ml Q4HP PRN PO 04/09/25 13:15 04/10/25 13:16 10 ML laboratory and microbiology Laboratory Tests 04/10/25 04:55 Test 04/10/25 04:55 Range/Units Serum Glucose 116 H 74-106 mg/dL Assessment/Plan Patient is a 84-year-old gentleman who was brought by for generalized weakness which was ongoing and worsening for the past month. Does have history of advanced/metastatic cancer. Cardiology is involved for cardiac aspects of care (patient's called me personally). Patient is known to our practice from outside and before. There is no report of chest pain. There is no report of palpitation. Patient has been on chemotherapy/radiation therapy. Cachectic male. Sitting in bed. Somewhat confused. No gross JVD. Mucosa is pale. Scattered rhonchi in the lungs is heard. Not using accessory muscles of breathing. Cardiac: Regular. Systolic murmur 2/6 in the apex is heard. Abdomen is soft. Bilateral edema seen. 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 Echocardiogram of January 16, 2025 (performed in the office) revealed ejection fraction 45-50%, mild concentric left ventricular hypertrophy, mild left atrial enlargement, pacemaker wires were seen right-sided chambers, bioprosthetic valve in aortic position which worked normally, mild mitral regurgitation, [id number] tricuspid regurgitation with right ventricular systolic pressure of 36 mm Hg. Hemoglobin: 8.6 - 9.0 - 8.2 - 7.4 - 8.2 - 7.8 Creatinine: 2.74 - 2.63 - 2.37 - 2.59 - 2.21 - 1.97 Potassium: 4.5 - 4.5 - 4.0 - 4.3 - 4.3 - 4.4 TSH: 1.86 BNP: 370.27 Troponin (high sensitive): Chest x-ray revealed: IMPRESSION: 1. Cardiomegaly with bibasilar airspace disease and possible small pleural effusion on the right. 2. Pneumonia versus congestive failure are both in the radiographic differential Repeat chest x-ray revealed: IMPRESSION: 1. Removal of the right pleural effusion with atelectasis in the right base. 2. No pneumothorax 3. Pacemaker in place unchanged. CT of the head reported: IMPRESSION: 1. No acute intracranial abnormality. 2. Mild cerebral volume loss and minor chronic microvascular ischemic change. Renal ultrasound reported: IMPRESSION: 1. No hydronephrosis. 2. Questionable 3.2 cm left renal mass. Recommend further evaluation with CT or MRI with IV contrast 3. Bilateral pleural effusions. CT of Abdomen and Pelvis revealed: There is limited interpretation of the abdomen and pelvis without administration of intravenous contrast. Aortic valvular prosthesis. Tiny pericardial effusion. Multiple subcarinal/ paraesophageal lymph nodes up to 2.2 cm. Bilateral pleural [id number] which appears small to moderate in size and [id number] complex in appearance. Bibasilar atelectasis /consolidation Adrenal glands, spleen unremarkable in shape. Pancreatic parenchymal atrophy. No CT evidence for cholelithiasis. Liver capsule nodular morphology. The right kidney demonstrates no hydronephrosis / nephrolithiasis. Left renal hyperdense lesion/ mass extending into the pelvis measuring 4.1 x 3 cm. Nonobstructing left renal calculus measuring 7 mm. Periaortic/retroperitoneal lymph node measuring 10 mm. Portacaval lymph node measuring 12 mm. Stomach is partially distended. Small bowel loops are normal in caliber. Colonic diverticular disease. Moderate volume stool in the colon. Normal appendix. Abdominal aortic atherosclerotic disease. Bladder decompressed by Chavez catheter. No free pelvic fluid. Right inguinal lymph nodes measuring up to 12 mm. Soft tissue edema / anasarca. Moderate to advanced lumbar degenerative disc disease. IMPRESSION: Limited evaluation without contrast. Left renal hyperdense lesion/ mass measuring 4.1 x 3 cm extending to the Left renal pelvis, likely representing patient's known history of renal malignancy. Recommend MRI abdomen with and without contrast to better characterize. 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 Bibasilar pulmonary consolidation. 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 This can be further evaluated with a PET scan. Small to moderate bilateral pleural effusions which appear complex in appearance, possibly malignant in etiology. This can be better evaluated with a CT chest with contrast. Abdominal aortic atherosclerotic disease. Colonic diverticular disease. Moderate volume stool in the colon. Other findings as described. EKG revealed sinus rhythm with left bundle branch block Tele reveals sinus rhythm Echocardiogram revealed: Technically limited study secondary to poor acoustic windows. Left ventricle: Mild concentric left ventricular hypertrophy was seen left ventricle was normal-sized. LVEF was 55-60%. There was no gross wall motion abnormality. Right ventricle was mildly dilated with normal systolic function. Mild biatrial enlargement was seen. Pacing wire was seen in right- sided chambers. Bioprosthetic valve was observed in aortic position. It works properly. There was no aortic insufficiency/stenosis. Mild mitral annular calcification was seen. Mild mitral regurgitation was observed. [id number] tricuspid regurgitation was seen. Right ventricular systolic pressure was assessed at 44 mm Hg. IVC was normal-sized with normal respiratory variation. There was trace pericardial effusion. Patient is a 84-year-old gentleman with advanced multiple cancers and metastasis who presented with generalized weakness. Does have baseline history of valvular heart disease for which has had TAVR before. Also has history of atrial fibrillation (paroxysmal) for which is on Eliquis as outpatient. Has been on chemotherapy/radiation therapy. Has had poor appetite and malnutrition could have contributed to the clinical picture. Advanced band of cancers could have contributed to the clinical picture. Side effects secondary to radiation/chemotherapy could have contributed to the clinical picture. Acute coronary syndrome is not considered. Decompensated heart failure is not considered as a component of presentation. Does have history of pacemaker (Biotronik) which was recently interrogated in the office. Being followed by Nephrology/Urology/Pulmonary. Encephalopathy, metabolic VICKIE on CKD Pneumonia Lung cancer Advanced metastatic cancer as COPD Pleural effusion, status post thoracentesis Multiple cancers, metastatic Poor functional capacity Paroxysmal AFib Sick sinus syndrome, status post pacemaker implantation (Biotronik) Valvular heart disease, status post TAVR Cardiac suggestion for management: Manage on telemetry Follow-up electrolytes and kidney function tests and correct abnormalities Fluid resuscitation Long-term continuation of full anticoagulation is advised, if not contraindicated Nephrology follow-up is advised Pulmonary follow-up Urology Follow up Consider Oncology evaluation Goals of care as per primary team. Consider Hospice. Further evaluation and management depends on the above and clinical course Long-term prognosis: very poor A total of 75 minutes was spent reviewing the patient record, examining the patient, making a diagnostic and therapeutic plan, discussing this plan with medical personnel, following up on diagnostic studies and following the patient for clinical stability excluding any and all procedures. At least 50% of this time was spent in direct, doqw-[id number] contact. Thank you for allowing me to participate in this patient's care. Further recommendations will depend on patient's clinical course. Please do not hesitate to contact me if you have any questions or concerns. This medical document was created using electronic medical record system with [email or web address] computerized dictation system. Although this document has been carefully reviewed, there may still be some phonetic and typographical errors. These areas are purely typographical due to the imperfection of the software programs, and do not reflect any compromise in the patient's medical care. Dietary Evaluation Review Comments: 1. Renal Diet with Nepro oral supplementation TID 2. Monitor PO intake 3. Follow up with consults and lab values Expected Outcomes/Goals: Improved PO intakes, increased physical strength. Plan discussed with: Patient (primary rn /patient) RISHABH MCINTOSH Apr 11, 2025 06:24
[2025-04-11 07:29] LABS: Hemoglobin 7.8 g/dL (13.5-17.5); Mean Corpuscular Volume 89.8 fL (80.0-100.0); Nucleated Red Blood Cells % 0.0 %
[2025-04-11 07:30] LABS: Hematocrit 23.9 % (41.0-53.0); Mean Corpuscular Hemoglobin 29.4 pg (28.0-32.0)
[2025-04-11 08:05] LABS: Alanine Aminotransferase 23 U/L (7-40); Albumin 3.5 g/dL (3.2-4.8); Alkaline Phosphatase 61 U/L (46-116); Anion Gap 9 (5-15); BUN/Creatinine Ratio 27.4 (10.0-20.0); Calcium 8.9 mg/dL (8.7-10.4); Carbon Dioxide 29 mmol/L (20-31); Magnesium 2.3 mg/dL (1.6-2.6); Potassium 4.4 mmol/L (3.5-5.1); Total Protein 6.8 g/dL (5.7-8.2)
[2025-04-11 08:06] LABS: Bilirubin, Total 0.3 mg/dL (0.2-1.0); Blood Urea Nitrogen 54 mg/dL (9-23); Chloride 108 mmol/L (98-107); Glucose 118 mg/dL (74-106); Sodium 146 mmol/L (136-145)
--- NOTE | 2025-04-11 10:57 | DVHPN2 ---
Progress Note Date Seen: Apr 11, 2025 Medical Necessity Reason Pt with a Central, PICC or Fol: No Subjective Patient reports: No new complaints Other Systems: Patient seen and examined by myself today in follow-up Objective vital signs Vital Sign Date Time Temp Pulse Resp B/P (MAP) Pulse Ox O2 Delivery O2 Flow Rate FiO2 04/11/25 09:59 113/67 04/11/25 09:00 98.1 100 18 91 98.1 04/11/25 06:22 Nasal Cannula 4.0 04/11/25 06:22 36 Total Intake and Output 04/10/25 04/10/25 04/11/25 15:00 23:00 07:00 Intake Total 890 ml 350 ml Output Total 1500 ml 950 ml Balance -610 ml -600 ml medications Current Medications Medications Dose Ordered Sig/Andressa Route Start Time Stop Time Status Last Admin Dose Admin Apixaban 2.5 mg BID PO 04/07/25 10:00 04/11/25 09:59 2.5 MG Atorvastatin Calcium 80 mg HS PO 04/07/25 22:00 04/09/25 21:32 80 MG Levothyroxine Sodium 150 mcg QAM@0600 PO 04/07/25 06:00 04/11/25 06:15 150 MCG Acetaminophen/ Hydrocodone Bitart 1 tab Q4HP PRN PO 04/06/25 22:15 Ondansetron HCl 4 mg Q4HP PRN IV 04/06/25 22:15 Acetaminophen 650 mg Q6HP PRN PO 04/06/25 22:15 04/07/25 17:12 650 MG Dextrose/Sodium Chloride 1,000 ml @ 80 mls/hr [id number] IV 04/07/25 11:00 04/11/25 02:30 80 MLS/HR Albuterol 2.5 mg Q6HR NEB 04/07/25 12:00 04/11/25 06:22 2.5 MG Ipratropium [place] 0.5 mg Q6HWA NEB 04/07/25 12:00 04/11/25 06:22 0.5 MG Enteral Nutritional Formula 240 ml TIDWM PO 04/08/25 08:00 04/11/25 08:00 240 ML Furosemide 40 mg DAILY IV 04/09/25 10:00 04/11/25 09:59 40 MG Levofloxacin 250 mg DAILY PO 04/10/25 10:00 04/11/25 09:59 250 MG Guaifenesin/ Dextromethorphan 10 ml Q4HP PRN PO 04/09/25 13:15 04/10/25 13:16 10 ML Examination: LUNGS:Normal, CVS:Normal, MSK:Abnormal laboratory and microbiology Laboratory Tests 04/11/25 05:13 Test 04/11/25 05:13 Range/Units Serum Glucose 118 H 74-106 mg/dL Microbiology Date/Time Source Procedure Growth Status 04/07/25 17:30 Pleural Fluid Gram Stain - Final Resulted 04/07/25 17:30 Pleural Fluid Body Fluid Culture - Preliminary No growth Resulted 04/06/25 17:13 Voided Urine Urine Culture - Final Klebsiella oxytoca - ESBL Complete 04/06/25 16:06 Blood Blood Culture - Preliminary NO GROWTH AFTER 72 HOURS OF INCUBATION. Resulted Problem List/Assessment/Plan Problem List/Assessment/Plan This is a 84-year-old male with past medical history of Lung CA, COPD, hypertension, dyslipidemia, CKD 3B, thyroid and status post pacemaker brought in to the hospital due to generalized weakness and decreased oral intake. 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 Duran Mild hypernatremia/dehydration, possibly due to decreased oral intake Renal mass, likely renal cell carcinoma Lung cancer, on radiotherapy COPD exacerbation Hematuria Hypertension Dyslipidemia Status post pacemaker Large right pleural effusion, post thoracentesis (drained 1.1 L) Atrial fibrillation, currently sinus rhythm Recommendation * Kidney function slightly continues to improve * Good urine output * Continue D5W with 1/2 NS at 80 mL/hour * Closely monitor fluid and electrolytes * Avoid nephrotoxic medications * Strict I&Os * Renal diet * We will follow up with the patient Plan discussed with: Patient, Spouse Dietary Evaluation Review Comments: 1. Renal Diet with Nepro oral supplementation TID 2. Monitor PO intake 3. Follow up with consults and lab values Expected Outcomes/Goals: Improved PO intakes, increased physical strength. JEANNIE RICHARDSON MD Apr 11, 2025 10:57
--- NOTE | 2025-04-11 13:07 | DVHPN2 ---
Subjective No new complaints Changes from previous H/P or p: Changes Objective Vitals Vital Signs Date Time Temp Pulse Resp B/P (MAP) Pulse Ox O2 Delivery O2 Flow Rate FiO2 04/11/25 11:39 83 18 100 04/11/25 11:34 Nasal Cannula* 4 36 04/11/25 09:59 113/67 04/11/25 09:00 98.1 98.1 Intake/Output Intake and Output 04/11/25 07:00 Intake Total 1240 ml Output Total 2450 ml Balance -1210 ml Intake Oral 1240 ml Output Urine Total 2450 ml # Bowel Movements 3 General Appearance: Alert, Oriented X3, Cooperative Lungs: Clear to auscultation, Normal air movement Cardiovascular: Regular rate, Normal S1 Abdomen: Normal bowel sounds, Soft Extremities: No edema Medications Current Medications Medications Dose Ordered Sig/Andressa Route Start Time Stop Time Status Last Admin Dose Admin Apixaban 2.5 mg BID PO 04/07/25 10:00 04/11/25 09:59 2.5 MG Atorvastatin Calcium 80 mg HS PO 04/07/25 22:00 04/09/25 21:32 80 MG Levothyroxine Sodium 150 mcg QAM@0600 PO 04/07/25 06:00 04/11/25 06:15 150 MCG Acetaminophen/ Hydrocodone Bitart 1 tab Q4HP PRN PO 04/06/25 22:15 Ondansetron HCl 4 mg Q4HP PRN IV 04/06/25 22:15 Acetaminophen 650 mg Q6HP PRN PO 04/06/25 22:15 04/07/25 17:12 650 MG Albuterol 2.5 mg Q6HR NEB 04/07/25 12:00 04/11/25 11:34 2.5 MG Ipratropium [place] 0.5 mg Q6HWA NEB 04/07/25 12:00 04/11/25 11:34 0.5 MG Enteral Nutritional Formula 240 ml TIDWM PO 04/08/25 08:00 04/11/25 08:00 240 ML Furosemide 40 mg DAILY IV 04/09/25 10:00 04/11/25 09:59 40 MG Levofloxacin 250 mg DAILY PO 04/10/25 10:00 04/11/25 09:59 250 MG Guaifenesin/ Dextromethorphan 10 ml Q4HP PRN PO 04/09/25 13:15 04/10/25 13:16 10 ML Laboratory Results Laboratory Tests 04/11/25 05:13 Chemistry Test 04/11/25 05:13 Albumin 3.5 g/dL (3.2-4.8) Calcium Level 8.9 mg/dL (8.7-10.4) Magnesium Level 2.3 mg/dL (1.6-2.6) Total Protein 6.8 g/dL (5.7-8.2) LFT Test 04/11/25 05:13 Alanine Aminotransferase (ALT) 23 U/L (7-40) Alkaline Phosphatase 61 U/L (46-116) Aspartate Amino Transferase (AST) 29 U/L (13-40) Total Bilirubin 0.3 mg/dL (0.2-1.0) Urinalysis Test 04/07/25 14:30 Urine Color Light-orange (Yellow) Urine Clarity Turbid (Clear) H Urine pH 8.0 (5.0-9.0) Urine Specific [place] 1.030 (1.001-1.035) Urine Protein 3+ (Negative) H Urine Ketones Negative (Negative) Urine Blood 3+ /uL (Negative) H Urine Nitrite Negative (Negative) Urine Bilirubin Negative (Negative) Urine Urobilinogen Normal mg/dL (Negative) Urine Leukocyte Esterase Negative /uL (Negative) Urine RBC 1399 /hpf (0 - 3) Urine WBC Clumps Present /hpf (None Seen) Urine Microscopic WBC 411 /HPF (0-3) H Urine Squamous Epithelial Cells None seen /hpf (<5) Urine Bacteria Few /hpf (None Seen) H Urine Mucus Few (None Seen) Urine Creatinine < 3.00 mg/dL (30.0-125.0) L Urine Protein/Creatinine Ratio 833.00 Urine Sodium 154 mmol/L (40-220) Urine Glucose 2+ mg/dL (Normal) H Urine Total Protein > 2500.0 mg/dL (1-14) H Microbiology Microbiology Date/Time Source Procedure Growth Status 04/07/25 17:30 Pleural Fluid Gram Stain - Final Resulted 04/07/25 17:30 Pleural Fluid Body Fluid Culture - Preliminary No growth Resulted 04/06/25 17:13 Voided Urine Urine Culture - Final Klebsiella oxytoca - ESBL Complete 04/06/25 16:06 Blood Blood Culture - Preliminary NO GROWTH AFTER 72 HOURS OF INCUBATION. Resulted Assessment/Plan Assessment/Plan Metabolic encephalopathy Hypernatremia Acute kidney injury due to vasomotor nephropathy Chronic kidney disease Lung cancer on radiation therapy Bilateral pneumonia UTI History of heart failure Small pleural effusion Chronic anemia of chronic disease Acute on chronic hypoxic respiratory failure COPD Hypertension Type 2 diabetes Obesity History of prostate cancer status post prostatectomy History of aortic stenosis status post TAVR Hypothyroidism History of CVA Atrial fibrillation on Eliquis Plan Continue IV antibiotics Rocephin and Zithromax Add IV fluids D5 half NS Nephrology consult Chavez catheter Physical therapy Echocardiogram Kidney ultrasound Blood culture Urine culture Monitor closely Continue Eliquis 04/08/25: Pneumonia: Rocephin and Zithromax UTI Left renal mass: Get CT ab & pelvis, urology consult CKD: Nephrology consult Afib: Eliquis, cardiology consult Lung CA Pleural effusion s/p thoracentesis VICKIE/CKD COPD s/p TAVR 04/09/2025: Switch the IV antibiotics to p.o. Levaquin UTI with Klebsiella ESBL: P.o. Levaquin Left renal mass: Urology on board, IR procedure to do renal biopsy and left renal cryoablation Pneumonia CKD Atrial fibrillation on Eliquis VICKIE COPD History of TAVR We will discuss with Interventional Radiology whether the renal biopsy and left renal cryoablation can be done here Discussed with the at the bedside, she is hesitant about surgeries The patient is high-risk for surgery 04/10/25: Physical therapy Continue po Levaquin Observe closely Eliquis O2 prn 04/11/2025: Discontinue IV fluids Continue p.o. Levaquin Reviewed the chest x-ray, no need for thoracentesis at this time Oxygen as needed Monitor closely Plan discussed with: Patient Date of Service: Apr 11, 2025 Billing Provider: DEEPAK ATKINS MD Common Visit Codes: NOT BILLABLE DEEPAK ATKINS MD Apr 11, 2025 13:07
--- NOTE | 2025-04-11 23:56 | DVHPN2 ---
Subjective DOS: 04/11/2025 Patient seen and examined at bedside. Remains on supplemental oxygen Overnight events reviewed. Changes from previous H/P or p: No Changes Objective Vitals Vital Signs Date Time Temp Pulse Resp B/P (MAP) Pulse Ox O2 Delivery O2 Flow Rate FiO2 04/11/25 21:00 99.2 94 19 122/64 (83) 95 99.2 04/11/25 18:03 Nasal Cannula* 4 36 Intake/Output Intake and Output 04/11/25 07:00 Intake Total 1240 ml Output Total 2450 ml Balance -1210 ml Intake Oral 1240 ml Output Urine Total 2450 ml # Bowel Movements 3 Exam Gen.: Patient lying in bed in no apparent distress. On supplemental oxygen. Head: Normocephalic, atraumatic. Eyes: EOMI/PERRLA. Ears: Normal hearing. Normal anatomy. Neck/trachea: Trachea midline, supple. Nose: Normal external anatomy. Mouth: Moist mucous membranes. Chest: Decreased air entry bilaterally. Wheezing. No rhonchi. Cardiovascular: Positive S1, positive S2. Regular rate and rhythm. Abdomen: Positive bowel sounds in all 4 quadrants. Soft, non-tender, non- distended. : Deferred. Rectal: Deferred. Skin: Warm, dry. Intact. Extremities: 2+ radial pulses bilaterally. Trace bilateral lower extremity edema. Neuro: Awake, alert, oriented x3. No gross motor or sensory deficits. Cranial nerves II through XII intact. Gait not assessed. General Appearance: Alert, Oriented X3, Cooperative Lungs: Clear to auscultation, Normal air movement Cardiovascular: Regular rate, Normal S1 Abdomen: Normal bowel sounds, Soft Extremities: No edema Medications Current Medications Medications Dose Ordered Sig/Andressa Route Start Time Stop Time Status Last Admin Dose Admin Apixaban 2.5 mg BID PO 04/07/25 10:00 04/11/25 23:23 2.5 MG Atorvastatin Calcium 80 mg HS PO 04/07/25 22:00 04/11/25 23:23 80 MG Levothyroxine Sodium 150 mcg QAM@0600 PO 04/07/25 06:00 04/11/25 06:15 150 MCG Acetaminophen/ Hydrocodone Bitart 1 tab Q4HP PRN PO 04/06/25 22:15 Ondansetron HCl 4 mg Q4HP PRN IV 04/06/25 22:15 Acetaminophen 650 mg Q6HP PRN PO 04/06/25 22:15 04/07/25 17:12 650 MG Albuterol 2.5 mg Q6HR NEB 04/07/25 12:00 04/11/25 23:10 2.5 MG Ipratropium [place] 0.5 mg Q6HWA NEB 04/07/25 12:00 04/11/25 23:10 0.5 MG Enteral Nutritional Formula 240 ml TIDWM PO 04/08/25 08:00 04/11/25 18:00 240 ML Furosemide 40 mg DAILY IV 04/09/25 10:00 04/11/25 09:59 40 MG Levofloxacin 250 mg DAILY PO 04/10/25 10:00 04/11/25 09:59 250 MG Guaifenesin/ Dextromethorphan 10 ml Q4HP PRN PO 04/09/25 13:15 04/10/25 13:16 10 ML Laboratory Results Laboratory Tests 04/11/25 05:13 Chemistry Test 04/11/25 05:13 Albumin 3.5 g/dL (3.2-4.8) Calcium Level 8.9 mg/dL (8.7-10.4) Magnesium Level 2.3 mg/dL (1.6-2.6) Total Protein 6.8 g/dL (5.7-8.2) LFT Test 04/11/25 05:13 Alanine Aminotransferase (ALT) 23 U/L (7-40) Alkaline Phosphatase 61 U/L (46-116) Aspartate Amino Transferase (AST) 29 U/L (13-40) Total Bilirubin 0.3 mg/dL (0.2-1.0) Urinalysis Test 04/07/25 14:30 Urine Color Light-orange (Yellow) Urine Clarity Turbid (Clear) H Urine pH 8.0 (5.0-9.0) Urine Specific [place] 1.030 (1.001-1.035) Urine Protein 3+ (Negative) H Urine Ketones Negative (Negative) Urine Blood 3+ /uL (Negative) H Urine Nitrite Negative (Negative) Urine Bilirubin Negative (Negative) Urine Urobilinogen Normal mg/dL (Negative) Urine Leukocyte Esterase Negative /uL (Negative) Urine RBC 1399 /hpf (0 - 3) Urine WBC Clumps Present /hpf (None Seen) Urine Microscopic WBC 411 /HPF (0-3) H Urine Squamous Epithelial Cells None seen /hpf (<5) Urine Bacteria Few /hpf (None Seen) H Urine Mucus Few (None Seen) Urine Creatinine < 3.00 mg/dL (30.0-125.0) L Urine Protein/Creatinine Ratio 833.00 Urine Sodium 154 mmol/L (40-220) Urine Glucose 2+ mg/dL (Normal) H Urine Total Protein > 2500.0 mg/dL (1-14) H Microbiology Microbiology Date/Time Source Procedure Growth Status 04/07/25 17:30 Pleural Fluid Gram Stain - Final Resulted 04/07/25 17:30 Pleural Fluid Body Fluid Culture - Preliminary No growth Resulted 04/06/25 17:13 Voided Urine Urine Culture - Final Klebsiella oxytoca - ESBL Complete 04/06/25 16:06 Blood Blood Culture - Final NO GROWTH AFTER 5 DAYS OF INCUBATION. Complete Assessment/Plan Assessment/Plan Impression: Acute on chronic hypoxic respiratory failure Dependence on supplemental oxygen Lung cancer Congestive heart failure Pneumonia, likely gram negative Pleural effusion Atelectasis Kidney mass, likely metastatic cancer Events: Remains on supplemental oxygen, 3 LPM NC Taper O2 as tolerated Head of bed elevation Aspiration precautions. Patient has bouts of confusion. CXR demonstrates moderately progressive multifocal bilateral pulmonary airspace disease with new right mid lung zone infiltrate. Small bilateral pleural effusions. Plan for limited chest ultrasound to assess if pleural effusion amenable for thoracentesis. Continue bronchodilators Continue antibiotics for pneumonia/UTI. Incentive spirometry Monitor blood pressure Obtain IR consult for renal biopsy. S/p right thora on 04/07/25 - 1100 mL's of alexia colored fluid removed from right pleural space See separate procedure note for details F/u pleural fluid cx and cytology - no growth Diurese with Lasix Monitor renal function. Monitor electrolytes. Supplement as necessary. Monitor ins and outs. Maintain euvolemia. Avoid fluid overload. Physical therapy. Abdomen-pelvis CT w/o contrast on 04/08/25 showed left renal hyperdense lesion/ mass of 4.1 x 3 cm extending to the left renal pelvis, likely representing patient's known history of renal malignancy. 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 Bibasilar pulmonary consolidation. 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 Small to moderate bilateral pleural effusions which appear complex in appearance, possibly malignant. Abdominal aortic atherosclerotic disease. Colonic diverticular disease. Moderate volume stool in the colon. Labs and imaging reviewed. Rest of plan as noted below. Plan: Supplemental oxygen Titrate to keep O2 sats above 92%. Head of bed elevation Aspiration precautions. Continue bronchodilators. Continue antibiotics Incentive spirometry Follow up Cardiology recommendations Monitor renal function. Monitor electrolytes. Supplement as necessary. Monitor ins and outs. Maintain euvolemia. Labs and imaging reviewed. DVT prophylaxis. Prognosis: Poor given patient's multiple co-morbidities. Rest of plan per hospitalist and other consultants. Thank you, Dr. Phipps, for allowing me to participate in this patient's care. Further recommendations will depend on the patient's clinical course. Please do not hesitate to contact me if you have any questions or concerns. This medical document was created using an electronic medical record system with [employer] dictation system. Although these documentations are being carefully reviewed, there may still be some phonetic and typographical changes. The errors are purely typographical, due to imperfection on the software program, and do not reflect any compromise in the patient's medical care. Plan discussed with: Patient, Other (ALEX Ryan) Visit Coding Pulmonary Billing Provider: ARIA PERRY MD Date of Service if different f: Apr 11, 2025 Common Visit Codes: [id number] INP/OBS CARE(HIGH) ARIA PERRY MD Apr 11, 2025 23:56
[2025-04-12] VITALS (15 sets, daily range): BP systolic 106–127; BP diastolic 59–67; PULSE 90–104; RESP 18–20; TEMP 97.8–98.5; O2SAT 88–100
--- NOTE | 2025-04-12 04:55 | DVHPN2 ---
Progress Note - Dictate Date Seen: Apr 12, 2025 Medical Necessity Reason Pt with a Central, PICC or Fol: No vital signs Vital Sign Date Time Temp Pulse Resp B/P (MAP) Pulse Ox O2 Delivery O2 Flow Rate FiO2 04/12/25 01:00 98.0 91 18 117/67 (84) 93 98.0 04/11/25 23:10 Nasal Cannula 4.0 04/11/25 23:10 36 Total Intake and Output 04/11/25 04/11/25 04/12/25 15:00 23:00 07:00 Intake Total 600 ml Output Total 2600 ml Balance -2000 ml medications Current Medications Medications Dose Ordered Sig/Andressa Route Start Time Stop Time Status Last Admin Dose Admin Apixaban 2.5 mg BID PO 04/07/25 10:00 04/11/25 23:23 2.5 MG Atorvastatin Calcium 80 mg HS PO 04/07/25 22:00 04/11/25 23:23 80 MG Levothyroxine Sodium 150 mcg QAM@0600 PO 04/07/25 06:00 04/11/25 06:15 150 MCG Acetaminophen/ Hydrocodone Bitart 1 tab Q4HP PRN PO 04/06/25 22:15 Ondansetron HCl 4 mg Q4HP PRN IV 04/06/25 22:15 Acetaminophen 650 mg Q6HP PRN PO 04/06/25 22:15 04/07/25 17:12 650 MG Albuterol 2.5 mg Q6HR NEB 04/07/25 12:00 04/11/25 23:10 2.5 MG Ipratropium [place] 0.5 mg Q6HWA NEB 04/07/25 12:00 04/11/25 23:10 0.5 MG Enteral Nutritional Formula 240 ml TIDWM PO 04/08/25 08:00 04/11/25 18:00 240 ML Furosemide 40 mg DAILY IV 04/09/25 10:00 04/11/25 09:59 40 MG Levofloxacin 250 mg DAILY PO 04/10/25 10:00 04/11/25 09:59 250 MG Guaifenesin/ Dextromethorphan 10 ml Q4HP PRN PO 04/09/25 13:15 04/10/25 13:16 10 ML laboratory and microbiology Laboratory Tests 04/11/25 05:13 Test 04/11/25 05:13 Range/Units Serum Glucose 118 H 74-106 mg/dL Assessment/Plan Patient is a 84-year-old gentleman who was brought by for generalized weakness which was ongoing and worsening for the past month. Does have history of advanced/metastatic cancer. Cardiology is involved for cardiac aspects of care (patient's called me personally). Patient is known to our practice from outside and before. There is no report of chest pain. There is no report of palpitation. Patient has been on chemotherapy/radiation therapy. Cachectic male. Sitting in bed. Somewhat confused. No gross JVD. Mucosa is pale. Scattered rhonchi in the lungs is heard. Not using accessory muscles of breathing. Cardiac: Regular. Systolic murmur 2/6 in the apex is heard. Abdomen is soft. Bilateral edema seen. 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 Echocardiogram of January 16, 2025 (performed in the office) revealed ejection fraction 45-50%, mild concentric left ventricular hypertrophy, mild left atrial enlargement, pacemaker wires were seen right-sided chambers, bioprosthetic valve in aortic position which worked normally, mild mitral regurgitation, [id number] tricuspid regurgitation with right ventricular systolic pressure of 36 mm Hg. Hemoglobin: 8.6 - 9.0 - 8.2 - 7.4 - 8.2 - 7.8 Creatinine: 2.74 - 2.63 - 2.37 - 2.59 - 2.21 - 1.97 - 1.95 Potassium: 4.5 - 4.5 - 4.0 - 4.3 - 4.3 - 4.4 - 4.8 TSH: 1.86 BNP: 370.27 Troponin (high sensitive): 13 Chest x-ray revealed: IMPRESSION: 1. Cardiomegaly with bibasilar airspace disease and possible small pleural effusion on the right. 2. Pneumonia versus congestive failure are both in the radiographic differential Repeat chest x-ray revealed: IMPRESSION: 1. Removal of the right pleural effusion with atelectasis in the right base. 2. No pneumothorax 3. Pacemaker in place unchanged. CT of the head reported: IMPRESSION: 1. No acute intracranial abnormality. 2. Mild cerebral volume loss and minor chronic microvascular ischemic change. Renal ultrasound reported: IMPRESSION: 1. No hydronephrosis. 2. Questionable 3.2 cm left renal mass. Recommend further evaluation with CT or MRI with IV contrast 3. Bilateral pleural effusions. CT of Abdomen and Pelvis revealed: There is limited interpretation of the abdomen and pelvis without administration of intravenous contrast. Aortic valvular prosthesis. Tiny pericardial effusion. Multiple subcarinal/ paraesophageal lymph nodes up to 2.2 cm. Bilateral pleural [id number] which appears small to moderate in size and [id number] complex in appearance. Bibasilar atelectasis /consolidation Adrenal glands, spleen unremarkable in shape. Pancreatic parenchymal atrophy. No CT evidence for cholelithiasis. Liver capsule nodular morphology. The right kidney demonstrates no hydronephrosis / nephrolithiasis. Left renal hyperdense lesion/ mass extending into the pelvis measuring 4.1 x 3 cm. Nonobstructing left renal calculus measuring 7 mm. Periaortic/retroperitoneal lymph node measuring 10 mm. Portacaval lymph node measuring 12 mm. Stomach is partially distended. Small bowel loops are normal in caliber. Colonic diverticular disease. Moderate volume stool in the colon. Normal appendix. Abdominal aortic atherosclerotic disease. Bladder decompressed by Chavez catheter. No free pelvic fluid. Right inguinal lymph nodes measuring up to 12 mm. Soft tissue edema / anasarca. Moderate to advanced lumbar degenerative disc disease. IMPRESSION: Limited evaluation without contrast. Left renal hyperdense lesion/ mass measuring 4.1 x 3 cm extending to the Left renal pelvis, likely representing patient's known history of renal malignancy. Recommend MRI abdomen with and without contrast to better characterize. 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 Bibasilar pulmonary consolidation. 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 This can be further evaluated with a PET scan. Small to moderate bilateral pleural effusions which appear complex in appearance, possibly malignant in etiology. This can be better evaluated with a CT chest with contrast. Abdominal aortic atherosclerotic disease. Colonic diverticular disease. Moderate volume stool in the colon. Other findings as described. EKG revealed sinus rhythm with left bundle branch block Tele reveals sinus rhythm Echocardiogram revealed: Technically limited study secondary to poor acoustic windows. Left ventricle: Mild concentric left ventricular hypertrophy was seen left ventricle was normal-sized. LVEF was 55-60%. There was no gross wall motion abnormality. Right ventricle was mildly dilated with normal systolic function. Mild biatrial enlargement was seen. Pacing wire was seen in right- sided chambers. Bioprosthetic valve was observed in aortic position. It works properly. There was no aortic insufficiency/stenosis. Mild mitral annular calcification was seen. Mild mitral regurgitation was observed. [id number] tricuspid regurgitation was seen. Right ventricular systolic pressure was assessed at 44 mm Hg. IVC was normal-sized with normal respiratory variation. There was trace pericardial effusion. Patient is a 84-year-old gentleman with advanced multiple cancers and metastasis who presented with generalized weakness. Does have baseline history of valvular heart disease for which has had TAVR before. Also has history of atrial fibrillation (paroxysmal) for which is on Eliquis as outpatient. Has been on chemotherapy/radiation therapy. Has had poor appetite and malnutrition could have contributed to the clinical picture. Advanced band of cancers could have contributed to the clinical picture. Side effects secondary to radiation/chemotherapy could have contributed to the clinical picture. Acute coronary syndrome is not considered. Decompensated heart failure is not considered as a component of presentation. Does have history of pacemaker (Biotronik) which was recently interrogated in the office. Being followed by Nephrology/Urology/Pulmonary. Encephalopathy, metabolic VICKIE on CKD Pneumonia Lung cancer Advanced metastatic cancer as COPD Pleural effusion, status post thoracentesis Multiple cancers, metastatic Poor functional capacity Paroxysmal AFib Sick sinus syndrome, status post pacemaker implantation (Biotronik) Valvular heart disease, status post TAVR Cardiac suggestion for management: Manage on telemetry Follow-up electrolytes and kidney function tests and correct abnormalities Fluid resuscitation Long-term continuation of full anticoagulation is advised, if not contraindicated Nephrology follow-up is advised Pulmonary follow-up Urology Follow up Consider Oncology evaluation Goals of care as per primary team. Consider Hospice. Further evaluation and management depends on the above and clinical course Long-term prognosis: very poor A total of 75 minutes was spent reviewing the patient record, examining the patient, making a diagnostic and therapeutic plan, discussing this plan with medical personnel, following up on diagnostic studies and following the patient for clinical stability excluding any and all procedures. At least 50% of this time was spent in direct, [id number] contact. Thank you for allowing me to participate in this patient's care. Further recommendations will depend on patient's clinical course. Please do not hesitate to contact me if you have any questions or concerns. This medical document was created using electronic medical record system with [employer] computerized dictation system. Although this document has been carefully reviewed, there may still be some phonetic and typographical errors. These areas are purely typographical due to the imperfection of the software programs, and do not reflect any compromise in the patient's medical care. Dietary Evaluation Review Comments: 1. Renal Diet with Nepro oral supplementation TID 2. Monitor PO intake 3. Follow up with consults and lab values Expected Outcomes/Goals: Improved PO intakes, increased physical strength. Plan discussed with: Other (patient/primary rn ) RISHABH MCINTOSH Apr 12, 2025 04:55
[2025-04-12 06:05] LABS: Chloride 106 mmol/L (98-107); Potassium 4.8 mmol/L (3.5-5.1)
[2025-04-12 06:06] LABS: Anion Gap 9 (5-15); Calcium 9.1 mg/dL (8.7-10.4)
[2025-04-12 06:11] LABS: BUN/Creatinine Ratio 27.2 (10.0-20.0)
[2025-04-12 06:33] LABS: Blood Urea Nitrogen 53 mg/dL (9-23); Carbon Dioxide 32 mmol/L (20-31); Glucose 124 mg/dL (74-106); Sodium 147 mmol/L (136-145)
--- NOTE | 2025-04-12 09:52 | DVHPN2 ---
Subjective No new complaints Changes from previous H/P or p: Changes Objective Vitals Vital Signs Date Time Temp Pulse Resp B/P (MAP) Pulse Ox O2 Delivery O2 Flow Rate FiO2 04/12/25 09:00 98.3 94 18 111/62 (78) 94 98.3 04/12/25 07:00 Nasal Cannula 4.0 04/12/25 07:00 36 Intake/Output Intake and Output 04/12/25 07:00 Intake Total 700 ml Output Total 3600 ml Balance -2900 ml Intake Oral 700 ml Output Urine Total 3600 ml General Appearance: Alert, Oriented X3, Cooperative Lungs: Clear to auscultation, Normal air movement Cardiovascular: Regular rate, Normal S1 Abdomen: Normal bowel sounds, Soft Extremities: No edema Medications Current Medications Medications Dose Ordered Sig/Andressa Route Start Time Stop Time Status Last Admin Dose Admin Apixaban 2.5 mg BID PO 04/07/25 10:00 04/11/25 23:23 2.5 MG Atorvastatin Calcium 80 mg HS PO 04/07/25 22:00 04/11/25 23:23 80 MG Levothyroxine Sodium 150 mcg QAM@0600 PO 04/07/25 06:00 04/12/25 05:48 150 MCG Acetaminophen/ Hydrocodone Bitart 1 tab Q4HP PRN PO 04/06/25 22:15 Ondansetron HCl 4 mg Q4HP PRN IV 04/06/25 22:15 Acetaminophen 650 mg Q6HP PRN PO 04/06/25 22:15 04/07/25 17:12 650 MG Albuterol 2.5 mg Q6HR NEB 04/07/25 12:00 04/12/25 06:59 2.5 MG Ipratropium [place] 0.5 mg Q6HWA NEB 04/07/25 12:00 04/11/25 23:10 0.5 MG Enteral Nutritional Formula 240 ml TIDWM PO 04/08/25 08:00 04/11/25 18:00 240 ML Furosemide 40 mg DAILY IV 04/09/25 10:00 04/11/25 09:59 40 MG Levofloxacin 250 mg DAILY PO 04/10/25 10:00 04/11/25 09:59 250 MG Guaifenesin/ Dextromethorphan 10 ml Q4HP PRN PO 04/09/25 13:15 04/10/25 13:16 10 ML Laboratory Results Laboratory Tests 04/11/25 05:13 04/12/25 05:41 Chemistry Test 04/12/25 05:41 Calcium Level 9.1 mg/dL (8.7-10.4) Urinalysis Test 04/07/25 14:30 Urine Color Light-orange (Yellow) Urine Clarity Turbid (Clear) H Urine pH 8.0 (5.0-9.0) Urine Specific [place] 1.030 (1.001-1.035) Urine Protein 3+ (Negative) H Urine Ketones Negative (Negative) Urine Blood 3+ /uL (Negative) H Urine Nitrite Negative (Negative) Urine Bilirubin Negative (Negative) Urine Urobilinogen Normal mg/dL (Negative) Urine Leukocyte Esterase Negative /uL (Negative) Urine RBC 1399 /hpf (0 - 3) Urine WBC Clumps Present /hpf (None Seen) Urine Microscopic WBC 411 /HPF (0-3) H Urine Squamous Epithelial Cells None seen /hpf (<5) Urine Bacteria Few /hpf (None Seen) H Urine Mucus Few (None Seen) Urine Creatinine < 3.00 mg/dL (30.0-125.0) L Urine Protein/Creatinine Ratio 833.00 Urine Sodium 154 mmol/L (40-220) Urine Glucose 2+ mg/dL (Normal) H Urine Total Protein > 2500.0 mg/dL (1-14) H Microbiology Microbiology Date/Time Source Procedure Growth Status 04/07/25 17:30 Pleural Fluid Gram Stain - Final Resulted 04/07/25 17:30 Pleural Fluid Body Fluid Culture - Preliminary No growth Resulted 04/06/25 17:13 Voided Urine Urine Culture - Final Klebsiella oxytoca - ESBL Complete 04/06/25 16:06 Blood Blood Culture - Final NO GROWTH AFTER 5 DAYS OF INCUBATION. Complete Assessment/Plan Assessment/Plan Metabolic encephalopathy Hypernatremia Acute kidney injury due to vasomotor nephropathy Chronic kidney disease Lung cancer on radiation therapy Bilateral pneumonia UTI History of heart failure Small pleural effusion Chronic anemia of chronic disease Acute on chronic hypoxic respiratory failure COPD Hypertension Type 2 diabetes Obesity History of prostate cancer status post prostatectomy History of aortic stenosis status post TAVR Hypothyroidism History of CVA Atrial fibrillation on Eliquis Plan Continue IV antibiotics Rocephin and Zithromax Add IV fluids D5 half NS Nephrology consult Chavez catheter Physical therapy Echocardiogram Kidney ultrasound Blood culture Urine culture Monitor closely Continue Eliquis 11/5/25: Pneumonia: Rocephin and Zithromax UTI Left renal mass: Get CT ab & pelvis, urology consult CKD: Nephrology consult Afib: Eliquis, cardiology consult Lung CA Pleural effusion s/p thoracentesis VICKIE/CKD COPD s/p TAVR 04/09/2025: Switch the IV antibiotics to p.o. Levaquin UTI with Klebsiella ESBL: P.o. Levaquin Left renal mass: Urology on board, IR procedure to do renal biopsy and left renal cryoablation Pneumonia CKD Atrial fibrillation on Eliquis VICKIE COPD History of TAVR We will discuss with Interventional Radiology whether the renal biopsy and left renal cryoablation can be done here Discussed with the at the bedside, she is hesitant about surgeries The patient is high-risk for surgery 04/10/25: Physical therapy Continue po Levaquin Observe closely Eliquis O2 prn 04/11/2025: Discontinue IV fluids Continue p.o. Levaquin Reviewed the chest x-ray, no need for thoracentesis at this time Oxygen as needed Monitor closely 04/12/2025: Pneumonia and UTI: Continue Levaquin p.o. Atrial fibrillation: Eliquis 2.5 mg twice a day Discontinue IV fluids Physical therapy Discharge planning Plan discussed with: Patient, Spouse Date of Service: Apr 12, 2025 Billing Provider: DEEPAK ATKINS MD Common Visit Codes: NOT BILLABLE DEEPAK ATKINS MD Apr 12, 2025 09:52
--- NOTE | 2025-04-12 10:32 | DVHPN2 ---
Progress Note Date Seen: Apr 12, 2025 Medical Necessity Reason Pt with a Central, PICC or Fol: No Subjective Patient reports: No new complaints Other Systems: Patient seen and examined by myself today in follow-up Objective vital signs Vital Sign Date Time Temp Pulse Resp B/P (MAP) Pulse Ox O2 Delivery O2 Flow Rate FiO2 04/12/25 09:54 111/62 04/12/25 09:00 98.3 94 18 94 98.3 04/12/25 07:00 Nasal Cannula 4.0 04/12/25 07:00 36 Total Intake and Output 04/11/25 04/11/25 04/12/25 15:00 23:00 07:00 Intake Total 600 ml 100 ml Output Total 2600 ml 1000 ml Balance -2000 ml -900 ml medications Current Medications Medications Dose Ordered Sig/Andressa Route Start Time Stop Time Status Last Admin Dose Admin Apixaban 2.5 mg BID PO 04/07/25 10:00 04/12/25 09:54 2.5 MG Atorvastatin Calcium 80 mg HS PO 04/07/25 22:00 04/11/25 23:23 80 MG Levothyroxine Sodium 150 mcg QAM@0600 PO 04/07/25 06:00 04/12/25 05:48 150 MCG Acetaminophen/ Hydrocodone Bitart 1 tab Q4HP PRN PO 04/06/25 22:15 Ondansetron HCl 4 mg Q4HP PRN IV 04/06/25 22:15 Acetaminophen 650 mg Q6HP PRN PO 04/06/25 22:15 04/07/25 17:12 650 MG Albuterol 2.5 mg Q6HR NEB 04/07/25 12:00 04/12/25 06:59 2.5 MG Ipratropium [place] 0.5 mg Q6HWA NEB 04/07/25 12:00 04/11/25 23:10 0.5 MG Enteral Nutritional Formula 240 ml TIDWM PO 04/08/25 08:00 04/12/25 08:00 240 ML Furosemide 40 mg DAILY IV 04/09/25 10:00 04/12/25 09:54 40 MG Levofloxacin 250 mg DAILY PO 04/10/25 10:00 04/12/25 09:54 250 MG Guaifenesin/ Dextromethorphan 10 ml Q4HP PRN PO 04/09/25 13:15 04/10/25 13:16 10 ML Examination: LUNGS:Normal, CVS:Normal, MSK:Abnormal laboratory and microbiology Laboratory Tests 04/12/25 05:41 04/11/25 05:13 Test 04/12/25 05:41 Range/Units Serum Glucose 124 H 74-106 mg/dL Microbiology Date/Time Source Procedure Growth Status 04/07/25 17:30 Pleural Fluid Gram Stain - Final Resulted 04/07/25 17:30 Pleural Fluid Body Fluid Culture - Preliminary No growth Resulted 04/06/25 17:13 Voided Urine Urine Culture - Final Klebsiella oxytoca - ESBL Complete 04/06/25 16:06 Blood Blood Culture - Final NO GROWTH AFTER 5 DAYS OF INCUBATION. Complete Problem List/Assessment/Plan Problem List/Assessment/Plan This is a 84-year-old male with past medical history of Lung CA, COPD, hypertension, dyslipidemia, CKD 3B, thyroid and status post pacemaker brought in to the hospital due to generalized weakness and decreased oral intake. 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 Duran Mild hypernatremia/dehydration, possibly due to decreased oral intake Renal mass, likely renal cell carcinoma Lung cancer, on radiotherapy Skin cancer COPD exacerbation Hematuria Hypertension Dyslipidemia Status post pacemaker Large right pleural effusion, post thoracentesis (drained 1.1 L) Atrial fibrillation, currently sinus rhythm Recommendation * Kidney function slightly continues to improve * Good urine output * Continue D5W with 1/2 NS at 80 mL/hour * Closely monitor fluid and electrolytes * Avoid nephrotoxic medications * Strict I&Os * Renal diet * We will follow up with the patient Plan discussed with: Patient, Spouse Dietary Evaluation Review Comments: 1. Renal Diet with Nepro oral supplementation TID 2. Monitor PO intake 3. Follow up with consults and lab values Expected Outcomes/Goals: Improved PO intakes, increased physical strength. JEANNIE RICHARDSON MD Apr 12, 2025 10:32
--- NOTE | 2025-04-12 22:50 | DVHPN2 ---
Subjective DOS: 04/12/2025 Patient seen and examined at bedside. Remains on supplemental oxygen Overnight events reviewed. Changes from previous H/P or p: No Changes Objective Vitals Vital Signs Date Time Temp Pulse Resp B/P (MAP) Pulse Ox O2 Delivery O2 Flow Rate FiO2 04/12/25 20:45 97.8 99 18 127/66 (86) 93 97.8 04/12/25 19:10 Nasal Cannula 4.0 04/12/25 19:10 36 Intake/Output Intake and Output 04/12/25 07:00 Intake Total 700 ml Output Total 3600 ml Balance -2900 ml Intake Oral 700 ml Output Urine Total 3600 ml Exam Gen.: Patient lying in bed in no apparent distress. On supplemental oxygen. Head: Normocephalic, atraumatic. Eyes: EOMI/PERRLA. Ears: Normal hearing. Normal anatomy. Neck/trachea: Trachea midline, supple. Nose: Normal external anatomy. Mouth: Moist mucous membranes. Chest: Decreased air entry bilaterally. Wheezing. No rhonchi. Cardiovascular: Positive S1, positive S2. Regular rate and rhythm. Abdomen: Positive bowel sounds in all 4 quadrants. Soft, non-tender, non- distended. : Deferred. Rectal: Deferred. Skin: Warm, dry. Intact. Extremities: 2+ radial pulses bilaterally. Trace bilateral lower extremity edema. Neuro: Awake, alert, oriented x3. No gross motor or sensory deficits. Cranial nerves II through XII intact. Gait not assessed. General Appearance: Alert, Oriented X3, Cooperative Lungs: Clear to auscultation, Normal air movement Cardiovascular: Regular rate, Normal S1 Abdomen: Normal bowel sounds, Soft Extremities: No edema Medications Current Medications Medications Dose Ordered Sig/Andressa Route Start Time Stop Time Status Last Admin Dose Admin Apixaban 2.5 mg BID PO 04/07/25 10:00 04/12/25 21:01 2.5 MG Atorvastatin Calcium 80 mg HS PO 04/07/25 22:00 04/12/25 21:01 80 MG Levothyroxine Sodium 150 mcg QAM@0600 PO 04/07/25 06:00 04/12/25 05:48 150 MCG Acetaminophen/ Hydrocodone Bitart 1 tab Q4HP PRN PO 04/06/25 22:15 Ondansetron HCl 4 mg Q4HP PRN IV 04/06/25 22:15 Acetaminophen 650 mg Q6HP PRN PO 04/06/25 22:15 04/07/25 17:12 650 MG Albuterol 2.5 mg Q6HR NEB 04/07/25 12:00 04/12/25 19:00 2.5 MG Ipratropium [place] 0.5 mg Q6HWA NEB 04/07/25 12:00 04/12/25 19:00 0.5 MG Enteral Nutritional Formula 240 ml TIDWM PO 04/08/25 08:00 04/12/25 18:21 240 ML Furosemide 40 mg DAILY IV 04/09/25 10:00 04/12/25 09:54 40 MG Levofloxacin 250 mg DAILY PO 04/10/25 10:00 04/12/25 09:54 250 MG Guaifenesin/ Dextromethorphan 10 ml Q4HP PRN PO 04/09/25 13:15 04/10/25 13:16 10 ML Laboratory Results Laboratory Tests 04/11/25 05:13 04/12/25 05:41 Chemistry Test 04/12/25 05:41 Calcium Level 9.1 mg/dL (8.7-10.4) Urinalysis Test 04/07/25 14:30 Urine Color Light-orange (Yellow) Urine Clarity Turbid (Clear) H Urine pH 8.0 (5.0-9.0) Urine Specific [place] 1.030 (1.001-1.035) Urine Protein 3+ (Negative) H Urine Ketones Negative (Negative) Urine Blood 3+ /uL (Negative) H Urine Nitrite Negative (Negative) Urine Bilirubin Negative (Negative) Urine Urobilinogen Normal mg/dL (Negative) Urine Leukocyte Esterase Negative /uL (Negative) Urine RBC 1399 /hpf (0 - 3) Urine WBC Clumps Present /hpf (None Seen) Urine Microscopic WBC 411 /HPF (0-3) H Urine Squamous Epithelial Cells None seen /hpf (<5) Urine Bacteria Few /hpf (None Seen) H Urine Mucus Few (None Seen) Urine Creatinine < 3.00 mg/dL (30.0-125.0) L Urine Protein/Creatinine Ratio 833.00 Urine Sodium 154 mmol/L (40-220) Urine Glucose 2+ mg/dL (Normal) H Urine Total Protein > 2500.0 mg/dL (1-14) H Microbiology Microbiology Date/Time Source Procedure Growth Status 04/07/25 17:30 Pleural Fluid Gram Stain - Final Resulted 04/07/25 17:30 Pleural Fluid Body Fluid Culture - Preliminary No growth Resulted 04/06/25 17:13 Voided Urine Urine Culture - Final Klebsiella oxytoca - ESBL Complete 04/06/25 16:06 Blood Blood Culture - Final NO GROWTH AFTER 5 DAYS OF INCUBATION. Complete Assessment/Plan Assessment/Plan Impression: Acute on chronic hypoxic respiratory failure Dependence on supplemental oxygen Lung cancer Congestive heart failure Pneumonia, likely gram negative Pleural effusion Atelectasis Kidney mass, likely metastatic cancer Events: Remains on supplemental oxygen, 3 LPM NC Taper O2 as tolerated No new complaints Patient undergoing physical therapy today. Head of bed elevation Aspiration precautions. CXR demonstrated moderately progressive multifocal bilateral pulmonary airspace disease with new right mid lung zone infiltrate. Small bilateral pleural effusions. Limited chest ultrasound demonstrates moderate left pleural effusion and small right pleural effusion. Plan for left thoracentesis in the AM. Continue bronchodilators Continue antibiotics for pneumonia/UTI. Incentive spirometry Monitor blood pressure Obtain IR consult for renal biopsy. S/p right thora on 04/07/25 - 1100 mL's of alexia colored fluid removed from right pleural space See separate procedure note for details F/u pleural fluid cx and cytology - no growth Diurese with Lasix Monitor renal function. Monitor electrolytes. Supplement as necessary. Monitor ins and outs. Maintain euvolemia. Avoid fluid overload. Physical therapy. Abdomen-pelvis CT w/o contrast on 04/08/25 showed left renal hyperdense lesion/ mass of 4.1 x 3 cm extending to the left renal pelvis, likely representing patient's known history of renal malignancy. 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 Bibasilar pulmonary consolidation. 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 Small to moderate bilateral pleural effusions which appear complex in appearance, possibly malignant. Abdominal aortic atherosclerotic disease. Colonic diverticular disease. Moderate volume stool in the colon. Labs and imaging reviewed. Rest of plan as noted below. Plan: Supplemental oxygen Titrate to keep O2 sats above 92%. Head of bed elevation Aspiration precautions. Continue bronchodilators. Continue antibiotics Incentive spirometry Follow up Cardiology recommendations Monitor renal function. Monitor electrolytes. Supplement as necessary. Monitor ins and outs. Maintain euvolemia. Labs and imaging reviewed. DVT prophylaxis. Prognosis: Poor given patient's multiple co-morbidities. Rest of plan per hospitalist and other consultants. Thank you, Dr. Phipps, for allowing me to participate in this patient's care. Further recommendations will depend on the patient's clinical course. Please do not hesitate to contact me if you have any questions or concerns. This medical document was created using an electronic medical record system with [employer] dictation system. Although these documentations are being carefully reviewed, there may still be some phonetic and typographical changes. The errors are purely typographical, due to imperfection on the software program, and do not reflect any compromise in the patient's medical care. Plan discussed with: Patient, Other (RN Shelby/Nahomy) Visit Coding Pulmonary Billing Provider: ARIA PERRY MD Date of Service if different f: Apr 12, 2025 Common Visit Codes: [id number] INP/OBS CARE(HIGH) ARIA PERRY MD Apr 12, 2025 22:50
[2025-04-13] VITALS (19 sets, daily range): BP systolic 109–126; BP diastolic 58–71; PULSE 86–104; RESP 16–21; TEMP 97.3–99.2; O2SAT 90–99
[2025-04-13 05:35] LABS: Hematocrit 24.0 % (41.0-53.0); Hemoglobin 7.8 g/dL (13.5-17.5); Mean Corpuscular Hemoglobin 29.4 pg (28.0-32.0); Mean Corpuscular Volume 90.3 fL (80.0-100.0); Nucleated Red Blood Cells % 0.0 %
[2025-04-13 05:59] LABS: Alanine Aminotransferase 25 U/L (7-40); Albumin 3.5 g/dL (3.2-4.8); Alkaline Phosphatase 63 U/L (46-116); Anion Gap 6 (5-15); BUN/Creatinine Ratio 31.1 (10.0-20.0); Bilirubin, Total 0.3 mg/dL (0.2-1.0); Blood Urea Nitrogen 56 mg/dL (9-23); Calcium 9.2 mg/dL (8.7-10.4); Carbon Dioxide 33 mmol/L (20-31); Chloride 107 mmol/L (98-107); Glucose 126 mg/dL (74-106); Magnesium 2.4 mg/dL (1.6-2.6); Potassium 4.7 mmol/L (3.5-5.1); Sodium 146 mmol/L (136-145); Total Protein 6.9 g/dL (5.7-8.2)
--- NOTE | 2025-04-13 08:45 | DVHPN2 ---
Progress Note - Dictate Date Seen: Apr 13, 2025 Medical Necessity Reason Pt with a Central, PICC or Fol: No vital signs Vital Sign Date Time Temp Pulse Resp B/P (MAP) Pulse Ox O2 Delivery O2 Flow Rate FiO2 04/13/25 08:30 98.1 90 20 115/61 (79) 94 98.1 04/13/25 08:05 Nasal Cannula* 4 36 Total Intake and Output 04/12/25 04/12/25 04/13/25 15:00 23:00 07:00 Intake Total 450 ml 340 ml Output Total 1200 ml 900 ml Balance -750 ml -560 ml medications Current Medications Medications Dose Ordered Sig/Andressa Route Start Time Stop Time Status Last Admin Dose Admin Apixaban 2.5 mg BID PO 04/07/25 10:00 04/12/25 21:01 2.5 MG Atorvastatin Calcium 80 mg HS PO 04/07/25 22:00 04/12/25 21:01 80 MG Levothyroxine Sodium 150 mcg QAM@0600 PO 04/07/25 06:00 04/13/25 05:44 150 MCG Acetaminophen/ Hydrocodone Bitart 1 tab Q4HP PRN PO 04/06/25 22:15 Ondansetron HCl 4 mg Q4HP PRN IV 04/06/25 22:15 Acetaminophen 650 mg Q6HP PRN PO 04/06/25 22:15 04/07/25 17:12 650 MG Albuterol 2.5 mg Q6HR NEB 04/07/25 12:00 04/13/25 07:19 2.5 MG Ipratropium [place] 0.5 mg Q6HWA NEB 04/07/25 12:00 04/13/25 07:19 0.5 MG Enteral Nutritional Formula 240 ml TIDWM PO 04/08/25 08:00 04/13/25 08:10 240 ML Furosemide 40 mg DAILY IV 04/09/25 10:00 04/12/25 09:54 40 MG Levofloxacin 250 mg DAILY PO 04/10/25 10:00 04/12/25 09:54 250 MG Guaifenesin/ Dextromethorphan 10 ml Q4HP PRN PO 04/09/25 13:15 04/10/25 13:16 10 ML laboratory and microbiology Laboratory Tests 04/13/25 05:05 Test 04/13/25 05:05 Range/Units Serum Glucose 126 H 74-106 mg/dL Assessment/Plan Patient is a 84-year-old gentleman who was brought by for generalized weakness which was ongoing and worsening for the past month. Does have history of advanced/metastatic cancer. Cardiology is involved for cardiac aspects of care (patient's called me personally). Patient is known to our practice from outside and before. There is no report of chest pain. There is no report of palpitation. Patient has been on chemotherapy/radiation therapy. Cachectic male. Sitting in bed. Somewhat confused. No gross JVD. Mucosa is pale. Scattered rhonchi in the lungs is heard. Not using accessory muscles of breathing. Cardiac: Regular. Systolic murmur 2/6 in the apex is heard. Abdomen is soft. Bilateral edema seen. 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 Echocardiogram of January 16, 2025 (performed in the office) revealed ejection fraction 45-50%, mild concentric left ventricular hypertrophy, mild left atrial enlargement, pacemaker wires were seen right-sided chambers, bioprosthetic valve in aortic position which worked normally, mild mitral regurgitation, [id number] tricuspid regurgitation with right ventricular systolic pressure of 36 mm Hg. Hemoglobin: 8.6 - 9.0 - 8.2 - 7.4 - 8.2 - 7.8 - 7.8 Creatinine: 2.74 - 2.63 - 2.37 - 2.59 - 2.21 - 1.97 - 1.95 - 1.80 Potassium: 4.5 - 4.5 - 4.0 - 4.3 - 4.3 - 4.4 - 4.8 - 4.7 TSH: 1.86 BNP: 370.27 Troponin (high sensitive): 14 13 Chest x-ray revealed: IMPRESSION: 1. Cardiomegaly with bibasilar airspace disease and possible small pleural effusion on the right. 2. Pneumonia versus congestive failure are both in the radiographic differential Repeat chest x-ray revealed: IMPRESSION: 1. Removal of the right pleural effusion with atelectasis in the right base. 2. No pneumothorax 3. Pacemaker in place unchanged. Repeat chest xry revealed: IMPRESSION: 1. Moderately progressive multifocal bilateral pulmonary airspace disease with new right mid lung zone infiltrate. 2. Small bilateral pleural effusions. CT of the head reported: IMPRESSION: 1. No acute intracranial abnormality. 2. Mild cerebral volume loss and minor chronic microvascular ischemic change. Renal ultrasound reported: IMPRESSION: 1. No hydronephrosis. 2. Questionable 3.2 cm left renal mass. Recommend further evaluation with CT or MRI with IV contrast 3. Bilateral pleural effusions. CT of Abdomen and Pelvis revealed: There is limited interpretation of the abdomen and pelvis without administration of intravenous contrast. Aortic valvular prosthesis. Tiny pericardial effusion. Multiple subcarinal/ paraesophageal lymph nodes up to 2.2 cm. Bilateral pleural [id number] which appears small to moderate in size and [id number] complex in appearance. Bibasilar atelectasis /consolidation Adrenal glands, spleen unremarkable in shape. Pancreatic parenchymal atrophy. No CT evidence for cholelithiasis. Liver capsule nodular morphology. The right kidney demonstrates no hydronephrosis / nephrolithiasis. Left renal hyperdense lesion/ mass extending into the pelvis measuring 4.1 x 3 cm. Nonobstructing left renal calculus measuring 7 mm. Periaortic/retroperitoneal lymph node measuring 10 mm. Portacaval lymph node measuring 12 mm. Stomach is partially distended. Small bowel loops are normal in caliber. Colonic diverticular disease. Moderate volume stool in the colon. Normal appendix. Abdominal aortic atherosclerotic disease. Bladder decompressed by Chavez catheter. No free pelvic fluid. Right inguinal lymph nodes measuring up to 12 mm. Soft tissue edema / anasarca. Moderate to advanced lumbar degenerative disc disease. IMPRESSION: Limited evaluation without contrast. Left renal hyperdense lesion/ mass measuring 4.1 x 3 cm extending to the Left renal pelvis, likely representing patient's known history of renal malignancy. Recommend MRI abdomen with and without contrast to better characterize. 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 Bibasilar pulmonary consolidation. 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 This can be further evaluated with a PET scan. Small to moderate bilateral pleural effusions which appear complex in appearance, possibly malignant in etiology. This can be better evaluated with a CT chest with contrast. Abdominal aortic atherosclerotic disease. Colonic diverticular disease. Moderate volume stool in the colon. Other findings as described. EKG revealed sinus rhythm with left bundle branch block Tele reveals sinus rhythm Echocardiogram revealed: Technically limited study secondary to poor acoustic windows. Left ventricle: Mild concentric left ventricular hypertrophy was seen left ventricle was normal-sized. LVEF was 55-60%. There was no gross wall motion abnormality. Right ventricle was mildly dilated with normal systolic function. Mild biatrial enlargement was seen. Pacing wire was seen in right- sided chambers. Bioprosthetic valve was observed in aortic position. It works properly. There was no aortic insufficiency/stenosis. Mild mitral annular calcification was seen. Mild mitral regurgitation was observed. [id number] tricuspid regurgitation was seen. Right ventricular systolic pressure was assessed at 44 mm Hg. IVC was normal-sized with normal respiratory variation. There was trace pericardial effusion. Patient is a 84-year-old gentleman with advanced multiple cancers and metastasis who presented with generalized weakness. Does have baseline history of valvular heart disease for which has had TAVR before. Also has history of atrial fibrillation (paroxysmal) for which is on Eliquis as outpatient. Has been on chemotherapy/radiation therapy. Has had poor appetite and malnutrition could have contributed to the clinical picture. Advanced band of cancers could have contributed to the clinical picture. Side effects secondary to radiation/chemotherapy could have contributed to the clinical picture. Acute coronary syndrome is not considered. Decompensated heart failure is not considered as a component of presentation. Does have history of pacemaker (Biotronik) which was recently interrogated in the office. Being followed by Nephrology/Urology/Pulmonary. Encephalopathy, metabolic VICKIE on CKD Pneumonia Lung cancer Advanced metastatic cancer as COPD Pleural effusion, status post thoracentesis Multiple cancers, metastatic Poor functional capacity Paroxysmal AFib Sick sinus syndrome, status post pacemaker implantation (Biotronik) Valvular heart disease, status post TAVR Cardiac suggestion for management: Manage on telemetry Follow-up electrolytes and kidney function tests and correct abnormalities Long-term continuation of full anticoagulation is advised, if not contraindicated Nephrology follow-up is advised Pulmonary follow-up Urology Follow up Consider Oncology evaluation Goals of care as per primary team. Consider Hospice. Further evaluation and management depends on the above and clinical course Long-term prognosis: very poor A total of 55 minutes was spent reviewing the patient record, examining the patient, making a diagnostic and therapeutic plan, discussing this plan with medical personnel, following up on diagnostic studies and following the patient for clinical stability excluding any and all procedures. At least 50% of this time was spent in direct, qsit-[id number] contact. Thank you for allowing me to participate in this patient's care. Further recommendations will depend on patient's clinical course. Please do not hesitate to contact me if you have any questions or concerns. This medical document was created using electronic medical record system with [employer] computerized dictation system. Although this document has been carefully reviewed, there may still be some phonetic and typographical errors. These areas are purely typographical due to the imperfection of the software programs, and do not reflect any compromise in the patient's medical care. Dietary Evaluation Review Comments: 1. Renal Diet with Nepro oral supplementation TID 2. Monitor PO intake 3. Follow up with consults and lab values Expected Outcomes/Goals: Improved PO intakes, increased physical strength. Plan discussed with: Patient, Other (nurse) LUIS HOLT MD Apr 13, 2025 08:45
--- NOTE | 2025-04-13 13:12 | DVHPN2 ---
Subjective Feeling better with less SOB on 4L NC Reviewed: H&P Changes from previous H/P or p: No Changes Objective Vitals Vital Signs Date Time Temp Pulse Resp B/P (MAP) Pulse Ox O2 Delivery O2 Flow Rate FiO2 04/13/25 11:39 98 16 98 04/13/25 11:32 Nasal Cannula* 4 36 04/13/25 09:17 112/56 04/13/25 08:30 98.1 98.1 Intake/Output Intake and Output 04/13/25 07:00 Intake Total 790 ml Output Total 2100 ml Balance -1310 ml Intake Oral 790 ml Output Urine Total 2100 ml General Appearance: Alert, Oriented X3, Cooperative Lungs: Clear to auscultation, Normal air movement Cardiovascular: Regular rate, Normal S1 Abdomen: Normal bowel sounds, Soft Extremities: No edema Medications Current Medications Medications Dose Ordered Sig/Andressa Route Start Time Stop Time Status Last Admin Dose Admin Apixaban 2.5 mg BID PO 04/07/25 10:00 04/13/25 09:16 2.5 MG Atorvastatin Calcium 80 mg HS PO 04/07/25 22:00 04/12/25 21:01 80 MG Levothyroxine Sodium 150 mcg QAM@0600 PO 04/07/25 06:00 04/13/25 05:44 150 MCG Acetaminophen/ Hydrocodone Bitart 1 tab Q4HP PRN PO 04/06/25 22:15 Ondansetron HCl 4 mg Q4HP PRN IV 04/06/25 22:15 Acetaminophen 650 mg Q6HP PRN PO 04/06/25 22:15 04/07/25 17:12 650 MG Albuterol 2.5 mg Q6HR NEB 04/07/25 12:00 04/13/25 11:32 2.5 MG Ipratropium [place] 0.5 mg Q6HWA NEB 04/07/25 12:00 04/13/25 11:32 0.5 MG Enteral Nutritional Formula 240 ml TIDWM PO 04/08/25 08:00 04/13/25 11:46 240 ML Furosemide 40 mg DAILY IV 04/09/25 10:00 04/13/25 09:17 40 MG Levofloxacin 250 mg DAILY PO 04/10/25 10:00 04/13/25 09:16 250 MG Guaifenesin/ Dextromethorphan 10 ml Q4HP PRN PO 04/09/25 13:15 04/10/25 13:16 10 ML Laboratory Results Laboratory Tests 04/13/25 05:05 Chemistry Test 04/13/25 05:05 Albumin 3.5 g/dL (3.2-4.8) Calcium Level 9.2 mg/dL (8.7-10.4) Magnesium Level 2.4 mg/dL (1.6-2.6) Total Protein 6.9 g/dL (5.7-8.2) LFT Test 04/13/25 05:05 Alanine Aminotransferase (ALT) 25 U/L (7-40) Alkaline Phosphatase 63 U/L (46-116) Aspartate Amino Transferase (AST) 28 U/L (13-40) Total Bilirubin 0.3 mg/dL (0.2-1.0) Urinalysis Test 04/07/25 14:30 Urine Color Light-orange (Yellow) Urine Clarity Turbid (Clear) H Urine pH 8.0 (5.0-9.0) Urine Specific [place] 1.030 (1.001-1.035) Urine Protein 3+ (Negative) H Urine Ketones Negative (Negative) Urine Blood 3+ /uL (Negative) H Urine Nitrite Negative (Negative) Urine Bilirubin Negative (Negative) Urine Urobilinogen Normal mg/dL (Negative) Urine Leukocyte Esterase Negative /uL (Negative) Urine RBC 1399 /hpf (0 - 3) Urine WBC Clumps Present /hpf (None Seen) Urine Microscopic WBC 411 /HPF (0-3) H Urine Squamous Epithelial Cells None seen /hpf (<5) Urine Bacteria Few /hpf (None Seen) H Urine Mucus Few (None Seen) Urine Creatinine < 3.00 mg/dL (30.0-125.0) L Urine Protein/Creatinine Ratio 833.00 Urine Sodium 154 mmol/L (40-220) Urine Glucose 2+ mg/dL (Normal) H Urine Total Protein > 2500.0 mg/dL (1-14) H Microbiology Microbiology Date/Time Source Procedure Growth Status 04/07/25 17:30 Pleural Fluid Gram Stain - Final Complete 04/07/25 17:30 Pleural Fluid Body Fluid Culture - Final Complete 04/06/25 17:13 Voided Urine Urine Culture - Final Klebsiella oxytoca - ESBL Complete 04/06/25 16:06 Blood Blood Culture - Final NO GROWTH AFTER 5 DAYS OF INCUBATION. Complete Assessment/Plan Assessment/Plan Metabolic encephalopathy Hypernatremia Acute kidney injury due to vasomotor nephropathy Chronic kidney disease Lung cancer on radiation therapy Bilateral pneumonia UTI History of heart failure Small pleural effusion Chronic anemia of chronic disease Acute on chronic hypoxic respiratory failure COPD Hypertension Type 2 diabetes Obesity History of prostate cancer status post prostatectomy History of aortic stenosis status post TAVR Hypothyroidism History of CVA Atrial fibrillation on Eliquis Plan Continue IV antibiotics Rocephin and Zithromax Add IV fluids D5 half NS Nephrology consult Chavez catheter Physical therapy Echocardiogram Kidney ultrasound Blood culture Urine culture Monitor closely Continue Eliquis 04/08/25: Pneumonia: Rocephin and Zithromax UTI Left renal mass: Get CT ab & pelvis, urology consult CKD: Nephrology consult Afib: Eliquis, cardiology consult Lung CA Pleural effusion s/p thoracentesis VICKIE/CKD COPD s/p TAVR 04/09/2025: Switch the IV antibiotics to p.o. Levaquin UTI with Klebsiella ESBL: P.o. Levaquin Left renal mass: Urology on board, IR procedure to do renal biopsy and left renal cryoablation Pneumonia CKD Atrial fibrillation on Eliquis VICKIE COPD History of TAVR We will discuss with Interventional Radiology whether the renal biopsy and left renal cryoablation can be done here Discussed with the at the bedside, she is hesitant about surgeries The patient is high-risk for surgery 04/10/25: Physical therapy Continue po Levaquin Observe closely Eliquis O2 prn 04/11/2025: Discontinue IV fluids Continue p.o. Levaquin Reviewed the chest x-ray, no need for thoracentesis at this time Oxygen as needed Monitor closely 04/12/2025: Pneumonia and UTI: Continue Levaquin p.o. Atrial fibrillation: Eliquis 2.5 mg twice a day Discontinue IV fluids Physical therapy Discharge planning 04/13 Continue po levaquin wean off oxygen PT eval Plan discussed with: Patient Date of Service: Apr 13, 2025 Billing Provider: FLIP DOUGLASS MD Common Visit Codes: [id number] INP/OBS CARE(HIGH) FLIP DOUGLASS MD Apr 13, 2025 13:12
--- NOTE | 2025-04-13 16:40 | DVHPN2 ---
Progress Note Date Seen: Apr 13, 2025 Medical Necessity Reason Pt with a Central, PICC or Fol: No Subjective Patient reports: No new complaints Review of Systems: Deferred Objective vital signs Vital Sign Date Time Temp Pulse Resp B/P (MAP) Pulse Ox O2 Delivery O2 Flow Rate FiO2 04/13/25 13:45 98.6 95 20 109/58 (75) 92 98.6 04/13/25 11:32 Nasal Cannula* 4 36 Total Intake and Output 04/12/25 04/12/25 04/13/25 15:00 23:00 07:00 Intake Total 450 ml 340 ml Output Total 1200 ml 900 ml Balance -750 ml -560 ml medications Current Medications Medications Dose Ordered Sig/Andressa Route Start Time Stop Time Status Last Admin Dose Admin Apixaban 2.5 mg BID PO 04/07/25 10:00 04/13/25 09:16 2.5 MG Atorvastatin Calcium 80 mg HS PO 04/07/25 22:00 04/12/25 21:01 80 MG Levothyroxine Sodium 150 mcg QAM@0600 PO 04/07/25 06:00 04/13/25 05:44 150 MCG Acetaminophen/ Hydrocodone Bitart 1 tab Q4HP PRN PO 04/06/25 22:15 Ondansetron HCl 4 mg Q4HP PRN IV 04/06/25 22:15 Acetaminophen 650 mg Q6HP PRN PO 04/06/25 22:15 04/07/25 17:12 650 MG Albuterol 2.5 mg Q6HR NEB 04/07/25 12:00 04/13/25 11:32 2.5 MG Ipratropium [place] 0.5 mg Q6HWA NEB 04/07/25 12:00 04/13/25 11:32 0.5 MG Enteral Nutritional Formula 240 ml TIDWM PO 04/08/25 08:00 04/13/25 11:46 240 ML Furosemide 40 mg DAILY IV 04/09/25 10:00 04/13/25 09:17 40 MG Levofloxacin 250 mg DAILY PO 04/10/25 10:00 04/13/25 09:16 250 MG Guaifenesin/ Dextromethorphan 10 ml Q4HP PRN PO 04/09/25 13:15 04/10/25 13:16 10 ML laboratory and microbiology Laboratory Tests 04/13/25 05:05 Test 04/13/25 05:05 Range/Units Serum Glucose 126 H 74-106 mg/dL Microbiology Date/Time Source Procedure Growth Status 04/07/25 17:30 Pleural Fluid Gram Stain - Final Complete 04/07/25 17:30 Pleural Fluid Body Fluid Culture - Final Complete 04/06/25 17:13 Voided Urine Urine Culture - Final Klebsiella oxytoca - ESBL Complete 04/06/25 16:06 Blood Blood Culture - Final NO GROWTH AFTER 5 DAYS OF INCUBATION. 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 Duran Mild hypernatremia/dehydration, possibly due to decreased oral intake Renal mass, likely renal cell carcinoma Lung cancer, on radiotherapy Skin cancer COPD exacerbation Hematuria Hypertension Dyslipidemia Status post pacemaker Large right pleural effusion, post thoracentesis (drained 1.1 L) Atrial fibrillation, currently sinus rhythm Recommendation Agree with IV Lasix Stable renal function Plan discussed with: Patient Dietary Evaluation Review Comments: 1. Renal Diet with Nepro oral supplementation TID 2. Monitor PO intake 3. Follow up with consults and lab values Expected Outcomes/Goals: Improved PO intakes, increased physical strength. RAFY VELASCO MD Apr 13, 2025 16:40
--- NOTE | 2025-04-13 20:50 | DVHNC2 ---
Procedure - Left Thoracentesis Procedure Note under ultrasound guidance INDICATION: Left sided pleural effusion PHYSICIAN: Mary Grullon MD ASSISTANTS: Dr Walsh, PGY 1; ALEX Stewart CONSENT: Consent was obtained from patient/patient's HCP prior to the procedure. Indications, risks, and benefits were explained at length. Time out time: 2034 Risks and benefits of the procedure and sedation options and risks were discussed with the patient/patient's HCP. All questions were answered and informed consent was obtained. Patient identification and proposed procedure were verified prior to the procedure by the physician, and the nurse in the patient's room. PROCEDURE SUMMARY: A time out was performed and the chest x-ray was reviewed, the appropriate side was confirmed and marked. My hands were washed immediately prior to the procedure. I wore a surgical cap, mask with protective eyewear, sterile gown and sterile gloves throughout the procedure. The patient was prepped and draped in a sterile manner using chlorhexidine scrub after the appropriate level was percussed and confirmed by ultrasound. 1% lidocaine was used to anesthesize the skin, subcutaneous tissue, superior aspect of the rib periosteum and parietal pleura. A finder needle was then introduced over the superior aspect of the rib to locate the pleural fluid; yellow-straw colored fluid was aspirated at a depth of approximately 2 cm. A 10-blade scalpel was used to radha the skin at the insertion site. Under real-time ultrasound guidance, the 5 [place] Yueh Thora-Centesis needle was then introduced through the skin incision into the pleural space using negative aspiration pressure. The thoracentesis catheter was then threaded without difficulty. 650 mL alexia colored fluid was removed without difficulty. The catheter was then removed. No immediate complications were noted during the procedure. Using the linear probe, lung sliding was noted anteriorly and posteriorly and are an indication of no pneumothorax. A post-procedure chest x-ray is pending at the time of this note. The fluid will be sent for studies cell count and differential, fluid LDH, glucose, albumin and total protein, gram stain and culture, and cytology. Estimated blood loss is less than 5 mL. CPT: 75845 Visit Coding Pulmonary Billing Provider: ARIA GRULLON MD Date of Service if different f: Apr 13, 2025 Common Visit Codes: PROCEDURE ONLY Procedure Codes: 62050-[id number] W/PUNCT (10320 Left Thoracentesis) ARIA GRULLON MD Apr 13, 2025 20:50
--- NOTE | 2025-04-13 21:17 | DVH ---
CHEST RADIOGRAPH Indication: s/p LEFT THORACENTESIS, r/o PTX Technique: Single frontal view of the chest was obtained Comparison: XY CHEST XRAY 1 VIEW on DOS: 04/11/25, XY CHEST XRAY 1 VIEW on DOS: 04/07/25, XY CHEST PORTABLE on DOS: 04/06/25 FINDINGS: Lines and Tubes: None Lungs: Improved aeration of the left lower lung zone. Left mid to lower lung zone linear densities Minimal blunting of the left costophrenic angle. Unchanged interstitial and alveolar type opacities of the right hemithorax. No pneumothorax. Cardiomediastinal contours: Mild cardiomegaly with [id number] atherosclerotic calcification and uncoiling of the aorta. Left-sided approach dual lead pacemaker terminating within right atrium and right ventricle. Bones: No acute osseous abnormality. IMPRESSION: Improved aeration of the left lower lung zone with residual trace left-sided pleural effusion and left mid and lower lung zone atelectasis. Unchanged interstitial and alveolar type opacities of the right lower lung zone with obscuration of the right hemidiaphragm. No pneumothorax.
--- NOTE | 2025-04-13 23:43 | DVHPN2 ---
Subjective DOS: 04/13/2025 Patient seen and examined at bedside. Remains on supplemental oxygen Overnight events reviewed. Reviewed: H&P Changes from previous H/P or p: No Changes Objective Vitals Vital Signs Date Time Temp Pulse Resp B/P (MAP) Pulse Ox O2 Delivery O2 Flow Rate FiO2 04/13/25 21:00 99.2 103 19 122/63 (82) 93 99.2 04/13/25 18:58 Nasal Cannula* 3 32 Intake/Output Intake and Output 04/13/25 07:00 Intake Total 790 ml Output Total 2100 ml Balance -1310 ml Intake Oral 790 ml Output Urine Total 2100 ml Exam Gen.: Patient lying in bed in no apparent distress. On supplemental oxygen. Head: Normocephalic, atraumatic. Eyes: EOMI/PERRLA. Ears: Normal hearing. Normal anatomy. Neck/trachea: Trachea midline, supple. Nose: Normal external anatomy. Mouth: Moist mucous membranes. Chest: Decreased air entry bilaterally. Wheezing. No rhonchi. Cardiovascular: Positive S1, positive S2. Regular rate and rhythm. Abdomen: Positive bowel sounds in all 4 quadrants. Soft, non-tender, non- distended. : Deferred. Rectal: Deferred. Skin: Warm, dry. Intact. Extremities: 2+ radial pulses bilaterally. Trace bilateral lower extremity edema. Neuro: Awake, alert, oriented x3. No gross motor or sensory deficits. Cranial nerves II through XII intact. Gait not assessed. General Appearance: Alert, Oriented X3, Cooperative Lungs: Clear to auscultation, Normal air movement Cardiovascular: Regular rate, Normal S1 Abdomen: Normal bowel sounds, Soft Extremities: No edema Medications Current Medications Medications Dose Ordered Sig/Andressa Route Start Time Stop Time Status Last Admin Dose Admin Apixaban 2.5 mg BID PO 04/07/25 10:00 04/13/25 21:41 2.5 MG Atorvastatin Calcium 80 mg HS PO 04/07/25 22:00 04/13/25 21:41 80 MG Levothyroxine Sodium 150 mcg QAM@0600 PO 04/07/25 06:00 04/13/25 05:44 150 MCG Acetaminophen/ Hydrocodone Bitart 1 tab Q4HP PRN PO 04/06/25 22:15 Ondansetron HCl 4 mg Q4HP PRN IV 04/06/25 22:15 Acetaminophen 650 mg Q6HP PRN PO 04/06/25 22:15 04/07/25 17:12 650 MG Albuterol 2.5 mg Q6HR NEB 04/07/25 12:00 04/13/25 18:58 2.5 MG Ipratropium [place] 0.5 mg Q6HWA NEB 04/07/25 12:00 04/13/25 18:58 0.5 MG Enteral Nutritional Formula 240 ml TIDWM PO 04/08/25 08:00 04/13/25 18:04 240 ML Furosemide 40 mg DAILY IV 04/09/25 10:00 04/13/25 09:17 40 MG Levofloxacin 250 mg DAILY PO 04/10/25 10:00 04/13/25 09:16 250 MG Guaifenesin/ Dextromethorphan 10 ml Q4HP PRN PO 04/09/25 13:15 04/10/25 13:16 10 ML Laboratory Results Laboratory Tests 04/13/25 05:05 Chemistry Test 04/13/25 05:05 Albumin 3.5 g/dL (3.2-4.8) Calcium Level 9.2 mg/dL (8.7-10.4) Magnesium Level 2.4 mg/dL (1.6-2.6) Total Protein 6.9 g/dL (5.7-8.2) LFT Test 04/13/25 05:05 Alanine Aminotransferase (ALT) 25 U/L (7-40) Alkaline Phosphatase 63 U/L (46-116) Aspartate Amino Transferase (AST) 28 U/L (13-40) Total Bilirubin 0.3 mg/dL (0.2-1.0) Urinalysis Test 04/07/25 14:30 Urine Color Light-orange (Yellow) Urine Clarity Turbid (Clear) H Urine pH 8.0 (5.0-9.0) Urine Specific [place] 1.030 (1.001-1.035) Urine Protein 3+ (Negative) H Urine Ketones Negative (Negative) Urine Blood 3+ /uL (Negative) H Urine Nitrite Negative (Negative) Urine Bilirubin Negative (Negative) Urine Urobilinogen Normal mg/dL (Negative) Urine Leukocyte Esterase Negative /uL (Negative) Urine RBC 1399 /hpf (0 - 3) Urine WBC Clumps Present /hpf (None Seen) Urine Microscopic WBC 411 /HPF (0-3) H Urine Squamous Epithelial Cells None seen /hpf (<5) Urine Bacteria Few /hpf (None Seen) H Urine Mucus Few (None Seen) Urine Creatinine < 3.00 mg/dL (30.0-125.0) L Urine Protein/Creatinine Ratio 833.00 Urine Sodium 154 mmol/L (40-220) Urine Glucose 2+ mg/dL (Normal) H Urine Total Protein > 2500.0 mg/dL (1-14) H Microbiology Microbiology Date/Time Source Procedure Growth Status 04/07/25 17:30 Pleural Fluid Gram Stain - Final Complete 04/07/25 17:30 Pleural Fluid Body Fluid Culture - Final Complete 04/06/25 17:13 Voided Urine Urine Culture - Final Klebsiella oxytoca - ESBL Complete 04/06/25 16:06 Blood Blood Culture - Final NO GROWTH AFTER 5 DAYS OF INCUBATION. Complete Assessment/Plan Assessment/Plan Impression: Acute on chronic hypoxic respiratory failure Dependence on supplemental oxygen Lung cancer Congestive heart failure Pneumonia, likely gram negative Pleural effusion Atelectasis Kidney mass, likely metastatic cancer Events: Remains on supplemental oxygen, 3 LPM NC Taper O2 as tolerated No new complaints Patient undergoing physical therapy Head of bed elevation Aspiration precautions. CXR demonstrated moderately progressive multifocal bilateral pulmonary airspace disease with new right mid lung zone infiltrate. Small bilateral pleural effusions. Limited chest ultrasound demonstrated moderate left pleural effusion and small right pleural effusion. S/p left thoracentesis today with 650 mL alexia fluid drained from left pleural space. Please see separate procedure note for details. Follow up pleural fluid cultures and cytology Post-procedure CXR today reveals improved aeration of the left lower lung zone with residual trace left-sided pleural effusion and left mid and lower lung zone atelectasis. Unchanged interstitial and alveolar type opacities of the right lower lung zone with obscuration of the right hemidiaphragm. Continue bronchodilators Continue antibiotics for pneumonia/UTI. Incentive spirometry Monitor blood pressure Obtain IR consult for renal biopsy. Diurese with Lasix Monitor renal function. Monitor electrolytes. Supplement as necessary. Monitor ins and outs. Maintain euvolemia. Avoid fluid overload. Physical therapy. Abdomen-pelvis CT w/o contrast on 04/08/25 showed left renal hyperdense lesion/ mass of 4.1 x 3 cm extending to the left renal pelvis, likely representing patient's known history of renal malignancy. 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 Bibasilar pulmonary consolidation. 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 Small to moderate bilateral pleural effusions which appear complex in appearance, possibly malignant. Abdominal aortic atherosclerotic disease. Colonic diverticular disease. Moderate volume stool in the colon. S/p right thora on 04/07/25 - 1100 mL's of alexia colored fluid removed from right pleural space See separate procedure note for details F/u pleural fluid cx and cytology - no growth Labs and imaging reviewed. Rest of plan as noted below. Plan: Supplemental oxygen Titrate to keep O2 sats above 92%. Head of bed elevation Aspiration precautions. Continue bronchodilators. Continue antibiotics Incentive spirometry Follow up Cardiology recommendations Monitor renal function. Monitor electrolytes. Supplement as necessary. Monitor ins and outs. Maintain euvolemia. Labs and imaging reviewed. DVT prophylaxis. Prognosis: Poor given patient's multiple co-morbidities. Rest of plan per hospitalist and other consultants. Thank you, Dr. Phipps, for allowing me to participate in this patient's care. Further recommendations will depend on the patient's clinical course. Please do not hesitate to contact me if you have any questions or concerns. This medical document was created using an electronic medical record system with [employer] dictation system. Although these documentations are being carefully reviewed, there may still be some phonetic and typographical changes. The errors are purely typographical, due to imperfection on the software program, and do not reflect any compromise in the patient's medical care. Plan discussed with: Patient, Other (RN) My Orders Orders - ARIA PERRY MD Procedure Category Date Status Time Body Fluid Culture W/ LANDON 04/13/25 In Process GS 20:50 Body Fluid Ph LAB 04/13/25 In Process 20:50 Body Fluids, Diff. LAB 04/13/25 In Process Cell Count 20:50 Glucose Body Fluid LAB 04/13/25 In Process 20:50 Protein, Body Fluid LAB 04/13/25 In Process 20:50 Lactate LAB 04/13/25 In Process Dehydrogenase, Fluid 20:50 Cytology LANDON 04/13/25 Transmitted 20:50 Chest Xray 1 View XY 04/13/25 Resulted 20:50 Visit Coding Pulmonary Billing Provider: ARIA PERRY MD Date of Service if different f: Apr 13, 2025 Common Visit Codes: [id number] INP/OBS CARE(HIGH) ARIA PERRY MD Apr 13, 2025 23:43
[2025-04-14] VITALS (15 sets, daily range): BP systolic 107–118; BP diastolic 54–68; PULSE 91–106; RESP 16–20; TEMP 97.8–98.9; O2SAT 91–99
--- NOTE | 2025-04-14 07:24 | DVHPN2 ---
Progress Note - Dictate Date Seen: Apr 14, 2025 Medical Necessity Reason Pt with a Central, PICC or Fol: No vital signs Vital Sign Date Time Temp Pulse Resp B/P (MAP) Pulse Ox O2 Delivery O2 Flow Rate FiO2 04/14/25 06:24 99 16 98 04/14/25 06:18 Nasal Cannula 3.0 04/14/25 06:18 32 04/14/25 05:00 98.3 113/66 (82) 98.3 Total Intake and Output 04/13/25 04/13/25 04/14/25 15:00 23:00 07:00 Intake Total 400 ml 400 ml Output Total 1500 ml 752 ml Balance -1100 ml -352 ml medications Current Medications Medications Dose Ordered Sig/Andressa Route Start Time Stop Time Status Last Admin Dose Admin Apixaban 2.5 mg BID PO 04/07/25 10:00 04/13/25 21:41 2.5 MG Atorvastatin Calcium 80 mg HS PO 04/07/25 22:00 04/13/25 21:41 80 MG Levothyroxine Sodium 150 mcg QAM@0600 PO 04/07/25 06:00 04/14/25 05:45 150 MCG Acetaminophen/ Hydrocodone Bitart 1 tab Q4HP PRN PO 04/06/25 22:15 Ondansetron HCl 4 mg Q4HP PRN IV 04/06/25 22:15 Acetaminophen 650 mg Q6HP PRN PO 04/06/25 22:15 04/07/25 17:12 650 MG Albuterol 2.5 mg Q6HR NEB 04/07/25 12:00 04/14/25 06:18 2.5 MG Ipratropium [place] 0.5 mg Q6HWA NEB 04/07/25 12:00 04/14/25 06:18 0.5 MG Enteral Nutritional Formula 240 ml TIDWM PO 04/08/25 08:00 04/13/25 18:04 240 ML Furosemide 40 mg DAILY IV 04/09/25 10:00 04/13/25 09:17 40 MG Levofloxacin 250 mg DAILY PO 04/10/25 10:00 04/13/25 09:16 250 MG Guaifenesin/ Dextromethorphan 10 ml Q4HP PRN PO 04/09/25 13:15 04/10/25 13:16 10 ML laboratory and microbiology Laboratory Tests 04/13/25 05:05 Test 04/13/25 05:05 Range/Units Serum Glucose 126 H 74-106 mg/dL Assessment/Plan Patient is a 84-year-old gentleman who was brought by for generalized weakness which was ongoing and worsening for the past month. Does have history of advanced/metastatic cancer. Cardiology is involved for cardiac aspects of care (patient's called me personally). Patient is known to our practice from outside and before. There is no report of chest pain. There is no report of palpitation. Patient has been on chemotherapy/radiation therapy. Cachectic male. Sitting in bed. Somewhat confused. No gross JVD. Mucosa is pale. Scattered rhonchi in the lungs is heard. Not using accessory muscles of breathing. Cardiac: Regular. Systolic murmur 2/6 in the apex is heard. Abdomen is soft. Bilateral edema seen. 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 Echocardiogram of January 16, 2025 (performed in the office) revealed ejection fraction 45-50%, mild concentric left ventricular hypertrophy, mild left atrial enlargement, pacemaker wires were seen right-sided chambers, bioprosthetic valve in aortic position which worked normally, mild mitral regurgitation, [id number] tricuspid regurgitation with right ventricular systolic pressure of 36 mm Hg. Hemoglobin: 8.6 - 9.0 - 8.2 - 7.4 - 8.2 - 7.8 - 7.8 Creatinine: 2.74 - 2.63 - 2.37 - 2.59 - 2.21 - 1.97 - 1.95 - 1.80 Potassium: 4.5 - 4.5 - 4.0 - 4.3 - 4.3 - 4.4 - 4.8 - 4.7 TSH: 1.86 BNP: 370.27 Troponin (high sensitive): Chest x-ray revealed: IMPRESSION: 1. Cardiomegaly with bibasilar airspace disease and possible small pleural effusion on the right. 2. Pneumonia versus congestive failure are both in the radiographic differential Repeat chest x-ray revealed: IMPRESSION: 1. Removal of the right pleural effusion with atelectasis in the right base. 2. No pneumothorax 3. Pacemaker in place unchanged. Repeat chest xry revealed: IMPRESSION: 1. Moderately progressive multifocal bilateral pulmonary airspace disease with new right mid lung zone infiltrate. 2. Small bilateral pleural effusions. Repeat chest xry revealed: IMPRESSION: Improved aeration of the left lower lung zone with residual trace left-sided pleural effusion and left mid and lower lung zone atelectasis. Unchanged interstitial and alveolar type opacities of the right lower lung zone with obscuration of the right hemidiaphragm. No pneumothorax. CT of the head reported: IMPRESSION: 1. No acute intracranial abnormality. 2. Mild cerebral volume loss and minor chronic microvascular ischemic change. Renal ultrasound reported: IMPRESSION: 1. No hydronephrosis. 2. Questionable 3.2 cm left renal mass. Recommend further evaluation with CT or MRI with IV contrast 3. Bilateral pleural effusions. CT of Abdomen and Pelvis revealed: There is limited interpretation of the abdomen and pelvis without administration of intravenous contrast. Aortic valvular prosthesis. Tiny pericardial effusion. Multiple subcarinal/ paraesophageal lymph nodes up to 2.2 cm. Bilateral pleural [id number] which appears small to moderate in size and [id number] complex in appearance. Bibasilar atelectasis /consolidation Adrenal glands, spleen unremarkable in shape. Pancreatic parenchymal atrophy. No CT evidence for cholelithiasis. Liver capsule nodular morphology. The right kidney demonstrates no hydronephrosis / nephrolithiasis. Left renal hyperdense lesion/ mass extending into the pelvis measuring 4.1 x 3 cm. Nonobstructing left renal calculus measuring 7 mm. Periaortic/retroperitoneal lymph node measuring 10 mm. Portacaval lymph node measuring 12 mm. Stomach is partially distended. Small bowel loops are normal in caliber. Colonic diverticular disease. Moderate volume stool in the colon. Normal appendix. Abdominal aortic atherosclerotic disease. Bladder decompressed by Chavez catheter. No free pelvic fluid. Right inguinal lymph nodes measuring up to 12 mm. Soft tissue edema / anasarca. Moderate to advanced lumbar degenerative disc disease. IMPRESSION: Limited evaluation without contrast. Left renal hyperdense lesion/ mass measuring 4.1 x 3 cm extending to the Left renal pelvis, likely representing patient's known history of renal malignancy. Recommend MRI abdomen with and without contrast to better characterize. 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 Bibasilar pulmonary consolidation. 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 This can be further evaluated with a PET scan. Small to moderate bilateral pleural effusions which appear complex in appearance, possibly malignant in etiology. This can be better evaluated with a CT chest with contrast. Abdominal aortic atherosclerotic disease. Colonic diverticular disease. Moderate volume stool in the colon. Other findings as described. EKG revealed sinus rhythm with left bundle branch block Tele reveals sinus rhythm Echocardiogram revealed: Technically limited study secondary to poor acoustic windows. Left ventricle: Mild concentric left ventricular hypertrophy was seen left ventricle was normal-sized. LVEF was 55-60%. There was no gross wall motion abnormality. Right ventricle was mildly dilated with normal systolic function. Mild biatrial enlargement was seen. Pacing wire was seen in right- sided chambers. Bioprosthetic valve was observed in aortic position. It works properly. There was no aortic insufficiency/stenosis. Mild mitral annular calcification was seen. Mild mitral regurgitation was observed. Lxwi-[id number]-[id number] tricuspid regurgitation was seen. Right ventricular systolic pressure was assessed at 44 mm Hg. IVC was normal-sized with normal respiratory variation. There was trace pericardial effusion. Patient is a 84-year-old gentleman with advanced multiple cancers and metastasis who presented with generalized weakness. Does have baseline history of valvular heart disease for which has had TAVR before. Also has history of atrial fibrillation (paroxysmal) for which is on Eliquis as outpatient. Has been on chemotherapy/radiation therapy. Has had poor appetite and malnutrition could have contributed to the clinical picture. Advanced band of cancers could have contributed to the clinical picture. Side effects secondary to radiation/chemotherapy could have contributed to the clinical picture. Acute coronary syndrome is not considered. Decompensated heart failure is not considered as a component of presentation. Does have history of pacemaker (Biotronik) which was recently interrogated in the office. Being followed by Nephrology/Urology/Pulmonary. Encephalopathy, metabolic VICKIE on CKD Pneumonia Lung cancer Advanced metastatic cancer as COPD Pleural effusion, status post thoracentesis Multiple cancers, metastatic Poor functional capacity Paroxysmal AFib Sick sinus syndrome, status post pacemaker implantation (Biotronik) Valvular heart disease, status post TAVR s/p thoracentesis by pulmonary Cardiac suggestion for management: Manage on telemetry Follow-up electrolytes and kidney function tests and correct abnormalities Long-term continuation of full anticoagulation is advised, if not contraindicated Nephrology follow-up is advised Pulmonary follow-up Urology Follow up Consider Oncology evaluation Goals of care as per primary team. Consider Hospice. Further evaluation and management depends on the above and clinical course Long-term prognosis: very poor A total of 55 minutes was spent reviewing the patient record, examining the patient, making a diagnostic and therapeutic plan, discussing this plan with medical personnel, following up on diagnostic studies and following the patient for clinical stability excluding any and all procedures. At least 50% of this time was spent in direct, [id number] contact. Thank you for allowing me to participate in this patient's care. Further recommendations will depend on patient's clinical course. Please do not hesitate to contact me if you have any questions or concerns. This medical document was created using electronic medical record system with [employer] computerized dictation system. Although this document has been carefully reviewed, there may still be some phonetic and typographical errors. These areas are purely typographical due to the imperfection of the software programs, and do not reflect any compromise in the patient's medical care. Dietary Evaluation Review Comments: 1. Renal Diet with Nepro oral supplementation TID 2. Monitor PO intake 3. Follow up with consults and lab values Expected Outcomes/Goals: Improved PO intakes, increased physical strength. Plan discussed with: Patient, Other (nurse) LUIS HOLT MD Apr 14, 2025 07:24
--- NOTE | 2025-04-14 12:25 | DVHPN2 ---
Subjective Feeling better with less SOB on 4L NC Reviewed: H&P Changes from previous H/P or p: No Changes Objective Vitals Vital Signs Date Time Temp Pulse Resp B/P (MAP) Pulse Ox O2 Delivery O2 Flow Rate FiO2 04/14/25 11:16 97 18 98 04/14/25 11:11 Nasal Cannula* 3 32 04/14/25 09:33 133/46 04/14/25 09:00 98.5 98.5 Intake/Output Intake and Output 04/14/25 06:59 Intake Total 800 ml Output Total 2252 ml Balance -1452 ml Intake Oral 800 ml Output Urine Total 1600 ml Stool Total 2 ml Other 650 ml General Appearance: Alert, Oriented X3, Cooperative Lungs: Clear to auscultation, Normal air movement Cardiovascular: Regular rate, Normal S1 Abdomen: Normal bowel sounds, Soft Extremities: No edema Medications Current Medications Medications Dose Ordered Sig/Andressa Route Start Time Stop Time Status Last Admin Dose Admin Apixaban 2.5 mg BID PO 04/07/25 10:00 04/14/25 09:35 2.5 MG Atorvastatin Calcium 80 mg HS PO 04/07/25 22:00 04/13/25 21:41 80 MG Levothyroxine Sodium 150 mcg QAM@0600 PO 04/07/25 06:00 04/14/25 05:45 150 MCG Acetaminophen/ Hydrocodone Bitart 1 tab Q4HP PRN PO 04/06/25 22:15 Ondansetron HCl 4 mg Q4HP PRN IV 04/06/25 22:15 Acetaminophen 650 mg Q6HP PRN PO 04/06/25 22:15 04/07/25 17:12 650 MG Albuterol 2.5 mg Q6HR NEB 04/07/25 12:00 04/14/25 11:10 2.5 MG Ipratropium [place] 0.5 mg Q6HWA NEB 04/07/25 12:00 04/14/25 11:11 0.5 MG Enteral Nutritional Formula 240 ml TIDWM PO 04/08/25 08:00 04/14/25 09:27 240 ML Furosemide 40 mg DAILY IV 04/09/25 10:00 04/14/25 09:33 40 MG Levofloxacin 250 mg DAILY PO 04/10/25 10:00 04/14/25 09:35 250 MG Guaifenesin/ Dextromethorphan 10 ml Q4HP PRN PO 04/09/25 13:15 04/10/25 13:16 10 ML Laboratory Results Laboratory Tests 04/13/25 05:05 Urinalysis Test 04/07/25 14:30 Urine Color Light-orange (Yellow) Urine Clarity Turbid (Clear) H Urine pH 8.0 (5.0-9.0) Urine Specific [place] 1.030 (1.001-1.035) Urine Protein 3+ (Negative) H Urine Ketones Negative (Negative) Urine Blood 3+ /uL (Negative) H Urine Nitrite Negative (Negative) Urine Bilirubin Negative (Negative) Urine Urobilinogen Normal mg/dL (Negative) Urine Leukocyte Esterase Negative /uL (Negative) Urine RBC 1399 /hpf (0 - 3) Urine WBC Clumps Present /hpf (None Seen) Urine Microscopic WBC 411 /HPF (0-3) H Urine Squamous Epithelial Cells None seen /hpf (<5) Urine Bacteria Few /hpf (None Seen) H Urine Mucus Few (None Seen) Urine Creatinine < 3.00 mg/dL (30.0-125.0) L Urine Protein/Creatinine Ratio 833.00 Urine Sodium 154 mmol/L (40-220) Urine Glucose 2+ mg/dL (Normal) H Urine Total Protein > 2500.0 mg/dL (1-14) H Microbiology Microbiology Date/Time Source Procedure Growth Status 04/07/25 17:30 Pleural Fluid Gram Stain - Final Complete 04/07/25 17:30 Pleural Fluid Body Fluid Culture - Final Complete 04/06/25 17:13 Voided Urine Urine Culture - Final Klebsiella oxytoca - ESBL Complete 04/06/25 16:06 Blood Blood Culture - Final NO GROWTH AFTER 5 DAYS OF INCUBATION. Complete Assessment/Plan Assessment/Plan Metabolic encephalopathy Hypernatremia Acute kidney injury due to vasomotor nephropathy Chronic kidney disease Lung cancer on radiation therapy Bilateral pneumonia UTI History of heart failure Small pleural effusion Chronic anemia of chronic disease Acute on chronic hypoxic respiratory failure COPD Hypertension Type 2 diabetes Obesity History of prostate cancer status post prostatectomy History of aortic stenosis status post TAVR Hypothyroidism History of CVA Atrial fibrillation on Eliquis Plan Continue IV antibiotics Rocephin and Zithromax Add IV fluids D5 half NS Nephrology consult Chavez catheter Physical therapy Echocardiogram Kidney ultrasound Blood culture Urine culture Monitor closely Continue Eliquis 04/08/25: Pneumonia: Rocephin and Zithromax UTI Left renal mass: Get CT ab & pelvis, urology consult CKD: Nephrology consult Afib: Eliquis, cardiology consult Lung CA Pleural effusion s/p thoracentesis VICKIE/CKD COPD s/p TAVR 04/09/2025: Switch the IV antibiotics to p.o. Levaquin UTI with Klebsiella ESBL: P.o. Levaquin Left renal mass: Urology on board, IR procedure to do renal biopsy and left renal cryoablation Pneumonia CKD Atrial fibrillation on Eliquis VICKIE COPD History of TAVR We will discuss with Interventional Radiology whether the renal biopsy and left renal cryoablation can be done here Discussed with the at the bedside, she is hesitant about surgeries The patient is high-risk for surgery 04/10/25: Physical therapy Continue po Levaquin Observe closely Eliquis O2 prn 04/11/2025: Discontinue IV fluids Continue p.o. Levaquin Reviewed the chest x-ray, no need for thoracentesis at this time Oxygen as needed Monitor closely 04/12/2025: Pneumonia and UTI: Continue Levaquin p.o. Atrial fibrillation: Eliquis 2.5 mg twice a day Discontinue IV fluids Physical therapy Discharge planning 04/13 Continue po levaquin wean off oxygen PT eval 04/14 continue levaquin s/p thoracocentesis Plan discussed with: Patient My Orders Orders - FLIP DOUGLASS MD Procedure Category Date Status Time Complete Blood Count LAB 04/14/25 Logged 10:45 Basic Metabolic Panel LAB 04/14/25 Logged 10:45 Date of Service: Apr 14, 2025 Billing Provider: FLIP DOUGLASS MD Common Visit Codes: [id number] INP/OBS CARE(HIGH) FLIP DOUGLASS MD Apr 14, 2025 12:25
[2025-04-14 13:30] LABS: Hematocrit 24.7 % (41.0-53.0); Hemoglobin 7.9 g/dL (13.5-17.5); Mean Corpuscular Hemoglobin 29.0 pg (28.0-32.0); Mean Corpuscular Volume 90.3 fL (80.0-100.0); Nucleated Red Blood Cells % 0.0 %
[2025-04-14 13:40] LABS: Chloride 101 mmol/L (98-107); Potassium 4.8 mmol/L (3.5-5.1); Sodium 144 mmol/L (136-145)
[2025-04-14 13:41] LABS: Anion Gap 9 (5-15)
[2025-04-14 13:42] LABS: Calcium 8.7 mg/dL (8.7-10.4); Carbon Dioxide 34 mmol/L (20-31)
[2025-04-14 13:46] LABS: BUN/Creatinine Ratio 29.6 (10.0-20.0)
[2025-04-14 13:47] LABS: Blood Urea Nitrogen 63 mg/dL (9-23); Glucose 203 mg/dL (74-106)
--- NOTE | 2025-04-14 14:12 | DVHPN2 ---
Progress Note Date Seen: Apr 14, 2025 Medical Necessity Reason Pt with a Central, PICC or Fol: No Subjective Patient reports: Other (Poor historian) Review of Systems: Deferred Objective vital signs Vital Sign Date Time Temp Pulse Resp B/P (MAP) Pulse Ox O2 Delivery O2 Flow Rate FiO2 04/14/25 13:00 97.9 95 18 109/60 (76) 96 97.9 04/14/25 11:11 Nasal Cannula* 3 32 Total Intake and Output 04/13/25 04/13/25 04/14/25 15:00 23:00 07:00 Intake Total 400 ml 400 ml Output Total 1500 ml 752 ml Balance -1100 ml -352 ml medications Current Medications Medications Dose Ordered Sig/Andressa Route Start Time Stop Time Status Last Admin Dose Admin Apixaban 2.5 mg BID PO 04/07/25 10:00 04/14/25 09:35 2.5 MG Atorvastatin Calcium 80 mg HS PO 04/07/25 22:00 04/13/25 21:41 80 MG Levothyroxine Sodium 150 mcg QAM@0600 PO 04/07/25 06:00 04/14/25 05:45 150 MCG Acetaminophen/ Hydrocodone Bitart 1 tab Q4HP PRN PO 04/06/25 22:15 Ondansetron HCl 4 mg Q4HP PRN IV 04/06/25 22:15 Acetaminophen 650 mg Q6HP PRN PO 04/06/25 22:15 04/07/25 17:12 650 MG Albuterol 2.5 mg Q6HR NEB 04/07/25 12:00 04/14/25 11:10 2.5 MG Ipratropium [place] 0.5 mg Q6HWA NEB 04/07/25 12:00 04/14/25 11:11 0.5 MG Enteral Nutritional Formula 240 ml TIDWM PO 04/08/25 08:00 04/14/25 12:39 240 ML Furosemide 40 mg DAILY IV 04/09/25 10:00 04/14/25 09:33 40 MG Levofloxacin 250 mg DAILY PO 04/10/25 10:00 04/14/25 09:35 250 MG Guaifenesin/ Dextromethorphan 10 ml Q4HP PRN PO 04/09/25 13:15 04/10/25 13:16 10 ML laboratory and microbiology Laboratory Tests 04/14/25 12:59 Test 04/14/25 12:59 Range/Units Serum Glucose 203 H 74-106 mg/dL Microbiology Date/Time Source Procedure Growth Status 04/07/25 17:30 Pleural Fluid Gram Stain - Final Complete 04/07/25 17:30 Pleural Fluid Body Fluid Culture - Final Complete 04/06/25 17:13 Voided Urine Urine Culture - Final Klebsiella oxytoca - ESBL Complete 04/06/25 16:06 Blood Blood Culture - Final NO GROWTH AFTER 5 DAYS OF INCUBATION. 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 Duran Mild hypernatremia/dehydration, possibly due to decreased oral intake Renal mass, likely renal cell carcinoma Lung cancer, on radiotherapy Skin cancer COPD exacerbation Hematuria Hypertension Dyslipidemia Status post pacemaker Large right pleural effusion, post thoracentesis (drained 1.1 L) Atrial fibrillation, currently sinus rhythm Recommendation Agree with IV Lasix--reduce dose Stable renal function Plan discussed with: Spouse Dietary Evaluation Review Comments: 1. Renal Diet with Nepro oral supplementation TID 2. Monitor PO intake 3. Follow up with consults and lab values Expected Outcomes/Goals: Improved PO intakes, increased physical strength. RAFY VELASCO MD Apr 14, 2025 14:12
--- NOTE | 2025-04-14 23:41 | DVHPN2 ---
Subjective DOS: 04/14/2025 Patient seen and examined at bedside. Remains on supplemental oxygen Overnight events reviewed. Reviewed: H&P Changes from previous H/P or p: No Changes Objective Vitals Vital Signs Date Time Temp Pulse Resp B/P (MAP) Pulse Ox O2 Delivery O2 Flow Rate FiO2 04/14/25 21:00 97.8 98 18 118/54 (75) 93 97.8 04/14/25 20:00 Nasal Cannula* 3 32 Intake/Output Intake and Output 04/14/25 07:00 Intake Total 800 ml Output Total 2252 ml Balance -1452 ml Intake Oral 800 ml Output Urine Total 1600 ml Stool Total 2 ml Other 650 ml Exam Gen.: Patient lying in bed in no apparent distress. On supplemental oxygen. Head: Normocephalic, atraumatic. Eyes: EOMI/PERRLA. Ears: Normal hearing. Normal anatomy. Neck/trachea: Trachea midline, supple. Nose: Normal external anatomy. Mouth: Moist mucous membranes. Chest: Decreased air entry bilaterally. Wheezing. No rhonchi. Cardiovascular: Positive S1, positive S2. Regular rate and rhythm. Abdomen: Positive bowel sounds in all 4 quadrants. Soft, non-tender, non- distended. : Deferred. Rectal: Deferred. Skin: Warm, dry. Intact. Extremities: 2+ radial pulses bilaterally. Trace bilateral lower extremity edema. Neuro: Awake, alert, oriented x3. No gross motor or sensory deficits. Cranial nerves II through XII intact. Gait not assessed. General Appearance: Alert, Oriented X3, Cooperative Lungs: Clear to auscultation, Normal air movement Cardiovascular: Regular rate, Normal S1 Abdomen: Normal bowel sounds, Soft Extremities: No edema Medications Current Medications Medications Dose Ordered Sig/Andressa Route Start Time Stop Time Status Last Admin Dose Admin Apixaban 2.5 mg BID PO 04/07/25 10:00 04/14/25 21:15 2.5 MG Atorvastatin Calcium 80 mg HS PO 04/07/25 22:00 04/14/25 21:15 80 MG Levothyroxine Sodium 150 mcg QAM@0600 PO 04/07/25 06:00 04/14/25 05:45 150 MCG Acetaminophen/ Hydrocodone Bitart 1 tab Q4HP PRN PO 04/06/25 22:15 Ondansetron HCl 4 mg Q4HP PRN IV 04/06/25 22:15 Acetaminophen 650 mg Q6HP PRN PO 04/06/25 22:15 04/07/25 17:12 650 MG Albuterol 2.5 mg Q6HR NEB 04/07/25 12:00 04/14/25 18:21 2.5 MG Ipratropium [place] 0.5 mg Q6HWA NEB 04/07/25 12:00 04/14/25 18:21 0.5 MG Enteral Nutritional Formula 240 ml TIDWM PO 04/08/25 08:00 04/14/25 18:28 240 ML Levofloxacin 250 mg DAILY PO 04/10/25 10:00 04/14/25 09:35 250 MG Guaifenesin/ Dextromethorphan 10 ml Q4HP PRN PO 04/09/25 13:15 04/10/25 13:16 10 ML Furosemide 20 mg DAILY IV 04/15/25 10:00 Laboratory Results Laboratory Tests 04/14/25 12:59 Chemistry Test 04/14/25 12:59 Calcium Level 8.7 mg/dL (8.7-10.4) Urinalysis Test 04/07/25 14:30 Urine Color Light-orange (Yellow) Urine Clarity Turbid (Clear) H Urine pH 8.0 (5.0-9.0) Urine Specific [place] 1.030 (1.001-1.035) Urine Protein 3+ (Negative) H Urine Ketones Negative (Negative) Urine Blood 3+ /uL (Negative) H Urine Nitrite Negative (Negative) Urine Bilirubin Negative (Negative) Urine Urobilinogen Normal mg/dL (Negative) Urine Leukocyte Esterase Negative /uL (Negative) Urine RBC 1399 /hpf (0 - 3) Urine WBC Clumps Present /hpf (None Seen) Urine Microscopic WBC 411 /HPF (0-3) H Urine Squamous Epithelial Cells None seen /hpf (<5) Urine Bacteria Few /hpf (None Seen) H Urine Mucus Few (None Seen) Urine Creatinine < 3.00 mg/dL (30.0-125.0) L Urine Protein/Creatinine Ratio 833.00 Urine Sodium 154 mmol/L (40-220) Urine Glucose 2+ mg/dL (Normal) H Urine Total Protein > 2500.0 mg/dL (1-14) H Microbiology Microbiology Date/Time Source Procedure Growth Status 04/07/25 17:30 Pleural Fluid Gram Stain - Final Complete 04/07/25 17:30 Pleural Fluid Body Fluid Culture - Final Complete 04/06/25 17:13 Voided Urine Urine Culture - Final Klebsiella oxytoca - ESBL Complete 04/06/25 16:06 Blood Blood Culture - Final NO GROWTH AFTER 5 DAYS OF INCUBATION. Complete Assessment/Plan Assessment/Plan Impression: Acute on chronic hypoxic respiratory failure Dependence on supplemental oxygen Lung cancer Congestive heart failure Pneumonia, likely gram negative Pleural effusion Atelectasis Kidney mass, likely metastatic cancer Events: Remains on supplemental oxygen, 3 LPM NC Taper O2 as tolerated No new complaints Patient undergoing physical therapy Head of bed elevation Aspiration precautions. S/p left thoracentesis on 04/13/25 with 650 mL alexia fluid drained from left pleural space. Please see separate procedure note for details. Follow up pleural fluid cultures and cytology Post-procedure CXR revealed improved aeration of the left lower lung zone with residual trace left-sided pleural effusion and left mid and lower lung zone atelectasis. Unchanged interstitial and alveolar type opacities of the right lower lung zone with obscuration of the right hemidiaphragm. Plan for right thoracentesis in AM. Consent obtained for procedure. Continue bronchodilators Antibiotics for pneumonia/UTI - complete course Incentive spirometry Monitor blood pressure Obtain IR consult for renal biopsy. Follow up recommendations Diurese with Lasix Monitor renal function. Monitor electrolytes. Supplement as necessary. Monitor ins and outs. Maintain euvolemia. Avoid fluid overload. Physical therapy. Abdomen-pelvis CT w/o contrast on 04/08/25 showed left renal hyperdense lesion/ mass of 4.1 x 3 cm extending to the left renal pelvis, likely representing patient's known history of renal malignancy. 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 Bibasilar pulmonary consolidation. 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 Small to moderate bilateral pleural effusions which appear complex in appearance, possibly malignant. Abdominal aortic atherosclerotic disease. Colonic diverticular disease. Moderate volume stool in the colon. S/p right thora on 04/07/25 - 1100 mL's of alexia colored fluid removed from right pleural space See separate procedure note for details F/u pleural fluid cx and cytology - no growth Labs and imaging reviewed. Rest of plan as noted below. Plan: Supplemental oxygen Titrate to keep O2 sats above 92%. Head of bed elevation Aspiration precautions. Continue bronchodilators. Continue antibiotics Incentive spirometry Follow up Cardiology recommendations Monitor renal function. Monitor electrolytes. Supplement as necessary. Monitor ins and outs. Maintain euvolemia. Labs and imaging reviewed. DVT prophylaxis. Prognosis: Poor given patient's multiple co-morbidities. Rest of plan per hospitalist and other consultants. Thank you, Dr. Phipps, for allowing me to participate in this patient's care. Further recommendations will depend on the patient's clinical course. Please do not hesitate to contact me if you have any questions or concerns. This medical document was created using an electronic medical record system with [facility] dictation system. Although these documentations are being carefully reviewed, there may still be some phonetic and typographical changes. The errors are purely typographical, due to imperfection on the software program, and do not reflect any compromise in the patient's medical care. Plan discussed with: Patient, Other (ALEX Diaz) Visit Coding Pulmonary Billing Provider: ARIA PERRY MD Date of Service if different f: Apr 14, 2025 Common Visit Codes: [id number] INP/OBS CARE(HIGH) ARIA PERRY MD Apr 14, 2025 23:41
[2025-04-15] VITALS (18 sets, daily range): BP systolic 105–113; BP diastolic 61–65; PULSE 74–105; RESP 16–19; TEMP 97.2–98.7; O2SAT 91–100
--- NOTE | 2025-04-15 06:24 | DVHPN2 ---
Progress Note - Dictate Date Seen: Apr 15, 2025 Medical Necessity Reason Pt with a Central, PICC or Fol: No vital signs Vital Sign Date Time Temp Pulse Resp B/P (MAP) Pulse Ox O2 Delivery O2 Flow Rate FiO2 04/15/25 06:17 96 Nasal Cannula* 3 32 04/15/25 06:17 74 16 04/15/25 05:00 97.7 111/63 (79) 97.7 Total Intake and Output 04/14/25 04/14/25 04/15/25 15:00 23:00 07:00 Intake Total 400 ml Output Total 1000 ml 700 ml Balance -1000 ml -300 ml medications Current Medications Medications Dose Ordered Sig/Andressa Route Start Time Stop Time Status Last Admin Dose Admin Apixaban 2.5 mg BID PO 04/07/25 10:00 04/14/25 21:15 2.5 MG Atorvastatin Calcium 80 mg HS PO 04/07/25 22:00 04/14/25 21:15 80 MG Levothyroxine Sodium 150 mcg QAM@0600 PO 04/07/25 06:00 04/15/25 05:23 150 MCG Acetaminophen/ Hydrocodone Bitart 1 tab Q4HP PRN PO 04/06/25 22:15 Ondansetron HCl 4 mg Q4HP PRN IV 04/06/25 22:15 Acetaminophen 650 mg Q6HP PRN PO 04/06/25 22:15 04/07/25 17:12 650 MG Albuterol 2.5 mg Q6HR NEB 04/07/25 12:00 04/15/25 06:17 2.5 MG Ipratropium [place] 0.5 mg Q6HWA [place]NER 04/07/25 12:00 04/15/25 06:17 0.5 MG Enteral Nutritional Formula 240 ml TIDWM PO 04/08/25 08:00 04/14/25 18:28 240 ML Levofloxacin 250 mg DAILY PO 04/10/25 10:00 04/14/25 09:35 250 MG Guaifenesin/ Dextromethorphan 10 ml Q4HP PRN PO 04/09/25 13:15 04/10/25 13:16 10 ML Furosemide 20 mg DAILY IV 04/15/25 10:00 laboratory and microbiology Laboratory Tests 04/14/25 12:59 Test 04/14/25 12:59 Range/Units Serum Glucose 203 H 74-106 mg/dL Assessment/Plan Patient is a 84-year-old gentleman who was brought by for generalized weakness which was ongoing and worsening for the past month. Does have history of advanced/metastatic cancer. Cardiology is involved for cardiac aspects of care (patient's called me personally). Patient is known to our practice from outside and before. There is no report of chest pain. There is no report of palpitation. Patient has been on chemotherapy/radiation therapy. Cachectic male. Sitting in bed. Somewhat confused. No gross JVD. Mucosa is pale. Scattered rhonchi in the lungs is heard. Not using accessory muscles of breathing. Cardiac: Regular. Systolic murmur 2/6 in the apex is heard. Abdomen is soft. Bilateral edema seen. 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 Echocardiogram of January 16, 2025 (performed in the office) revealed ejection fraction 45-50%, mild concentric left ventricular hypertrophy, mild left atrial enlargement, pacemaker wires were seen right-sided chambers, bioprosthetic valve in aortic position which worked normally, mild mitral regurgitation, [id number] tricuspid regurgitation with right ventricular systolic pressure of 36 mm Hg. Hemoglobin: 8.6 - 9.0 - 8.2 - 7.4 - 8.2 - 7.8 - 7.8 - 7.9 Creatinine: 2.74 - 2.63 - 2.37 - 2.59 - 2.21 - 1.97 - 1.95 - 1.80 - 2.13 Potassium: 4.5 - 4.5 - 4.0 - 4.3 - 4.3 - 4.4 - 4.8 - 4.7 - 4.8 TSH: 1.86 BNP: 370.27 Troponin (high sensitive): Chest x-ray revealed: IMPRESSION: 1. Cardiomegaly with bibasilar airspace disease and possible small pleural effusion on the right. 2. Pneumonia versus congestive failure are both in the radiographic differential Repeat chest x-ray revealed: IMPRESSION: 1. Removal of the right pleural effusion with atelectasis in the right base. 2. No pneumothorax 3. Pacemaker in place unchanged. Repeat chest xry revealed: IMPRESSION: 1. Moderately progressive multifocal bilateral pulmonary airspace disease with new right mid lung zone infiltrate. 2. Small bilateral pleural effusions. Repeat chest xry revealed: IMPRESSION: Improved aeration of the left lower lung zone with residual trace left-sided pleural effusion and left mid and lower lung zone atelectasis. Unchanged interstitial and alveolar type opacities of the right lower lung zone with obscuration of the right hemidiaphragm. No pneumothorax. CT of the head reported: IMPRESSION: 1. No acute intracranial abnormality. 2. Mild cerebral volume loss and minor chronic microvascular ischemic change. Renal ultrasound reported: IMPRESSION: 1. No hydronephrosis. 2. Questionable 3.2 cm left renal mass. Recommend further evaluation with CT or MRI with IV contrast 3. Bilateral pleural effusions. CT of Abdomen and Pelvis revealed: There is limited interpretation of the abdomen and pelvis without administration of intravenous contrast. Aortic valvular prosthesis. Tiny pericardial effusion. Multiple subcarinal/ paraesophageal lymph nodes up to 2.2 cm. Bilateral pleural [id number] which appears small to moderate in size and [id number] complex in appearance. Bibasilar atelectasis /consolidation Adrenal glands, spleen unremarkable in shape. Pancreatic parenchymal atrophy. No CT evidence for cholelithiasis. Liver capsule nodular morphology. The right kidney demonstrates no hydronephrosis / nephrolithiasis. Left renal hyperdense lesion/ mass extending into the pelvis measuring 4.1 x 3 cm. Nonobstructing left renal calculus measuring 7 mm. Periaortic/retroperitoneal lymph node measuring 10 mm. Portacaval lymph node measuring 12 mm. Stomach is partially distended. Small bowel loops are normal in caliber. Colonic diverticular disease. Moderate volume stool in the colon. Normal appendix. Abdominal aortic atherosclerotic disease. Bladder decompressed by Chavez catheter. No free pelvic fluid. Right inguinal lymph nodes measuring up to 12 mm. Soft tissue edema / anasarca. Moderate to advanced lumbar degenerative disc disease. IMPRESSION: Limited evaluation without contrast. Left renal hyperdense lesion/ mass measuring 4.1 x 3 cm extending to the Left renal pelvis, likely representing patient's known history of renal malignancy. Recommend MRI abdomen with and without contrast to better characterize. 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 Bibasilar pulmonary consolidation. 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 This can be further evaluated with a PET scan. Small to moderate bilateral pleural effusions which appear complex in appearance, possibly malignant in etiology. This can be better evaluated with a CT chest with contrast. Abdominal aortic atherosclerotic disease. Colonic diverticular disease. Moderate volume stool in the colon. Other findings as described. EKG revealed sinus rhythm with left bundle branch block Tele reveals sinus rhythm Echocardiogram revealed: Technically limited study secondary to poor acoustic windows. Left ventricle: Mild concentric left ventricular hypertrophy was seen left ventricle was normal-sized. LVEF was 55-60%. There was no gross wall motion abnormality. Right ventricle was mildly dilated with normal systolic function. Mild biatrial enlargement was seen. Pacing wire was seen in right- sided chambers. Bioprosthetic valve was observed in aortic position. It works properly. There was no aortic insufficiency/stenosis. Mild mitral annular calcification was seen. Mild mitral regurgitation was observed. [id number] tricuspid regurgitation was seen. Right ventricular systolic pressure was assessed at 44 mm Hg. IVC was normal-sized with normal respiratory variation. There was trace pericardial effusion. Patient is a 84-year-old gentleman with advanced multiple cancers and metastasis who presented with generalized weakness. Does have baseline history of valvular heart disease for which has had TAVR before. Also has history of atrial fibrillation (paroxysmal) for which is on Eliquis as outpatient. Has been on chemotherapy/radiation therapy. Has had poor appetite and malnutrition could have contributed to the clinical picture. Advanced band of cancers could have contributed to the clinical picture. Side effects secondary to radiation/chemotherapy could have contributed to the clinical picture. Acute coronary syndrome is not considered. Decompensated heart failure is not considered as a component of presentation. Does have history of pacemaker (Biotronik) which was recently interrogated in the office. Being followed by Nephrology/Urology/Pulmonary. Encephalopathy, metabolic VICKIE on CKD Pneumonia Lung cancer Advanced metastatic cancer as COPD Pleural effusion, status post thoracentesis Multiple cancers, metastatic Poor functional capacity Paroxysmal AFib Sick sinus syndrome, status post pacemaker implantation (Biotronik) Valvular heart disease, status post TAVR s/p thoracentesis by pulmonary Cardiac suggestion for management: Manage on telemetry Follow-up electrolytes and kidney function tests and correct abnormalities Long-term continuation of full anticoagulation is advised, if not contraindicated Nephrology follow-up is advised Pulmonary follow-up Urology Follow up Consider Oncology evaluation Goals of care as per primary team. Consider Hospice. Further evaluation and management depends on the above and clinical course Long-term prognosis: very poor A total of 55 minutes was spent reviewing the patient record, examining the patient, making a diagnostic and therapeutic plan, discussing this plan with medical personnel, following up on diagnostic studies and following the patient for clinical stability excluding any and all procedures. At least 50% of this time was spent in direct, [id number] contact. Thank you for allowing me to participate in this patient's care. Further recommendations will depend on patient's clinical course. Please do not hesitate to contact me if you have any questions or concerns. This medical document was created using electronic medical record system with [employer] computerized dictation system. Although this document has been carefully reviewed, there may still be some phonetic and typographical errors. These areas are purely typographical due to the imperfection of the software programs, and do not reflect any compromise in the patient's medical care. Dietary Evaluation Review Comments: 1. Renal Diet with Nepro oral supplementation TID 2. Monitor PO intake 3. Follow up with consults and lab values Expected Outcomes/Goals: Improved PO intakes, increased physical strength. Plan discussed with: Patient, Other (nurse) LUIS HOLT MD Apr 15, 2025 06:24
[2025-04-15] MEDS: FUROSEMIDE 20 MG/2 ML VIAL IV SCH (10:08)
[2025-04-15 12:05] LABS: Nucleated Red Blood Cells % 0.0 %
[2025-04-15 12:06] LABS: Hematocrit 24.0 % (41.0-53.0); Hemoglobin 7.7 g/dL (13.5-17.5); Mean Corpuscular Hemoglobin 28.8 pg (28.0-32.0); Mean Corpuscular Volume 89.4 fL (80.0-100.0)
[2025-04-15 12:07] LABS: Glucose, Body Fluid 152.0 mg/dL (.); LD, Body Fluid 200.0 IU/L (.)
[2025-04-15 12:14] LABS: Chloride 101 mmol/L (98-107); Potassium 4.4 mmol/L (3.5-5.1); Sodium 144 mmol/L (136-145)
[2025-04-15 12:15] LABS: Anion Gap 9 (5-15); Calcium 8.8 mg/dL (8.7-10.4)
[2025-04-15 12:19] LABS: Carbon Dioxide 34 mmol/L (20-31)
[2025-04-15 12:20] LABS: BUN/Creatinine Ratio 31.6 (10.0-20.0)
[2025-04-15 12:23] LABS: Blood Urea Nitrogen 66 mg/dL (9-23); Glucose 145 mg/dL (74-106)
--- NOTE | 2025-04-15 13:50 | DVHPN2 ---
Subjective Feeling better with less SOB on 4L NC>3L Reviewed: H&P Changes from previous H/P or p: No Changes Objective Vitals Vital Signs Date Time Temp Pulse Resp B/P (MAP) Pulse Ox O2 Delivery O2 Flow Rate FiO2 04/15/25 11:42 76 18 98 04/15/25 11:34 Nasal Cannula 3.0 04/15/25 11:34 32 04/15/25 10:08 102/55 04/15/25 09:00 97.2 97.2 Intake/Output Intake and Output 04/15/25 07:00 Intake Total 400 ml Output Total 1700 ml Balance -1300 ml Intake Oral 400 ml Output Urine Total 1700 ml # Bowel Movements 2 General Appearance: Alert, Oriented X3, Cooperative Lungs: Clear to auscultation, Normal air movement Cardiovascular: Regular rate, Normal S1 Abdomen: Normal bowel sounds, Soft Extremities: No edema Medications Current Medications Medications Dose Ordered Sig/Andressa Route Start Time Stop Time Status Last Admin Dose Admin Apixaban 2.5 mg BID PO 04/07/25 10:00 04/15/25 10:07 2.5 MG Atorvastatin Calcium 80 mg HS PO 04/07/25 22:00 04/14/25 21:15 80 MG Levothyroxine Sodium 150 mcg QAM@0600 PO 04/07/25 06:00 04/15/25 05:23 150 MCG Acetaminophen/ Hydrocodone Bitart 1 tab Q4HP PRN PO 04/06/25 22:15 Ondansetron HCl 4 mg Q4HP PRN IV 04/06/25 22:15 Acetaminophen 650 mg Q6HP PRN PO 04/06/25 22:15 04/07/25 17:12 650 MG Albuterol 2.5 mg Q6HR NEB 04/07/25 12:00 04/15/25 11:33 2.5 MG Ipratropium [place] 0.5 mg Q6HWA NEB 04/07/25 12:00 04/15/25 11:33 0.5 MG Enteral Nutritional Formula 240 ml TIDWM PO 04/08/25 08:00 04/15/25 12:00 240 ML Levofloxacin 250 mg DAILY PO 04/10/25 10:00 04/15/25 10:07 250 MG Guaifenesin/ Dextromethorphan 10 ml Q4HP PRN PO 04/09/25 13:15 11/7/25 13:16 10 ML Furosemide 20 mg DAILY IV 04/15/25 10:00 04/15/25 10:08 20 MG Laboratory Results Laboratory Tests 04/15/25 11:48 Chemistry Test 04/15/25 11:48 Calcium Level 8.8 mg/dL (8.7-10.4) Urinalysis Test 04/07/25 14:30 Urine Color Light-orange (Yellow) Urine Clarity Turbid (Clear) H Urine pH 8.0 (5.0-9.0) Urine Specific [place] 1.030 (1.001-1.035) Urine Protein 3+ (Negative) H Urine Ketones Negative (Negative) Urine Blood 3+ /uL (Negative) H Urine Nitrite Negative (Negative) Urine Bilirubin Negative (Negative) Urine Urobilinogen Normal mg/dL (Negative) Urine Leukocyte Esterase Negative /uL (Negative) Urine RBC 1399 /hpf (0 - 3) Urine WBC Clumps Present /hpf (None Seen) Urine Microscopic WBC 411 /HPF (0-3) H Urine Squamous Epithelial Cells None seen /hpf (<5) Urine Bacteria Few /hpf (None Seen) H Urine Mucus Few (None Seen) Urine Creatinine < 3.00 mg/dL (30.0-125.0) L Urine Protein/Creatinine Ratio 833.00 Urine Sodium 154 mmol/L (40-220) Urine Glucose 2+ mg/dL (Normal) H Urine Total Protein > 2500.0 mg/dL (1-14) H Microbiology Microbiology Date/Time Source Procedure Growth Status 04/13/25 20:40 Pleural Fluid Gram Stain - Final Resulted 04/13/25 20:40 Pleural Fluid Body Fluid Culture - Preliminary No growth Resulted 04/06/25 17:13 Voided Urine Urine Culture - Final Klebsiella oxytoca - ESBL Complete 04/06/25 16:06 Blood Blood Culture - Final NO GROWTH AFTER 5 DAYS OF INCUBATION. Complete Assessment/Plan Assessment/Plan Metabolic encephalopathy Hypernatremia Acute kidney injury due to vasomotor nephropathy Chronic kidney disease Lung cancer on radiation therapy Bilateral pneumonia UTI History of heart failure Small pleural effusion Chronic anemia of chronic disease Acute on chronic hypoxic respiratory failure COPD Hypertension Type 2 diabetes Obesity History of prostate cancer status post prostatectomy History of aortic stenosis status post TAVR Hypothyroidism History of CVA Atrial fibrillation on Eliquis Plan Continue IV antibiotics Rocephin and Zithromax Add IV fluids D5 half NS Nephrology consult Chavez catheter Physical therapy Echocardiogram Kidney ultrasound Blood culture Urine culture Monitor closely Continue Eliquis 04/08/25: Pneumonia: Rocephin and Zithromax UTI Left renal mass: Get CT ab & pelvis, urology consult CKD: Nephrology consult Afib: Eliquis, cardiology consult Lung CA Pleural effusion s/p thoracentesis VICKIE/CKD COPD s/p TAVR 04/09/2025: Switch the IV antibiotics to p.o. Levaquin UTI with Klebsiella ESBL: P.o. Levaquin Left renal mass: Urology on board, IR procedure to do renal biopsy and left renal cryoablation Pneumonia CKD Atrial fibrillation on Eliquis VICKIE COPD History of TAVR We will discuss with Interventional Radiology whether the renal biopsy and left renal cryoablation can be done here Discussed with the at the bedside, she is hesitant about surgeries The patient is high-risk for surgery 04/10/25: Physical therapy Continue po Levaquin Observe closely Eliquis O2 prn 04/11/2025: Discontinue IV fluids Continue p.o. Levaquin Reviewed the chest x-ray, no need for thoracentesis at this time Oxygen as needed Monitor closely 04/12/2025: Pneumonia and UTI: Continue Levaquin p.o. Atrial fibrillation: Eliquis 2.5 mg twice a day Discontinue IV fluids Physical therapy Discharge planning 04/13 Continue po levaquin wean off oxygen PT eval 04/14 continue levaquin s/p thoracocentesis 04/15 Will need home health Plan discussed with: Patient My Orders Orders - FLIP DOUGLASS MD Procedure Category Date Status Time * Aircraft [place] CONS 04/15/25 Transmitted Consult Date of Service: Apr 15, 2025 Billing Provider: FLIP DOUGLASS MD Common Visit Codes: [id number] INP/OBS CARE(HIGH) FLIP DOUGLASS MD Apr 15, 2025 13:50
--- NOTE | 2025-04-15 18:06 | DVHPN2 ---
Progress Note Date Seen: Apr 15, 2025 Medical Necessity Reason Pt with a Central, PICC or Fol: No Subjective Patient reports: Other (No new events) Review of Systems: Deferred Objective vital signs Vital Sign Date Time Temp Pulse Resp B/P (MAP) Pulse Ox O2 Delivery O2 Flow Rate FiO2 04/15/25 16:31 97.9 102 19 113/64 (80) 92 97.9 04/15/25 11:34 Nasal Cannula 3.0 04/15/25 11:34 32 Total Intake and Output 04/14/25 04/14/25 04/15/25 15:00 23:00 07:00 Intake Total 400 ml Output Total 1000 ml 700 ml Balance -1000 ml -300 ml medications Current Medications Medications Dose Ordered Sig/Andressa Route Start Time Stop Time Status Last Admin Dose Admin Apixaban 2.5 mg BID PO 04/07/25 10:00 04/15/25 10:07 2.5 MG Atorvastatin Calcium 80 mg HS PO 04/07/25 22:00 04/14/25 21:15 80 MG Levothyroxine Sodium 150 mcg QAM@0600 PO 04/07/25 06:00 04/15/25 05:23 150 MCG Acetaminophen/ Hydrocodone Bitart 1 tab Q4HP PRN PO 04/06/25 22:15 Ondansetron HCl 4 mg Q4HP PRN IV 04/06/25 22:15 Acetaminophen 650 mg Q6HP PRN PO 04/06/25 22:15 04/07/25 17:12 650 MG Albuterol 2.5 mg Q6HR NEB 04/07/25 12:00 04/15/25 11:33 2.5 MG Ipratropium [place] 0.5 mg Q6HWA NEB 04/07/25 12:00 04/15/25 11:33 0.5 MG Enteral Nutritional Formula 240 ml TIDWM PO 04/08/25 08:00 04/15/25 12:00 240 ML Levofloxacin 250 mg DAILY PO 04/10/25 10:00 04/15/25 10:07 250 MG Guaifenesin/ Dextromethorphan 10 ml Q4HP PRN PO 04/09/25 13:15 04/10/25 13:16 10 ML Furosemide 20 mg DAILY IV 04/15/25 10:00 04/15/25 10:08 20 MG laboratory and microbiology Laboratory Tests 04/15/25 11:48 Test 04/15/25 11:48 Range/Units Serum Glucose 145 H 74-106 mg/dL Microbiology Date/Time Source Procedure Growth Status 04/13/25 20:40 Pleural Fluid Gram Stain - Final Resulted 04/13/25 20:40 Pleural Fluid Body Fluid Culture - Preliminary No growth Resulted 04/06/25 17:13 Voided Urine Urine Culture - Final Klebsiella oxytoca - ESBL Complete 04/06/25 16:06 Blood Blood Culture - Final NO GROWTH AFTER 5 DAYS OF INCUBATION. 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 Duran Mild hypernatremia/dehydration, possibly due to decreased oral intake Renal mass, likely renal cell carcinoma Lung cancer, on radiotherapy Skin cancer COPD exacerbation Hematuria Hypertension Dyslipidemia Status post pacemaker Large right pleural effusion, post thoracentesis (drained 1.1 L) Atrial fibrillation, Recommendation Stable renal function On gentle Lasix Plan discussed with: Patient Dietary Evaluation Review Comments: 1. Renal Diet with Nepro oral supplementation TID 2. Monitor PO intake 3. Follow up with consults and lab values Expected Outcomes/Goals: Improved PO intakes, increased physical strength. RAFY VELASCO MD Apr 15, 2025 18:06
--- NOTE | 2025-04-15 23:43 | DVHPN2 ---
Subjective DOS: 04/15/2025 Patient seen and examined at bedside. Remains on supplemental oxygen Overnight events reviewed. Reviewed: H&P Changes from previous H/P or p: No Changes Objective Vitals Vital Signs Date Time Temp Pulse Resp B/P (MAP) Pulse Ox O2 Delivery O2 Flow Rate FiO2 04/15/25 22:40 105 16 107/65 91 3.0 36 04/15/25 21:00 98.7 98.7 04/15/25 20:00 Nasal Cannula* Intake/Output Intake and Output 04/15/25 07:00 Intake Total 400 ml Output Total 1700 ml Balance -1300 ml Intake Oral 400 ml Output Urine Total 1700 ml # Bowel Movements 2 Exam Gen.: Patient lying in bed in no apparent distress. On supplemental oxygen. Head: Normocephalic, atraumatic. Eyes: EOMI/PERRLA. Ears: Normal hearing. Normal anatomy. Neck/trachea: Trachea midline, supple. Nose: Normal external anatomy. Mouth: Moist mucous membranes. Chest: Decreased air entry bilaterally. Wheezing. No rhonchi. Cardiovascular: Positive S1, positive S2. Regular rate and rhythm. Abdomen: Positive bowel sounds in all 4 quadrants. Soft, non-tender, non- distended. : Deferred. Rectal: Deferred. Skin: Warm, dry. Intact. Extremities: 2+ radial pulses bilaterally. Trace bilateral lower extremity edema. Neuro: Awake, alert, oriented x3. No gross motor or sensory deficits. Cranial nerves II through XII intact. Gait not assessed. General Appearance: Alert, Oriented X3, Cooperative Lungs: Clear to auscultation, Normal air movement Cardiovascular: Regular rate, Normal S1 Abdomen: Normal bowel sounds, Soft Extremities: No edema Medications Current Medications Medications Dose Ordered Sig/Andressa Route Start Time Stop Time Status Last Admin Dose Admin Apixaban 2.5 mg BID PO 04/07/25 10:00 04/15/25 21:13 2.5 MG Atorvastatin Calcium 80 mg HS PO 04/07/25 22:00 04/15/25 21:13 80 MG Levothyroxine Sodium 150 mcg QAM@0600 PO 04/07/25 06:00 04/15/25 05:23 150 MCG Acetaminophen/ Hydrocodone Bitart 1 tab Q4HP PRN PO 04/06/25 22:15 Ondansetron HCl 4 mg Q4HP PRN IV 04/06/25 22:15 Acetaminophen 650 mg Q6HP PRN PO 04/06/25 22:15 04/07/25 17:12 650 MG Albuterol 2.5 mg Q6HR NEB 04/07/25 12:00 04/15/25 18:37 2.5 MG Ipratropium [place] 0.5 mg Q6HWA NEB 04/07/25 12:00 04/15/25 18:37 0.5 MG Enteral Nutritional Formula 240 ml TIDWM PO 04/08/25 08:00 04/15/25 18:00 240 ML Levofloxacin 250 mg DAILY PO 04/10/25 10:00 04/15/25 10:07 250 MG Guaifenesin/ Dextromethorphan 10 ml Q4HP PRN PO 04/09/25 13:15 04/10/25 13:16 10 ML Furosemide 20 mg DAILY IV 04/15/25 10:00 04/15/25 10:08 20 MG Laboratory Results Laboratory Tests 04/15/25 11:48 Chemistry Test 04/15/25 11:48 Calcium Level 8.8 mg/dL (8.7-10.4) Urinalysis Test 04/07/25 14:30 Urine Color Light-orange (Yellow) Urine Clarity Turbid (Clear) H Urine pH 8.0 (5.0-9.0) Urine Specific [place] 1.030 (1.001-1.035) Urine Protein 3+ (Negative) H Urine Ketones Negative (Negative) Urine Blood 3+ /uL (Negative) H Urine Nitrite Negative (Negative) Urine Bilirubin Negative (Negative) Urine Urobilinogen Normal mg/dL (Negative) Urine Leukocyte Esterase Negative /uL (Negative) Urine RBC 1399 /hpf (0 - 3) Urine WBC Clumps Present /hpf (None Seen) Urine Microscopic WBC 411 /HPF (0-3) H Urine Squamous Epithelial Cells None seen /hpf (<5) Urine Bacteria Few /hpf (None Seen) H Urine Mucus Few (None Seen) Urine Creatinine < 3.00 mg/dL (30.0-125.0) L Urine Protein/Creatinine Ratio 833.00 Urine Sodium 154 mmol/L (40-220) Urine Glucose 2+ mg/dL (Normal) H Urine Total Protein > 2500.0 mg/dL (1-14) H Microbiology Microbiology Date/Time Source Procedure Growth Status 04/13/25 20:40 Pleural Fluid Gram Stain - Final Resulted 04/13/25 20:40 Pleural Fluid Body Fluid Culture - Preliminary No growth Resulted 04/06/25 17:13 Voided Urine Urine Culture - Final Klebsiella oxytoca - ESBL Complete 04/06/25 16:06 Blood Blood Culture - Final NO GROWTH AFTER 5 DAYS OF INCUBATION. Complete Assessment/Plan Assessment/Plan Impression: Acute on chronic hypoxic respiratory failure Dependence on supplemental oxygen Lung cancer Congestive heart failure Pneumonia, likely gram negative Pleural effusion Atelectasis Kidney mass, likely metastatic cancer Events: Remains on supplemental oxygen, 3 LPM NC Taper O2 as tolerated Shortness of breath is improved. No new complaints Patient undergoing physical therapy Head of bed elevation Aspiration precautions. S/p left thoracentesis on 04/13/25 with 650 mL alexia fluid drained from left pleural space. Please see separate procedure note for details. Follow up pleural fluid cultures and cytology Post-procedure CXR revealed improved aeration of the left lower lung zone with residual trace left-sided pleural effusion and left mid and lower lung zone atelectasis. Unchanged interstitial and alveolar type opacities of the right lower lung zone with obscuration of the right hemidiaphragm. Plan for right thoracentesis. Continue bronchodilators Antibiotics for pneumonia/UTI - complete course Incentive spirometry Monitor blood pressure Obtain IR consult for renal biopsy. Follow up recommendations Diurese with Lasix Monitor renal function. Monitor electrolytes. Supplement as necessary. Monitor ins and outs. Maintain euvolemia. Avoid fluid overload. Physical therapy. Disposition per hospitalist. Abdomen-pelvis CT w/o contrast on 04/08/25 showed left renal hyperdense lesion/ mass of 4.1 x 3 cm extending to the left renal pelvis, likely representing patient's known history of renal malignancy. 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 Bibasilar pulmonary consolidation. 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 Small to moderate bilateral pleural effusions which appear complex in appearance, possibly malignant. Abdominal aortic atherosclerotic disease. Colonic diverticular disease. Moderate volume stool in the colon. S/p right thora on 04/07/25 - 1100 mL's of alexia colored fluid removed from right pleural space See separate procedure note for details F/u pleural fluid cx and cytology - no growth Labs and imaging reviewed. Rest of plan as noted below. Plan: Supplemental oxygen Titrate to keep O2 sats above 92%. Head of bed elevation Aspiration precautions. Continue bronchodilators. Continue antibiotics Incentive spirometry Follow up Cardiology recommendations Monitor renal function. Monitor electrolytes. Supplement as necessary. Monitor ins and outs. Maintain euvolemia. Labs and imaging reviewed. DVT prophylaxis. Prognosis: Poor given patient's multiple co-morbidities. Rest of plan per hospitalist and other consultants. Thank you, Dr. Phipps, for allowing me to participate in this patient's care. Further recommendations will depend on the patient's clinical course. Please do not hesitate to contact me if you have any questions or concerns. This medical document was created using an electronic medical record system with [email or web address] dictation system. Although these documentations are being carefully reviewed, there may still be some phonetic and typographical changes. The errors are purely typographical, due to imperfection on the software program, and do not reflect any compromise in the patient's medical care. Plan discussed with: Patient, Other (ALEX Du) Visit Coding Pulmonary Billing Provider: ARIA PERRY MD Date of Service if different f: Apr 15, 2025 Common Visit Codes: 93087-[id number] INP/OBS CARE(HIGH) ARIA PERRY MD Apr 15, 2025 23:43
[2025-04-16] VITALS (15 sets, daily range): BP systolic 90–117; BP diastolic 41–67; PULSE 84–123; RESP 16–20; TEMP 97.5–98.5; O2SAT 90–100
--- NOTE | 2025-04-16 07:34 | DVHPN2 ---
Progress Note - Dictate Date Seen: Apr 16, 2025 Medical Necessity Reason Pt with a Central, PICC or Fol: No vital signs Vital Sign Date Time Temp Pulse Resp B/P (MAP) Pulse Ox O2 Delivery O2 Flow Rate FiO2 04/16/25 04:26 97.5 95 16 117/66 (83) 91 97.5 04/16/25 00:08 Nasal Cannula* 3 32 Total Intake and Output 04/15/25 04/15/25 04/16/25 15:00 23:00 07:00 Intake Total 850 ml Output Total 1800 ml Balance -950 ml medications Current Medications Medications Dose Ordered Sig/Andressa Route Start Time Stop Time Status Last Admin Dose Admin Apixaban 2.5 mg BID PO 04/07/25 10:00 04/15/25 21:13 2.5 MG Atorvastatin Calcium 80 mg HS PO 04/07/25 22:00 04/15/25 21:13 80 MG Levothyroxine Sodium 150 mcg QAM@0600 PO 04/07/25 06:00 04/16/25 05:36 150 MCG Ondansetron HCl 4 mg Q4HP PRN IV 04/06/25 22:15 Acetaminophen 650 mg Q6HP PRN PO 04/06/25 22:15 04/07/25 17:12 650 MG Albuterol 2.5 mg Q6HR NEB 04/07/25 12:00 04/16/25 00:10 2.5 MG Ipratropium [place] 0.5 mg Q6HWA NEB 04/07/25 12:00 04/15/25 18:37 0.5 MG Enteral Nutritional Formula 240 ml TIDWM PO 04/08/25 08:00 04/15/25 18:00 240 ML Levofloxacin 250 mg DAILY PO 04/10/25 10:00 04/15/25 10:07 250 MG Guaifenesin/ Dextromethorphan 10 ml Q4HP PRN PO 04/09/25 13:15 04/10/25 13:16 10 ML Furosemide 20 mg DAILY IV 04/15/25 10:00 04/15/25 10:08 20 MG laboratory and microbiology Laboratory Tests 04/15/25 11:48 Test 04/15/25 11:48 Range/Units Serum Glucose 145 H 74-106 mg/dL Assessment/Plan Patient is a 84-year-old gentleman who was brought by for generalized weakness which was ongoing and worsening for the past month. Does have history of advanced/metastatic cancer. Cardiology is involved for cardiac aspects of care (patient's called me personally). Patient is known to our practice from outside and before. There is no report of chest pain. There is no report of palpitation. Patient has been on chemotherapy/radiation therapy. Cachectic male. Sitting in bed. Somewhat confused. No gross JVD. Mucosa is pale. Scattered rhonchi in the lungs is heard. Not using accessory muscles of breathing. Cardiac: Regular. Systolic murmur 2/6 in the apex is heard. Abdomen is soft. Bilateral edema seen. 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 Echocardiogram of January 16, 2025 (performed in the office) revealed ejection fraction 45-50%, mild concentric left ventricular hypertrophy, mild left atrial enlargement, pacemaker wires were seen right-sided chambers, bioprosthetic valve in aortic position which worked normally, mild mitral regurgitation, [id number] tricuspid regurgitation with right ventricular systolic pressure of 36 mm Hg. Hemoglobin: 8.6 - 9.0 - 8.2 - 7.4 - 8.2 - 7.8 - 7.8 - 7.9 - 7.7 Creatinine: 2.74 - 2.63 - 2.37 - 2.59 - 2.21 - 1.97 - 1.95 - 1.80 - 2.13 - 2.09 Potassium: 4.5 - 4.5 - 4.0 - 4.3 - 4.3 - 4.4 - 4.8 - 4.7 - 4.8 - 4.4 TSH: 1.86 BNP: 370.27 Troponin (high sensitive): Chest x-ray revealed: IMPRESSION: 1. Cardiomegaly with bibasilar airspace disease and possible small pleural effusion on the right. 2. Pneumonia versus congestive failure are both in the radiographic differential Repeat chest x-ray revealed: IMPRESSION: 1. Removal of the right pleural effusion with atelectasis in the right base. 2. No pneumothorax 3. Pacemaker in place unchanged. Repeat chest xry revealed: IMPRESSION: 1. Moderately progressive multifocal bilateral pulmonary airspace disease with new right mid lung zone infiltrate. 2. Small bilateral pleural effusions. Repeat chest xry revealed: IMPRESSION: Improved aeration of the left lower lung zone with residual trace left-sided pleural effusion and left mid and lower lung zone atelectasis. Unchanged interstitial and alveolar type opacities of the right lower lung zone with obscuration of the right hemidiaphragm. No pneumothorax. CT of the head reported: IMPRESSION: 1. No acute intracranial abnormality. 2. Mild cerebral volume loss and minor chronic microvascular ischemic change. Renal ultrasound reported: IMPRESSION: 1. No hydronephrosis. 2. Questionable 3.2 cm left renal mass. Recommend further evaluation with CT or MRI with IV contrast 3. Bilateral pleural effusions. CT of Abdomen and Pelvis revealed: There is limited interpretation of the abdomen and pelvis without administration of intravenous contrast. Aortic valvular prosthesis. Tiny pericardial effusion. Multiple subcarinal/ paraesophageal lymph nodes up to 2.2 cm. Bilateral pleural [id number] which appears small to moderate in size and complex in appearance. Bibasilar atelectasis /consolidation Adrenal glands, spleen unremarkable in shape. Pancreatic parenchymal atrophy. No CT evidence for cholelithiasis. Liver capsule nodular morphology. The right kidney demonstrates no hydronephrosis / nephrolithiasis. Left renal hyperdense lesion/ mass extending into the pelvis measuring 4.1 x 3 cm. Nonobstructing left renal calculus measuring 7 mm. Periaortic/retroperitoneal lymph node measuring 10 mm. Portacaval lymph node measuring 12 mm. Stomach is partially distended. Small bowel loops are normal in caliber. Colonic diverticular disease. Moderate volume stool in the colon. Normal appendix. Abdominal aortic atherosclerotic disease. Bladder decompressed by Chavez catheter. No free pelvic fluid. Right inguinal lymph nodes measuring up to 12 mm. Soft tissue edema / anasarca. Moderate to advanced lumbar degenerative disc disease. IMPRESSION: Limited evaluation without contrast. Left renal hyperdense lesion/ mass measuring 4.1 x 3 cm extending to the Left renal pelvis, likely representing patient's known history of renal malignancy. Recommend MRI abdomen with and without contrast to better characterize. 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 Bibasilar pulmonary consolidation. 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 This can be further evaluated with a PET scan. Small to moderate bilateral pleural effusions which appear complex in appearance, possibly malignant in etiology. This can be better evaluated with a CT chest with contrast. Abdominal aortic atherosclerotic disease. Colonic diverticular disease. Moderate volume stool in the colon. Other findings as described. EKG revealed sinus rhythm with left bundle branch block Tele reveals sinus rhythm Echocardiogram revealed: Technically limited study secondary to poor acoustic windows. Left ventricle: Mild concentric left ventricular hypertrophy was seen left ventricle was normal-sized. LVEF was 55-60%. There was no gross wall motion abnormality. Right ventricle was mildly dilated with normal systolic function. Mild biatrial enlargement was seen. Pacing wire was seen in right- sided chambers. Bioprosthetic valve was observed in aortic position. It works properly. There was no aortic insufficiency/stenosis. Mild mitral annular calcification was seen. Mild mitral regurgitation was observed. [id number] tricuspid regurgitation was seen. Right ventricular systolic pressure was assessed at 44 mm Hg. IVC was normal-sized with normal respiratory variation. There was trace pericardial effusion. Patient is a 84-year-old gentleman with advanced multiple cancers and metastasis who presented with generalized weakness. Does have baseline history of valvular heart disease for which has had TAVR before. Also has history of atrial fibrillation (paroxysmal) for which is on Eliquis as outpatient. Has been on chemotherapy/radiation therapy. Has had poor appetite and malnutrition could have contributed to the clinical picture. Advanced band of cancers could have contributed to the clinical picture. Side effects secondary to radiation/chemotherapy could have contributed to the clinical picture. Acute coronary syndrome is not considered. Decompensated heart failure is not considered as a component of presentation. Does have history of pacemaker (Biotronik) which was recently interrogated in the office. Being followed by Nephrology/Urology/Pulmonary. Encephalopathy, metabolic VICKIE on CKD Pneumonia Lung cancer Advanced metastatic cancer as COPD Pleural effusion, status post thoracentesis Multiple cancers, metastatic Poor functional capacity Paroxysmal AFib Sick sinus syndrome, status post pacemaker implantation (Biotronik) Valvular heart disease, status post TAVR s/p thoracentesis (right and left) by pulmonary Cardiac suggestion for management: Manage on telemetry Follow-up electrolytes and kidney function tests and correct abnormalities Long-term continuation of full anticoagulation is advised, if not contraindicated Nephrology follow-up is advised Pulmonary follow-up Urology Follow up Consider Oncology evaluation Goals of care as per primary team. Consider Hospice. Further evaluation and management depends on the above and clinical course Long-term prognosis: very poor A total of 55 minutes was spent reviewing the patient record, examining the patient, making a diagnostic and therapeutic plan, discussing this plan with medical personnel, following up on diagnostic studies and following the patient for clinical stability excluding any and all procedures. At least 50% of this time was spent in direct, [id number] contact. Thank you for allowing me to participate in this patient's care. Further recommendations will depend on patient's clinical course. Please do not hesitate to contact me if you have any questions or concerns. This medical document was created using electronic medical record system with [employer] computerized dictation system. Although this document has been carefully reviewed, there may still be some phonetic and typographical errors. These areas are purely typographical due to the imperfection of the software programs, and do not reflect any compromise in the patient's medical care. Dietary Evaluation Review Comments: 1. Renal Diet with Nepro oral supplementation TID 2. Monitor PO intake 3. Follow up with consults and lab values Expected Outcomes/Goals: Improved PO intakes, increased physical strength. Plan discussed with: Patient, Other (nurse) LUIS HOLT MD Apr 16, 2025 07:34
[2025-04-16] MEDS: SODIUM CHLORIDE 0.9% 500 ML IV ONE (09:00)
[2025-04-16] MEDS: METOPROLOL TARTRATE 1MG/1ML-5ML VIAL IV ONE (09:30)
[2025-04-16] MEDS ORDERED: AMIODARONE BOLUS KIT 100 ML IV ONE (09:30)
[2025-04-16 10:02] LABS: Hematocrit 27.1 % (41.0-53.0); Hemoglobin 8.8 g/dL (13.5-17.5); Mean Corpuscular Hemoglobin 29.1 pg (28.0-32.0); Mean Corpuscular Volume 89.8 fL (80.0-100.0); Nucleated Red Blood Cells % 0.1 %
[2025-04-16 10:17] LABS: Alanine Aminotransferase 19 U/L (7-40); Albumin 3.7 g/dL (3.2-4.8); Alkaline Phosphatase 70 U/L (46-116); Anion Gap 11 (5-15); BUN/Creatinine Ratio 27.4 (10.0-20.0); Bilirubin, Total 0.3 mg/dL (0.2-1.0); Blood Urea Nitrogen 63 mg/dL (9-23); Calcium 8.9 mg/dL (8.7-10.4); Carbon Dioxide 30 mmol/L (20-31); Chloride 102 mmol/L (98-107); Glucose 179 mg/dL (74-106); Potassium 4.4 mmol/L (3.5-5.1); Sodium 143 mmol/L (136-145); Total Protein 7.3 g/dL (5.7-8.2)
--- NOTE | 2025-04-16 12:57 | DVHPN2 ---
Subjective Feeling better with less SOB on 4L NC>3L Reviewed: H&P Changes from previous H/P or p: No Changes Objective Vitals Vital Signs Date Time Temp Pulse Resp B/P (MAP) Pulse Ox O2 Delivery O2 Flow Rate FiO2 04/16/25 10:30 90 Nasal Cannula 3.0 04/16/25 10:30 32 04/16/25 09:39 93/60 04/16/25 08:44 97.7 113 20 97.7 Intake/Output Intake and Output 04/16/25 07:00 Intake Total 850 ml Output Total 1800 ml Balance -950 ml Intake Oral 850 ml Output Urine Total 1800 ml # Bowel Movements 2 General Appearance: Alert, Oriented X3, Cooperative Lungs: Clear to auscultation, Normal air movement Cardiovascular: Regular rate, Normal S1 Abdomen: Normal bowel sounds, Soft Extremities: No edema Medications Current Medications Medications Dose Ordered Sig/Andressa Route Start Time Stop Time Status Last Admin Dose Admin Apixaban 2.5 mg BID PO 04/07/25 10:00 04/16/25 09:39 2.5 MG Atorvastatin Calcium 80 mg HS PO 04/07/25 22:00 04/15/25 21:13 80 MG Levothyroxine Sodium 150 mcg QAM@0600 PO 04/07/25 06:00 04/16/25 05:36 150 MCG Ondansetron HCl 4 mg Q4HP PRN IV 04/06/25 22:15 Acetaminophen 650 mg Q6HP PRN PO 04/06/25 22:15 04/07/25 17:12 650 MG Albuterol 2.5 mg Q6HR NEB 04/07/25 12:00 04/16/25 08:08 2.5 MG Ipratropium [place] 0.5 mg Q6HWA NEB 04/07/25 12:00 04/16/25 08:08 0.5 MG Enteral Nutritional Formula 240 ml TIDWM PO 04/08/25 08:00 04/16/25 11:36 240 ML Levofloxacin 250 mg DAILY PO 04/10/25 10:00 04/16/25 09:39 250 MG Guaifenesin/ Dextromethorphan 10 ml Q4HP PRN PO 04/09/25 13:15 04/10/25 13:16 10 ML Furosemide 20 mg DAILY IV 04/15/25 10:00 04/16/25 09:39 20 MG Amiodarone HCl 250 ml @ 33.33 mls/ hr Q7H31M IV 04/16/25 11:00 04/16/25 11:35 33.33 MLS/HR Laboratory Results Laboratory Tests 04/16/25 09:40 Chemistry Test 04/16/25 09:40 Albumin 3.7 g/dL (3.2-4.8) Calcium Level 8.9 mg/dL (8.7-10.4) Total Protein 7.3 g/dL (5.7-8.2) LFT Test 04/16/25 09:40 Alanine Aminotransferase (ALT) 19 U/L (7-40) Alkaline Phosphatase 70 U/L (46-116) Aspartate Amino Transferase (AST) 22 U/L (13-40) Total Bilirubin 0.3 mg/dL (0.2-1.0) Urinalysis Test 04/07/25 14:30 Urine Color Light-orange (Yellow) Urine Clarity Turbid (Clear) H Urine pH 8.0 (5.0-9.0) Urine Specific [place] 1.030 (1.001-1.035) Urine Protein 3+ (Negative) H Urine Ketones Negative (Negative) Urine Blood 3+ /uL (Negative) H Urine Nitrite Negative (Negative) Urine Bilirubin Negative (Negative) Urine Urobilinogen Normal mg/dL (Negative) Urine Leukocyte Esterase Negative /uL (Negative) Urine RBC 1399 /hpf (0 - 3) Urine WBC Clumps Present /hpf (None Seen) Urine Microscopic WBC 411 /HPF (0-3) H Urine Squamous Epithelial Cells None seen /hpf (<5) Urine Bacteria Few /hpf (None Seen) H Urine Mucus Few (None Seen) Urine Creatinine < 3.00 mg/dL (30.0-125.0) L Urine Protein/Creatinine Ratio 833.00 Urine Sodium 154 mmol/L (40-220) Urine Glucose 2+ mg/dL (Normal) H Urine Total Protein > 2500.0 mg/dL (1-14) H Microbiology Microbiology Date/Time Source Procedure Growth Status 04/13/25 20:40 Pleural Fluid Gram Stain - Final Resulted 04/13/25 20:40 Pleural Fluid Body Fluid Culture - Preliminary No growth Resulted 04/06/25 17:13 Voided Urine Urine Culture - Final Klebsiella oxytoca - ESBL Complete 04/06/25 16:06 Blood Blood Culture - Final NO GROWTH AFTER 5 DAYS OF INCUBATION. Complete Assessment/Plan Assessment/Plan Metabolic encephalopathy Hypernatremia Acute kidney injury due to vasomotor nephropathy Chronic kidney disease Lung cancer on radiation therapy Bilateral pneumonia UTI History of heart failure Small pleural effusion Chronic anemia of chronic disease Acute on chronic hypoxic respiratory failure COPD Hypertension Type 2 diabetes Obesity History of prostate cancer status post prostatectomy History of aortic stenosis status post TAVR Hypothyroidism History of CVA Atrial fibrillation on Eliquis Plan Continue IV antibiotics Rocephin and Zithromax Add IV fluids D5 half NS Nephrology consult Chavez catheter Physical therapy Echocardiogram Kidney ultrasound Blood culture Urine culture Monitor closely Continue Eliquis 04/08/25: Pneumonia: Rocephin and Zithromax UTI Left renal mass: Get CT ab & pelvis, urology consult CKD: Nephrology consult Afib: Eliquis, cardiology consult Lung CA Pleural effusion s/p thoracentesis VICKIE/CKD COPD s/p TAVR 04/09/2025: Switch the IV antibiotics to p.o. Levaquin UTI with Klebsiella ESBL: P.o. Levaquin Left renal mass: Urology on board, IR procedure to do renal biopsy and left renal cryoablation Pneumonia CKD Atrial fibrillation on Eliquis VICKIE COPD History of TAVR We will discuss with Interventional Radiology whether the renal biopsy and left renal cryoablation can be done here Discussed with the at the bedside, she is hesitant about surgeries The patient is high-risk for surgery 04/10/25: Physical therapy Continue po Levaquin Observe closely Eliquis O2 prn 04/11/2025: Discontinue IV fluids Continue p.o. Levaquin Reviewed the chest x-ray, no need for thoracentesis at this time Oxygen as needed Monitor closely 04/12/2025: Pneumonia and UTI: Continue Levaquin p.o. Atrial fibrillation: Eliquis 2.5 mg twice a day Discontinue IV fluids Physical therapy Discharge planning 04/13 Continue po levaquin wean off oxygen PT eval 04/14 continue levaquin s/p thoracocentesis 04/15 Will need home health 04/16 weaning off oxygen pending another thoracocentesis Plan discussed with: Patient My Orders Orders - FLIP DOUGLASS MD Procedure Category Date Status Time * [employer] CONS 04/15/25 Transmitted Consult Date of Service: Apr 16, 2025 Billing Provider: FLIP DOUGLASS MD Common Visit Codes: [id number] INP/OBS CARE(HIGH) FLIP DOUGLASS MD Apr 16, 2025 12:57
--- NOTE | 2025-04-16 16:38 | DVHPN2 ---
Progress Note Date Seen: Apr 16, 2025 Medical Necessity Reason Pt with a Central, PICC or Fol: No Subjective Patient reports: Other (Patient had high heart rate) Review of Systems: Deferred Objective vital signs Vital Sign Date Time Temp Pulse Resp B/P (MAP) Pulse Ox O2 Delivery O2 Flow Rate FiO2 04/16/25 13:00 98.0 123 20 90/41 (57) 90 98.0 04/16/25 10:30 Nasal Cannula 3.0 04/16/25 10:30 32 Total Intake and Output 04/15/25 04/15/25 04/16/25 15:00 23:00 07:00 Intake Total 850 ml Output Total 1800 ml Balance -950 ml medications Current Medications Medications Dose Ordered Sig/Andressa Route Start Time Stop Time Status Last Admin Dose Admin Apixaban 2.5 mg BID PO 04/07/25 10:00 04/16/25 09:39 2.5 MG Atorvastatin Calcium 80 mg HS PO 04/07/25 22:00 04/15/25 21:13 80 MG Levothyroxine Sodium 150 mcg QAM@0600 PO 04/07/25 06:00 04/16/25 05:36 150 MCG Ondansetron HCl 4 mg Q4HP PRN IV 04/06/25 22:15 Acetaminophen 650 mg Q6HP PRN PO 04/06/25 22:15 04/07/25 17:12 650 MG Albuterol 2.5 mg Q6HR NEB 04/07/25 12:00 04/16/25 08:08 2.5 MG Ipratropium [place] 0.5 mg Q6HWA [facility] 04/07/25 12:00 04/16/25 08:08 0.5 MG Enteral Nutritional Formula 240 ml TIDWM PO 04/08/25 08:00 04/16/25 11:36 240 ML Levofloxacin 250 mg DAILY PO 04/10/25 10:00 04/16/25 09:39 250 MG Guaifenesin/ Dextromethorphan 10 ml Q4HP PRN PO 04/09/25 13:15 04/10/25 13:16 10 ML Furosemide 20 mg DAILY IV 04/15/25 10:00 04/16/25 09:39 20 MG Amiodarone HCl 250 ml @ 33.33 mls/ hr Q7H31M IV 04/16/25 11:00 04/16/25 11:35 33.33 MLS/HR Examination: CVS:Abnormal, MSK:Abnormal laboratory and microbiology Laboratory Tests 04/16/25 09:40 Test 04/16/25 09:40 Range/Units Serum Glucose 179 H 74-106 mg/dL Microbiology Date/Time Source Procedure Growth Status 04/13/25 20:40 Pleural Fluid Gram Stain - Final Resulted 04/13/25 20:40 Pleural Fluid Body Fluid Culture - Preliminary No growth Resulted 04/06/25 17:13 Voided Urine Urine Culture - Final Klebsiella oxytoca - ESBL Complete 04/06/25 16:06 Blood Blood Culture - Final NO GROWTH AFTER 5 DAYS OF INCUBATION. 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 Duran Mild hypernatremia/dehydration, possibly due to decreased oral intake Renal mass, likely renal cell carcinoma Lung cancer, on radiotherapy Skin cancer COPD exacerbation Hematuria Hypertension Dyslipidemia Status post pacemaker Large right pleural effusion, post thoracentesis (drained 1.1 L) Atrial fibrillation, Recommendation Stable renal function Started on amiodarone drip Urology recommending renal mass biopsy and possible cryoablation by IR,, however patient and his does not want any intervention for now Plan discussed with: Patient, Other Dietary Evaluation Review Comments: 1. Renal Diet with Nepro oral supplementation TID 2. Monitor PO intake 3. Follow up with consults and lab values Expected Outcomes/Goals: Improved PO intakes, increased physical strength. RAFY VELASCO MD Apr 16, 2025 16:38
--- NOTE | 2025-04-16 18:31 | DVH ---
CHEST RADIOGRAPH Indication: pneumothorax Technique: Single frontal view of the chest was obtained Comparison: XY CHEST XRAY 1 VIEW on DOS: 04/13/25, XY CHEST XRAY 1 VIEW on DOS: 04/11/25, XY CHEST XRAY 1 VIEW on DOS: 04/07/25 FINDINGS: Lines and Tubes: Dual-chamber pacemaker in place pulse generator over the left chest. Lungs: Minimal change in the airspace disease in the right base. Developing airspace disease in the left base small left pleural effusion. Pleura: No effusion. No pneumothorax. Cardiomediastinal contours: Unremarkable Bones: No acute osseous abnormality. IMPRESSION: 1. Minimal change in the airspace disease right lower lobe. Right pleural effusion is decreased. No right pneumothorax. 2. Developing left lower lobe airspace disease and small pleural effusion.
--- NOTE | 2025-04-16 20:23 | DVHNC2 ---
Procedure - Thoracentesis Procedure Note under ultrasound guidance INDICATION: Right sided pleural effusion PHYSICIAN: Mary Grullon MD CONSENT: Consent was obtained from patient/patient's HCP prior to the procedure. Indications, risks, and benefits were explained at length. Time out time: 1700 hours Risks and benefits of the procedure and sedation options and risks were discussed with the patient/patient's HCP. All questions were answered and informed consent was obtained. Patient identification and proposed procedure were verified prior to the procedure by the physician, and the nurse in the patient's room. PROCEDURE SUMMARY: A time out was performed and the chest x-ray was reviewed, the appropriate side was confirmed and marked. My hands were washed immediately prior to the procedure. I wore a surgical cap, mask with protective eyewear, sterile gown and sterile gloves throughout the procedure. The patient was prepped and draped in a sterile manner using chlorhexidine scrub after the appropriate level was percussed and confirmed by ultrasound. 1% lidocaine was used to anesthesize the skin, subcutaneous tissue, superior aspect of the rib periosteum and parietal pleura. A finder needle was then introduced over the superior aspect of the rib to locate the pleural fluid; yellow-straw colored fluid was aspirated at a depth of approximately 2 cm. A 10-blade scalpel was used to radha the skin at the insertion site. Under real-time ultrasound guidance, the 5 [place] Yueh Thora-Centesis needle was then introduced through the skin incision into the pleural space using negative aspiration pressure. The thoracentesis catheter was then threaded without difficulty. 500 ml of serosanguineous colored fluid was removed without difficulty. The catheter was then removed. No immediate complications were noted during the procedure. Using the linear probe, lung sliding was noted anteriorly and posteriorly and are an indication of no pneumothorax. A post-procedure chest x-ray is pending at the time of this note. The fluid will be sent for studies cell count and differential, fluid LDH, glucose, albumin and total protein, gram stain and culture, and cytology. Estimated blood loss is less than 5 mL. CPT: 18391 Visit Coding Pulmonary Billing Provider: ARIA GRULLON MD Date of Service if different f: Apr 16, 2025 Common Visit Codes: PROCEDURE ONLY Procedure Codes: [id number] W/PUNCT (CPT 17869 Right thoracentesis) ARIA GRULLON MD Apr 16, 2025 20:23
--- NOTE | 2025-04-16 22:36 | DVHPN2 ---
Subjective DOS: 04/16/2025 Patient seen and examined at bedside. Remains on supplemental oxygen Overnight events reviewed. Reviewed: H&P Changes from previous H/P or p: No Changes Objective Vitals Vital Signs Date Time Temp Pulse Resp B/P (MAP) Pulse Ox O2 Delivery O2 Flow Rate FiO2 04/16/25 21:00 98.1 88 18 105/59 (74) 96 98.1 04/16/25 20:00 Nasal Cannula* 3 32 Intake/Output Intake and Output 04/16/25 07:00 Intake Total 850 ml Output Total 1800 ml Balance -950 ml Intake Oral 850 ml Output Urine Total 1800 ml # Bowel Movements 2 Exam Gen.: Patient lying in bed in no apparent distress. On supplemental oxygen. Head: Normocephalic, atraumatic. Eyes: EOMI/PERRLA. Ears: Normal hearing. Normal anatomy. Neck/trachea: Trachea midline, supple. Nose: Normal external anatomy. Mouth: Moist mucous membranes. Chest: Decreased air entry bilaterally. Wheezing. No rhonchi. Cardiovascular: Positive S1, positive S2. Regular rate and rhythm. Abdomen: Positive bowel sounds in all 4 quadrants. Soft, non-tender, non- distended. : Deferred. Rectal: Deferred. Skin: Warm, dry. Intact. Extremities: 2+ radial pulses bilaterally. Trace bilateral lower extremity edema. Neuro: Awake, alert, oriented x3. No gross motor or sensory deficits. Cranial nerves II through XII intact. Gait not assessed. General Appearance: Alert, Oriented X3, Cooperative Lungs: Clear to auscultation, Normal air movement Cardiovascular: Regular rate, Normal S1 Abdomen: Normal bowel sounds, Soft Extremities: No edema Medications Current Medications Medications Dose Ordered Sig/Andressa Route Start Time Stop Time Status Last Admin Dose Admin Apixaban 2.5 mg BID PO 04/07/25 10:00 04/16/25 21:31 2.5 MG Atorvastatin Calcium 80 mg HS PO 04/07/25 22:00 04/16/25 21:31 80 MG Levothyroxine Sodium 150 mcg QAM@0600 PO 04/07/25 06:00 04/16/25 05:36 150 MCG Ondansetron HCl 4 mg Q4HP PRN IV 04/06/25 22:15 Acetaminophen 650 mg Q6HP PRN PO 04/06/25 22:15 04/07/25 17:12 650 MG Albuterol 2.5 mg Q6HR NEB 04/07/25 12:00 04/16/25 18:37 2.5 MG Ipratropium [place] 0.5 mg Q6HWA NEB 04/07/25 12:00 04/16/25 18:37 0.5 MG Enteral Nutritional Formula 240 ml TIDWM PO 04/08/25 08:00 04/16/25 17:45 240 ML Levofloxacin 250 mg DAILY PO 04/10/25 10:00 04/16/25 09:39 250 MG Guaifenesin/ Dextromethorphan 10 ml Q4HP PRN PO 04/09/25 13:15 04/10/25 13:16 10 ML Furosemide 20 mg DAILY IV 04/15/25 10:00 04/16/25 09:39 20 MG Amiodarone HCl 250 ml @ 33.33 mls/ hr Q7H31M IV 04/16/25 11:00 04/16/25 17:55 33.33 MLS/HR Laboratory Results Laboratory Tests 04/16/25 09:40 Chemistry Test 04/16/25 09:40 Albumin 3.7 g/dL (3.2-4.8) Calcium Level 8.9 mg/dL (8.7-10.4) Total Protein 7.3 g/dL (5.7-8.2) LFT Test 04/16/25 09:40 Alanine Aminotransferase (ALT) 19 U/L (7-40) Alkaline Phosphatase 70 U/L (46-116) Aspartate Amino Transferase (AST) 22 U/L (13-40) Total Bilirubin 0.3 mg/dL (0.2-1.0) Urinalysis Test 04/07/25 14:30 Urine Color Light-orange (Yellow) Urine Clarity Turbid (Clear) H Urine pH 8.0 (5.0-9.0) Urine Specific [place] 1.030 (1.001-1.035) Urine Protein 3+ (Negative) H Urine Ketones Negative (Negative) Urine Blood 3+ /uL (Negative) H Urine Nitrite Negative (Negative) Urine Bilirubin Negative (Negative) Urine Urobilinogen Normal mg/dL (Negative) Urine Leukocyte Esterase Negative /uL (Negative) Urine RBC 1399 /hpf (0 - 3) Urine WBC Clumps Present /hpf (None Seen) Urine Microscopic WBC 411 /HPF (0-3) H Urine Squamous Epithelial Cells None seen /hpf (<5) Urine Bacteria Few /hpf (None Seen) H Urine Mucus Few (None Seen) Urine Creatinine < 3.00 mg/dL (30.0-125.0) L Urine Protein/Creatinine Ratio 833.00 Urine Sodium 154 mmol/L (40-220) Urine Glucose 2+ mg/dL (Normal) H Urine Total Protein > 2500.0 mg/dL (1-14) H Microbiology Microbiology Date/Time Source Procedure Growth Status 04/13/25 20:40 Pleural Fluid Gram Stain - Final Resulted 04/13/25 20:40 Pleural Fluid Body Fluid Culture - Preliminary No growth Resulted 04/06/25 17:13 Voided Urine Urine Culture - Final Klebsiella oxytoca - ESBL Complete 04/06/25 16:06 Blood Blood Culture - Final NO GROWTH AFTER 5 DAYS OF INCUBATION. Complete Assessment/Plan Assessment/Plan Impression: Acute on chronic hypoxic respiratory failure Dependence on supplemental oxygen Lung cancer Congestive heart failure Pneumonia, likely gram negative Pleural effusion Atelectasis Kidney mass, likely metastatic cancer Events: Remains on supplemental oxygen, 3 LPM NC Taper O2 as tolerated Obtain STAT chest x-ray S/p right thoracentesis today with 500 mL serosanguineous fluid removed from right pleural space. See separate procedure note for details Follow up pleural fluid cultures and cytology. Shortness of breath is improved. AFib with RVR - amiodarone drip. Head of bed elevation Aspiration precautions. Continue bronchodilators Antibiotics for pneumonia/UTI - complete course Incentive spirometry Monitor blood pressure Obtain IR consult for renal biopsy. Follow up recommendations Diurese with Lasix Monitor renal function. Monitor electrolytes. Supplement as necessary. Monitor ins and outs. Maintain euvolemia. Avoid fluid overload. Physical therapy. Disposition per hospitalist. S/p left thoracentesis on 04/13/25 with 650 mL alexia fluid drained from left pleural space. Pleural fluid cultures and cytology - no growth, no malignant cells Post-procedure CXR revealed improved aeration of the left lower lung zone with residual trace left-sided pleural effusion and left mid and lower lung zone atelectasis. Unchanged interstitial and alveolar type opacities of the right lower lung zone with obscuration of the right hemidiaphragm. Abdomen-pelvis CT w/o contrast on 04/08/25 showed left renal hyperdense lesion/ mass of 4.1 x 3 cm extending to the left renal pelvis, likely representing patient's known history of renal malignancy. 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 Bibasilar pulmonary consolidation. 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 Small to moderate bilateral pleural effusions which appear complex in appearance, possibly malignant. Abdominal aortic atherosclerotic disease. Colonic diverticular disease. Moderate volume stool in the colon. S/p right thora on 04/07/25 - 1100 mL's of alexia colored fluid removed from right pleural space See separate procedure note for details F/u pleural fluid cx and cytology - no growth Labs and imaging reviewed. Rest of plan as noted below. Plan: Supplemental oxygen Titrate to keep O2 sats above 92%. Head of bed elevation Aspiration precautions. Continue bronchodilators. Continue antibiotics Incentive spirometry Follow up Cardiology recommendations Monitor renal function. Monitor electrolytes. Supplement as necessary. Monitor ins and outs. Maintain euvolemia. Labs and imaging reviewed. DVT prophylaxis. Prognosis: Poor given patient's multiple co-morbidities. Rest of plan per hospitalist and other consultants. Thank you, Dr. Phipps, for allowing me to participate in this patient's care. Further recommendations will depend on the patient's clinical course. Please do not hesitate to contact me if you have any questions or concerns. This medical document was created using an electronic medical record system with [employer] dictation system. Although these documentations are being carefully reviewed, there may still be some phonetic and typographical changes. The errors are purely typographical, due to imperfection on the software program, and do not reflect any compromise in the patient's medical care. Plan discussed with: Patient, Other (ALEX Paul) My Orders Orders - ARIA PERRY MD Procedure Category Date Status Time Chest Portable XY 04/16/25 Resulted 17:44 Visit Coding Pulmonary Billing Provider: ARIA PERRY MD Date of Service if different f: Apr 16, 2025 Common Visit Codes: [id number] INP/OBS CARE(HIGH) ARIA PERRY MD Apr 16, 2025 22:36
[2025-04-17] VITALS (19 sets, daily range): BP systolic 102–121; BP diastolic 46–64; PULSE 72–87; RESP 14–20; TEMP 97.8–98.7; O2SAT 93–100
--- NOTE | 2025-04-17 06:07 | DVHPN2 ---
Progress Note - Dictate Date Seen: Apr 17, 2025 Medical Necessity Reason Pt with a Central, PICC or Fol: No vital signs Vital Sign Date Time Temp Pulse Resp B/P (MAP) Pulse Ox O2 Delivery O2 Flow Rate FiO2 04/17/25 05:00 98.0 78 19 109/64 (79) 96 98.0 04/17/25 00:18 Nasal Cannula 3.0 04/17/25 00:18 32 Total Intake and Output 04/16/25 04/16/25 04/17/25 15:00 23:00 07:00 Intake Total 500 ml 890 ml 250 ml Output Total 1500 ml 450 ml Balance 500 ml -610 ml -200 ml medications Current Medications Medications Dose Ordered Sig/Andressa Route Start Time Stop Time Status Last Admin Dose Admin Apixaban 2.5 mg BID PO 04/07/25 10:00 04/16/25 21:31 2.5 MG Atorvastatin Calcium 80 mg HS PO 04/07/25 22:00 04/16/25 21:31 80 MG Levothyroxine Sodium 150 mcg QAM@0600 PO 04/07/25 06:00 04/17/25 05:57 150 MCG Ondansetron HCl 4 mg Q4HP PRN IV 04/06/25 22:15 Acetaminophen 650 mg Q6HP PRN PO 04/06/25 22:15 04/07/25 17:12 650 MG Albuterol 2.5 mg Q6HR NEB 04/07/25 12:00 04/17/25 00:20 2.5 MG Ipratropium [place] 0.5 mg Q6HWA NEB 04/07/25 12:00 04/16/25 18:37 0.5 MG Enteral Nutritional Formula 240 ml TIDWM PO 04/08/25 08:00 04/16/25 17:45 240 ML Levofloxacin 250 mg DAILY PO 04/10/25 10:00 04/16/25 09:39 250 MG Guaifenesin/ Dextromethorphan 10 ml Q4HP PRN PO 04/09/25 13:15 04/10/25 13:16 10 ML Furosemide 20 mg DAILY IV 04/15/25 10:00 04/16/25 09:39 20 MG Amiodarone HCl 250 ml @ 33.33 mls/ hr Q7H31M IV 04/16/25 11:00 04/17/25 01:57 33.33 MLS/HR laboratory and microbiology Laboratory Tests 04/16/25 09:40 Test 04/16/25 09:40 Range/Units Serum Glucose 179 H 74-106 mg/dL Assessment/Plan Had Episodes of a-fib with RVR. Started on Amio drip Patient is a 84-year-old gentleman who was brought by for generalized weakness which was ongoing and worsening for the past month. Does have history of advanced/metastatic cancer. Cardiology is involved for cardiac aspects of care (patient's called me personally). Patient is known to our practice from outside and before. There is no report of chest pain. There is no report of palpitation. Patient has been on chemotherapy/radiation therapy. Cachectic male. Sitting in bed. Somewhat confused. No gross JVD. Mucosa is pale. Scattered rhonchi in the lungs is heard. Not using accessory muscles of breathing. Cardiac: Regular. Systolic murmur 2/6 in the apex is heard. Abdomen is soft. Bilateral edema seen. 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 Echocardiogram of January 16, 2025 (performed in the office) revealed ejection fraction 45-50%, mild concentric left ventricular hypertrophy, mild left atrial enlargement, pacemaker wires were seen right-sided chambers, bioprosthetic valve in aortic position which worked normally, mild mitral regurgitation, [id number] tricuspid regurgitation with right ventricular systolic pressure of 36 mm Hg. Hemoglobin: 8.6 - 9.0 - 8.2 - 7.4 - 8.2 - 7.8 - 7.8 - 7.9 - 7.7 - 8.8 Creatinine: 2.74 - 2.63 - 2.37 - 2.59 - 2.21 - 1.97 - 1.95 - 1.80 - 2.13 - 2.09 - 2.30 Potassium: 4.5 - 4.5 - 4.0 - 4.3 - 4.3 - 4.4 - 4.8 - 4.7 - 4.8 - 4.4 -4.4 TSH: 1.86 BNP: 370.27 Troponin (high sensitive): Chest x-ray revealed: IMPRESSION: 1. Cardiomegaly with bibasilar airspace disease and possible small pleural effusion on the right. 2. Pneumonia versus congestive failure are both in the radiographic differential Repeat chest x-ray revealed: IMPRESSION: 1. Removal of the right pleural effusion with atelectasis in the right base. 2. No pneumothorax 3. Pacemaker in place unchanged. Repeat chest xry revealed: IMPRESSION: 1. Moderately progressive multifocal bilateral pulmonary airspace disease with new right mid lung zone infiltrate. 2. Small bilateral pleural effusions. Repeat chest xry revealed: IMPRESSION: Improved aeration of the left lower lung zone with residual trace left-sided pleural effusion and left mid and lower lung zone atelectasis. Unchanged interstitial and alveolar type opacities of the right lower lung zone with obscuration of the right hemidiaphragm. No pneumothorax. CT of the head reported: IMPRESSION: 1. No acute intracranial abnormality. 2. Mild cerebral volume loss and minor chronic microvascular ischemic change. Renal ultrasound reported: IMPRESSION: 1. No hydronephrosis. 2. Questionable 3.2 cm left renal mass. Recommend further evaluation with CT or MRI with IV contrast 3. Bilateral pleural effusions. CT of Abdomen and Pelvis revealed: There is limited interpretation of the abdomen and pelvis without administration of intravenous contrast. Aortic valvular prosthesis. Tiny pericardial effusion. Multiple subcarinal/ paraesophageal lymph nodes up to 2.2 cm. Bilateral pleural [id number] which appears small to moderate in size and [id number] complex in appearance. Bibasilar atelectasis /consolidation Adrenal glands, spleen unremarkable in shape. Pancreatic parenchymal atrophy. No CT evidence for cholelithiasis. Liver capsule nodular morphology. The right kidney demonstrates no hydronephrosis / nephrolithiasis. Left renal hyperdense lesion/ mass extending into the pelvis measuring 4.1 x 3 cm. Nonobstructing left renal calculus measuring 7 mm. Periaortic/retroperitoneal lymph node measuring 10 mm. Portacaval lymph node measuring 12 mm. Stomach is partially distended. Small bowel loops are normal in caliber. Colonic diverticular disease. Moderate volume stool in the colon. Normal appendix. Abdominal aortic atherosclerotic disease. Bladder decompressed by Chavez catheter. No free pelvic fluid. Right inguinal lymph nodes measuring up to 12 mm. Soft tissue edema / anasarca. Moderate to advanced lumbar degenerative disc disease. IMPRESSION: Limited evaluation without contrast. Left renal hyperdense lesion/ mass measuring 4.1 x 3 cm extending to the Left renal pelvis, likely representing patient's known history of renal malignancy. Recommend MRI abdomen with and without contrast to better characterize. 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 Bibasilar pulmonary consolidation. 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 This can be further evaluated with a PET scan. Small to moderate bilateral pleural effusions which appear complex in appearance, possibly malignant in etiology. This can be better evaluated with a CT chest with contrast. Abdominal aortic atherosclerotic disease. Colonic diverticular disease. Moderate volume stool in the colon. Other findings as described. EKG revealed sinus rhythm with left bundle branch block Tele reveals sinus rhythm, with episodes of a-fib with RVR Echocardiogram revealed: Technically limited study secondary to poor acoustic windows. Left ventricle: Mild concentric left ventricular hypertrophy was seen left ventricle was normal-sized. LVEF was 55-60%. There was no gross wall motion abnormality. Right ventricle was mildly dilated with normal systolic function. Mild biatrial enlargement was seen. Pacing wire was seen in right- sided chambers. Bioprosthetic valve was observed in aortic position. It works properly. There was no aortic insufficiency/stenosis. Mild mitral annular calcification was seen. Mild mitral regurgitation was observed. [id number] tricuspid regurgitation was seen. Right ventricular systolic pressure was assessed at 44 mm Hg. IVC was normal-sized with normal respiratory variation. There was trace pericardial effusion. Patient is a 84-year-old gentleman with advanced multiple cancers and metastasis who presented with generalized weakness. Does have baseline history of valvular heart disease for which has had TAVR before. Also has history of atrial fibrillation (paroxysmal) for which is on Eliquis as outpatient. Has been on chemotherapy/radiation therapy. Has had poor appetite and malnutrition could have contributed to the clinical picture. Advanced band of cancers could have contributed to the clinical picture. Side effects secondary to radiation/chemotherapy could have contributed to the clinical picture. Acute coronary syndrome is not considered. Decompensated heart failure is not considered as a component of presentation. Does have history of pacemaker (DCMobilityronik) which was recently interrogated in the office. Being followed by Nephrology/Urology/Pulmonary. Had episodes of A-fib with RVR. Started on Amio drip Encephalopathy, metabolic VICKIE on CKD Pneumonia Lung cancer Advanced metastatic cancer as COPD Pleural effusion, status post thoracentesis Multiple cancers, metastatic Poor functional capacity Paroxysmal AFib Sick sinus syndrome, status post pacemaker implantation (Biotronik) Valvular heart disease, status post TAVR s/p thoracentesis (right and left) by pulmonary A-fib with RVR, Cardiac suggestion for management: Manage on telemetry Follow-up electrolytes and kidney function tests and correct abnormalities Had episodes of A-fib with RVR: On Amio drip Long-term continuation of full anticoagulation is advised, if not contraindicated Nephrology follow-up is advised Pulmonary follow-up Urology Follow up Consider Oncology evaluation Goals of care as per primary team. Consider Hospice. Further evaluation and management depends on the above and clinical course Long-term prognosis: very poor A total of 55 minutes was spent reviewing the patient record, examining the patient, making a diagnostic and therapeutic plan, discussing this plan with medical personnel, following up on diagnostic studies and following the patient for clinical stability excluding any and all procedures. At least 50% of this time was spent in direct, [id number] contact. Thank you for allowing me to participate in this patient's care. Further recommendations will depend on patient's clinical course. Please do not hesitate to contact me if you have any questions or concerns. This medical document was created using electronic medical record system with [employer] computerized dictation system. Although this document has been carefully reviewed, there may still be some phonetic and typographical errors. These areas are purely typographical due to the imperfection of the software programs, and do not reflect any compromise in the patient's medical care. Dietary Evaluation Review Comments: 1. Renal Diet with Nepro oral supplementation TID 2. Monitor PO intake 3. Follow up with consults and lab values Expected Outcomes/Goals: Improved PO intakes, increased physical strength. Plan discussed with: Other (nurse) LUIS HOLT MD Apr 17, 2025 06:07
[2025-04-17 09:08] LABS: Chloride 101 mmol/L (98-107); Potassium 4.7 mmol/L (3.5-5.1); Sodium 143 mmol/L (136-145)
[2025-04-17 09:09] LABS: Anion Gap 8 (5-15)
[2025-04-17 09:10] LABS: Calcium 8.7 mg/dL (8.7-10.4); Carbon Dioxide 34 mmol/L (20-31)
[2025-04-17 09:14] LABS: BUN/Creatinine Ratio 29.7 (10.0-20.0)
[2025-04-17 09:16] LABS: Blood Urea Nitrogen 65 mg/dL (9-23); Glucose 145 mg/dL (74-106)
--- NOTE | 2025-04-17 09:56 | DVHPN2 ---
Progress Note - Dictate Date Seen: Apr 17, 2025 Medical Necessity Reason Pt with a Central, PICC or Fol: No vital signs Vital Sign Date Time Temp Pulse Resp B/P (MAP) Pulse Ox O2 Delivery O2 Flow Rate FiO2 04/17/25 09:26 107/48 04/17/25 09:00 97.8 81 16 93 97.8 04/17/25 07:48 Nasal Cannula* 3 32 Total Intake and Output 04/16/25 04/16/25 04/17/25 15:00 23:00 07:00 Intake Total 500 ml 890 ml 370 ml Output Total 1500 ml 850 ml Balance 500 ml -610 ml -480 ml medications Current Medications Medications Dose Ordered Sig/Andressa Route Start Time Stop Time Status Last Admin Dose Admin Apixaban 2.5 mg BID PO 04/07/25 10:00 04/17/25 09:26 2.5 MG Atorvastatin Calcium 80 mg HS PO 04/07/25 22:00 04/16/25 21:31 80 MG Levothyroxine Sodium 150 mcg QAM@0600 PO 04/07/25 06:00 04/17/25 05:57 150 MCG Ondansetron HCl 4 mg Q4HP PRN IV 04/06/25 22:15 Acetaminophen 650 mg Q6HP PRN PO 04/06/25 22:15 04/07/25 17:12 650 MG Albuterol 2.5 mg Q6HR NEB 04/07/25 12:00 04/17/25 07:06 2.5 MG Ipratropium [place] 0.5 mg Q6HWA [facility] 04/07/25 12:00 04/17/25 07:07 0.5 MG Enteral Nutritional Formula 240 ml TIDWM PO 04/08/25 08:00 04/17/25 07:51 240 ML Levofloxacin 250 mg DAILY PO 04/10/25 10:00 04/17/25 09:27 250 MG Guaifenesin/ Dextromethorphan 10 ml Q4HP PRN PO 04/09/25 13:15 04/10/25 13:16 10 ML Furosemide 20 mg DAILY IV 04/15/25 10:00 04/17/25 09:26 20 MG Amiodarone HCl 250 ml @ 16.66 mls/ hr Q15H1M IV 04/17/25 07:00 04/17/25 07:07 16.66 MLS/HR laboratory and microbiology Laboratory Tests 04/17/25 08:32 04/16/25 09:40 Test 04/17/25 08:32 Range/Units Serum Glucose 145 H 74-106 mg/dL Assessment/Plan Acute on chronic hypoxic respiratory failure Dependence on supplemental oxygen Lung cancer Congestive heart failure Pneumonia, likely gram negative Pleural effusion Atelectasis Kidney mass, likely metastatic cancer Events: Remains on supplemental oxygen, 3 LPM NC Taper O2 as tolerated s/p bilat thora on amiodarone drip Continue bronchodilators Antibiotics for pneumonia/UTI - complete course Incentive spirometry Monitor blood pressure Diurese with Lasix Monitor renal function. Monitor electrolytes. Supplement as necessary. Monitor ins and outs. Maintain euvolemia. Avoid fluid overload. Physical therapy. Disposition per primary team Dietary Evaluation Review Comments: 1. Renal Diet with Nepro oral supplementation TID 2. Monitor PO intake 3. Follow up with consults and lab values Expected Outcomes/Goals: Improved PO intakes, increased physical strength. Plan discussed with: Patient GUY GOTTI MD Apr 17, 2025 09:56
--- NOTE | 2025-04-17 17:53 | DVHPN2 ---
Progress Note Date Seen: Apr 17, 2025 Medical Necessity Reason Pt with a Central, PICC or Fol: No Subjective Patient reports: No new complaints Objective vital signs Vital Sign Date Time Temp Pulse Resp B/P (MAP) Pulse Ox O2 Delivery O2 Flow Rate FiO2 04/17/25 13:34 79 20 99 04/17/25 12:56 98.1 102/47 (65) 98.1 04/17/25 10:00 Nasal Cannula 3.0 04/17/25 10:00 32 Total Intake and Output 04/16/25 04/16/25 04/17/25 15:00 23:00 07:00 Intake Total 500 ml 890 ml 370 ml Output Total 1500 ml 850 ml Balance 500 ml -610 ml -480 ml medications Current Medications Medications Dose Ordered Sig/Andressa Route Start Time Stop Time Status Last Admin Dose Admin Apixaban 2.5 mg BID PO 04/07/25 10:00 04/17/25 09:26 2.5 MG Atorvastatin Calcium 80 mg HS PO 04/07/25 22:00 04/16/25 21:31 80 MG Levothyroxine Sodium 150 mcg QAM@0600 PO 04/07/25 06:00 04/17/25 05:57 150 MCG Ondansetron HCl 4 mg Q4HP PRN IV 04/06/25 22:15 Acetaminophen 650 mg Q6HP PRN PO 04/06/25 22:15 04/07/25 17:12 650 MG Albuterol 2.5 mg Q6HR NEB 04/07/25 12:00 04/17/25 13:20 2.5 MG Ipratropium [place] 0.5 mg Q6HWA NEB 04/07/25 12:00 04/17/25 13:20 0.5 MG Enteral Nutritional Formula 240 ml TIDWM PO 04/08/25 08:00 04/17/25 17:15 240 ML Levofloxacin 250 mg DAILY PO 04/10/25 10:00 04/17/25 09:27 250 MG Guaifenesin/ Dextromethorphan 10 ml Q4HP PRN PO 04/09/25 13:15 04/10/25 13:16 10 ML Furosemide 20 mg DAILY IV 04/15/25 10:00 04/17/25 09:26 20 MG Amiodarone HCl 250 ml @ 16.66 mls/ hr Q15H1M IV 04/17/25 07:00 04/17/25 13:08 16.66 MLS/HR laboratory and microbiology Laboratory Tests 04/17/25 08:32 04/16/25 09:40 Test 04/17/25 08:32 Range/Units Serum Glucose 145 H 74-106 mg/dL Microbiology Date/Time Source Procedure Growth Status 04/13/25 20:40 Pleural Fluid Gram Stain - Final Resulted 04/13/25 20:40 Pleural Fluid Body Fluid Culture - Preliminary No growth Resulted 04/06/25 17:13 Voided Urine Urine Culture - Final Klebsiella oxytoca - ESBL Complete 04/06/25 16:06 Blood Blood Culture - Final NO GROWTH AFTER 5 DAYS OF INCUBATION. 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 Duran Mild hypernatremia/dehydration, possibly due to decreased oral intake Renal mass, likely renal cell carcinoma Lung cancer, on radiotherapy Skin cancer COPD exacerbation Hematuria Hypertension Dyslipidemia Status post pacemaker Large right pleural effusion, post thoracentesis (drained 1.1 L) Atrial fibrillation, Recommendation Stable renal function Urology recommending renal mass biopsy and possible cryoablation by IR,, however patient and his does not want any intervention for now--outpt Hemeonc and urology f/u Plan discussed with: Patient, Spouse Dietary Evaluation Review Comments: 1. Renal Diet with Nepro oral supplementation TID 2. Monitor PO intake 3. Follow up with consults and lab values Expected Outcomes/Goals: Improved PO intakes, increased physical strength. RAYF VELASCO MD Apr 17, 2025 17:53
--- NOTE | 2025-04-17 18:05 | DVHPN2 ---
Subjective Feeling better with less SOB on 4L NC>3L Reviewed: H&P Changes from previous H/P or p: No Changes Objective Vitals Vital Signs Date Time Temp Pulse Resp B/P (MAP) Pulse Ox O2 Delivery O2 Flow Rate FiO2 04/17/25 13:34 79 20 99 04/17/25 12:56 98.1 102/47 (65) 98.1 04/17/25 10:00 Nasal Cannula 3.0 04/17/25 10:00 32 Intake/Output Intake and Output 04/17/25 05:00 Intake Total 1760 ml Output Total 2350 ml Balance -590 ml Intake Oral 810 ml IV Total 950 ml Output Urine Total 1700 ml Other 650 ml # Bowel Movements 1 General Appearance: Alert, Oriented X3, Cooperative Lungs: Clear to auscultation, Normal air movement Cardiovascular: Regular rate, Normal S1 Abdomen: Normal bowel sounds, Soft Extremities: No edema Medications Current Medications Medications Dose Ordered Sig/Andressa Route Start Time Stop Time Status Last Admin Dose Admin Apixaban 2.5 mg BID PO 04/07/25 10:00 04/17/25 09:26 2.5 MG Atorvastatin Calcium 80 mg HS PO 04/07/25 22:00 04/16/25 21:31 80 MG Levothyroxine Sodium 150 mcg QAM@0600 PO 04/07/25 06:00 04/17/25 05:57 150 MCG Ondansetron HCl 4 mg Q4HP PRN IV 04/06/25 22:15 Acetaminophen 650 mg Q6HP PRN PO 04/06/25 22:15 04/07/25 17:12 650 MG Albuterol 2.5 mg Q6HR NEB 04/07/25 12:00 04/17/25 13:20 2.5 MG Ipratropium [place] 0.5 mg Q6HWA NEB 04/07/25 12:00 04/17/25 13:20 0.5 MG Enteral Nutritional Formula 240 ml TIDWM PO 04/08/25 08:00 04/17/25 17:15 240 ML Levofloxacin 250 mg DAILY PO 04/10/25 10:00 04/17/25 09:27 250 MG Guaifenesin/ Dextromethorphan 10 ml Q4HP PRN PO 04/09/25 13:15 04/10/25 13:16 10 ML Furosemide 20 mg DAILY IV 04/15/25 10:00 04/17/25 09:26 20 MG Amiodarone HCl 250 ml @ 16.66 mls/ hr Q15H1M IV 04/17/25 07:00 04/17/25 13:08 16.66 MLS/HR Laboratory Results Laboratory Tests 04/16/25 09:40 04/17/25 08:32 Chemistry Test 04/17/25 08:32 Calcium Level 8.7 mg/dL (8.7-10.4) Urinalysis Test 04/07/25 14:30 Urine Color Light-orange (Yellow) Urine Clarity Turbid (Clear) H Urine pH 8.0 (5.0-9.0) Urine Specific [place] 1.030 (1.001-1.035) Urine Protein 3+ (Negative) H Urine Ketones Negative (Negative) Urine Blood 3+ /uL (Negative) H Urine Nitrite Negative (Negative) Urine Bilirubin Negative (Negative) Urine Urobilinogen Normal mg/dL (Negative) Urine Leukocyte Esterase Negative /uL (Negative) Urine RBC 1399 /hpf (0 - 3) Urine WBC Clumps Present /hpf (None Seen) Urine Microscopic WBC 411 /HPF (0-3) H Urine Squamous Epithelial Cells None seen /hpf (<5) Urine Bacteria Few /hpf (None Seen) H Urine Mucus Few (None Seen) Urine Creatinine < 3.00 mg/dL (30.0-125.0) L Urine Protein/Creatinine Ratio 833.00 Urine Sodium 154 mmol/L (40-220) Urine Glucose 2+ mg/dL (Normal) H Urine Total Protein > 2500.0 mg/dL (1-14) H Microbiology Microbiology Date/Time Source Procedure Growth Status 04/13/25 20:40 Pleural Fluid Gram Stain - Final Resulted 04/13/25 20:40 Pleural Fluid Body Fluid Culture - Preliminary No growth Resulted 04/06/25 17:13 Voided Urine Urine Culture - Final Klebsiella oxytoca - ESBL Complete 04/06/25 16:06 Blood Blood Culture - Final NO GROWTH AFTER 5 DAYS OF INCUBATION. Complete Assessment/Plan Assessment/Plan Metabolic encephalopathy Hypernatremia Acute kidney injury due to vasomotor nephropathy Chronic kidney disease Lung cancer on radiation therapy Bilateral pneumonia UTI History of heart failure Small pleural effusion Chronic anemia of chronic disease Acute on chronic hypoxic respiratory failure COPD Hypertension Type 2 diabetes Obesity History of prostate cancer status post prostatectomy History of aortic stenosis status post TAVR Hypothyroidism History of CVA Atrial fibrillation on Eliquis Plan Continue IV antibiotics Rocephin and Zithromax Add IV fluids D5 half NS Nephrology consult Chavez catheter Physical therapy Echocardiogram Kidney ultrasound Blood culture Urine culture Monitor closely Continue Eliquis 04/08/25: Pneumonia: Rocephin and Zithromax UTI Left renal mass: Get CT ab & pelvis, urology consult CKD: Nephrology consult Afib: Eliquis, cardiology consult Lung CA Pleural effusion s/p thoracentesis VICKIE/CKD COPD s/p TAVR 04/09/2025: Switch the IV antibiotics to p.o. Levaquin UTI with Klebsiella ESBL: P.o. Levaquin Left renal mass: Urology on board, IR procedure to do renal biopsy and left renal cryoablation Pneumonia CKD Atrial fibrillation on Eliquis VICKIE COPD History of TAVR We will discuss with Interventional Radiology whether the renal biopsy and left renal cryoablation can be done here Discussed with the at the bedside, she is hesitant about surgeries The patient is high-risk for surgery 04/10/25: Physical therapy Continue po Levaquin Observe closely Eliquis O2 prn 04/11/2025: Discontinue IV fluids Continue p.o. Levaquin Reviewed the chest x-ray, no need for thoracentesis at this time Oxygen as needed Monitor closely 04/12/2025: Pneumonia and UTI: Continue Levaquin p.o. Atrial fibrillation: Eliquis 2.5 mg twice a day Discontinue IV fluids Physical therapy Discharge planning 04/13 Continue po levaquin wean off oxygen PT eval 04/14 continue levaquin s/p thoracocentesis 04/15 Will need home health 04/16 weaning off oxygen pending another thoracocentesis 04/17 discussed with about snf aggreable now social work consult Plan discussed with: Patient My Orders Orders - FLIP DOUGLASS MD Procedure Category Date Status Time * Supervisor [employer] CONS 04/17/25 Transmitted Consult 12:08 Date of Service: Apr 17, 2025 Billing Provider: FLIP DOUGLASS MD Common Visit Codes: [id number] INP/OBS CARE(HIGH) FLIP DOUGLASS MD Apr 17, 2025 18:05
[2025-04-18] VITALS (17 sets, daily range): BP systolic 97–120; BP diastolic 55–62; PULSE 75–100; RESP 14–20; TEMP 97.9–98.8; O2SAT 90–100
--- NOTE | 2025-04-18 08:20 | DVHPN2 ---
Progress Note - Dictate Date Seen: Apr 18, 2025 Medical Necessity Reason Pt with a Central, PICC or Fol: No vital signs Vital Sign Date Time Temp Pulse Resp B/P (MAP) Pulse Ox O2 Delivery O2 Flow Rate FiO2 04/18/25 06:28 75 14 100 04/18/25 06:20 Nasal Cannula 2.0 04/18/25 06:20 28 04/18/25 05:00 98.0 115/62 (79) 98.0 Total Intake and Output 04/17/25 04/17/25 04/18/25 15:00 23:00 07:00 Intake Total 550 ml 500 ml 550 ml Output Total 951 ml 650 ml Balance 550 ml -451 ml -100 ml medications Current Medications Medications Dose Ordered Sig/Andressa Route Start Time Stop Time Status Last Admin Dose Admin Apixaban 2.5 mg BID PO 04/07/25 10:00 04/17/25 21:26 2.5 MG Atorvastatin Calcium 80 mg HS PO 04/07/25 22:00 04/17/25 21:27 80 MG Levothyroxine Sodium 150 mcg QAM@0600 PO 04/07/25 06:00 04/18/25 05:36 150 MCG Ondansetron HCl 4 mg Q4HP PRN IV 04/06/25 22:15 Acetaminophen 650 mg Q6HP PRN PO 04/06/25 22:15 04/07/25 17:12 650 MG Albuterol 2.5 mg Q6HR NEB 04/07/25 12:00 04/18/25 06:18 2.5 MG Ipratropium [place] 0.5 mg Q6HWA NEB 04/07/25 12:00 04/18/25 06:18 0.5 MG Enteral Nutritional Formula 240 ml TIDWM PO 04/08/25 08:00 04/17/25 17:15 240 ML Levofloxacin 250 mg DAILY PO 04/10/25 10:00 04/17/25 09:27 250 MG Guaifenesin/ Dextromethorphan 10 ml Q4HP PRN PO 04/09/25 13:15 04/10/25 13:16 10 ML Furosemide 20 mg DAILY IV 04/15/25 10:00 04/17/25 09:26 20 MG Amiodarone HCl 250 ml @ 16.66 mls/ hr Q15H1M IV 04/17/25 07:00 04/18/25 04:22 16.66 MLS/HR laboratory and microbiology Laboratory Tests 04/17/25 08:32 04/16/25 09:40 Test 04/17/25 08:32 Range/Units Serum Glucose 145 H 74-106 mg/dL Assessment/Plan Had Episodes of a-fib with RVR. Started on Amio drip. Will change to PO Amiodarone Patient is a 84-year-old gentleman who was brought by for generalized weakness which was ongoing and worsening for the past month. Does have history of advanced/metastatic cancer. Cardiology is involved for cardiac aspects of care (patient's called me personally). Patient is known to our practice from outside and before. There is no report of chest pain. There is no report of palpitation. Patient has been on chemotherapy/radiation therapy. Cachectic male. Sitting in bed. Somewhat confused. No gross JVD. Mucosa is pale. Scattered rhonchi in the lungs is heard. Not using accessory muscles of breathing. Cardiac: Regular. Systolic murmur 2/6 in the apex is heard. Abdomen is soft. Bilateral edema seen. 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 Echocardiogram of January 16, 2025 (performed in the office) revealed ejection fraction 45-50%, mild concentric left ventricular hypertrophy, mild left atrial enlargement, pacemaker wires were seen right-sided chambers, bioprosthetic valve in aortic position which worked normally, mild mitral regurgitation, [id number] tricuspid regurgitation with right ventricular systolic pressure of 36 mm Hg. Hemoglobin: 8.6 - 9.0 - 8.2 - 7.4 - 8.2 - 7.8 - 7.8 - 7.9 - 7.7 - 8.8 Creatinine: 2.74 - 2.63 - 2.37 - 2.59 - 2.21 - 1.97 - 1.95 - 1.80 - 2.13 - 2.09 - 2.30 - 2.19 Potassium: 4.5 - 4.5 - 4.0 - 4.3 - 4.3 - 4.4 - 4.8 - 4.7 - 4.8 - 4.4 - 4.4 - 4.7 TSH: 1.86 BNP: 370.27 Troponin (high sensitive): Chest x-ray revealed: IMPRESSION: 1. Cardiomegaly with bibasilar airspace disease and possible small pleural effusion on the right. 2. Pneumonia versus congestive failure are both in the radiographic differential Repeat chest x-ray revealed: IMPRESSION: 1. Removal of the right pleural effusion with atelectasis in the right base. 2. No pneumothorax 3. Pacemaker in place unchanged. Repeat chest xry revealed: IMPRESSION: 1. Moderately progressive multifocal bilateral pulmonary airspace disease with new right mid lung zone infiltrate. 2. Small bilateral pleural effusions. Repeat chest xry revealed: IMPRESSION: Improved aeration of the left lower lung zone with residual trace left-sided pleural effusion and left mid and lower lung zone atelectasis. Unchanged interstitial and alveolar type opacities of the right lower lung zone with obscuration of the right hemidiaphragm. No pneumothorax. CT of the head reported: IMPRESSION: 1. No acute intracranial abnormality. 2. Mild cerebral volume loss and minor chronic microvascular ischemic change. Renal ultrasound reported: IMPRESSION: 1. No hydronephrosis. 2. Questionable 3.2 cm left renal mass. Recommend further evaluation with CT or MRI with IV contrast 3. Bilateral pleural effusions. CT of Abdomen and Pelvis revealed: There is limited interpretation of the abdomen and pelvis without administration of intravenous contrast. Aortic valvular prosthesis. Tiny pericardial effusion. Multiple subcarinal/ paraesophageal lymph nodes up to 2.2 cm. Bilateral pleural [id number] which appears small to moderate in size and [id number] complex in appearance. Bibasilar atelectasis /consolidation Adrenal glands, spleen unremarkable in shape. Pancreatic parenchymal atrophy. No CT evidence for cholelithiasis. Liver capsule nodular morphology. The right kidney demonstrates no hydronephrosis / nephrolithiasis. Left renal hyperdense lesion/ mass extending into the pelvis measuring 4.1 x 3 cm. Nonobstructing left renal calculus measuring 7 mm. Periaortic/retroperitoneal lymph node measuring 10 mm. Portacaval lymph node measuring 12 mm. Stomach is partially distended. Small bowel loops are normal in caliber. Colonic diverticular disease. Moderate volume stool in the colon. Normal appendix. Abdominal aortic atherosclerotic disease. Bladder decompressed by Chavez catheter. No free pelvic fluid. Right inguinal lymph nodes measuring up to 12 mm. Soft tissue edema / anasarca. Moderate to advanced lumbar degenerative disc disease. IMPRESSION: Limited evaluation without contrast. Left renal hyperdense lesion/ mass measuring 4.1 x 3 cm extending to the Left renal pelvis, likely representing patient's known history of renal malignancy. Recommend MRI abdomen with and without contrast to better characterize. 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 Bibasilar pulmonary consolidation. 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 This can be further evaluated with a PET scan. Small to moderate bilateral pleural effusions which appear complex in appearance, possibly malignant in etiology. This can be better evaluated with a CT chest with contrast. Abdominal aortic atherosclerotic disease. Colonic diverticular disease. Moderate volume stool in the colon. Other findings as described. EKG revealed sinus rhythm with left bundle branch block Tele reveals sinus rhythm, with episodes of a-fib with RVR Echocardiogram revealed: Technically limited study secondary to poor acoustic windows. Left ventricle: Mild concentric left ventricular hypertrophy was seen left ventricle was normal-sized. LVEF was 55-60%. There was no gross wall motion abnormality. Right ventricle was mildly dilated with normal systolic function. Mild biatrial enlargement was seen. Pacing wire was seen in right- sided chambers. Bioprosthetic valve was observed in aortic position. It works properly. There was no aortic insufficiency/stenosis. Mild mitral annular calcification was seen. Mild mitral regurgitation was observed. [id number] tricuspid regurgitation was seen. Right ventricular systolic pressure was assessed at 44 mm Hg. IVC was normal-sized with normal respiratory variation. There was trace pericardial effusion. Patient is a 84-year-old gentleman with advanced multiple cancers and metastasis who presented with generalized weakness. Does have baseline history of valvular heart disease for which has had TAVR before. Also has history of atrial fibrillation (paroxysmal) for which is on Eliquis as outpatient. Has been on chemotherapy/radiation therapy. Has had poor appetite and malnutrition could have contributed to the clinical picture. Advanced band of cancers could have contributed to the clinical picture. Side effects secondary to radiation/chemotherapy could have contributed to the clinical picture. Acute coronary syndrome is not considered. Decompensated heart failure is not considered as a component of presentation. Does have history of pacemaker (Biotronik) which was recently interrogated in the office. Being followed by Nephrology/Urology/Pulmonary. Had episodes of A-fib with RVR. Started Amio. Encephalopathy, metabolic VICKIE on CKD Pneumonia Lung cancer Advanced metastatic cancer as COPD Pleural effusion, status post thoracentesis Multiple cancers, metastatic Poor functional capacity Paroxysmal AFib Sick sinus syndrome, status post pacemaker implantation (Biotronik) Valvular heart disease, status post TAVR s/p thoracentesis (right and left) by pulmonary A-fib with RVR, Cardiac suggestion for management: Manage on telemetry Follow-up electrolytes and kidney function tests and correct abnormalities Had episodes of A-fib with RVR: On Amio. (stop IV Amio and start oral Amio: 200 mg BID) Long-term continuation of full anticoagulation is advised, if not contraindicated Nephrology follow-up is advised Pulmonary follow-up Urology Follow up Consider Oncology evaluation Goals of care as per primary team. Consider Hospice. Cardiac milian, is stable and can be followed as outpatient Further evaluation and management depends on the above and clinical course Long-term prognosis: very poor A total of 55 minutes was spent reviewing the patient record, examining the patient, making a diagnostic and therapeutic plan, discussing this plan with medical personnel, following up on diagnostic studies and following the patient for clinical stability excluding any and all procedures. At least 50% of this time was spent in direct, [id number] contact. Thank you for allowing me to participate in this patient's care. Further recommendations will depend on patient's clinical course. Please do not hesitate to contact me if you have any questions or concerns. This medical document was created using electronic medical record system with [employer] computerized dictation system. Although this document has been carefully reviewed, there may still be some phonetic and typographical errors. These areas are purely typographical due to the imperfection of the software programs, and do not reflect any compromise in the patient's medical care. Dietary Evaluation Review Comments: 1. Renal Diet with Nepro oral supplementation TID 2. Monitor PO intake 3. Follow up with consults and lab values Expected Outcomes/Goals: Improved PO intakes, increased physical strength. Plan discussed with: Patient, Other (nurse) LUIS HOLT MD Apr 18, 2025 08:20
[2025-04-18] MEDS: AMIODARONE HCL 200 MG TAB PO SCH (10:25)
--- NOTE | 2025-04-18 11:56 | DVHPN2 ---
Progress Note - Dictate Date Seen: Apr 18, 2025 Medical Necessity Reason Pt with a Central, PICC or Fol: No vital signs Vital Sign Date Time Temp Pulse Resp B/P (MAP) Pulse Ox O2 Delivery O2 Flow Rate FiO2 04/18/25 11:28 85 16 100 04/18/25 10:26 109/55 04/18/25 10:00 Nasal Cannula* 3 32 04/18/25 09:00 97.9 97.9 Total Intake and Output 04/17/25 04/17/25 04/18/25 15:00 23:00 07:00 Intake Total 550 ml 500 ml 550 ml Output Total 951 ml 650 ml Balance 550 ml -451 ml -100 ml medications Current Medications Medications Dose Ordered Sig/Andressa Route Start Time Stop Time Status Last Admin Dose Admin Apixaban 2.5 mg BID PO 04/07/25 10:00 04/18/25 10:26 2.5 MG Atorvastatin Calcium 80 mg HS PO 04/07/25 22:00 04/17/25 21:27 80 MG Levothyroxine Sodium 150 mcg QAM@0600 PO 04/07/25 06:00 04/18/25 05:36 150 MCG Ondansetron HCl 4 mg Q4HP PRN IV 04/06/25 22:15 Acetaminophen 650 mg Q6HP PRN PO 04/06/25 22:15 04/07/25 17:12 650 MG Albuterol 2.5 mg Q6HR NEB 04/07/25 12:00 04/18/25 11:20 2.5 MG Ipratropium [place] 0.5 mg Q6HWA [facility] 04/07/25 12:00 04/18/25 11:20 0.5 MG Enteral Nutritional Formula 240 ml TIDWM PO 04/08/25 08:00 04/18/25 08:00 240 ML Levofloxacin 250 mg DAILY PO 04/10/25 10:00 04/18/25 10:26 250 MG Guaifenesin/ Dextromethorphan 10 ml Q4HP PRN PO 04/09/25 13:15 04/10/25 13:16 10 ML Furosemide 20 mg DAILY IV 04/15/25 10:00 04/18/25 10:26 20 MG Amiodarone HCl 200 mg Q12HR PO 04/18/25 10:00 04/18/25 10:25 200 MG laboratory and microbiology Laboratory Tests 04/17/25 08:32 04/16/25 09:40 Test 04/17/25 08:32 Range/Units Serum Glucose 145 H 74-106 mg/dL Assessment/Plan Acute on chronic hypoxic respiratory failure Dependence on supplemental oxygen Lung cancer Congestive heart failure Pneumonia, likely gram negative Pleural effusion Atelectasis Kidney mass, likely metastatic cancer Events: Low oxygen requirements On 3 liters nasal cannula No distress S/p bilateral thora Labs and imaging reviewed Management Continue bronchodilators Antibiotics for pneumonia/UTI - complete course Incentive spirometry Monitor blood pressure Diurese with Lasix Monitor renal function. Monitor electrolytes. Supplement as necessary. Monitor ins and outs. Maintain euvolemia. Avoid fluid overload. Physical therapy. Disposition per primary team Dietary Evaluation Review Comments: 1. Renal Diet with Nepro oral supplementation TID 2. Monitor PO intake 3. Follow up with consults and lab values Expected Outcomes/Goals: Improved PO intakes, increased physical strength. Plan discussed with: Patient GUY GOTTI MD Apr 18, 2025 11:56
--- NOTE | 2025-04-18 13:29 | DVHPN2 ---
Subjective Feeling better with less SOB on 4L NC>3L Reviewed: H&P Changes from previous H/P or p: No Changes Objective Vitals Vital Signs Date Time Temp Pulse Resp B/P (MAP) Pulse Ox O2 Delivery O2 Flow Rate FiO2 04/18/25 11:28 85 16 100 04/18/25 10:26 109/55 04/18/25 10:00 Nasal Cannula* 3 32 04/18/25 09:00 97.9 97.9 Intake/Output Intake and Output 04/18/25 07:00 Intake Total 1600 ml Output Total 1601 ml Balance -1 ml Intake Oral 1100 ml IV Total 500 ml Output Urine Total 1600 ml Stool Total 1 ml General Appearance: Alert, Oriented X3, Cooperative Lungs: Clear to auscultation, Normal air movement Cardiovascular: Regular rate, Normal S1 Abdomen: Normal bowel sounds, Soft Extremities: No edema Medications Current Medications Medications Dose Ordered Sig/Andressa Route Start Time Stop Time Status Last Admin Dose Admin Apixaban 2.5 mg BID PO 04/07/25 10:00 04/18/25 10:26 2.5 MG Atorvastatin Calcium 80 mg HS PO 04/07/25 22:00 04/17/25 21:27 80 MG Levothyroxine Sodium 150 mcg QAM@0600 PO 04/07/25 06:00 04/18/25 05:36 150 MCG Ondansetron HCl 4 mg Q4HP PRN IV 04/06/25 22:15 Acetaminophen 650 mg Q6HP PRN PO 04/06/25 22:15 04/07/25 17:12 650 MG Albuterol 2.5 mg Q6HR NEB 04/07/25 12:00 04/18/25 11:20 2.5 MG Ipratropium [place] 0.5 mg Q6HWA NEB 04/07/25 12:00 04/18/25 11:20 0.5 MG Enteral Nutritional Formula 240 ml TIDWM PO 04/08/25 08:00 04/18/25 12:08 240 ML Levofloxacin 250 mg DAILY PO 04/10/25 10:00 04/18/25 10:26 250 MG Guaifenesin/ Dextromethorphan 10 ml Q4HP PRN PO 04/09/25 13:15 04/10/25 13:16 10 ML Furosemide 20 mg DAILY IV 04/15/25 10:00 04/18/25 10:26 20 MG Amiodarone HCl 200 mg Q12HR PO 04/18/25 10:00 04/18/25 10:25 200 MG Laboratory Results Laboratory Tests 04/16/25 09:40 04/17/25 08:32 Urinalysis Test 04/07/25 14:30 Urine Color Light-orange (Yellow) Urine Clarity Turbid (Clear) H Urine pH 8.0 (5.0-9.0) Urine Specific [place] 1.030 (1.001-1.035) Urine Protein 3+ (Negative) H Urine Ketones Negative (Negative) Urine Blood 3+ /uL (Negative) H Urine Nitrite Negative (Negative) Urine Bilirubin Negative (Negative) Urine Urobilinogen Normal mg/dL (Negative) Urine Leukocyte Esterase Negative /uL (Negative) Urine RBC 1399 /hpf (0 - 3) Urine WBC Clumps Present /hpf (None Seen) Urine Microscopic WBC 411 /HPF (0-3) H Urine Squamous Epithelial Cells None seen /hpf (<5) Urine Bacteria Few /hpf (None Seen) H Urine Mucus Few (None Seen) Urine Creatinine < 3.00 mg/dL (30.0-125.0) L Urine Protein/Creatinine Ratio 833.00 Urine Sodium 154 mmol/L (40-220) Urine Glucose 2+ mg/dL (Normal) H Urine Total Protein > 2500.0 mg/dL (1-14) H Microbiology Microbiology Date/Time Source Procedure Growth Status 04/13/25 20:40 Pleural Fluid Gram Stain - Final Resulted 04/13/25 20:40 Pleural Fluid Body Fluid Culture - Preliminary No growth Resulted 04/06/25 17:13 Voided Urine Urine Culture - Final Klebsiella oxytoca - ESBL Complete 04/06/25 16:06 Blood Blood Culture - Final NO GROWTH AFTER 5 DAYS OF INCUBATION. Complete Assessment/Plan Assessment/Plan Metabolic encephalopathy Hypernatremia Acute kidney injury due to vasomotor nephropathy Chronic kidney disease Lung cancer on radiation therapy Bilateral pneumonia UTI History of heart failure Small pleural effusion Chronic anemia of chronic disease Acute on chronic hypoxic respiratory failure COPD Hypertension Type 2 diabetes Obesity History of prostate cancer status post prostatectomy History of aortic stenosis status post TAVR Hypothyroidism History of CVA Atrial fibrillation on Eliquis Plan Continue IV antibiotics Rocephin and Zithromax Add IV fluids D5 half NS Nephrology consult Chavez catheter Physical therapy Echocardiogram Kidney ultrasound Blood culture Urine culture Monitor closely Continue Eliquis 04/08/25: Pneumonia: Rocephin and Zithromax UTI Left renal mass: Get CT ab & pelvis, urology consult CKD: Nephrology consult Afib: [place], cardiology consult Lung CA Pleural effusion s/p thoracentesis VICKIE/CKD COPD s/p TAVR 04/09/2025: Switch the IV antibiotics to p.o. Levaquin UTI with Klebsiella ESBL: P.o. Levaquin Left renal mass: Urology on board, IR procedure to do renal biopsy and left renal cryoablation Pneumonia CKD Atrial fibrillation on Eliquis VICKIE COPD History of TAVR We will discuss with Interventional Radiology whether the renal biopsy and left renal cryoablation can be done here Discussed with the at the bedside, she is hesitant about surgeries The patient is high-risk for surgery 04/10/25: Physical therapy Continue po Levaquin Observe closely Eliquis O2 prn 04/11/2025: Discontinue IV fluids Continue p.o. Levaquin Reviewed the chest x-ray, no need for thoracentesis at this time Oxygen as needed Monitor closely 04/12/2025: Pneumonia and UTI: Continue Levaquin p.o. Atrial fibrillation: Eliquis 2.5 mg twice a day Discontinue IV fluids Physical therapy Discharge planning 04/13 Continue po levaquin wean off oxygen PT eval 04/14 continue levaquin s/p thoracocentesis 04/15 Will need home health 04/16 weaning off oxygen pending another thoracocentesis 04/17 discussed with about snf aggreable now social work consult Plan discussed with: Patient Date of Service: Apr 18, 2025 Billing Provider: FLIP DOUGLASS MD Common Visit Codes: [id number] INP/OBS CARE(HIGH) FLIP DOUGLASS MD Apr 18, 2025 13:29
--- NOTE | 2025-04-18 14:26 | DVHPN2 ---
Progress Note Date Seen: Apr 18, 2025 Medical Necessity Reason Pt with a Central, PICC or Fol: No Subjective Patient reports: No new complaints Review of Systems: Deferred Objective vital signs Vital Sign Date Time Temp Pulse Resp B/P (MAP) Pulse Ox O2 Delivery O2 Flow Rate FiO2 04/18/25 11:28 85 16 100 04/18/25 10:26 109/55 04/18/25 10:00 Nasal Cannula* 3 32 04/18/25 09:00 97.9 97.9 Total Intake and Output 04/17/25 04/17/25 04/18/25 15:00 23:00 07:00 Intake Total 550 ml 500 ml 550 ml Output Total 951 ml 650 ml Balance 550 ml -451 ml -100 ml medications Current Medications Medications Dose Ordered Sig/Andressa Route Start Time Stop Time Status Last Admin Dose Admin Apixaban 2.5 mg BID PO 04/07/25 10:00 04/18/25 10:26 2.5 MG Atorvastatin Calcium 80 mg HS PO 04/07/25 22:00 04/17/25 21:27 80 MG Levothyroxine Sodium 150 mcg QAM@0600 PO 04/07/25 06:00 04/18/25 05:36 150 MCG Ondansetron HCl 4 mg Q4HP PRN IV 04/06/25 22:15 Acetaminophen 650 mg Q6HP PRN PO 04/06/25 22:15 04/07/25 17:12 650 MG Albuterol 2.5 mg Q6HR NEB 04/07/25 12:00 04/18/25 11:20 2.5 MG Ipratropium [place] 0.5 mg Q6HWA NEB 04/07/25 12:00 04/18/25 11:20 0.5 MG Enteral Nutritional Formula 240 ml TIDWM PO 04/08/25 08:00 04/18/25 12:08 240 ML Levofloxacin 250 mg DAILY PO 04/10/25 10:00 04/18/25 10:26 250 MG Guaifenesin/ Dextromethorphan 10 ml Q4HP PRN PO 04/09/25 13:15 04/10/25 13:16 10 ML Furosemide 20 mg DAILY IV 04/15/25 10:00 04/18/25 10:26 20 MG Amiodarone HCl 200 mg Q12HR PO 04/18/25 10:00 04/18/25 10:25 200 MG laboratory and microbiology Laboratory Tests 04/17/25 08:32 04/16/25 09:40 Test 04/17/25 08:32 Range/Units Serum Glucose 145 H 74-106 mg/dL Microbiology Date/Time Source Procedure Growth Status 04/13/25 20:40 Pleural Fluid Gram Stain - Final Resulted 04/13/25 20:40 Pleural Fluid Body Fluid Culture - Preliminary No growth Resulted 04/06/25 17:13 Voided Urine Urine Culture - Final Klebsiella oxytoca - ESBL Complete 04/06/25 16:06 Blood Blood Culture - Final NO GROWTH AFTER 5 DAYS OF INCUBATION. 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 Duran Mild hypernatremia/dehydration, possibly due to decreased oral intake Renal mass, likely renal cell carcinoma Lung cancer, on radiotherapy Skin cancer COPD exacerbation Hematuria Hypertension Dyslipidemia Status post pacemaker Large right pleural effusion, post thoracentesis (drained 1.1 L) Atrial fibrillation, Recommendation Stable renal function Urology recommending renal mass biopsy and possible cryoablation by IR,, however patient and his does not want any intervention for now--outpt Hemeonc and urology f/u Plan discussed with: Patient, Spouse Dietary Evaluation Review Comments: 1. Renal Diet with Nepro oral supplementation TID 2. Monitor PO intake 3. Follow up with consults and lab values Expected Outcomes/Goals: Improved PO intakes, increased physical strength. RAFY VELASCO MD Apr 18, 2025 14:26
[2025-04-19] VITALS (15 sets, daily range): BP systolic 92–123; BP diastolic 53–69; PULSE 83–115; RESP 15–19; TEMP 97.4–98.5; O2SAT 91–100
--- NOTE | 2025-04-19 08:44 | DVHPN2 ---
Progress Note - Dictate Date Seen: Apr 19, 2025 Medical Necessity Reason Pt with a Central, PICC or Fol: No vital signs Vital Sign Date Time Temp Pulse Resp B/P (MAP) Pulse Ox O2 Delivery O2 Flow Rate FiO2 04/19/25 08:36 92/56 04/19/25 06:28 85 18 99 04/19/25 06:22 Nasal Cannula* 2 28 04/19/25 05:00 97.5 97.5 Total Intake and Output 04/18/25 04/18/25 04/19/25 15:00 23:00 07:00 Intake Total 500 ml 250 ml Output Total 1050 ml 400 ml Balance -550 ml -150 ml medications Current Medications Medications Dose Ordered Sig/Andressa Route Start Time Stop Time Status Last Admin Dose Admin Apixaban 2.5 mg BID PO 04/07/25 10:00 04/19/25 08:35 2.5 MG Atorvastatin Calcium 80 mg HS PO 04/07/25 22:00 04/18/25 21:09 80 MG Levothyroxine Sodium 150 mcg QAM@0600 PO 04/07/25 06:00 04/19/25 05:43 150 MCG Ondansetron HCl 4 mg Q4HP PRN IV 04/06/25 22:15 Acetaminophen 650 mg Q6HP PRN PO 04/06/25 22:15 04/07/25 17:12 650 MG Albuterol 2.5 mg Q6HR NEB 04/07/25 12:00 04/19/25 06:22 2.5 MG Ipratropium [place] 0.5 mg Q6HWA NEB 04/07/25 12:00 04/19/25 06:22 0.5 MG Enteral Nutritional Formula 240 ml TIDWM PO 04/08/25 08:00 04/19/25 08:34 240 ML Levofloxacin 250 mg DAILY PO 04/10/25 10:00 04/19/25 08:35 250 MG Guaifenesin/ Dextromethorphan 10 ml Q4HP PRN PO 04/09/25 13:15 04/10/25 13:16 10 ML Furosemide 20 mg DAILY IV 04/15/25 10:00 04/18/25 10:26 20 MG Amiodarone HCl 200 mg Q12HR PO 04/18/25 10:00 04/19/25 08:35 200 MG laboratory and microbiology Laboratory Tests 04/17/25 08:32 04/16/25 09:40 Test 04/17/25 08:32 Range/Units Serum Glucose 145 H 74-106 mg/dL Assessment/Plan Had Episodes of a-fib with RVR. Started on Amio drip. Will change to PO Amiodarone Patient is a 84-year-old gentleman who was brought by for generalized weakness which was ongoing and worsening for the past month. Does have history of advanced/metastatic cancer. Cardiology is involved for cardiac aspects of care (patient's called me personally). Patient is known to our practice from outside and before. There is no report of chest pain. There is no report of palpitation. Patient has been on chemotherapy/radiation therapy. Cachectic male. Sitting in bed. Somewhat confused. No gross JVD. Mucosa is pale. Scattered rhonchi in the lungs is heard. Not using accessory muscles of breathing. Cardiac: Regular. Systolic murmur 2/6 in the apex is heard. Abdomen is soft. Bilateral edema seen. 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 Echocardiogram of January 16, 2025 (performed in the office) revealed ejection fraction 45-50%, mild concentric left ventricular hypertrophy, mild left atrial enlargement, pacemaker wires were seen right-sided chambers, bioprosthetic valve in aortic position which worked normally, mild mitral regurgitation, [id number] tricuspid regurgitation with right ventricular systolic pressure of 36 mm Hg. Hemoglobin: 8.6 - 9.0 - 8.2 - 7.4 - 8.2 - 7.8 - 7.8 - 7.9 - 7.7 - 8.8 Creatinine: 2.74 - 2.63 - 2.37 - 2.59 - 2.21 - 1.97 - 1.95 - 1.80 - 2.13 - 2.09 - 2.30 - 2.19 Potassium: 4.5 - 4.5 - 4.0 - 4.3 - 4.3 - 4.4 - 4.8 - 4.7 - 4.8 - 4.4 - 4.4 - 4.7 TSH: 1.86 BNP: 370.27 Troponin (high sensitive): Chest x-ray revealed: IMPRESSION: 1. Cardiomegaly with bibasilar airspace disease and possible small pleural effusion on the right. 2. Pneumonia versus congestive failure are both in the radiographic differential Repeat chest x-ray revealed: IMPRESSION: 1. Removal of the right pleural effusion with atelectasis in the right base. 2. No pneumothorax 3. Pacemaker in place unchanged. Repeat chest xry revealed: IMPRESSION: 1. Moderately progressive multifocal bilateral pulmonary airspace disease with new right mid lung zone infiltrate. 2. Small bilateral pleural effusions. Repeat chest xry revealed: IMPRESSION: Improved aeration of the left lower lung zone with residual trace left-sided pleural effusion and left mid and lower lung zone atelectasis. Unchanged interstitial and alveolar type opacities of the right lower lung zone with obscuration of the right hemidiaphragm. No pneumothorax. CT of the head reported: IMPRESSION: 1. No acute intracranial abnormality. 2. Mild cerebral volume loss and minor chronic microvascular ischemic change. Renal ultrasound reported: IMPRESSION: 1. No hydronephrosis. 2. Questionable 3.2 cm left renal mass. Recommend further evaluation with CT or MRI with IV contrast 3. Bilateral pleural effusions. CT of Abdomen and Pelvis revealed: There is limited interpretation of the abdomen and pelvis without administration of intravenous contrast. Aortic valvular prosthesis. Tiny pericardial effusion. Multiple subcarinal/ paraesophageal lymph nodes up to 2.2 cm. Bilateral pleural [id number] which appears small to moderate in size and [id number] complex in appearance. Bibasilar atelectasis /consolidation Adrenal glands, spleen unremarkable in shape. Pancreatic parenchymal atrophy. No CT evidence for cholelithiasis. Liver capsule nodular morphology. The right kidney demonstrates no hydronephrosis / nephrolithiasis. Left renal hyperdense lesion/ mass extending into the pelvis measuring 4.1 x 3 cm. Nonobstructing left renal calculus measuring 7 mm. Periaortic/retroperitoneal lymph node measuring 10 mm. Portacaval lymph node measuring 12 mm. Stomach is partially distended. Small bowel loops are normal in caliber. Colonic diverticular disease. Moderate volume stool in the colon. Normal appendix. Abdominal aortic atherosclerotic disease. Bladder decompressed by Chavez catheter. No free pelvic fluid. Right inguinal lymph nodes measuring up to 12 mm. Soft tissue edema / anasarca. Moderate to advanced lumbar degenerative disc disease. IMPRESSION: Limited evaluation without contrast. Left renal hyperdense lesion/ mass measuring 4.1 x 3 cm extending to the Left renal pelvis, likely representing patient's known history of renal malignancy. Recommend MRI abdomen with and without contrast to better characterize. 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 Bibasilar pulmonary consolidation. 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 This can be further evaluated with a PET scan. Small to moderate bilateral pleural effusions which appear complex in appearance, possibly malignant in etiology. This can be better evaluated with a CT chest with contrast. Abdominal aortic atherosclerotic disease. Colonic diverticular disease. Moderate volume stool in the colon. Other findings as described. EKG revealed sinus rhythm with left bundle branch block Tele reveals sinus rhythm, with episodes of a-fib with RVR Echocardiogram revealed: Technically limited study secondary to poor acoustic windows. Left ventricle: Mild concentric left ventricular hypertrophy was seen left ventricle was normal-sized. LVEF was 55-60%. There was no gross wall motion abnormality. Right ventricle was mildly dilated with normal systolic function. Mild biatrial enlargement was seen. Pacing wire was seen in right- sided chambers. Bioprosthetic valve was observed in aortic position. It works properly. There was no aortic insufficiency/stenosis. Mild mitral annular calcification was seen. Mild mitral regurgitation was observed. Dmok-ov-lbuxvceh tricuspid regurgitation was seen. Right ventricular systolic pressure was assessed at 44 mm Hg. IVC was normal-sized with normal respiratory variation. There was trace pericardial effusion. Patient is a 84-year-old gentleman with advanced multiple cancers and metastasis who presented with generalized weakness. Does have baseline history of valvular heart disease for which has had TAVR before. Also has history of atrial fibrillation (paroxysmal) for which is on Eliquis as outpatient. Has been on chemotherapy/radiation therapy. Has had poor appetite and malnutrition could have contributed to the clinical picture. Advanced band of cancers could have contributed to the clinical picture. Side effects secondary to radiation/chemotherapy could have contributed to the clinical picture. Acute coronary syndrome is not considered. Decompensated heart failure is not considered as a component of presentation. Does have history of pacemaker (Biotronik) which was recently interrogated in the office. Being followed by Nephrology/Urology/Pulmonary. Had episodes of A-fib with RVR. Started Amio. Encephalopathy, metabolic VICKIE on CKD Pneumonia Lung cancer Advanced metastatic cancer as COPD Pleural effusion, status post thoracentesis Multiple cancers, metastatic Poor functional capacity Paroxysmal AFib Sick sinus syndrome, status post pacemaker implantation (Biotronik) Valvular heart disease, status post TAVR s/p thoracentesis (right and left) by pulmonary A-fib with RVR, Cardiac suggestion for management: Manage on telemetry Follow-up electrolytes and kidney function tests and correct abnormalities Had episodes of A-fib with RVR: On Amio. (stop IV Amio and start oral Amio: 200 mg BID) Long-term continuation of full anticoagulation is advised, if not contraindicated Nephrology follow-up is advised Pulmonary follow-up Urology Follow up Consider Oncology evaluation Goals of care as per primary team. Consider Hospice. Cardiac milian, is stable and can be followed as outpatient Further evaluation and management depends on the above and clinical course Long-term prognosis: very poor A total of 55 minutes was spent reviewing the patient record, examining the patient, making a diagnostic and therapeutic plan, discussing this plan with medical personnel, following up on diagnostic studies and following the patient for clinical stability excluding any and all procedures. At least 50% of this time was spent in direct, [id number] contact. Thank you for allowing me to participate in this patient's care. Further recommendations will depend on patient's clinical course. Please do not hesitate to contact me if you have any questions or concerns. This medical document was created using electronic medical record system with [employer] dictation system. Although this document has been carefully reviewed, there may still be some phonetic and typographical errors. These areas are purely typographical due to the imperfection of the software programs, and do not reflect any compromise in the patient's medical care. Dietary Evaluation Review Comments: 1. Renal Diet with Nepro oral supplementation TID 2. Monitor PO intake 3. Follow up with consults and lab values Expected Outcomes/Goals: Improved PO intakes, increased physical strength. Plan discussed with: Patient, Other (nurse) LUIS HOLT MD Apr 19, 2025 08:44
--- NOTE | 2025-04-19 12:55 | DVHPN2 ---
Subjective Feeling better with less SOB on 4L NC>3L Reviewed: H&P Changes from previous H/P or p: No Changes Objective Vitals Vital Signs Date Time Temp Pulse Resp B/P (MAP) Pulse Ox O2 Delivery O2 Flow Rate FiO2 04/19/25 12:38 97.7 85 15 118/69 (85) 100 97.7 04/19/25 11:37 Nasal Cannula 2.0 04/19/25 11:37 28 Intake/Output Intake and Output 04/19/25 07:00 Intake Total 750 ml Output Total 1450 ml Balance -700 ml Intake Oral 750 ml Output Urine Total 1450 ml # Voids 2 # Bowel Movements 3 General Appearance: Alert, Oriented X3, Cooperative Lungs: Clear to auscultation, Normal air movement Cardiovascular: Regular rate, Normal S1 Abdomen: Normal bowel sounds, Soft Extremities: No edema Medications Current Medications Medications Dose Ordered Sig/Andressa Route Start Time Stop Time Status Last Admin Dose Admin Apixaban 2.5 mg BID PO 04/07/25 10:00 04/19/25 08:35 2.5 MG Atorvastatin Calcium 80 mg HS PO 04/07/25 22:00 04/18/25 21:09 80 MG Levothyroxine Sodium 150 mcg QAM@0600 PO 04/07/25 06:00 04/19/25 05:43 150 MCG Ondansetron HCl 4 mg Q4HP PRN IV 04/06/25 22:15 Acetaminophen 650 mg Q6HP PRN PO 04/06/25 22:15 04/07/25 17:12 650 MG Albuterol 2.5 mg Q6HR NEB 04/07/25 12:00 04/19/25 11:37 2.5 MG Ipratropium [place] 0.5 mg Q6HWA NEB 04/07/25 12:00 04/19/25 11:37 0.5 MG Enteral Nutritional Formula 240 ml TIDWM PO 04/08/25 08:00 04/19/25 08:34 240 ML Levofloxacin 250 mg DAILY PO 04/10/25 10:00 04/19/25 08:35 250 MG Guaifenesin/ Dextromethorphan 10 ml Q4HP PRN PO 04/09/25 13:15 04/10/25 13:16 10 ML Furosemide 20 mg DAILY IV 04/15/25 10:00 04/18/25 10:26 20 MG Amiodarone HCl 200 mg Q12HR PO 04/18/25 10:00 04/19/25 08:35 200 MG Laboratory Results Laboratory Tests 04/16/25 09:40 04/17/25 08:32 Urinalysis Test 04/07/25 14:30 Urine Color Light-orange (Yellow) Urine Clarity Turbid (Clear) H Urine pH 8.0 (5.0-9.0) Urine Specific [place] 1.030 (1.001-1.035) Urine Protein 3+ (Negative) H Urine Ketones Negative (Negative) Urine Blood 3+ /uL (Negative) H Urine Nitrite Negative (Negative) Urine Bilirubin Negative (Negative) Urine Urobilinogen Normal mg/dL (Negative) Urine Leukocyte Esterase Negative /uL (Negative) Urine RBC 1399 /hpf (0 - 3) Urine WBC Clumps Present /hpf (None Seen) Urine Microscopic WBC 411 /HPF (0-3) H Urine Squamous Epithelial Cells None seen /hpf (<5) Urine Bacteria Few /hpf (None Seen) H Urine Mucus Few (None Seen) Urine Creatinine < 3.00 mg/dL (30.0-125.0) L Urine Protein/Creatinine Ratio 833.00 Urine Sodium 154 mmol/L (40-220) Urine Glucose 2+ mg/dL (Normal) H Urine Total Protein > 2500.0 mg/dL (1-14) H Microbiology Microbiology Date/Time Source Procedure Growth Status 04/13/25 20:40 Pleural Fluid Gram Stain - Final Complete 04/13/25 20:40 Pleural Fluid Body Fluid Culture - Final Complete 04/06/25 17:13 Voided Urine Urine Culture - Final Klebsiella oxytoca - ESBL Complete 04/06/25 16:06 Blood Blood Culture - Final NO GROWTH AFTER 5 DAYS OF INCUBATION. Complete Assessment/Plan Assessment/Plan Metabolic encephalopathy Hypernatremia Acute kidney injury due to vasomotor nephropathy Chronic kidney disease Lung cancer on radiation therapy Bilateral pneumonia UTI History of heart failure Small pleural effusion Chronic anemia of chronic disease Acute on chronic hypoxic respiratory failure COPD Hypertension Type 2 diabetes Obesity History of prostate cancer status post prostatectomy History of aortic stenosis status post TAVR Hypothyroidism History of CVA Atrial fibrillation on Eliquis Plan Continue IV antibiotics Rocephin and Zithromax Add IV fluids D5 half NS Nephrology consult Chavez catheter Physical therapy Echocardiogram Kidney ultrasound Blood culture Urine culture Monitor closely Continue Eliquis 11/5/25: Pneumonia: Rocephin and Zithromax UTI Left renal mass: Get CT ab & pelvis, urology consult CKD: Nephrology consult Afib: Eliquis, cardiology consult Lung CA Pleural effusion s/p thoracentesis VICKIE/CKD COPD s/p TAVR 04/09/2025: Switch the IV antibiotics to p.o. Levaquin UTI with Klebsiella ESBL: P.o. Levaquin Left renal mass: Urology on board, IR procedure to do renal biopsy and left renal cryoablation Pneumonia CKD Atrial fibrillation on Eliquis VICKIE COPD History of TAVR We will discuss with Interventional Radiology whether the renal biopsy and left renal cryoablation can be done here Discussed with the at the bedside, she is hesitant about surgeries The patient is high-risk for surgery 04/10/25: Physical therapy Continue po Levaquin Observe closely Eliquis O2 prn 04/11/2025: Discontinue IV fluids Continue p.o. Levaquin Reviewed the chest x-ray, no need for thoracentesis at this time Oxygen as needed Monitor closely 04/12/2025: Pneumonia and UTI: Continue Levaquin p.o. Atrial fibrillation: Eliquis 2.5 mg twice a day Discontinue IV fluids Physical therapy Discharge planning 04/13 Continue po levaquin wean off oxygen PT eval 04/14 continue levaquin s/p thoracocentesis 04/15 Will need home health 04/16 weaning off oxygen pending another thoracocentesis 04/17 discussed with about snf aggreable now social work consult 04/18 still on oxygen 04/19 pending SNF placement cardiology to evaluate uncontrolled afib if worse will need IV amiodarone Plan discussed with: Patient Date of Service: Apr 19, 2025 Billing Provider: FLIP DOUGLASS MD Common Visit Codes: [id number] INP/OBS CARE(HIGH) FLIP DOUGLASS MD Apr 19, 2025 12:55
--- NOTE | 2025-04-19 13:39 | ECG ---
[facility] Test Date: 2025-04-16 Test Time: 09:15:13 Pat Name: DILAN GARCIA Department: Respiratoy Room: 0209T A Gender: M Fisheries Specialist: HAKEEM : [id number] Requested By: LUIS HOLT Order Number: [id number] Reading MD: Jimenez Neff Measurements Intervals [place] Rate: 135 P: 0 AR: 128 QRS: -16 QRSD: 130 T: 158 QT: 313 QTc: 470 Interpretive Statements Atrial fibrillation with a rapid ventricular response Multiple premature complexes, vent & supraven Left bundle branch block Electronically Signed On 04-21-2025 17:11:44 PST by Jimenez Neff Please click the below link to view image of tracing.
--- NOTE | 2025-04-19 17:41 | DVHPN2 ---
Progress Note Date Seen: Apr 19, 2025 Medical Necessity Reason Pt with a Central, PICC or Fol: No Subjective Patient reports: Other Review of Systems: Deferred Objective vital signs Vital Sign Date Time Temp Pulse Resp B/P (MAP) Pulse Ox O2 Delivery O2 Flow Rate FiO2 04/19/25 16:47 98.2 89 17 120/69 (86) 95 98.2 04/19/25 11:37 Nasal Cannula 2.0 04/19/25 11:37 28 Total Intake and Output 04/18/25 04/18/25 04/19/25 15:00 23:00 07:00 Intake Total 500 ml 250 ml Output Total 1050 ml 400 ml Balance -550 ml -150 ml medications Current Medications Medications Dose Ordered Sig/Andressa Route Start Time Stop Time Status Last Admin Dose Admin Apixaban 2.5 mg BID PO 04/07/25 10:00 04/19/25 08:35 2.5 MG Atorvastatin Calcium 80 mg HS PO 04/07/25 22:00 04/18/25 21:09 80 MG Levothyroxine Sodium 150 mcg QAM@0600 PO 04/07/25 06:00 04/19/25 05:43 150 MCG Ondansetron HCl 4 mg Q4HP PRN IV 04/06/25 22:15 Acetaminophen 650 mg Q6HP PRN PO 04/06/25 22:15 04/07/25 17:12 650 MG Albuterol 2.5 mg Q6HR NEB 04/07/25 12:00 04/19/25 11:37 2.5 MG Ipratropium [place] 0.[address] [facility] 04/07/25 12:00 04/19/25 11:37 0.5 MG Enteral Nutritional Formula 240 ml TIDWM PO 04/08/25 08:00 04/19/25 13:02 240 ML Levofloxacin 250 mg DAILY PO 04/10/25 10:00 04/19/25 08:35 250 MG Guaifenesin/ Dextromethorphan 10 ml Q4HP PRN PO 04/09/25 13:15 04/10/25 13:16 10 ML Furosemide 20 mg DAILY IV 04/15/25 10:00 04/18/25 10:26 20 MG Amiodarone HCl 200 mg Q12HR PO 04/18/25 10:00 04/19/25 08:35 200 MG laboratory and microbiology Laboratory Tests 04/17/25 08:32 04/16/25 09:40 Test 04/17/25 08:32 Range/Units Serum Glucose 145 H 74-106 mg/dL Microbiology Date/Time Source Procedure Growth Status 04/13/25 20:40 Pleural Fluid Gram Stain - Final Complete 04/13/25 20:40 Pleural Fluid Body Fluid Culture - Final Complete 04/06/25 17:13 Voided Urine Urine Culture - Final Klebsiella oxytoca - ESBL Complete 04/06/25 16:06 Blood Blood Culture - Final NO GROWTH AFTER 5 DAYS OF INCUBATION. 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 Duran Mild hypernatremia/dehydration, possibly due to decreased oral intake Renal mass, likely renal cell carcinoma Lung cancer, on radiotherapy Skin cancer COPD exacerbation Hematuria Hypertension Dyslipidemia Status post pacemaker Large right pleural effusion, post thoracentesis (drained 1.1 L) Atrial fibrillation, Recommendation Stable renal function Urology recommending renal mass biopsy and possible cryoablation by IR,, however patient and his does not want any intervention for now--outpt Hemeonc and urology f/u Plan discussed with: Patient, Spouse Dietary Evaluation Review Comments: 1. Renal Diet with Nepro oral supplementation TID 2. Monitor PO intake 3. Follow up with consults and lab values Expected Outcomes/Goals: Improved PO intakes, increased physical strength. RAFY VELASCO MD Apr 19, 2025 17:41
--- NOTE | 2025-04-19 17:42 | DVHPN2 ---
Progress Note - Dictate Date Seen: Apr 19, 2025 Medical Necessity Reason Pt with a Central, PICC or Fol: No vital signs Vital Sign Date Time Temp Pulse Resp B/P (MAP) Pulse Ox O2 Delivery O2 Flow Rate FiO2 04/19/25 16:47 98.2 89 17 120/69 (86) 95 98.2 04/19/25 11:37 Nasal Cannula 2.0 04/19/25 11:37 28 Total Intake and Output 04/18/25 04/18/25 04/19/25 15:00 23:00 07:00 Intake Total 500 ml 250 ml Output Total 1050 ml 400 ml Balance -550 ml -150 ml medications Current Medications Medications Dose Ordered Sig/Andressa Route Start Time Stop Time Status Last Admin Dose Admin Apixaban 2.5 mg BID PO 04/07/25 10:00 04/19/25 08:35 2.5 MG Atorvastatin Calcium 80 mg HS PO 04/07/25 22:00 04/18/25 21:09 80 MG Levothyroxine Sodium 150 mcg QAM@0600 PO 04/07/25 06:00 04/19/25 05:43 150 MCG Ondansetron HCl 4 mg Q4HP PRN IV 04/06/25 22:15 Acetaminophen 650 mg Q6HP PRN PO 04/06/25 22:15 04/07/25 17:12 650 MG Albuterol 2.5 mg Q6HR NEB 04/07/25 12:00 04/19/25 11:37 2.5 MG Ipratropium [place] 0.5 mg Q6HWA [facility] 04/07/25 12:00 04/19/25 11:37 0.5 MG Enteral Nutritional Formula 240 ml TIDWM PO 04/08/25 08:00 04/19/25 13:02 240 ML Levofloxacin 250 mg DAILY PO 04/10/25 10:00 04/19/25 08:35 250 MG Guaifenesin/ Dextromethorphan 10 ml Q4HP PRN PO 04/09/25 13:15 04/10/25 13:16 10 ML Furosemide 20 mg DAILY IV 04/15/25 10:00 04/18/25 10:26 20 MG Amiodarone HCl 200 mg Q12HR PO 04/18/25 10:00 04/19/25 08:35 200 MG laboratory and microbiology Laboratory Tests 04/17/25 08:32 04/16/25 09:40 Test 04/17/25 08:32 Range/Units Serum Glucose 145 H 74-106 mg/dL Assessment/Plan Acute on chronic hypoxic respiratory failure Dependence on supplemental oxygen Lung cancer Congestive heart failure Pneumonia, likely gram negative Pleural effusion Atelectasis Kidney mass, likely metastatic cancer Events: Low oxygen requirements On 3 liters nasal cannula No distress S/p bilateral thora Labs and imaging reviewed Management Continue bronchodilators Antibiotics for pneumonia/UTI - complete course Incentive spirometry Monitor blood pressure Diurese with Lasix Monitor renal function. Monitor electrolytes. Supplement as necessary. Monitor ins and outs. Maintain euvolemia. Avoid fluid overload. Physical therapy. Disposition per primary team Dietary Evaluation Review Comments: 1. Renal Diet with Nepro oral supplementation TID 2. Monitor PO intake 3. Follow up with consults and lab values Expected Outcomes/Goals: Improved PO intakes, increased physical strength. Plan discussed with: Patient GUY GOTTI MD Apr 19, 2025 17:42
[2025-04-20] VITALS (18 sets, daily range): BP systolic 110–125; BP diastolic 59–75; PULSE 75–91; RESP 16–20; TEMP 36.7; O2SAT 92–100
[2025-04-20] MEDS ORDERED: IOHEXOL 300 MG/ML 100ML BOTTLE IJ ONE (07:44)
--- NOTE | 2025-04-20 08:21 | DVHPN2 ---
Progress Note - Dictate Date Seen: Apr 20, 2025 Medical Necessity Reason Pt with a Central, PICC or Fol: No vital signs Vital Sign Date Time Temp Pulse Resp B/P (MAP) Pulse Ox O2 Delivery O2 Flow Rate FiO2 04/20/25 06:30 93 Nasal Cannula 2.0 04/20/25 06:30 28 04/20/25 06:25 84 18 04/20/25 05:00 97.0 125/75 (92) 97.0 Total Intake and Output 04/19/25 04/19/25 04/20/25 15:00 23:00 07:00 Intake Total 550 ml 400 ml Output Total 451 ml 500 ml Balance 99 ml -100 ml medications Current Medications Medications Dose Ordered Sig/Andressa Route Start Time Stop Time Status Last Admin Dose Admin Apixaban 2.5 mg BID PO 04/07/25 10:00 04/19/25 21:35 2.5 MG Atorvastatin Calcium 80 mg HS PO 04/07/25 22:00 04/19/25 21:35 80 MG Levothyroxine Sodium 150 mcg QAM@0600 PO 04/07/25 06:00 04/20/25 05:51 150 MCG Ondansetron HCl 4 mg Q4HP PRN IV 04/06/25 22:15 Acetaminophen 650 mg Q6HP PRN PO 04/06/25 22:15 04/07/25 17:12 650 MG Albuterol 2.5 mg Q6HR NEB 04/07/25 12:00 04/20/25 06:25 2.5 MG Ipratropium [place] 0.5 mg Q6HWA [facility] 04/07/25 12:00 04/20/25 06:25 0.5 MG Enteral Nutritional Formula 240 ml TIDWM PO 04/08/25 08:00 04/20/25 07:43 240 ML Levofloxacin 250 mg DAILY PO 04/10/25 10:00 04/19/25 08:35 250 MG Guaifenesin/ Dextromethorphan 10 ml Q4HP PRN PO 04/09/25 13:15 04/10/25 13:16 10 ML Furosemide 20 mg DAILY IV 04/15/25 10:00 04/18/25 10:26 20 MG Amiodarone HCl 200 mg Q12HR PO 04/18/25 10:00 04/19/25 21:35 200 MG laboratory and microbiology Laboratory Tests 04/17/25 08:32 04/16/25 09:40 Test 04/17/25 08:32 Range/Units Serum Glucose 145 H 74-106 mg/dL Assessment/Plan Had Episodes of a-fib with RVR. Started on Amio drip. Will change to PO Amiodarone Patient is a 84-year-old gentleman who was brought by for generalized weakness which was ongoing and worsening for the past month. Does have history of advanced/metastatic cancer. Cardiology is involved for cardiac aspects of care (patient's called me personally). Patient is known to our practice from outside and before. There is no report of chest pain. There is no report of palpitation. Patient has been on chemotherapy/radiation therapy. Cachectic male. Sitting in bed. Somewhat confused. No gross JVD. Mucosa is pale. Scattered rhonchi in the lungs is heard. Not using accessory muscles of breathing. Cardiac: Regular. Systolic murmur 2/6 in the apex is heard. Abdomen is soft. Bilateral edema seen. 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 Echocardiogram of January 16, 2025 (performed in the office) revealed ejection fraction 45-50%, mild concentric left ventricular hypertrophy, mild left atrial enlargement, pacemaker wires were seen right-sided chambers, bioprosthetic valve in aortic position which worked normally, mild mitral regurgitation, [id number] tricuspid regurgitation with right ventricular systolic pressure of 36 mm Hg. Hemoglobin: 8.6 - 9.0 - 8.2 - 7.4 - 8.2 - 7.8 - 7.8 - 7.9 - 7.7 - 8.8 Creatinine: 2.74 - 2.63 - 2.37 - 2.59 - 2.21 - 1.97 - 1.95 - 1.80 - 2.13 - 2.09 - 2.30 - 2.19 Potassium: 4.5 - 4.5 - 4.0 - 4.3 - 4.3 - 4.4 - 4.8 - 4.7 - 4.8 - 4.4 - 4.4 - 4.7 TSH: 1.86 BNP: 370.27 Troponin (high sensitive): 13 14 - 13 Chest x-ray revealed: IMPRESSION: 1. Cardiomegaly with bibasilar airspace disease and possible small pleural effusion on the right. 2. Pneumonia versus congestive failure are both in the radiographic differential Repeat chest x-ray revealed: IMPRESSION: 1. Removal of the right pleural effusion with atelectasis in the right base. 2. No pneumothorax 3. Pacemaker in place unchanged. Repeat chest xry revealed: IMPRESSION: 1. Moderately progressive multifocal bilateral pulmonary airspace disease with new right mid lung zone infiltrate. 2. Small bilateral pleural effusions. Repeat chest xry revealed: IMPRESSION: Improved aeration of the left lower lung zone with residual trace left-sided pleural effusion and left mid and lower lung zone atelectasis. Unchanged interstitial and alveolar type opacities of the right lower lung zone with obscuration of the right hemidiaphragm. No pneumothorax. CT of the head reported: IMPRESSION: 1. No acute intracranial abnormality. 2. Mild cerebral volume loss and minor chronic microvascular ischemic change. Renal ultrasound reported: IMPRESSION: 1. No hydronephrosis. 2. Questionable 3.2 cm left renal mass. Recommend further evaluation with CT or MRI with IV contrast 3. Bilateral pleural effusions. CT of Abdomen and Pelvis revealed: There is limited interpretation of the abdomen and pelvis without administration of intravenous contrast. Aortic valvular prosthesis. Tiny pericardial effusion. Multiple subcarinal/ paraesophageal lymph nodes up to 2.2 cm. Bilateral pleural [id number] which appears small to moderate in size and [id number] complex in appearance. Bibasilar atelectasis /consolidation Adrenal glands, spleen unremarkable in shape. Pancreatic parenchymal atrophy. No CT evidence for cholelithiasis. Liver capsule nodular morphology. The right kidney demonstrates no hydronephrosis / nephrolithiasis. Left renal hyperdense lesion/ mass extending into the pelvis measuring 4.1 x 3 cm. Nonobstructing left renal calculus measuring 7 mm. Periaortic/retroperitoneal lymph node measuring 10 mm. Portacaval lymph node measuring 12 mm. Stomach is partially distended. Small bowel loops are normal in caliber. Colonic diverticular disease. Moderate volume stool in the colon. Normal appendix. Abdominal aortic atherosclerotic disease. Bladder decompressed by Chavez catheter. No free pelvic fluid. Right inguinal lymph nodes measuring up to 12 mm. Soft tissue edema / anasarca. Moderate to advanced lumbar degenerative disc disease. IMPRESSION: Limited evaluation without contrast. Left renal hyperdense lesion/ mass measuring 4.1 x 3 cm extending to the Left renal pelvis, likely representing patient's known history of renal malignancy. Recommend MRI abdomen with and without contrast to better characterize. 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 Bibasilar pulmonary consolidation. 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 This can be further evaluated with a PET scan. Small to moderate bilateral pleural effusions which appear complex in appearance, possibly malignant in etiology. This can be better evaluated with a CT chest with contrast. Abdominal aortic atherosclerotic disease. Colonic diverticular disease. Moderate volume stool in the colon. Other findings as described. EKG revealed sinus rhythm with left bundle branch block Tele reveals sinus rhythm, with episodes of a-fib with RVR Echocardiogram revealed: Technically limited study secondary to poor acoustic windows. Left ventricle: Mild concentric left ventricular hypertrophy was seen left ventricle was normal-sized. LVEF was 55-60%. There was no gross wall motion abnormality. Right ventricle was mildly dilated with normal systolic function. Mild biatrial enlargement was seen. Pacing wire was seen in right- sided chambers. Bioprosthetic valve was observed in aortic position. It works properly. There was no aortic insufficiency/stenosis. Mild mitral annular calcification was seen. Mild mitral regurgitation was observed. Pmrp-sz-bcmihccm tricuspid regurgitation was seen. Right ventricular systolic pressure was assessed at 44 mm Hg. IVC was normal-sized with normal respiratory variation. There was trace pericardial effusion. Patient is a 84-year-old gentleman with advanced multiple cancers and metastasis who presented with generalized weakness. Does have baseline history of valvular heart disease for which has had TAVR before. Also has history of atrial fibrillation (paroxysmal) for which is on Eliquis as outpatient. Has been on chemotherapy/radiation therapy. Has had poor appetite and malnutrition could have contributed to the clinical picture. Advanced band of cancers could have contributed to the clinical picture. Side effects secondary to radiation/chemotherapy could have contributed to the clinical picture. Acute coronary syndrome is not considered. Decompensated heart failure is not considered as a component of presentation. Does have history of pacemaker (Biotronik) which was recently interrogated in the office. Being followed by Nephrology/Urology/Pulmonary. Had episodes of A-fib with RVR. Started Amio. Encephalopathy, metabolic VICKIE on CKD Pneumonia Lung cancer Advanced metastatic cancer as COPD Pleural effusion, status post thoracentesis Multiple cancers, metastatic Poor functional capacity Paroxysmal AFib Sick sinus syndrome, status post pacemaker implantation (Biotronik) Valvular heart disease, status post TAVR s/p thoracentesis (right and left) by pulmonary A-fib with RVR, Cardiac suggestion for management: Manage on telemetry Follow-up electrolytes and kidney function tests and correct abnormalities Had episodes of A-fib with RVR: On Amio. (stop IV Amio and start oral Amio: 200 mg BID) Long-term continuation of full anticoagulation is advised, if not contraindicated Nephrology follow-up is advised Pulmonary follow-up Urology Follow up Consider Oncology evaluation Goals of care as per primary team. Consider Hospice. Cardiac milian, is stable and can be followed as outpatient Further evaluation and management depends on the above and clinical course Long-term prognosis: very poor A total of 55 minutes was spent reviewing the patient record, examining the patient, making a diagnostic and therapeutic plan, discussing this plan with medical personnel, following up on diagnostic studies and following the patient for clinical stability excluding any and all procedures. At least 50% of this time was spent in direct, [id number] contact. Thank you for allowing me to participate in this patient's care. Further recommendations will depend on patient's clinical course. Please do not hesitate to contact me if you have any questions or concerns. This medical document was created using electronic medical record system with That{img} dictation system. Although this document has been carefully reviewed, there may still be some phonetic and typographical errors. These areas are purely typographical due to the imperfection of the software programs, and do not reflect any compromise in the patient's medical care. Dietary Evaluation Review Comments: 1. Renal Diet with Nepro oral supplementation TID 2. Monitor PO intake 3. Follow up with consults and lab values Expected Outcomes/Goals: Improved PO intakes, increased physical strength. Plan discussed with: Patient, Other (nurse) LUIS HOLT MD Apr 20, 2025 08:21
--- NOTE | 2025-04-20 12:07 | DVHPN2 ---
Progress Note Date Seen: Apr 20, 2025 Medical Necessity Reason Pt with a Central, PICC or Fol: No Subjective Patient reports: No new complaints Changes from previous H/P or p: No Changes Objective vital signs Vital Sign Date Time Temp Pulse Resp B/P (MAP) Pulse Ox O2 Delivery O2 Flow Rate FiO2 04/20/25 11:57 84 16 93 04/20/25 10:25 Nasal Cannula 2.0 04/20/25 09:36 113/59 04/20/25 09:00 98.3 98.3 04/20/25 08:30 28 Total Intake and Output 04/19/25 04/19/25 04/20/25 15:00 23:00 07:00 Intake Total 550 ml 400 ml Output Total 451 ml 500 ml Balance 99 ml -100 ml medications Current Medications Medications Dose Ordered Sig/Andressa Route Start Time Stop Time Status Last Admin Dose Admin Apixaban 2.5 mg BID PO 04/07/25 10:00 04/20/25 09:35 2.5 MG Atorvastatin Calcium 80 mg HS PO 04/07/25 22:00 04/19/25 21:35 80 MG Levothyroxine Sodium 150 mcg QAM@0600 PO 04/07/25 06:00 04/20/25 05:51 150 MCG Ondansetron HCl 4 mg Q4HP PRN IV 04/06/25 22:15 Acetaminophen 650 mg Q6HP PRN PO 04/06/25 22:15 04/07/25 17:12 650 MG Albuterol 2.5 mg Q6HR NEB 04/07/25 12:00 04/20/25 11:57 2.5 MG Ipratropium [place] 0.5 mg Q6HWA NEB 04/07/25 12:00 04/20/25 11:57 0.5 MG Enteral Nutritional Formula 240 ml TIDWM PO 04/08/25 08:00 04/20/25 07:43 240 ML Levofloxacin 250 mg DAILY PO 04/10/25 10:00 04/20/25 09:35 250 MG Guaifenesin/ Dextromethorphan 10 ml Q4HP PRN PO 04/09/25 13:15 04/10/25 13:16 10 ML Furosemide 20 mg DAILY IV 04/15/25 10:00 04/20/25 09:36 20 MG Amiodarone HCl 200 mg Q12HR PO 04/18/25 10:00 04/20/25 09:35 200 MG laboratory and microbiology Laboratory Tests 04/17/25 08:32 04/16/25 09:40 Test 04/17/25 08:32 Range/Units Serum Glucose 145 H 74-106 mg/dL Microbiology Date/Time Source Procedure Growth Status 04/13/25 20:40 Pleural Fluid Gram Stain - Final Complete 04/13/25 20:40 Pleural Fluid Body Fluid Culture - Final Complete 04/06/25 17:13 Voided Urine Urine Culture - Final Klebsiella oxytoca - ESBL Complete 04/06/25 16:06 Blood Blood Culture - Final NO GROWTH AFTER 5 DAYS OF INCUBATION. 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 Timmons Mild hypernatremia/dehydration, possibly due to decreased oral intake Renal mass, likely renal cell carcinoma Lung cancer, on radiotherapy Skin cancer COPD exacerbation Hematuria Hypertension Dyslipidemia Status post pacemaker Large right pleural effusion, post thoracentesis (drained 1.1 L) Atrial fibrillation, Recommendation Stable renal function Urology recommending renal mass biopsy and possible cryoablation by IR,, however patient and his does not want any intervention for now--outpt Hemeonc and urology f/u reports he was told cancers are untreatable. I explained to patient and he should consider hospice Plan discussed with: Patient Dietary Evaluation Review Comments: 1. Renal Diet with Nepro oral supplementation TID 2. Monitor PO intake 3. Follow up with consults and lab values Expected Outcomes/Goals: Improved PO intakes, increased physical strength. MYESHA TIMMONS MD Apr 20, 2025 12:07
--- NOTE | 2025-04-20 14:01 | DVHDS2 ---
Discharge Summary Date of Admission Apr 06, 2025 at 22:10 Date of Discharge: Apr 20, 2025 Labs/Diagnostic Data: Laboratory Results Test 04/17/25 08:32 04/16/25 09:40 04/13/25 20:40 04/13/25 05:05 Sodium Level 143 mmol/L (136-145) Potassium Level 4.7 mmol/L (3.5-5.1) Chloride Level 101 mmol/L (98-107) Carbon Dioxide Level 34 mmol/L (20-31) Anion Gap 8 (5-15) Blood Urea Nitrogen 65 mg/dL (9-23) Creatinine 2.19 mg/dL (0.700-1.30) Glomerular Filtration Rate Calc 29 mL/min (>90) BUN/Creatinine Ratio 29.7 (10.0-20.0) Serum Glucose 145 mg/dL (74-106) Calcium Level 8.7 mg/dL (8.7-10.4) White Blood Count 10.4 10^3/uL (4.4-10.8) Red Blood Count 3.01 10^6/uL (4.5-5.90) Hemoglobin 8.8 g/dL (13.5-17.5) Hematocrit 27.1 % (41.0-53.0) Mean Corpuscular Volume 89.8 fL (80.0-100.0) Mean Corpuscular Hemoglobin 29.1 pg (28.0-32.0) Mean Corpuscular Hemoglobin Concent 32.4 g/dL (32.0-36.0) Red Cell Distribution Width 18.3 % (11.8-14.3) Platelet Count 334 10^3/uL (140-450) Mean Platelet Volume 7.1 fL (6.9-10.8) Neutrophils (%) (Auto) 82.7 % (37.0-80.0) Lymphocytes (%) (Auto) 7.4 % (10.0-50.0) Monocytes (%) (Auto) 7.9 % (0.0-12.0) Eosinophils (%) (Auto) 1.5 % (0.0-7.0) Basophils (%) (Auto) 0.5 % (0.0-2.0) Neutrophils # (Auto) 8.6 10 ^3/uL (1.6-8.6) Lymphocytes # (Auto) 0.8 10 ^3/uL (0.4-5.4) Monocytes # (Auto) 0.8 10 ^3/uL (0-1.3) Eosinophils # (Auto) 0.2 10 ^3/uL (0-0.8) Basophils # (Auto) 0.1 10 ^3/uL (0-0.2) Nucleated Red Blood Cells 0.1 % Total Bilirubin 0.3 mg/dL (0.2-1.0) Aspartate Amino Transferase (AST) 22 U/L (13-40) Alanine Aminotransferase (ALT) 19 U/L (7-40) Alkaline Phosphatase 70 U/L (46-116) Total Protein 7.3 g/dL (5.7-8.2) Albumin 3.7 g/dL (3.2-4.8) Body Fluid Source Pleural fluid Body Fluid pH 7.0 Body Fluid WBC (Manual) 577 CUMM (0-200) Body Fluid RBC (Manual) 04973 CUMM (0-2000) Body Fluid Mononuclear Cells 95 % Body Fluid Polymorphonuclear Cells 5 % (0-25) Body Fluid Glucose 152 mg/dL (.) Body Fluid Total Protein 4.7 g/dL (.) Body Fluid Lactate Dehydrogenase 200 IU/L (.) Magnesium Level 2.4 mg/dL (1.6-2.6) Test 04/07/25 14:30 04/07/25 04:39 04/06/25 19:34 04/06/25 19:02 Urine Color Light-orange (Yellow) Urine Clarity Turbid (Clear) Urine pH 8.0 (5.0-9.0) Urine Specific [place] 1.030 (1.001-1.035) Urine Protein 3+ (Negative) Urine Ketones Negative (Negative) Urine Blood 3+ /uL (Negative) Urine Nitrite Negative (Negative) Urine Bilirubin Negative (Negative) Urine Urobilinogen Normal mg/dL (Negative) Urine Leukocyte Esterase Negative /uL (Negative) Urine RBC 1399 /hpf (0 - 3) Urine WBC Clumps Present /hpf (None Seen) Urine Microscopic WBC 411 /HPF (0-3) Urine Squamous Epithelial Cells None seen /hpf (<5) Urine Bacteria Few /hpf (None Seen) Urine Mucus Few (None Seen) Urine Creatinine < 3.00 mg/dL (30.0-125.0) Urine Protein/Creatinine Ratio 833.00 Urine Sodium 154 mmol/L (40-220) Urine Glucose 2+ mg/dL (Normal) Urine Total Protein > 2500.0 mg/dL (1-14) Uric Acid 8.7 mg/dL (3.7-9.2) Phosphorus Level 3.9 mg/dL (2.4-5.1) Vitamin D 25-Hydroxy 32.9 ng/mL (30.0-100) Parathyroid Hormone (Intact) 86.0 pg/mL (18.4-80.1) Lactic Acid Level 0.6 mmol/L (0.4-2.0) Troponin I High Sensitivity 13 ng/L (</=54) Test 04/06/25 17:00 04/06/25 15:56 Thyroid Stimulating Hormone (TSH) 1.86 uIU/mL (0.55-4.78) B-Type Natriuretic Peptide 370.27 pg/mL (0-100) Other Laboratory Tests 04/17/25 08:32 04/16/25 09:40 Brief Hx & Hospital Course: 84-year-old male presents for evaluation of generalized weakness. Per patient's patient has been progressively weaker and more lethargic over the past one month. He did have his last chemotherapy for lung cancer one month ago. Patient has decreased appetite and refuses to get out of bed. Patient is currently alert oriented x3. Also reports shortness for breath. No cough or fever. 04/20: Presented with generalized weakness. Patient was admitted for UTI and bilateral pneumonia. During the stay patient improving with PT, discussed with patient patient wanted to go to [facility] for acute PT rehab. Closer discharge patient having AFib with RVR. Cardiology consulted patient was started on amiodarone. Patient had echocardiogram showing left ventricular hypertrophy mild concentric, EF 55-60%. No wall motion abnormalities. Patient has pacing wire inappropriate location, bioprosthetic aortic well working sufficiently, mild MR, jyul-fz-maqgowac TR, RVSP44 mm Hg,. Trace pericardial effusion. Patient was started on levofloxacin which was renally dosed to 250 daily. Inpatient improved. Patient's microbiology showing urine culture growing Klebsiella ESBL, sensitive to fluoroquinolones. Patient had CT showing mild cerebral volume loss, minor chronic microvascular ischemic changes. No acute intracranial abnormalities. Renal ultrasound with no hydronephrosis and questionable3 cm left renal mass, bilateral pleural effusions. CTA abdomen and pelvis showing left renal hyperdense lesion measuring 4 x in left renal pelvis, subcarinal and paraesophageal lymphadenopathy, bibasilar pulmonary consolidation, retroperitoneal and portacaval lymphadenopathy, colonic diverticular disease,. Diagnosis: Acute on chronic hypoxic respiratory failure , due to below, resolved back to baseline2 L nasal cannula Bilateral pneumonia, Gram-negative Gram-positive likely Acute complicated cystitis, due to Klebsiella ESBL Atrial fibrillation on Eliquis, on amiodarone Metabolic encephalopathy Hypernatremia Acute kidney injury due to vasomotor nephropathy Chronic kidney disease Lung cancer on radiation therapy History of heart failure Small pleural effusion Chronic anemia of chronic disease COPD Hypertension Type 2 diabetes Obesity History of prostate cancer status post prostatectomy History of aortic stenosis status post TAVR Hypothyroidism History of CVA Plan: -We will discharge to acute physical therapy rehab, in local [facility] center -Continue Levaquin 250 mg daily for4 days -Continue amiodarone 200 mg twice daily -Continue Eliquis 2.5 mg twice daily -Continuing Lipitor 80 mg daily, Lasix 40 mg daily oral -Continue Synthroid 150 mcg in mornings, at least 1/2 hour before breakfast - hold off losartan. Continue Januvia, Entresto, nebivolol, Casodex -Continue other home medications not mentioned above Condition at Discharge: Fair Final Diagnosis/Problems List Acute on chronic hypoxic respiratory failure , due to below, resolved back to baseline2 L nasal cannula Bilateral pneumonia, Gram-negative Gram-positive likely Acute complicated cystitis, due to Klebsiella ESBL Atrial fibrillation on Eliquis, on amiodarone Metabolic encephalopathy Hypernatremia Acute kidney injury due to vasomotor nephropathy Chronic kidney disease Lung cancer on radiation therapy History of heart failure Small pleural effusion Chronic anemia of chronic disease COPD Hypertension Type 2 diabetes Obesity History of prostate cancer status post prostatectomy History of aortic stenosis status post TAVR Hypothyroidism History of CVA Discharge Disposition: [facility] Facility Discharge Instruct/Medications Scheduled Amlodipine Besylate (Amlodipine Besylate), 1 TAB PO DAILY, (Reported) Apixaban Base (Eliquis), 1 TAB PO BID, (Reported) Atorvastatin Calcium (Atorvastatin Calcium), 1 TAB PO HS, (Reported) Bicalutamide (Casodex), 1 TAB PO DAILY, (Reported) Emollient (Aquaphor), 1 EXT DAILY, (Reported) Etqdqvndcom-Xpmdmqiudctu-Xlrxy (Trelegy Ellipta 100-62.5-25 Mcg/INH), 1 AER IN BID, (Reported) Furosemide (Furosemide), 80 MG PO DAILY, (Reported) Krill Oil (M[place]-3 350 mg), 2 CAP PO DAILY, (Reported) Latanoprost (Latanoprost), 1 DROP EACHEYE QPM, (Reported) Levothyroxine Sodium (Levothyroxine Sodium), 1 TAB PO DAILY, (Reported) Losartan Potassium (Losartan Potassium), 50 MG PO DAILY, (Reported) Lutein-Zeaxanthin (Ocuvite Lutein 25 25-5 mg), 1 CAP PO DAILY, (Reported) Nebivolol HCl (Nebivolol Hydrochloride), 1 TAB PO DAILY, (Reported) Sacubitril-Valsartan (Entresto 24-26 mg), 1 TAB PO DAILY, (Reported) Sitagliptin Phosphate (Januvia), 1 TAB PO DAILY, (Reported) Discharge Statement: "Patient was advised to return to the ER or call 911 if any headaches, dizziness, shortness of breath, chest pain, abdominal pain, bleeding, fevers, or worsening of medical condition. Patient was counseled about treatment plan, medications, possible side effects, patientverbalized understanding. All questions were answered to the best of my ability. This discharge took greater then 30 minutes in planning, reviewing documentation, counseling the patient, and discussing with other team members." ASSESSMENT ASSESSMENT Assessment Date of Service: Apr 20, 2025 Billing Provider: KHANG CHAPMAN MD Common Visit Codes: 40283-OQD/OBS DISCH DAY >30min KHANG CHAPMAN MD Apr 20, 2025 14:01
--- NOTE | 2025-04-20 17:56 | DVHPN2 ---
Progress Note - Dictate Date Seen: Apr 20, 2025 Medical Necessity Reason Pt with a Central, PICC or Fol: No vital signs Vital Sign Date Time Temp Pulse Resp B/P (MAP) Pulse Ox O2 Delivery O2 Flow Rate FiO2 04/20/25 16:55 98.0 90 18 111/61 (78) 92 98.0 04/20/25 10:25 Nasal Cannula 2.0 04/20/25 10:00 28 Total Intake and Output 04/19/25 04/19/25 04/20/25 15:00 23:00 07:00 Intake Total 550 ml 400 ml Output Total 451 ml 500 ml Balance 99 ml -100 ml medications Current Medications Medications Dose Ordered Sig/Andressa Route Start Time Stop Time Status Last Admin Dose Admin Apixaban 2.5 mg BID PO 04/07/25 10:00 04/20/25 09:35 2.5 MG Atorvastatin Calcium 80 mg HS PO 04/07/25 22:00 04/19/25 21:35 80 MG Levothyroxine Sodium 150 mcg QAM@0600 PO 04/07/25 06:00 04/20/25 05:51 150 MCG Ondansetron HCl 4 mg Q4HP PRN IV 04/06/25 22:15 Acetaminophen 650 mg Q6HP PRN PO 04/06/25 22:15 04/07/25 17:12 650 MG Albuterol 2.5 mg Q6HR NEB 04/07/25 12:00 04/20/25 11:57 2.5 MG Ipratropium [place] 0.5 mg Q6HWA [facility] 04/07/25 12:00 04/20/25 11:57 0.5 MG Enteral Nutritional Formula 240 ml TIDWM PO 04/08/25 08:00 04/20/25 12:00 240 ML Levofloxacin 250 mg DAILY PO 04/10/25 10:00 04/20/25 09:35 250 MG Guaifenesin/ Dextromethorphan 10 ml Q4HP PRN PO 04/09/25 13:15 04/10/25 13:16 10 ML Furosemide 20 mg DAILY IV 04/15/25 10:00 04/20/25 09:36 20 MG Amiodarone HCl 200 mg Q12HR PO 04/18/25 10:00 04/20/25 09:35 200 MG laboratory and microbiology Laboratory Tests 04/17/25 08:32 04/16/25 09:40 Test 04/17/25 08:32 Range/Units Serum Glucose 145 H 74-106 mg/dL Assessment/Plan Acute on chronic hypoxic respiratory failure Dependence on supplemental oxygen Lung cancer Congestive heart failure Pneumonia, likely gram negative Pleural effusion Atelectasis Kidney mass, likely metastatic cancer Events: Low oxygen requirements On 3 liters nasal cannula No acute events S/p bilateral thora Labs and imaging reviewed Management Continue bronchodilators Antibiotics for pneumonia/UTI - complete course Incentive spirometry Monitor blood pressure Diurese with Lasix Monitor renal function. Monitor electrolytes. Supplement as necessary. Monitor ins and outs. Maintain euvolemia. Avoid fluid overload. Physical therapy. Disposition per primary team Dietary Evaluation Review Comments: 1. Renal Diet with Nepro oral supplementation TID 2. Monitor PO intake 3. Follow up with consults and lab values Expected Outcomes/Goals: Improved PO intakes, increased physical strength. Plan discussed with: Patient GUY GOTTI MD Apr 20, 2025 17:56
== END 2025-04-20 20:45 | DRG 177 ==
LOC: EDUNIT# 15:34 → EDBD 15:34 → ER 15:36 → OVERFLOW 22:10 → WEST WING 23:46 → CENTRAL 04-09 18:19 → TELE-CENTR 04-11 01:31
PROVIDERS: ADMIT Student in an Organized Health Care Education/Training Program; ATTEND Student in an Organized Health Care Education/Training Program
PROC: 0W993ZZ Drainage of Right Pleural Cavity, Percutaneous Approach (ICD-10-PCS; principal; 2025-04-07)
PROC: 0W9B3ZZ Drainage of Left Pleural Cavity, Percutaneous Approach (ICD-10-PCS; 2025-04-13)
PROC: 0W993ZZ Drainage of Right Pleural Cavity, Percutaneous Approach (ICD-10-PCS; 2025-04-16)
DX: J15.69 Pneumonia due to other Gram-negative bacteria (principal); G93.41 Metabolic encephalopathy; J96.21 Acute and chronic respiratory failure with hypoxia; N17.0 Acute kidney failure with tubular necrosis; E87.0 Hyperosmolality and hypernatremia; C34.90 Malignant neoplasm of unspecified part of unspecified bronchus or lung; D63.8 Anemia in other chronic diseases classified elsewhere; B96.1 Klebsiella pneumoniae [K. pneumoniae] as the cause of diseases classified elsewhere; J44.0 Chronic obstructive pulmonary disease with (acute) lower respiratory infection; J90 Pleural effusion, not elsewhere classified; N30.00 Acute cystitis without hematuria; J15.9 Unspecified bacterial pneumonia; Z79.01 Long term (current) use of anticoagulants; I13.0 Hypertensive heart and chronic kidney disease with heart failure and stage 1 through stage 4 chronic kidney disease, or unspecified chronic kidney disease; N18.32 Chronic kidney disease, stage 3b; E11.22 Type 2 diabetes mellitus with diabetic chronic kidney disease; E66.9 Obesity, unspecified; E03.9 Hypothyroidism, unspecified; Z95.2 Presence of prosthetic heart valve; J98.11 Atelectasis; I49.5 Sick sinus syndrome; I50.9 Heart failure, unspecified; I48.91 Unspecified atrial fibrillation; N20.0 Calculus of kidney; E78.5 Hyperlipidemia, unspecified; N18.9 Chronic kidney disease, unspecified; Z68.22 Body mass index [BMI] 22.0-22.9, adult; H54.61 Unqualified visual loss, right eye, normal vision left eye; K57.30 Diverticulosis of large intestine without perforation or abscess without bleeding; R62.7 Adult failure to thrive; Z79.84 Long term (current) use of oral hypoglycemic drugs; Z99.81 Dependence on supplemental oxygen; Z79.899 Other long term (current) drug therapy; Z85.118 Personal history of other malignant neoplasm of bronchus and lung; Z85.46 Personal history of malignant neoplasm of prostate; Z85.528 Personal history of other malignant neoplasm of kidney; Z86.73 Personal history of transient ischemic attack (TIA), and cerebral infarction without residual deficits; Z90.79 Acquired absence of other genital organ(s); Z92.21 Personal history of antineoplastic chemotherapy
CPT/HCPCS: 32555; 36415; 70450; 71045; 74176; 76775; 80048; 80053; 81001; 82306; 82570; 83605; 83735; 83880; 83970; 83986; 84100; 84156; 84300; 84443; 84484; 84550; 85025; 86850; 86900; 86901; 87040; 87071; 87086; 87088; 87186; 87205; 88341; 89051; 93005; 93306; 94640; 96365; 96375; 97110; 97116; 97163; 97530; 99291; G0378; J2543; P9047